=== PATIENT | female | born 1930 | race Caucasian/White ===

== ENCOUNTER 2017-08-30 17:11 | Inpatient (IN) | payer MEDICARE, OTHER ==
[2017-08-30] MEDS ORDERED: Sodium Chloride 0.9% 10 ML Syringe FLUSH PRN (19:29)
[2017-08-30] MEDS ORDERED: BIMATOPROST 0.01% EYERT SCH (21:00)
[2017-08-30] MEDS ORDERED: Budesonide 0.5 MG/2 ML Neb Susp ONE (21:01)
[2017-08-30] MEDS: Budesonide 0.5 MG/2 ML Neb Susp INH SCH (21:12)
[2017-08-30] MEDS: Simvastatin 20 MG Tab PO SCH (21:13)
[2017-08-30] MEDS: Acetaminophen 500 MG Tab PO SCH (21:13)
[2017-08-30] MEDS: busPIRone 5 MG Tab PO SCH (21:13)
[2017-08-30] MEDS: Montelukast 10 MG Tab PO SCH (21:13)
[2017-08-30] MEDS: Enoxaparin 40 MG/0.4 ML Syringe SUBCUT SCH (21:13)
[2017-08-30] MEDS: cefTRIAXone 1,000 MG in Sodium Chloride 0.9% 50 ML IV SCH (21:14)
[2017-08-30] MEDS: ROFLUMILAST 500 MCG PO SCH (21:29)
[2017-08-30] MEDS: BRINZOLAMIDE EYERT SCH (21:29)
[2017-08-30] MEDS: Carboxymethylcellulose Sodium 0.5% Ophth Soln 0.4 ML UD Box of 30 EYEBOTH SCH (21:34)
[2017-08-30] MEDS: Albuterol/Ipratropium 3.0-0.5 MG/3 ML Neb Soln NEB PRN (21:37)
[2017-08-30] MEDS: Azithromycin 500 MG in Sodium Chloride 0.9% 250 ML IV SCH (22:24)
[2017-08-30] MEDS: Arformoterol 15 MCG/2 ML Neb Soln INH SCH (22:27)
[2017-08-30] MEDS ORDERED: hydrOXYzine HCl 25 MG Tab PO ONE (22:38)
[2017-08-31] MEDS ORDERED: hydrOXYzine HCl 25 MG Tab PO ONE (02:30)
[2017-08-31] MEDS: Arformoterol 15 MCG/2 ML Neb Soln INH SCH ×2 (08:47→20:43)
[2017-08-31] MEDS: Budesonide 0.5 MG/2 ML Neb Susp INH SCH ×2 (08:50→19:54)
[2017-08-31] MEDS ORDERED: UMECLIDINIUM BROMIDE IH SCH (09:00)
[2017-08-31] MEDS: Carvedilol 6.25 MG Tab PO SCH ×2 (09:05→17:06)
[2017-08-31] MEDS: BRINZOLAMIDE EYERT SCH ×3 (09:06→20:42)
[2017-08-31] MEDS: Ferrous Gluconate 324 MG Tab PO SCH (09:06)
[2017-08-31] MEDS: busPIRone 5 MG Tab PO SCH ×2 (09:07→20:43)
[2017-08-31] MEDS: Carboxymethylcellulose Sodium 0.5% Ophth Soln 0.4 ML UD Box of 30 EYEBOTH SCH ×4 (09:07→20:43)
[2017-08-31] MEDS: Acetaminophen 500 MG Tab PO SCH ×3 (09:08→20:44)
--- NOTE | 2017-08-31 09:52 | HP ---
ADMISSION DATE: 08/30/2017 REASON FOR VISIT: Complicated cough, respiratory difficulty, pneumonia. HISTORY OF PRESENT ILLNESS: Betty De León is an 86-year-old, female, [place] with her son and [id number]-ffu in [place], [place], who was admitted to [facility] in referral from TASHIA Rivero, Patricia, Marine. Complicated medical history present. Awaken yesterday in the morning with one episode of vomiting; 4 peculiar diarrhea stools without blood, cramps and discomfort; suspicion for fever with chills and sweats during the night; awaken this morning in better spirits. One episode of diarrhea today. No vomiting. Increasing symptoms are respiratory difficulty, complicated cough, difficulty with ambulation, a long-standing history of underlying COPD, reactive airway disease, and repetitive hospitalizations, most recently in October 2016. She was seen by TASHIA Silverman, Patricia, pneumonia was present by exam and radiographically; she had elevated white count of greater than 16,000, admission to hospital was indicated. Daughter in attendance for history and intervention. MEDICATIONS: Please see medication reconciliation list. ALLERGIES: Allergic to levofloxacin, allergy reaction unknown; Optive eyedrops, allergy unknown. PAST MEDICAL HISTORY: Significant for operative procedures including tonsillectomy; adenoidectomy; cholecystectomy for acute cholecystitis; hysterectomy; uterus only by history, uncertain cause; appendectomy for acute appendicitis; hiatal hernia surgery by report. She also had a previous left surgical hip with replacement x2. No other operative procedures, hospitalizations, unusual childhood diseases, major injuries, or fractures. Ongoing medical problems include COPD, peripheral vascular disease, mood disorder, and osteoarthritis. SOCIAL HISTORY: Resides with her son and mveduymn-at-ept on a farmstead in [place], [place]. She has been for 2 years. at 89. of issues of a complicated infection and COPD. 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 She had a set of twins, one daughter early in infancy. An older daughter to the twins, a son younger than the twins, and an adopted son. Smoked, quit in 1993; nil alcohol consumption; no illicit drug use. REVIEW OF SYSTEMS: CONSTITUTIONAL: Feeling a little weak, fatigable, and tired, short of breath. EYES: Sees well by report. EARS: Hears with some difficulty in crowds and background noise. Oropharynx, intact dentition. CHEST: Please see HPI. CVA: Denies chest pain, palpitations, syncope. GI: Regular predictable stools, no blood in urine. Recent vomiting, diarrhea has ceased. : Reasonable bladder control and nocturia x2. No blood in stool. SKIN: No new lesions, eruptions, or moles. ENDOCRINE: No excessive thirst, urination. ALLERGY: No chronic cough, wheeze, or congestion. PSYCHIATRIC: Mood stable. Meds on board. PHYSICAL EXAMINATION: VITAL SIGNS: Weight 47.53 kg, temperature 36.36 degrees Fahrenheit, pulse 93 and regular, blood pressure 128/65, respirations 20, O2 saturation 93% on 4 L. GENERAL: Cooperative, conversant, appears in mild distress, conversation was comfortable. HEENT: Conjunctivae clear. Funduscopic benign. Bright TMs. Clear nasal discharge. Mouth and oropharynx clear. Good gag reflex. Tongue midline. NECK: Benign. Thyroid small. No adenopathy. No JVD. CHEST: Diffuse wheeze and coarse rhonchi, particularly the left lower lung field. HEART: Distant heart sounds without ectopy or significant murmur. BREASTS: Symmetric, atrophic without masses. ABDOMEN: Benign. Lower abdominal surgical scars well healed. PELVIC AND RECTAL: Exam deferred. EXTREMITIES: Well perfused, good reflexes, symmetric sensation intact. Toes downgoing plantar flexion. Left lateral hip surgical scar well healed, remote. LABORATORY DATA: CBC per [facility], white count 16,600, normal CBC otherwise. Radiograph report to follow. Diagnostic studies to follow. ASSESSMENT: An 86-year-old female presents with history of underlying chronic obstructive pulmonary disease, reactive airway disease, an evolving pneumonia with pre-existing medical conditions above. Secondary diagnoses, please see information above. PLAN: Admission to hospital is indicated; blood cultures to be obtained; RT actively involved; 2 drug intravenous therapies - using azithromycin and Rocephin; complementary care and well-being; RT treatments; medications reviewed and appropriate. Inhalation therapy to be continued. /[id number] [place]/CLAUDETTE CC: Warren Santos PA-C
[2017-08-31] MEDS: Tiotropium Inhaler 18 MCG Inhalation Powder Cap Kit of 5 INH SCH (11:10)
[2017-08-31] MEDS: Isosorbide Mononitrate 30 MG Tab.ER PO SCH (11:13)
[2017-08-31] MEDS: Escitalopram 20 MG Tab PO SCH (11:14)
--- NOTE | 2017-08-31 11:21 | PN ---
DATE SEEN: 08/31/2017 SUBJECTIVE: Betty De León is a delightful 86-year-old female from [facility], was admitted yesterday with from [facility]. Dr. Rios, provider of record. Acute onset 24 hours of vomiting and diarrhea, increasing respiratory distress, and radiographic evidence by report of pneumonia. Doing well. Comfortable, feeling well. Much better this morning, she slept with reasonable success. Diagnostic studies, CBC from [facility] noted. Chemistries were satisfactory, potassium 3.1, GFR 60. White count was 10,300. OBJECTIVE: NECK: Benign. Thyroid small. CHEST: Diffuse wheeze and coarse rhonchi. Better air exchange than yesterday. ABDOMEN: Benign. CARDIAC: Distant heart sounds. IMPRESSION: Exacerbation of chronic obstructive pulmonary disease, oxygen dependent by history with accompanying infection. PLAN: We will continue IV azithromycin, IV Rocephin, aggressive treatment and expectations for short hospital stay. /[id number] SYDNEE/CLAUDETTE
[2017-08-31] MEDS: Albuterol/Ipratropium 3.0-0.5 MG/3 ML Neb Soln NEB PRN ×2 (13:38→23:31)
[2017-08-31] MEDS: Aspirin 81 MG Tab.EC PO SCH (17:06)
[2017-08-31] MEDS: cefTRIAXone 1,000 MG in Sodium Chloride 0.9% 50 ML IV SCH (19:56)
[2017-08-31] MEDS: Enoxaparin 40 MG/0.4 ML Syringe SUBCUT SCH (20:43)
[2017-08-31] MEDS: ROFLUMILAST 500 MCG PO SCH (20:44)
[2017-08-31] MEDS: Montelukast 10 MG Tab PO SCH (20:44)
[2017-08-31] MEDS: Latanoprost 0.005% Ophth Soln 2.5 ML Bottle EYERT SCH (20:45)
[2017-08-31] MEDS: Simvastatin 20 MG Tab PO SCH (20:46)
[2017-08-31] MEDS: Azithromycin 500 MG in Sodium Chloride 0.9% 250 ML IV SCH (20:46)
[2017-08-31] MEDS: Acetaminophen/Diphenhydramine 500-25 MG Tab PO PRN (22:04)
[2017-09-01] MEDS: Budesonide 0.5 MG/2 ML Neb Susp INH SCH ×2 (07:49→19:45)
[2017-09-01] MEDS: Arformoterol 15 MCG/2 ML Neb Soln INH SCH ×2 (08:25→19:29)
--- NOTE | 2017-09-01 08:25 | PN ---
DATE SEEN: 09/01/2017 SUBJECTIVE: Betty De León is an 86-year-old female, admitted with acute respiratory distress. Radiographs had been performed prior to admission. Blood cultures are negative, laboratory studies from 08/31/2017 were reviewed and satisfactory. Presently on IV azithromycin and IV ceftriaxone, host of bronchodilator therapy. Feeling much better. OBJECTIVE: VITAL SIGNS: 36.7, 125/53, 22, 95% on 3 L. HEENT: Funduscopic benign. Bright TMs. Clear nasal discharge. Mouth and oropharynx clear. CHEST: Diffuse wheezing, coarse rhonchi. HEART: Regular rate without ectopy or murmur. ABDOMEN: Benign. ASSESSMENT: Acute exacerbation of chronic obstructive pulmonary disease with pneumonia. PLAN: Medications, care and treatment appropriate. Intervention and care as noted. Chest x-ray to follow. /[id number] SYDNEE/CLAUDETTE
[2017-09-01] MEDS: Carvedilol 6.25 MG Tab PO SCH ×2 (08:52→17:05)
[2017-09-01] MEDS: Carboxymethylcellulose Sodium 0.5% Ophth Soln 0.4 ML UD Box of 30 EYEBOTH SCH ×4 (08:52→20:38)
[2017-09-01] MEDS: busPIRone 5 MG Tab PO SCH ×2 (08:52→20:38)
[2017-09-01] MEDS: Ferrous Gluconate 324 MG Tab PO SCH (08:52)
[2017-09-01] MEDS: BRINZOLAMIDE EYERT SCH ×3 (08:52→20:37)
[2017-09-01] MEDS: Tiotropium Inhaler 18 MCG Inhalation Powder Cap Kit of 5 INH SCH (08:53)
[2017-09-01] MEDS: Acetaminophen 500 MG Tab PO SCH ×3 (08:54→20:40)
[2017-09-01] MEDS: methylPREDNISolone Sodium Succinate 40 MG/1 ML SDV IVPUSH SCH ×2 (09:19→19:39)
[2017-09-01] MEDS: Isosorbide Mononitrate 30 MG Tab.ER PO SCH (11:17)
[2017-09-01] MEDS: Escitalopram 20 MG Tab PO SCH (11:19)
--- NOTE | 2017-09-01 12:15 | CR ---
INDICATION: Follow-up pneumonia. CHEST: PA and lateral views of the chest 09/01/2017 were compared with 2015 and 11/06/2016, revealing increasing infiltration in the right mid to lower lung field, which appears to be in the right upper lobe with pleuritis present, and also in the posterior right lower lobe with pleuritis being present , there being blunting of the posterior sulcus on the right. Findings remain compatible with COPD, ASHD with cardiomegaly, and osteoporosis with a compression fracture unchanged from the previous 11/06/2016 examination in the mid thoracic spine. The aorta is tortuous and calcified. IMPRESSION: 1. Increasing severity of pneumonia or recurrent pneumonia in the right upper lobe extending along the major fissure into the middle lobe area to a minimal extent, and also focally in the posterior basilar right lower lobe, with suggestion of pleuritis. 2. COPD. 3. ASHD with cardiomegaly. 4. Osteoporosis with stable compression. MTDD
[2017-09-01] MEDS: Albuterol/Ipratropium 3.0-0.5 MG/3 ML Neb Soln NEB PRN (14:41)
[2017-09-01] MEDS: Aspirin 81 MG Tab.EC PO SCH (17:05)
[2017-09-01] MEDS: cefTRIAXone 1,000 MG in Sodium Chloride 0.9% 50 ML IV SCH (19:33)
[2017-09-01] MEDS: Sodium Chloride 0.9% 250 ML IV SCH (19:49)
[2017-09-01] MEDS: Enoxaparin 40 MG/0.4 ML Syringe SUBCUT SCH (20:38)
[2017-09-01] MEDS: Simvastatin 20 MG Tab PO SCH (20:39)
[2017-09-01] MEDS: ROFLUMILAST 500 MCG PO SCH (20:39)
[2017-09-01] MEDS: Montelukast 10 MG Tab PO SCH (20:39)
[2017-09-01] MEDS: Latanoprost 0.005% Ophth Soln 2.5 ML Bottle EYERT SCH (20:40)
[2017-09-01] MEDS: Azithromycin 500 MG in Sodium Chloride 0.9% 250 ML IV SCH (20:41)
[2017-09-01] MEDS: Acetaminophen/Diphenhydramine 500-25 MG Tab PO PRN (20:50)
[2017-09-02] MEDS: Budesonide 0.5 MG/2 ML Neb Susp INH SCH ×2 (07:47→19:39)
[2017-09-02] MEDS: Arformoterol 15 MCG/2 ML Neb Soln INH SCH ×2 (07:54→19:38)
[2017-09-02] MEDS: Carvedilol 6.25 MG Tab PO SCH ×2 (08:47→17:09)
[2017-09-02] MEDS: Ferrous Sulfate 325 MG Tab PO SCH (08:48)
[2017-09-02] MEDS: BRINZOLAMIDE EYERT SCH ×3 (08:48→20:34)
[2017-09-02] MEDS: methylPREDNISolone Sodium Succinate 40 MG/1 ML SDV IVPUSH SCH (08:48)
[2017-09-02] MEDS: Acetaminophen 500 MG Tab PO SCH ×3 (08:49→20:36)
[2017-09-02] MEDS: Carboxymethylcellulose Sodium 0.5% Ophth Soln 0.4 ML UD Box of 30 EYEBOTH SCH ×4 (08:49→20:35)
[2017-09-02] MEDS: busPIRone 5 MG Tab PO SCH ×2 (08:49→20:34)
[2017-09-02] MEDS: Tiotropium Inhaler 18 MCG Inhalation Powder Cap Kit of 5 INH SCH (08:49)
[2017-09-02] MEDS: Escitalopram 20 MG Tab PO SCH (11:20)
[2017-09-02] MEDS: Isosorbide Mononitrate 30 MG Tab.ER PO SCH (11:20)
[2017-09-02] MEDS: Albuterol/Ipratropium 3.0-0.5 MG/3 ML Neb Soln NEB PRN (13:31)
[2017-09-02] MEDS ORDERED: predniSONE 20 MG Tab PO ONE (15:37)
--- NOTE | 2017-09-02 15:39 | PCM.PN ---
- General Info Date of Service: 09/02/17 Admission Dx/Problem (Free Text): COPD exacerbation with pneumonia RML/RUL. Subjective Update: Patient feeling 75% improved today. No N/V/D. No CP except with cough. Still SOB particularly with exertion but much improved. Has trouble sleeping because of the steroids. Wondering about a sleep aid. Functional Status: Reports: Tolerating Diet, Ambulating, Urinating - Review of Systems General: Reports: No Symptoms - Patient Data Vitals - Most Recent: Last Vital Signs Temp 36.5 C 09/02/17 12:00 Pulse 66 09/02/17 13:46 Resp 24 H 09/02/17 12:00 BP 147/71 H 09/02/17 12:00 Pulse Ox 95 09/02/17 13:46 Weight - Most Recent: 48.988 kg Chet Results Last 24 Hours: Microbiology 08/30/17 20:06 Aerobic Blood Culture - Preliminary Blood - Venous - Lab Draw NO GROWTH AFTER 2 DAYS Anaerobic Blood Culture - Preliminary NO GROWTH AFTER 2 DAYS 08/30/17 20:00 Aerobic Blood Culture - Preliminary Blood - Venous NO GROWTH AFTER 2 DAYS Anaerobic Blood Culture - Preliminary NO GROWTH AFTER 2 DAYS Med Orders - Current: Current Medications Acetaminophen (Tylenol Extra Strength) 500 mg PO TID [facility] Last Admin: 09/02/17 13:16 Dose: 500 mg Acetaminophen/Diphenhydramine HCl (Tylenol Pm Extra Strength) 1 tab PO BEDTIME PRN PRN Reason: Insomnia Last Admin: 09/01/17 20:50 Dose: 1 tab Albuterol/Ipratropium (Duoneb 3.0-0.5 Mg/3 Ml) 3 ml NEB Q6H PRN PRN Reason: breathing Last Admin: 09/02/17 13:31 Dose: 3 ml Arformoterol Tartrate (Brovana) 15 mcg INH 0800,2000 [facility] Last Admin: 09/02/17 07:54 Dose: 15 mcg Artificial Tears (Refresh Plus 0.5%) 0 each EYEBOTH QID [facility] Last Admin: 09/02/17 13:15 Dose: 1 drop Aspirin (Halfprin) 81 mg PO 1700 [facility] Last Admin: 09/01/17 17:05 Dose: 81 mg Azithromycin (Zithromax) 250 mg PO DAILY [facility] Budesonide (Pulmicort) 0.5 mg INH 08,20 [facility] Last Admin: 09/02/17 07:47 Dose: 0.5 mg Buspirone HCl (Buspar) 5 mg PO BID [facility] Last Admin: 09/02/17 08:49 Dose: 5 mg Carvedilol (Coreg) 6.25 mg PO BIDMEALS [facility] Last Admin: 09/02/17 08:47 Dose: 6.25 mg Enoxaparin Sodium (Lovenox) 40 mg SUBCUT Q24H [facility] Last Admin: 09/01/17 20:38 Dose: 40 mg Escitalopram Oxalate (Lexapro) 20 mg PO WITHLUNCH [facility] Last Admin: 09/02/17 11:20 Dose: 20 mg Ferrous Sulfate (Ferrous Sulfate) 325 mg PO 0800 [facility] Last Admin: 09/02/17 08:48 Dose: 325 mg Ceftriaxone Sodium 1,000 mg/ (Sodium Chloride) 50 mls @ 100 mls/hr IV Q24H [facility] Last Admin: 09/01/17 19:33 Dose: 100 mls/hr Sodium Chloride (Normal Saline) 250 mls @ 100 mls/hr IV ASDIRECTED [facility] Last Admin: 09/01/17 19:49 Dose: 100 mls/hr Isosorbide Mononitrate (Imdur) 30 mg PO WITHLUNCH [facility] Last Admin: 09/02/17 11:20 Dose: 30 mg Latanoprost (Xalatan 0.005% Ophth Soln) 0 ml EYERT BEDTIME [facility] Last Admin: 09/01/17 20:40 Dose: 1 drop Montelukast Sodium (Singulair) 10 mg PO BEDTIME [facility] Last Admin: 09/01/17 20:39 Dose: 10 mg Brinzolamide [Azopt 1% Ophth Susp] Own Med 1 drop EYERT TID [facility] Last Admin: 09/02/17 13:15 Dose: 1 drop Roflumilast [ Daliresp] 500mcg Own Med 500 mcg PO BEDTIME [facility] Last Admin: 09/01/17 20:39 Dose: 500 mcg Prednisone (Prednisone) 40 mg PO WITHBREAKFAST [facility] Prednisone (Prednisone) 40 mg PO ONETIME ONE Stop: 09/02/17 15:38 Simvastatin (Zocor) 20 mg PO BEDTIME [facility] Last Admin: 09/01/17 20:39 Dose: 20 mg Sodium Chloride (Saline Flush) 10 ml FLUSH ASDIRECTED PRN PRN Reason: Keep Vein Open Tiotropium Whately (Spiriva Handihaler) 18 mcg INH DAILY [facility] Last Admin: 09/02/17 08:49 Dose: 18 mcg Discontinued Medications Arformoterol Tartrate (Brovana) 15 mcg INH 09,21 [facility] Last Admin: 09/01/17 08:25 Dose: 15 mcg Bimatoprost (Lumigan 0.01% Ophth Soln) 0 ml EYERT BEDTIME [facility] Last Admin: 08/30/17 22:25 Dose: 1 drop Budesonide (Pulmicort) Confirm Administered Dose 0.5 mg .ROUTE .STK-MED ONE Stop: 08/30/17 21:02 Last Admin: 08/30/17 21:30 Dose: Not Given Ferrous Gluconate (Ferrous Gluconate) 324 mg PO 0800 [facility] Last Admin: 09/01/17 08:52 Dose: 324 mg Hydroxyzine HCl (Atarax) 25 mg PO ONETIME ONE Stop: 08/30/17 22:39 Last Admin: 08/30/17 23:04 Dose: 25 mg Hydroxyzine HCl (Atarax) 25 mg PO ONETIME ONE Stop: 08/31/17 02:31 Last Admin: 08/31/17 02:15 Dose: 25 mg Azithromycin 500 mg/ Sodium (Chloride) 250 mls @ 250 mls/hr IV Q24H [facility] Last Admin: 09/01/17 20:41 Dose: 250 mls/hr Methylprednisolone Sodium Succinate (Solu-Medrol) 40 mg IVPUSH Q12H [facility] Last Admin: 09/02/17 08:48 Dose: 40 mg Umeclidinium Whately [Incruse Ellipta*] Inh Own Med 1 puff IH DAILY [facility] Last Admin: 09/02/17 14:29 Dose: Not Given - Exam Quality Assessment: Supplemental Oxygen General: Alert, Oriented, Cooperative, No Acute Distress HEENT: Pupils Equal, Pupils Reactive Neck: Supple Lungs: Decreased Breath Sounds, Crackles, Rhonchi (on right > Left) Cardiovascular: Regular Rate, Regular Rhythm, No Murmurs GI/Abdominal Exam: Normal Bowel Sounds, Soft, Non-Tender Extremities: Pedal Edema (trace bilaterally. ) Skin: Warm, Dry, Intact - Problem List & Annotations (1) COPD with exacerbation SNOMED Code(s): 687342392 Code(s): J44.1 - CHRONIC OBSTRUCTIVE PULMONARY DISEASE W (ACUTE) EXACERBATION Status: Acute Current Visit: No Annotation/Comment:: Continue rocephin, #5 tomorrow can be given early if patient ready for d/c. Change solumedrol to prednisone PO. Would suggest CT chest given abnormality on xray and continued rhonchi which we will do in am. Azithromycin to po tonight day #4. Likely ready for D/C home tomorrow with home health and home O2 as per previous. 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 Discussed increased risk of falls in patients > 65. - Problem List Review Problem List Initiated/Reviewed/Updated: Yes - My Orders Last 24 Hours: My Active Orders 09/02/17 15:37 predniSONE 40 mg PO ONETIME ONE 09/02/17 15:45 predniSONE 40 mg PO WITHBREAKFAST 09/02/17 21:00 Azithromycin [Zithromax] 250 mg PO DAILY
[2017-09-02] MEDS: Aspirin 81 MG Tab.EC PO SCH (17:08)
[2017-09-02] MEDS: cefTRIAXone 1,000 MG in Sodium Chloride 0.9% 50 ML IV SCH (19:39)
[2017-09-02] MEDS: Sodium Chloride 0.9% 250 ML IV SCH (19:39)
[2017-09-02] MEDS: ROFLUMILAST 500 MCG PO SCH (20:35)
[2017-09-02] MEDS: Enoxaparin 40 MG/0.4 ML Syringe SUBCUT SCH (20:35)
[2017-09-02] MEDS: Montelukast 10 MG Tab PO SCH (20:36)
[2017-09-02] MEDS: Simvastatin 20 MG Tab PO SCH (20:37)
[2017-09-02] MEDS: Latanoprost 0.005% Ophth Soln 2.5 ML Bottle EYERT SCH (20:37)
[2017-09-02] MEDS: Azithromycin 250 MG Tab PO SCH (20:41)
[2017-09-02] MEDS: Zolpidem 5 MG Tab PO PRN (21:59)
[2017-09-03] MEDS: Budesonide 0.5 MG/2 ML Neb Susp INH SCH ×2 (07:46→19:44)
[2017-09-03] MEDS: Arformoterol 15 MCG/2 ML Neb Soln INH SCH ×2 (07:51→19:59)
[2017-09-03] MEDS: Tiotropium Inhaler 18 MCG Inhalation Powder Cap Kit of 5 INH SCH (08:27)
[2017-09-03] MEDS: Carboxymethylcellulose Sodium 0.5% Ophth Soln 0.4 ML UD Box of 30 EYEBOTH SCH ×4 (08:27→20:51)
[2017-09-03] MEDS: BRINZOLAMIDE EYERT SCH ×3 (08:27→20:44)
[2017-09-03] MEDS: Ferrous Sulfate 325 MG Tab PO SCH (08:28)
[2017-09-03] MEDS: Carvedilol 6.25 MG Tab PO SCH ×2 (08:28→18:22)
[2017-09-03] MEDS: busPIRone 5 MG Tab PO SCH ×2 (08:29→20:43)
[2017-09-03] MEDS: Acetaminophen 500 MG Tab PO SCH ×3 (08:29→20:42)
[2017-09-03] MEDS: predniSONE 20 MG Tab PO SCH (08:32)
[2017-09-03] MEDS: Azithromycin 250 MG Tab PO SCH (08:32)
[2017-09-03] MEDS: Isosorbide Mononitrate 30 MG Tab.ER PO SCH (11:31)
[2017-09-03] MEDS: Escitalopram 20 MG Tab PO SCH (12:54)
[2017-09-03] MEDS: Albuterol/Ipratropium 3.0-0.5 MG/3 ML Neb Soln NEB PRN (13:13)
--- NOTE | 2017-09-03 15:39 | PCM.PN ---
- General Info Date of Service: 09/03/17 Subjective Update: Patient is an 86-year-old female currently on hospital day #5 for community- acquired pneumonia and COPD exacerbation. Patient has a history of severe underlying lung disease and follows with pulmonary through [facility]. She is quite anxious today about her breathing. Her vital signs have been stable. She doesn't really feel more short of breath but just doesn't feel good. She's had no chest pain. She was able to walk without difficulty with her supplemental oxygen in the [place] with staff. No nausea, no vomiting, no diarrhea. Functional Status: Reports: Tolerating Diet, Ambulating - Review of Systems General: Reports: Weakness, Fatigue Psychiatric: Reports: Anxiety - Patient Data Vitals - Most Recent: Last Vital Signs Temp 36.4 C 09/03/17 09:15 Pulse 78 09/03/17 14:27 Resp 24 H 09/03/17 09:15 BP 157/72 H 09/03/17 11:31 Pulse Ox 96 09/03/17 14:27 Weight - Most Recent: 47.446 kg Lab Results Last 24 Hours: Laboratory Results - last 24 hr 09/03/17 09/03/17 Range/Units 08:37 08:37 WBC 10.3 (4.5-12.0) X10-3/uL RBC 4.18 (3.23-5.20) x10(6)uL Hgb 12.7 (11.5-15.5) g/dL Hct 37.5 (30.0-51.3) % MCV 89.7 (80-96) fL MCH 30.4 (27.7-33.6) pg MCHC 33.9 (32.2-35.4) g/dL RDW 13.1 (11.5-15.5) % Plt Count 252 (125-369) X10(3)uL MPV 8.2 (7.4-10.4) fL Neut % (Auto) 75.8 (46-82) % Lymph % (Auto) 16.0 (13-37) % [place] % (Auto) 8.1 (4-12) % Eos % (Auto) 0 L (1.0-5.0) % Baso % (Auto) 0 (0-2) % Neut # (Auto) 7.9 (1.6-8.3) # Lymph # (Auto) 1.6 (0.6-5.0) # [place] # (Auto) 0.8 (0.0-1.3) # Eos # (Auto) 0.0 (0.0-0.8) # Baso # (Auto) 0.0 (0.0-0.2) # Sodium 136 (135-145) mmol/L Potassium 2.9 L (3.5-5.3) mmol/L Chloride 96 L (100-110) mmol/L Carbon Dioxide 36 H (23-29) mmol/L BUN 18 (8-23) mg/dL Creatinine 0.5 L (0.6-1.3) mg/dL Est Cr Clr Drug Dosing 59.09 mL/min Estimated GFR (MDRD) > 60 (>60) BUN/Creatinine Ratio 36.0 H (9-20) Glucose 103 (80-116) mg/dL Calcium 8.8 (8.6-10.2) mg/dL Total Bilirubin 0.5 (0.1-1.3) mg/dL AST 30 H D (5-27) IU/L ALT 20 D (14-26) IU/L Alkaline Phosphatase 42 L (56-112) IU/L Total Protein 6.9 (6.0-8.0) g/dL Albumin 3.7 (3.2-4.6) g/dL Globulin 3.2 g/dL Albumin/Globulin Ratio 1.2 Chet Results Last 24 Hours: Microbiology 08/30/17 20:06 Aerobic Blood Culture - Preliminary Blood - Venous - Lab Draw NO GROWTH AFTER 3 DAYS Anaerobic Blood Culture - Preliminary NO GROWTH AFTER 3 DAYS 08/30/17 20:00 Aerobic Blood Culture - Preliminary Blood - Venous NO GROWTH AFTER 3 DAYS Anaerobic Blood Culture - Preliminary NO GROWTH AFTER 3 DAYS Med Orders - Current: Current Medications Acetaminophen (Tylenol Extra Strength) 500 mg PO TID MAX Last Admin: 09/03/17 13:45 Dose: 500 mg Acetaminophen/Diphenhydramine HCl (Tylenol Pm Extra Strength) 1 tab PO BEDTIME PRN PRN Reason: Insomnia Last Admin: 09/01/17 20:50 Dose: 1 tab Albuterol/Ipratropium (Duoneb 3.0-0.5 Mg/3 Ml) 3 ml NEB Q6H PRN PRN Reason: breathing Last Admin: 09/03/17 13:13 Dose: 3 ml Arformoterol Tartrate (Brovana) 15 mcg INH 0800,2000 [facility] Last Admin: 09/03/17 07:51 Dose: 15 mcg Artificial Tears (Refresh Plus 0.5%) 0 each EYEBOTH QID [facility] Last Admin: 09/03/17 12:55 Dose: 1 drop Aspirin (Halfprin) 81 mg PO 1700 [facility] Last Admin: 09/02/17 17:08 Dose: 81 mg Azithromycin (Zithromax) 250 mg PO DAILY [facility] Last Admin: 09/03/17 08:32 Dose: 250 mg Budesonide (Pulmicort) 0.5 mg INH 08,20 [facility] Last Admin: 09/03/17 07:46 Dose: 0.5 mg Buspirone HCl (Buspar) 5 mg PO BID [facility] Last Admin: 09/03/17 08:29 Dose: 5 mg Carvedilol (Coreg) 6.25 mg PO BIDMEALS [facility] Last Admin: 09/03/17 08:28 Dose: 6.25 mg Enoxaparin Sodium (Lovenox) 40 mg SUBCUT Q24H [facility] Last Admin: 09/02/17 20:35 Dose: 40 mg Escitalopram Oxalate (Lexapro) 20 mg PO WITHLUNCH [facility] Last Admin: 09/03/17 12:54 Dose: 20 mg Ferrous Sulfate (Ferrous Sulfate) 325 mg PO 0800 [facility] Last Admin: 09/03/17 08:28 Dose: 325 mg Ceftriaxone Sodium 1,000 mg/ (Sodium Chloride) 50 mls @ 100 mls/hr IV Q24H [facility] Last Admin: 09/02/17 19:39 Dose: 100 mls/hr Sodium Chloride (Normal Saline) 250 mls @ 100 mls/hr IV ASDIRECTED [facility] Last Admin: 09/02/17 19:39 Dose: 100 mls/hr Isosorbide Mononitrate (Imdur) 30 mg PO WITHLUNCH [facility] Last Admin: 09/03/17 11:31 Dose: 30 mg Latanoprost (Xalatan 0.005% Ophth Soln) 0 ml EYERT BEDTIME [facility] Last Admin: 09/02/17 20:37 Dose: 1 drop Montelukast Sodium (Singulair) 10 mg PO BEDTIME [facility] Last Admin: 09/02/17 20:36 Dose: 10 mg Brinzolamide [Azopt 1% Ophth Susp] Own Med 1 drop EYERT TID [facility] Last Admin: 09/03/17 13:45 Dose: 1 drop Roflumilast [ Daliresp] 500mcg Own Med 500 mcg PO BEDTIME [facility] Last Admin: 09/02/17 20:35 Dose: 500 mcg Prednisone (Prednisone) 40 mg PO WITHBREAKFAST [facility] Last Admin: 09/03/17 08:32 Dose: 40 mg Simvastatin (Zocor) 20 mg PO BEDTIME [facility] Last Admin: 09/02/17 20:37 Dose: 20 mg Sodium Chloride (Saline Flush) 10 ml FLUSH ASDIRECTED PRN PRN Reason: Keep Vein Open Last Admin: 09/02/17 20:42 Dose: 10 ml Tiotropium Tennyson (Spiriva Handihaler) 18 mcg INH DAILY [facility] Last Admin: 09/03/17 08:27 Dose: 18 mcg Zolpidem Tartrate (Ambien) 5 mg PO BEDTIME PRN PRN Reason: Insomnia Last Admin: 09/02/17 21:59 Dose: 5 mg Discontinued Medications Arformoterol Tartrate (Brovana) 15 mcg INH 09,21 [facility] Last Admin: 09/01/17 08:25 Dose: 15 mcg Bimatoprost (Lumigan 0.01% Ophth Soln) 0 ml EYERT BEDTIME [facility] Last Admin: 08/30/17 22:25 Dose: 1 drop Budesonide (Pulmicort) Confirm Administered Dose 0.5 mg .ROUTE .STK-MED ONE Stop: 08/30/17 21:02 Last Admin: 08/30/17 21:30 Dose: Not Given Ferrous Gluconate (Ferrous Gluconate) 324 mg PO 0800 [facility] Last Admin: 09/01/17 08:52 Dose: 324 mg Hydroxyzine HCl (Atarax) 25 mg PO ONETIME ONE Stop: 08/30/17 22:39 Last Admin: 08/30/17 23:04 Dose: 25 mg Hydroxyzine HCl (Atarax) 25 mg PO ONETIME ONE Stop: 08/31/17 02:31 Last Admin: 08/31/17 02:15 Dose: 25 mg Azithromycin 500 mg/ Sodium (Chloride) 250 mls @ 250 mls/hr IV Q24H [facility] Last Admin: 09/01/17 20:41 Dose: 250 mls/hr Methylprednisolone Sodium Succinate (Solu-Medrol) 40 mg IVPUSH Q12H [facility] Last Admin: 09/02/17 08:48 Dose: 40 mg Umeclidinium Tennyson [Incruse Ellipta*] Inh Own Med 1 puff IH DAILY [facility] Last Admin: 09/02/17 14:29 Dose: Not Given Prednisone (Prednisone) 40 mg PO ONETIME ONE Stop: 09/02/17 15:38 Last Admin: 09/02/17 17:07 Dose: 40 mg - Exam General: Alert, Oriented, No Acute Distress HEENT: Pupils Equal, Pupils Reactive Neck: Supple Lungs: Decreased Breath Sounds, Rhonchi (improved from yesterday.) Cardiovascular: Regular Rate, Regular Rhythm, No Murmurs GI/Abdominal Exam: Normal Bowel Sounds, Soft, Non-Tender, No Distention Back Exam: Normal Inspection Extremities: Normal Inspection, No Pedal Edema Skin: Warm, Dry, Intact Psy/Mental Status: Alert, Anxious - Problem List & Annotations (1) COPD with exacerbation SNOMED Code(s): 207712628 Code(s): J44.1 - CHRONIC OBSTRUCTIVE PULMONARY DISEASE W (ACUTE) EXACERBATION Status: Acute Current Visit: No Annotation/Comment:: Today will be day #5 for both rocephin and azithromycin. Prednisone is now PO. Chest CT showed an area of concern in this right middle lobe which should be further evaluated by pulmonary, which they already see in the outpatient setting. Patient very anxious about returning home, would suggest short-term placement for PT/OT and strengthening while she continues to recover. Daughter requested we restart Recruse Ellipta which we can certainly do. Will stop the spiriva when we get this labeled from pharmacy. (2) Insomnia SNOMED Code(s): 748882791 Code(s): G47.00 - INSOMNIA, UNSPECIFIED Status: Acute Current Visit: Yes Qualifiers: Insomnia type: drug-induced Qualified Code(s): F19.982 - Other psychoactive substance use, unspecified with psychoactive substance-induced sleep disorder Annotation/Comment:: Ambien at bedtime for sleep per patient request. Discussed increased risk of falls in patients > 65. May take 1/2 dose if she chooses. (3) Abnormal CT of the chest SNOMED Code(s): 537735919 Code(s): R93.8 - ABNORMAL FINDINGS ON DIAGNOSTIC IMAGING OF BODY STRUCTURES Status: Acute Current Visit: Yes Annotation/Comment:: CT shows an irregular opacity in the right middle lung. This should be evaluated by pulmonary and considered for bronchoscopy per radiology recommendations. Discussed this at length with patient and her daughter. She will follow up with her regular direct sales consultant. (4) Hypokalemia SNOMED Code(s): 00906973 Code(s): E87.6 - HYPOKALEMIA Status: Acute Current Visit: No Annotation /Comment:: Patient notes she takes TID potassium at home. Will restart here 20 mEq TID. - Problem List Review Problem List Initiated/Reviewed/Updated: Yes - My Orders Last 24 Hours: My Active Orders 09/02/17 15:57 Zolpidem [Ambien] 5 mg PO BEDTIME PRN 09/02/17 21:00 Azithromycin [Zithromax] 250 mg PO DAILY 09/03/17 07:00 Chest wo Cont [CT] Routine 09/03/17 08:00 predniSONE 40 mg PO WITHBREAKFAST - Plan Plan:: Disposition: Anticipate discharge to short-term placement tomorrow for care above what can be provided at home. PT/OT to eval/tx.
[2017-09-03] MEDS: Potassium Chloride 20 MEQ Tab.ER PO SCH ×2 (16:43→20:42)
[2017-09-03] MEDS: Aspirin 81 MG Tab.EC PO SCH (16:45)
[2017-09-03] MEDS: cefTRIAXone 1,000 MG in Sodium Chloride 0.9% 50 ML IV SCH (19:52)
[2017-09-03] MEDS: Sodium Chloride 0.9% 250 ML IV SCH (19:52)
[2017-09-03] MEDS: Montelukast 10 MG Tab PO SCH (20:43)
[2017-09-03] MEDS: ROFLUMILAST 500 MCG PO SCH (20:43)
[2017-09-03] MEDS: Simvastatin 20 MG Tab PO SCH (20:43)
[2017-09-03] MEDS: Latanoprost 0.005% Ophth Soln 2.5 ML Bottle EYERT SCH (20:44)
[2017-09-03] MEDS: Enoxaparin 40 MG/0.4 ML Syringe SUBCUT SCH (20:52)
[2017-09-03] MEDS: Zolpidem 5 MG Tab PO PRN (22:21)
[2017-09-04] MEDS: Arformoterol 15 MCG/2 ML Neb Soln INH SCH (08:13)
[2017-09-04] MEDS: Budesonide 0.5 MG/2 ML Neb Susp INH SCH (08:13)
[2017-09-04] MEDS: Ferrous Sulfate 325 MG Tab PO SCH (08:54)
[2017-09-04] MEDS: Azithromycin 250 MG Tab PO SCH (08:54)
[2017-09-04] MEDS: Potassium Chloride 20 MEQ Tab.ER PO SCH (08:54)
[2017-09-04] MEDS: Acetaminophen 500 MG Tab PO SCH ×2 (08:54→13:33)
[2017-09-04] MEDS: predniSONE 20 MG Tab PO SCH (08:54)
[2017-09-04] MEDS: busPIRone 5 MG Tab PO SCH (08:55)
[2017-09-04] MEDS: BRINZOLAMIDE EYERT SCH ×2 (08:55→13:33)
[2017-09-04] MEDS: Carvedilol 6.25 MG Tab PO SCH (08:55)
[2017-09-04] MEDS: Carboxymethylcellulose Sodium 0.5% Ophth Soln 0.4 ML UD Box of 30 EYEBOTH SCH ×2 (08:56→13:33)
[2017-09-04 08:57] VITALS: BP 132/72
[2017-09-04] MEDS: Tiotropium Inhaler 18 MCG Inhalation Powder Cap Kit of 5 INH SCH (09:58)
[2017-09-04] MEDS: Escitalopram 20 MG Tab PO SCH (11:53)
[2017-09-04] MEDS: Isosorbide Mononitrate 30 MG Tab.ER PO SCH (11:53)
[2017-09-04] MEDS: Albuterol/Ipratropium 3.0-0.5 MG/3 ML Neb Soln NEB PRN (12:44)
--- NOTE | 2017-09-04 16:18 | PCM.DCSUM1 ---
Discharge Summary - Hospital Course Free Text/Narrative:: Patient is an 86-year-old female who was admitted on 08/30/2017 for community- acquired pneumonia and COPD exacerbation. She was admitted for IV azithromycin and Rocephin and steroid therapy. She did well with this. At the end of her treatment she was quite debilitated from her recent illness and the decision was made to admit to swing bed. Patient will be discharged from the hospital to swing bed status for further physical therapy and occupational therapy. Brief History: On the day of discharge, patient was feeling much improved. Shortness of breath was much better. Cough was improved. She had not slept well the night before with the half dose of Ambien so requested that at certain when she would be able to have the full dose. She was still weak and requiring assistance to ambulate. Physical therapy worked with her today and that went well. No chest pain. Improved shortness of breath. Improved cough. No fevers or chills. No nausea, vomiting, diarrhea. Physical exam: On exam this is an elderly female in no distress. Lungs continue to show some rhonchi on the right in the area of the abnormality on CT but otherwise her lungs are almost completely clear. She does have some fine diffuse expiratory wheezes. No crackles. heart sounds are regular with normal rate and rhythm, no murmurs. Abdomen is soft, nontender, nondistended. No pedal edema. - Discharge Data Discharge Date: 09/04/17 Discharge Disposition: DC/Tfer W/I Hosp To Swing Condition: Good - Discharge Diagnosis/Problem(s) (1) Weakness SNOMED Code(s): 41826457 ICD Code: R53.1 - WEAKNESS Status: Acute Problem Details: PT and OT to evaluate and treat. (2) COPD with exacerbation SNOMED Code(s): 803476211 ICD Code: J44.1 - CHRONIC OBSTRUCTIVE PULMONARY DISEASE W (ACUTE) EXACERBATION Status: Acute Problem Details: Completed 5 days rocephin/ azithro, restart Recruse Ellipta. Continue prednisone at 40 mg for now, with taper over the next few days. (3) Anxiety SNOMED Code(s): 91234725 ICD Code: F41.9 - ANXIETY DISORDER, UNSPECIFIED Status: Chronic Problem Details: continue current medication. (4) Abnormal CT of the chest SNOMED Code(s): 713525886 ICD Code: R93.8 - ABNORMAL FINDINGS ON DIAGNOSTIC IMAGING OF BODY STRUCTURES Status: Chronic Problem Details: CT shows an irregular opacity in the right middle lung. This should be evaluated by pulmonary and considered for bronchoscopy per radiology recommendations. She will follow up with her regular stabber. (5) HTN, Benign hypertension SNOMED Code(s): 62070719 ICD Code: I10 - ESSENTIAL (PRIMARY) HYPERTENSION Status: Chronic Problem Details: well-controlled. Continue outpatient medications. - Patient Summary/Data Consults: Consultations 09/04/17 15:36 OT Evaluation and Treatment [CONS] Routine Please Evaluate and Treat. OT Reason for Consult: Strengthening This query below is only for informational purposes and is not editable. Admission Diagnosis/Problem: Weakness PT Evaluation and Treatment [CONS] Routine Please Evaluate and Treat. PT Reason for Consult: Strengthening This query below is only for informational purposes and is not editable. Admission Diagnosis/Problem: Weakness Respiratory Care Assess and Treatment [CONS] Routine Comment: Physician Instructions: - Patient Instructions Diet: Heart Healthy Diet, Low Sodium Activity: As Tolerated - Discharge Plan Home Medications: Home Meds RX: Bimatoprost [LUMIGAN 0.01% Ophth Soln] 1 drop EYERT BEDTIME 11/13/14 [ History] RX: Calcium Carbonate/Vitamin D3 [Calcium 600-Vit D3 400 Tablet] 1 each PO 11/13/14 [History] RX: Isosorbide Mononitrate [Imdur] 30 mg PO WITHLUNCH 11/13/14 [History] RX: Lutein 20 mg PO BEDTIME 11/13/14 [History] RX: Multivit-Min/FA/Lycopene/Lut [Centrum Silver] 1 each PO WITHLUNCH 11/13/14 [ History] RX: Nitroglycerin 0.4 mg SL Q5M PRN 11/13/14 [History] RX: Omeprazole 40 mg PO DAILY 11/13/14 [History] RX: Simvastatin [Zocor] 20 mg PO BEDTIME 11/13/14 [History] RX: busPIRone [Buspar] 5 mg PO BID 11/13/14 [History] RX: Acetaminophen [Tylenol Extra Strength] 500 mg PO TID 12/20/14 [History] RX: Bacitracin/Polymyxin B [Polysporin Ophth Oint] 1 applic EYEBOTH BEDTIME [History] RX: Carboxymethylcellulose Sodium [Refresh Plus 0.5%] 1 drop EYEBOTH QID [History] RX: Roflumilast [Daliresp] 500 mcg PO BEDTIME 03/21/16 [History] RX: Furosemide [Lasix] 10 mg PO Q48H 04/04/16 [History] RX: Montelukast [Singulair] 10 mg PO BEDTIME 04/04/16 [History] RX: Arformoterol [Brovana] 15 mcg INH ,21 05/14/16 [History] RX: Aspirin [Halfprin] 81 mg PO 1700 05/14/16 [History] RX: Budesonide [Pulmicort] 0.5 mg INH ,20 05/14/16 [History] RX: Alendronate Sodium [Alendronate] 70 mg PO GOLD 10/07/16 [History] RX: Brinzolamide [Azopt 1% Ophth Susp] 1 drop EYERT TID 10/07/16 [History] RX: Carvedilol [Coreg] 6.25 mg PO BIDMEALS 10/07/16 [History] RX: Ferrous Gluconate 324 mg PO 0800 10/07/16 [History] RX: Potassium Chloride 10 meq PO TID@08,12,10/07/16 [History] RX: Sodium Chloride [Saline Nasal [place]] 1 dose NS ASDIRECTED PRN 10/07/16 [ History] RX: Escitalopram [Lexapro] 20 mg PO WITHLUNCH #60 tablet 11/12/16 [Rx] RX: Albuterol Sulfate [Proair Respiclick] 2 puff IH Q4H PRN 08/30/17 [History] RX: Umeclidinium [place] [Incruse Ellipta*] 1 puff IH DAILY 08/30/17 [History] RX: Albuterol/Ipratropium [DuoNeb 3.0-0.5 MG/3 ML] 3 ml NEB QID neb 09/04/17 [ Rx] RX: Zolpidem [Ambien] 2.5 mg PO BEDTIME PRN tablet 09/04/17 [Rx] predniSONE [Prednisone] 40 mg PO ASDIRECTED 09/04/17 [History] Patient Handouts: Fall Prevention in the Home, [id number], Shortness of Breath, [id number], Venous Thromboembolism Prevention, Community-Acquired Pneumonia, Adult, [id number] - Discharge Summary/Plan Comment DC Time >30 min.: Yes - Patient Data Med Orders - Current: Current Medications Acetaminophen (Tylenol) 650 mg PO Q4H PRN PRN Reason: Pain (Mild 1-3)/fever Acetaminophen (Tylenol Extra Strength) 500 mg PO TID MAX Albuterol/Ipratropium (Duoneb 3.0-0.5 Mg/3 Ml) 3 ml NEB QID MAX Alendronate Sodium (Fosamax) 70 mg PO GOLD MAX Arformoterol Tartrate (Brovana) 15 mcg INH 0800,2000 MAX Artificial Tears (Refresh Plus 0.5%) each EYEBOTH QID MAX Aspirin (Halfprin) 81 mg PO 1700 MAX Bacitracin/Polymyxin B Sulfate (Polysporin Ophth Oint) 0 gm EYEBOTH BEDTIME MAX Bimatoprost ([place] 0.01% Ophth Soln) ml EYERT BEDTIME MAX Budesonide (Pulmicort) 0.5 mg INH 08,20 MAX Buspirone HCl (Buspar) 5 mg PO BID MAX Carvedilol (Coreg) 6.25 mg PO BIDMEALS MAX Docusate Sodium (Colace) 100 mg PO BID PRN PRN Reason: Constipation Escitalopram Oxalate (Lexapro) 20 mg PO WITHLUNCH MAX Ferrous Sulfate (Ferrous Sulfate) 325 mg PO 0800 MAX Furosemide (Lasix) 10 mg PO Q48H MAX Isosorbide Mononitrate (Imdur) 30 mg PO WITHLUNCH MAX Montelukast Sodium (Singulair) 10 mg PO BEDTIME MAX Nitroglycerin (Nitrostat) 0.4 mg SL Q5M PRN PRN Reason: Chest Pain Non-Formulary Medication (Albuterol Sulfate [Proair Respiclick]) 2 puff IH Q4H PRN PRN Reason: wheezing or SOB Non-Formulary Medication (Brinzolamide [Azopt 1% Ophth Susp]) 1 drop EYERT TID MAX Non-Formulary Medication (Calcium Carbonate/Vitamin D3 [Calcium 600-Vit D3 400 Tablet]) 1 each PO 12,17 MAX Non-Formulary Medication (Lutein [Lutein]) 20 mg PO BEDTIME MAX Non-Formulary Medication (Multivit-Min/Fa/Lycopene/Lut [Centrum Silver]) 1 each PO WITHLUNCH MAX Non-Formulary Medication (Omeprazole [Omeprazole]) 40 mg PO DAILY MAX Non-Formulary Medication (Potassium Chloride [Potassium Chloride]) 10 meq PO TID@08,12, MAX Non-Formulary Medication (Roflumilast [Daliresp]) 500 mcg PO BEDTIME MAX Non-Formulary Medication (Umeclidinium [place] [Incruse Ellipta*]) 1 puff IH DAILY MAX Prednisone (Prednisone) 0 mg PO ASDIRECTED MAX PRN Reason: Taper Stop: 09/12/17 07:59 Simvastatin (Zocor) 20 mg PO BEDTIME MAX Sodium Chloride ([place] Nasal [place]) ml NASBOTH ASDIRECTED PRN PRN Reason: DRY NOSE Zolpidem Tartrate (Ambien) 5 mg PO BEDTIME PRN PRN Reason: Insomnia *Q Meaningful Use (DIS) - VTE *Q VTE Criteria *Q: VTE Pharmacological Contraindications *Q: Med Refused by Patient - Stroke *Q Stroke Criteria *Q: - AMI *Q AMI Criteria *Q:
== END 2017-09-04 15:23 | disposition swing bed (61) | DRG 190 ==
LOC: FB.MS 17:16
PROVIDERS: ADMIT Family Medicine; ATTEND Family Medicine
DX: J44.0 Chronic obstructive pulmonary disease with (acute) lower respiratory infection (principal); J18.9 Pneumonia, unspecified organism; J44.1 Chronic obstructive pulmonary disease with (acute) exacerbation; E87.6 Hypokalemia; Z99.81 Dependence on supplemental oxygen; R91.8 Other nonspecific abnormal finding of lung field; M19.90 Unspecified osteoarthritis, unspecified site; Z87.891 Personal history of nicotine dependence; R53.81 Other malaise; I10 Essential (primary) hypertension; F19.982 Other psychoactive substance use, unspecified with psychoactive substance-induced sleep disorder; Z88.1 Allergy status to other antibiotic agents; Z88.8 Allergy status to other drugs, medicaments and biological substances; Z79.82 Long term (current) use of aspirin; Z79.52 Long term (current) use of systemic steroids; F39 Unspecified mood [affective] disorder
CPT/HCPCS: 36415; 71020; 71250; 80053; 85025; 85027; 87040; 94640; 97165-GO; A9270-GY; J0456; J0696; J1650; J2920; J7050; J7605; J7620; J7626

== ENCOUNTER 2017-09-04 15:26 | Inpatient (IN) | payer MEDICARE, OTHER ==
[2017-09-04] MEDS ORDERED: Docusate Sodium 100 MG Cap PO PRN (15:36)
[2017-09-04] MEDS ORDERED: Acetaminophen 325 MG Tab PO PRN (15:36)
[2017-09-04] MEDS ORDERED: Nitroglycerin 0.4 MG Tab.SL SL PRN (15:46)
[2017-09-04] MEDS ORDERED: Sodium Chloride 0.65% Nasal Spray 45 ML Bottle NASBOTH PRN (15:54)
--- NOTE | 2017-09-04 16:07 | PCM.HP ---
H&P History of Present Illness - General Date of Service: 09/04/17 Admit Problem/Dx: Admission Diagnosis/Problem Admission Diagnosis/Problem Weakness Source of Information: Patient, Old Records History Limitations: Reports: No Limitations - History of Present Illness Initial Comments - Free Text/Narative: This is an 86-year-old female who was recently hospitalized from 08/30 to 09/04 for community-acquired pneumonia and COPD exacerbation. She became quite weak and debilitated during her hospital stay from her illness and at the time of discharge was not ready to return home to her independent living situation. She was thus admitted to [facility] for physical therapy and occupational therapy. - Related Data Allergies/Adverse Reactions: Allergies Allergy/AdvReac Type Severity Reaction Status Date / Time levofloxacin [From Levaquin] Allergy Unknown unknown Verified 08/30/17 18:34 hypromellose Allergy Cannot Verified 08/30/17 18:34 [From GenTeal (hypromellose)] Remember optive eye drops Allergy Unknown unknown Uncoded 11/08/16 08:10 Home Medications: Home Meds Bimatoprost [LUMIGAN 0.01% Ophth Soln] 1 drop EYERT BEDTIME 11/13/14 [History] Calcium Carbonate/Vitamin D3 [Calcium 600-Vit D3 400 Tablet] 1 each PO , [History] Isosorbide Mononitrate [Imdur] 30 mg PO WITHLUNCH 11/13/14 [History] Lutein 20 mg PO BEDTIME 11/13/14 [History] Multivit-Min/FA/Lycopene/Lut [Centrum Silver] 1 each PO WITHLUNCH 11/13/14 [ History] Nitroglycerin 0.4 mg SL Q5M PRN 11/13/14 [History] Omeprazole 40 mg PO DAILY 11/13/14 [History] Simvastatin [Zocor] 20 mg PO BEDTIME 11/13/14 [History] busPIRone [Buspar] 5 mg PO BID 11/13/14 [History] Acetaminophen [Tylenol Extra Strength] 500 mg PO TID 12/20/14 [History] Bacitracin/Polymyxin B [Polysporin Ophth Oint] 1 applic EYEBOTH BEDTIME [History] Carboxymethylcellulose Sodium [Refresh Plus 0.5%] 1 drop EYEBOTH QID 12/22/14 [ History] Roflumilast [Daliresp] 500 mcg PO BEDTIME 03/21/16 [History] Furosemide [Lasix] 10 mg PO Q48H 04/04/16 [History] Montelukast [Singulair] 10 mg PO BEDTIME 04/04/16 [History] Arformoterol [Brovana] 15 mcg INH 09,21 05/14/16 [History] Aspirin [Halfprin] 81 mg PO 1700 05/14/16 [History] Budesonide [Pulmicort] 0.5 mg INH 08,20 05/14/16 [History] Alendronate Sodium [Alendronate] 70 mg PO GOLD 10/07/16 [History] Brinzolamide [Azopt 1% Ophth Susp] 1 drop EYERT TID 10/07/16 [History] Carvedilol [Coreg] 6.25 mg PO BIDMEALS 10/07/16 [History] Ferrous Gluconate 324 mg PO 0800 10/07/16 [History] Potassium Chloride 10 meq PO TID@08,12,21 10/07/16 [History] Sodium Chloride [Saline Nasal [place]] 1 dose NS ASDIRECTED PRN 10/07/16 [History] Escitalopram [Lexapro] 20 mg PO WITHLUNCH #60 tablet 11/12/16 [Rx] Albuterol Sulfate [Proair Respiclick] 2 puff IH Q4H PRN 08/30/17 [History] Umeclidinium [place] [Incruse Ellipta*] 1 puff IH DAILY 08/30/17 [History] Albuterol/Ipratropium [DuoNeb 3.0-0.5 MG/3 ML] 3 ml NEB QID neb 09/04/17 [Rx] Zolpidem [Ambien] 2.5 mg PO BEDTIME PRN tablet 09/04/17 [Rx] predniSONE [Prednisone] 40 mg PO ASDIRECTED 09/04/17 [History] Past Medical History HEENT History: Reports: Cataract, Glaucoma, Impaired Vision, Other (See Below) Other HEENT History: eyritis, ulcer on eye, taking some sort of shot to left eye now for "stroke in the eye" Cardiovascular History: Reports: CAD, Heart Failure, High Cholesterol, Hypertension, DC, PVD, Other (See Below) Other Cardiovascular History: scarlet fever Respiratory History: Reports: COPD, Pneumonia, Recurrent, Other (See Below) Other Respiratory History: Home 02, collapsed lung Gastrointestinal History: Reports: GERD, GI Bleed, Hemorrhoids, Other (See Below ) Other Gastrointestinal History: colitis Genitourinary History: Reports: Renal Calculus, Urinary Incontinence [employer] History: Reports: Musculoskeletal History: Reports: Arthritis, Back Pain, Chronic, Fracture, Osteoporosis Psychiatric History: Reports: Anxiety, Depression Endocrine/Metabolic History: Reports: Osteoporosis Hematologic History: Reports: Anemia, Blood Transfusion(s) Dermatologic History: Reports: Other (See Below) Other Dermatologic History: hx of rosacia - Infectious Disease History Infectious Disease History: Reports: Chicken Pox, Influenza, Measles, Mumps, Rubella, Scarlet Fever - Past Surgical History HEENT Surgical History: Reports: Cataract Surgery, Tonsillectomy Cardiovascular Surgical History: Reports: Percutaneous Transluminal Angioplasty GI Surgical History: Reports: Appendectomy, Cholecystectomy, Colonoscopy, EGD, Hernia Repair/Other, Other (See Below) Musculoskeletal Surgical History: Reports: Hip Replacement, Other (See Below) Social & Family History - Family History Family Medical History: Noncontributory HEENT: Reports: Cataract Cardiac: Reports: Heart Failure, Hypertension GI: Reports: Cholelithiasis OBGYN: Reports: Neurological: Reports: Alzheimers Disease, CVA Oncologic: Reports: Colon - Tobacco Use Smoking Status *Q: Former Smoker Years of Tobacco use: 46 Packs/Tins Daily: 2 Used Tobacco, but Quit: Yes Month Tobacco Last Used: Nov Second Hand Smoke Exposure: No - Caffeine Use Caffeine Use: Reports: Coffee Other Caffeine Use: 5-6 - Alcohol Use Days Per Week of Alcohol Use: 0 - Recreational Drug Use Recreational Drug Use: No - Living Situation & Occupation Living situation: Reports: Single, Alone Occupation: Unemployed H&P Review of Systems - Review of Systems: Review Of Systems: See Below General: Reports: Weakness HEENT: Reports: No Symptoms Pulmonary: Reports: Shortness of Breath, Wheezing, Cough (much improved) Cardiovascular: Reports: No Symptoms Gastrointestinal: Reports: No Symptoms Genitourinary: Reports: No Symptoms Musculoskeletal: Reports: No Symptoms Skin: Reports: No Symptoms Psychiatric: Reports: No Symptoms Neurological: Reports: No Symptoms Hematologic/Lymphatic: Reports: No Symptoms Immunologic: Reports: No Symptoms Exam - Exam Exam: See Below - Exam Quality Assessment: Supplemental Oxygen General: Alert, Oriented, Cooperative HEENT: PERRLA, Conjunctiva Clear, Mucosa Moist & [place] Neck: Supple Lungs: Rhonchi (on right much less than prior) Cardiovascular: Regular Rate, Regular Rhythm GI/Abdominal Exam: Normal Bowel Sounds Back Exam: Normal Inspection Extremities: No Pedal Edema Neuro Extensive - Mental Status: Alert, Oriented x3, Normal Mood/Affect *Q Meaningful Use (ADM) - VTE *Q VTE Criteria *Q: VTE Pharmacological Contraindications *Q: Med Refused by Patient - Stroke *Q Stroke Criteria *Q: - AMI *Q AMI Criteria *Q: - Problem List (1) Weakness SNOMED Code(s): 76891577 ICD Code: R53.1 - WEAKNESS Status: Acute Current Visit: No Problem Details: PT and OT to evaluate and treat. (2) Abnormal CT of the chest SNOMED Code(s): 320919152 ICD Code: R93.8 - ABNORMAL FINDINGS ON DIAGNOSTIC IMAGING OF BODY STRUCTURES Status: Acute Current Visit: No Problem Details: CT shows an irregular opacity in the right middle lung. This should be evaluated by pulmonary and considered for bronchoscopy per radiology recommendations. She will follow up with her regular marketing teacher. (3) Anxiety SNOMED Code(s): 97000516 ICD Code: F41.9 - ANXIETY DISORDER, UNSPECIFIED Status: Acute Current Visit: No Problem Details: continue current medication. (4) COPD with exacerbation SNOMED Code(s): 861952658 ICD Code: J44.1 - CHRONIC OBSTRUCTIVE PULMONARY DISEASE W (ACUTE) EXACERBATION Status: Acute Current Visit: No Problem Details: Completed 5 days rocephin/azithro, restart Recruse Ellipta. Continue prednisone at 40 mg for now, with taper over the next few days. (5) HTN, Benign hypertension SNOMED Code(s): 40680334 ICD Code: I10 - ESSENTIAL (PRIMARY) HYPERTENSION Status: Chronic Current Visit: No Problem Details: well-controlled. Continue outpatient medications. Problem List Initiated/Reviewed/Updated: Yes Orders Last 24hrs: Active Orders 24 hr Category Date Time Status Patient Status [ADT] Routine ADT 09/04/17 15:33 Ordered Ambulate [RC] PER UNIT ROUTINE Care 09/04/17 15:38 Ordered Height and Weight [RC] WEEKLY Care 09/04/17 15:33 Ordered Height and Weight [RC] WEEKLY Care 09/04/17 15:36 Ordered Oxygen Therapy [RC] PRN Care 09/04/17 15:33 Ordered Oxygen Therapy [RC] PRN Care 09/04/17 15:36 Ordered Up With Assistance [RC] ASDIRECTED Care 09/04/17 15:36 Ordered VTE/DVT Education [RC] Per Unit Routine Care 09/04/17 15:33 Ordered VTE/DVT Education [RC] Per Unit Routine Care 09/04/17 15:36 Ordered Vital Signs [RC] PER UNIT ROUTINE Care 09/04/17 15:33 Ordered Vital Signs [RC] PER UNIT ROUTINE Care 09/04/17 15:36 Ordered OT Evaluation and Treatment [CONS] Routine Cons 09/04/17 15:36 Ordered PT Evaluation and Treatment [CONS] Routine Cons 09/04/17 15:36 Ordered Respiratory Care Assess and Treatment [CONS] Routine Cons 09/04/17 15:36 Ordered 2 Gram Sodium Diet [DIET] Diet 09/04/17 Dinner Ordered Acetaminophen [Tylenol Extra Strength] Med 09/04/17 21:00 Ordered 500 mg PO TID Acetaminophen [Tylenol] Med 09/04/17 15:36 Ordered 650 mg PO Q4H PRN Albuterol Sulfate [Proair Respiclick] Med 09/04/17 15:46 Ordered 2 puff IH Q4H PRN Albuterol/Ipratropium [DuoNeb 3.0-0.5 MG/3 ML] Med 09/04/17 17:00 Ordered 3 ml NEB QID Alendronate [Fosamax] Med 09/10/17 15:46 Ordered 70 mg PO GOLD Arformoterol [Brovana] Med 09/04/17 21:00 Ordered 15 mcg INH 09,21 Aspirin [Halfprin] Med 09/04/17 17:00 Ordered 81 mg PO 1700 Bacitracin/Polymyxin B [Polysporin Ophth Oint] Med 09/04/17 21:00 Ordered 1 applic EYEBOTH BEDTIME Bimatoprost [LUMIGAN 0.01% Ophth Soln] Med 09/04/17 21:00 Ordered 1 drop EYERT BEDTIME Brinzolamide [Azopt 1% Ophth Susp] Med 09/04/17 21:00 Ordered 1 drop EYERT TID Budesonide [Pulmicort] Med 09/04/17 20:00 Ordered 0.5 mg INH 08,20 Calcium Carbonate/Vitamin D3 [Calcium 600-Vit D3 400 Med 09/04/17 17:00 Ordered Tablet] 1 each PO 12,17 Carboxymethylcellulose Sodium [Refresh Plus 0.5%] Med 09/04/17 17:00 Ordered 1 drop EYEBOTH QID Carvedilol [Coreg] Med 09/04/17 18:00 Ordered 6.25 mg PO BIDMEALS Docusate Sodium [Colace] Med 09/04/17 15:36 Ordered 100 mg PO BID PRN Escitalopram [Lexapro] Med 09/05/17 12:00 Ordered 20 mg PO WITHLUNCH Ferrous Gluconate Med 09/05/17 08:00 Ordered 324 mg PO 0800 Furosemide [Lasix] Med 09/04/17 16:00 Ordered 10 mg PO Q48H Isosorbide Mononitrate [Imdur] Med 09/05/17 12:00 Ordered 30 mg PO WITHLUNCH Lutein [Lutein] Med 09/04/17 21:00 Ordered 20 mg PO BEDTIME Montelukast [Singulair] Med 09/04/17 21:00 Ordered 10 mg PO BEDTIME Multivit-Min/FA/Lycopene/Lut [Centrum Silver] Med 09/05/17 12:00 Ordered 1 each PO WITHLUNCH Nitroglycerin [Nitrostat] Med 09/04/17 15:46 Ordered 0.4 mg SL Q5M PRN Omeprazole [Omeprazole] Med 09/05/17 09:00 Ordered 40 mg PO DAILY Potassium Chloride [Potassium Chloride] Med 09/04/17 21:00 Ordered 10 meq PO TID@08,12,21 Roflumilast [Daliresp] Med 09/04/17 21:00 Ordered 500 mcg PO BEDTIME Simvastatin [Zocor] Med 09/04/17 21:00 Ordered 20 mg PO BEDTIME Sodium Chloride 0.65% [[place] Nasal [place]] Med 09/04/17 15:54 Ordered 1 dose NASBOTH ASDIRECTED PRN Umeclidinium [place] [Incruse Ellipta*] Med 09/05/17 09:00 Ordered 1 puff IH DAILY Zolpidem [Ambien] Med 09/04/17 15:54 Ordered 5 mg PO BEDTIME PRN busPIRone [Buspar] Med 09/04/17 21:00 Ordered 5 mg PO BID predniSONE Med 09/05/17 08:00 Ordered See Taper PO ASDIRECTED Patient May [OM.PC] Click to Edit Oth 09/04/17 15:36 Ordered Sequential Compression Device [OM.PC] Per Unit Routine Oth 09/04/17 15:38 Ordered VTE Pharmacological Contraindications [AST] Per Unit Oth 09/04/17 15:36 Ordered Routine Resuscitation Status Routine Resus Stat 09/04/17 15:33 Ordered Medication Orders Acetaminophen (Tylenol) 650 mg PO Q4H PRN PRN Reason: Pain (Mild 1-3)/fever Acetaminophen (Tylenol Extra Strength) 500 mg PO TID MAX Albuterol/Ipratropium (Duoneb 3.0-0.5 Mg/3 Ml) 3 ml NEB QID MAX Alendronate Sodium (Fosamax) 70 mg PO GOLD MAX Arformoterol Tartrate (Brovana) 15 mcg INH 09,21 MAX Artificial Tears (Refresh Plus 0.5%) each EYEBOTH QID MAX Aspirin (Halfprin) 81 mg PO 1700 MAX Bacitracin/Polymyxin B Sulfate (Polysporin Ophth Oint) gm EYEBOTH BEDTIME MAX Bimatoprost ([place] 0.01% Ophth Soln) ml EYERT BEDTIME MAX Budesonide (Pulmicort) 0.5 mg INH 08,20 MAX Buspirone HCl (Buspar) 5 mg PO BID MAX Carvedilol (Coreg) 6.25 mg PO BIDMEALS MAX Docusate Sodium (Colace) 100 mg PO BID PRN PRN Reason: Constipation Escitalopram Oxalate (Lexapro) 20 mg PO WITHLUNCH MAX Ferrous Gluconate (Ferrous Gluconate) 324 mg PO 0800 MAX Furosemide (Lasix) 10 mg PO Q48H MAX Isosorbide Mononitrate (Imdur) 30 mg PO WITHLUNCH MAX Montelukast Sodium (Singulair) 10 mg PO BEDTIME MAX Non-Formulary Medication (Albuterol Sulfate [Proair Respiclick]) 2 puff IH Q4H PRN PRN Reason: wheezing or SOB Non-Formulary Medication (Brinzolamide [Azopt 1% Ophth Susp]) 1 drop EYERT TID MAX Non-Formulary Medication (Calcium Carbonate/Vitamin D3 [Calcium 600-Vit D3 400 Tablet]) 1 each PO 12,17 MAX Non-Formulary Medication (Lutein [Lutein]) 20 mg PO BEDTIME MAX
[2017-09-04] MEDS ORDERED: Albuterol 8 GM Inhaler INH PRN (16:23)
[2017-09-04] MEDS: Albuterol/Ipratropium 3.0-0.5 MG/3 ML Neb Soln NEB SCH ×2 (17:17→20:47)
[2017-09-04] MEDS: Calcium Carbonate/Vitamin D3 1250 MG-200 Unit Tab PO SCH (17:19)
[2017-09-04] MEDS: Aspirin 81 MG Tab.EC PO SCH (17:20)
[2017-09-04] MEDS: Carboxymethylcellulose Sodium 0.5% Ophth Soln 0.4 ML UD Box of 30 EYEBOTH SCH ×2 (17:21→20:45)
[2017-09-04] MEDS: Carvedilol 6.25 MG Tab PO SCH (18:34)
[2017-09-04] MEDS: Arformoterol 15 MCG/2 ML Neb Soln INH SCH (20:44)
[2017-09-04] MEDS: Budesonide 0.5 MG/2 ML Neb Susp INH SCH (20:45)
[2017-09-04] MEDS: Potassium Chloride 10 MEQ Tab.ER PO SCH (20:46)
[2017-09-04] MEDS: busPIRone 5 MG Tab PO SCH (20:46)
[2017-09-04] MEDS: Bacitracin/Polymyxin B Ophth Oint 3.5 GM Tube EYEBOTH SCH (20:47)
[2017-09-04] MEDS: Montelukast 10 MG Tab PO SCH (20:49)
[2017-09-04] MEDS: Acetaminophen 500 MG Tab PO SCH (20:49)
[2017-09-04] MEDS: Simvastatin 20 MG Tab PO SCH (20:49)
[2017-09-04] MEDS: Latanoprost 0.005% Ophth Soln 2.5 ML Bottle EYERT SCH (20:49)
[2017-09-04] MEDS: Zolpidem 5 MG Tab PO PRN (22:37)
[2017-09-05] MEDS: Albuterol/Ipratropium 3.0-0.5 MG/3 ML Neb Soln NEB SCH ×4 (06:09→20:26)
[2017-09-05] MEDS: Pantoprazole 40 MG Tab.CR PO SCH (06:09)
[2017-09-05] MEDS: Budesonide 0.5 MG/2 ML Neb Susp INH SCH ×2 (07:38→20:26)
[2017-09-05] MEDS: Arformoterol 15 MCG/2 ML Neb Soln INH SCH ×2 (07:45→20:25)
[2017-09-05] MEDS: Carvedilol 6.25 MG Tab PO SCH ×2 (08:45→18:01)
[2017-09-05] MEDS: Ferrous Sulfate 325 MG Tab PO SCH (08:45)
[2017-09-05] MEDS: Potassium Chloride 10 MEQ Tab.ER PO SCH ×3 (08:46→20:26)
[2017-09-05] MEDS: Furosemide 20 MG Tab PO SCH (08:47)
[2017-09-05] MEDS: Carboxymethylcellulose Sodium 0.5% Ophth Soln 0.4 ML UD Box of 30 EYEBOTH SCH ×4 (08:47→20:27)
[2017-09-05] MEDS: busPIRone 5 MG Tab PO SCH ×2 (08:47→20:26)
[2017-09-05] MEDS: UMECLIDINIUM BROMIDE IH SCH (08:48)
[2017-09-05] MEDS: Acetaminophen 500 MG Tab PO SCH ×3 (08:48→20:31)
[2017-09-05] MEDS: predniSONE 20 MG Tab PO SCH (08:50)
[2017-09-05] MEDS: Calcium Carbonate/Vitamin D3 1250 MG-200 Unit Tab PO SCH ×2 (11:53→18:03)
[2017-09-05] MEDS: Escitalopram 20 MG Tab PO SCH (11:54)
[2017-09-05] MEDS: Multivitamins, Therapeutic with Minerals Tab PO SCH (11:54)
[2017-09-05] MEDS: Isosorbide Mononitrate 30 MG Tab.ER PO SCH (11:58)
[2017-09-05] MEDS: Aspirin 81 MG Tab.EC PO SCH (18:03)
[2017-09-05] MEDS: Bacitracin/Polymyxin B Ophth Oint 3.5 GM Tube EYEBOTH SCH (20:27)
[2017-09-05] MEDS: Montelukast 10 MG Tab PO SCH (20:29)
[2017-09-05] MEDS: Latanoprost 0.005% Ophth Soln 2.5 ML Bottle EYERT SCH (20:29)
[2017-09-05] MEDS: Simvastatin 20 MG Tab PO SCH (20:30)
[2017-09-05] MEDS ORDERED: diphenhydrAMINE 50 MG Cap PO PRN ×2 (21:12→21:18)
[2017-09-05] MEDS: Zolpidem 5 MG Tab PO PRN (22:21)
[2017-09-06] MEDS: Pantoprazole 40 MG Tab.CR PO SCH (05:57)
[2017-09-06] MEDS: Albuterol/Ipratropium 3.0-0.5 MG/3 ML Neb Soln NEB SCH ×4 (07:44→21:20)
[2017-09-06] MEDS: Budesonide 0.5 MG/2 ML Neb Susp INH SCH ×2 (07:54→19:58)
[2017-09-06] MEDS: Arformoterol 15 MCG/2 ML Neb Soln INH SCH ×2 (07:58→19:48)
[2017-09-06] MEDS: Ferrous Sulfate 325 MG Tab PO SCH (08:38)
[2017-09-06] MEDS: Carvedilol 6.25 MG Tab PO SCH ×2 (08:38→17:37)
[2017-09-06] MEDS: busPIRone 5 MG Tab PO SCH ×2 (08:39→20:07)
[2017-09-06] MEDS: Potassium Chloride 10 MEQ Tab.ER PO SCH ×3 (08:39→20:07)
[2017-09-06] MEDS: predniSONE 20 MG Tab PO SCH (08:39)
[2017-09-06] MEDS: UMECLIDINIUM BROMIDE IH SCH (08:40)
[2017-09-06] MEDS: Acetaminophen 500 MG Tab PO SCH ×3 (08:40→20:06)
[2017-09-06] MEDS: Carboxymethylcellulose Sodium 0.5% Ophth Soln 0.4 ML UD Box of 30 EYEBOTH SCH ×4 (08:40→20:07)
[2017-09-06] MEDS: Calcium Carbonate/Vitamin D3 1250 MG-200 Unit Tab PO SCH ×2 (13:22→17:36)
[2017-09-06] MEDS: Isosorbide Mononitrate 30 MG Tab.ER PO SCH (13:22)
[2017-09-06] MEDS: Multivitamins, Therapeutic with Minerals Tab PO SCH (13:23)
[2017-09-06] MEDS: Escitalopram 20 MG Tab PO SCH (13:23)
[2017-09-06] MEDS: Aspirin 81 MG Tab.EC PO SCH (17:36)
--- NOTE | 2017-09-06 19:44 | PCM.PN ---
- General Info Admission Dx/Problem (Free Text): Admission Diagnosis/Problem Admission Diagnosis/Problem Weakness Subjective Update: Patient doing the physical therapy today. Potassium was rechecked and is in the normal range. - Patient Data Vitals - Most Recent: Last Vital Signs Temp 36.7 C 09/06/17 08:00 Pulse 90 09/06/17 17:37 Resp 20 09/06/17 08:00 BP 118/66 09/06/17 17:37 Pulse Ox 95 09/06/17 15:32 Weight - Most Recent: 48.716 kg Lab Results Last 24 Hours: Laboratory Results - last 24 hr 09/06/17 Range/Units 06:30 Sodium 137 (135-145) mmol/L Potassium 3.6 (3.5-5.3) mmol/L Chloride 97 L (100-110) mmol/L Carbon Dioxide 34 H (23-29) mmol/L BUN 16 (8-23) mg/dL Creatinine 0.6 (0.6-1.3) mg/dL Est Cr Clr Drug Dosing 49.24 mL/min Estimated GFR (MDRD) > 60 (>60) BUN/Creatinine Ratio 26.7 H (9-20) Glucose 98 (80-116) mg/dL Calcium 9.2 (8.6-10.2) mg/dL Med Orders - Current: Current Medications Acetaminophen (Tylenol) 650 mg PO Q4H PRN PRN Reason: Pain (Mild 1-3)/fever Acetaminophen (Tylenol Extra Strength) 500 mg PO TID [facility] Last Admin: 09/06/17 15:08 Dose: 500 mg Albuterol (Ventolin Hfa) 0 gm INH Q4H PRN PRN Reason: wheezing or SOB Albuterol/Ipratropium (Duoneb 3.0-0.5 Mg/3 Ml) 3 ml NEB QIDRT [facility] Last Admin: 09/06/17 15:19 Dose: 3 ml Alendronate Sodium (Fosamax) 70 mg PO GOLD [facility] Arformoterol Tartrate (Brovana) 15 mcg INH 0800,2000 [facility] Last Admin: 09/06/17 07:58 Dose: 15 mcg Artificial Tears (Refresh Plus 0.5%) 1 each EYEBOTH QID [facility] Last Admin: 09/06/17 17:36 Dose: 1 drop Aspirin (Halfprin) 81 mg PO 1700 [facility] Last Admin: 10/18/17 17:36 Dose: 81 mg Bacitracin/Polymyxin B Sulfate (Polysporin Ophth Oint) 0 gm EYEBOTH BEDTIME [facility] Last Admin: 09/05/17 20:27 Dose: 1 applic Budesonide (Pulmicort) 0.5 mg INH 08,20 [facility] Last Admin: 09/06/17 07:54 Dose: 0.5 mg Buspirone HCl (Buspar) 5 mg PO BID [facility] Last Admin: 09/06/17 08:39 Dose: 5 mg Calcium Carbonate (Calcium Carbonate/Vitamin D 1250 Mg-200 Unit) 1 tab PO 1200, 1700 [facility] Last Admin: 09/06/17 17:36 Dose: 1 tab Carvedilol (Coreg) 6.25 mg PO BIDMEALS [facility] Last Admin: 09/06/17 17:37 Dose: 6.25 mg Diphenhydramine HCl (Benadryl) 50 mg PO BEDTIME PRN PRN Reason: Insomnia Docusate Sodium (Colace) 100 mg PO BID PRN PRN Reason: Constipation Escitalopram Oxalate (Lexapro) 20 mg PO WITHLUNCH [facility] Last Admin: 09/06/17 13:23 Dose: 20 mg Ferrous Sulfate (Ferrous Sulfate) 325 mg PO 0800 [facility] Last Admin: 09/06/17 08:38 Dose: 325 mg Furosemide (Lasix) 10 mg PO Q48H [facility] Last Admin: 09/05/17 08:47 Dose: 10 mg Isosorbide Mononitrate (Imdur) 30 mg PO WITHLUNCH [facility] Last Admin: 09/06/17 13:22 Dose: 30 mg Latanoprost (Xalatan 0.005% Oph Soln) 0 ml EYERT BEDTIME [facility] Last Admin: 09/05/17 20:29 Dose: 1 drop Lutein (Lutein) 20 mg PO BEDTIME [facility] Last Admin: 09/05/17 20:27 Dose: 20 mg Montelukast Sodium (Singulair) 10 mg PO BEDTIME [facility] Last Admin: 09/05/17 20:29 Dose: 10 mg Multivitamins/Minerals (Vitamins And Minerals) 1 tab PO WITHLUNCH [facility] Last Admin: 09/06/17 13:23 Dose: 1 tab Nitroglycerin (Nitrostat) 0.4 mg SL Q5M PRN PRN Reason: Chest Pain (Brinzolamide [Azopt 1% Ophth Susp] 1 Drop) *Ptom 1 drop EYERT TID [facility] Last Admin: 09/06/17 14:26 Dose: 1 drop (Roflumilast [ Daliresp] 500 Mcg) * Ptom 500 mcg PO BEDTIME [facility] Last Admin: 09/05/17 20:28 Dose: 500 mcg (Umeclidinium [place] [Incruse Ellipta*] 1 Puff) 1 puff IH DAILY [facility] Last Admin: 09/06/17 08:40 Dose: 1 puff Pantoprazole Sodium (Protonix) 40 mg PO DAILY@0600 [facility] Last Admin: 09/06/17 05:57 Dose: 40 mg Potassium Chloride (Klor-Con 10) 10 meq PO TID@0800,1200,2100 [facility] Last Admin: 09/06/17 13:23 Dose: 10 meq Prednisone (Prednisone) 20 mg PO DAILY [facility] PRN Reason: Taper Stop: 09/12/17 07:59 Last Admin: 09/06/17 08:39 Dose: 20 mg Simvastatin (Zocor) 20 mg PO BEDTIME [facility] Last Admin: 09/05/17 20:30 Dose: 20 mg Sodium Chloride ([place] Nasal [place]) 0 ml NASBOTH ASDIRECTED PRN PRN Reason: DRY NOSE Zolpidem Tartrate (Ambien) 5 mg PO BEDTIME PRN PRN Reason: Insomnia Last Admin: 09/05/17 22:21 Dose: 5 mg - Exam General: Alert, Oriented, Cooperative, No Acute Distress - Problem List & Annotations (1) COPD with exacerbation SNOMED Code(s): 099803326 Code(s): J44.1 - CHRONIC OBSTRUCTIVE PULMONARY DISEASE W (ACUTE) EXACERBATION Status: Acute Current Visit: No Annotation/Comment:: Completed 5 days rocephin/azithro, restart Recruse Ellipta. Continue prednisone taper over the next few days. (2) Weakness SNOMED Code(s): 61076972 Code(s): R53.1 - WEAKNESS Status: Acute Current Visit: No Annotation/ Comment:: PT and OT to evaluate and treat. (3) Abnormal CT of the chest SNOMED Code(s): 688034429 Code(s): R93.8 - ABNORMAL FINDINGS ON DIAGNOSTIC IMAGING OF BODY STRUCTURES Status: Chronic Current Visit: No Annotation/Comment:: CT shows an irregular opacity in the right middle lung. This should be evaluated by pulmonary and considered for bronchoscopy per radiology recommendations. She will follow up with her regular test architect. (4) Anxiety SNOMED Code(s): 28028359 Code(s): F41.9 - ANXIETY DISORDER, UNSPECIFIED Status: Chronic Current Visit: No Annotation/Comment:: continue current medication. (5) HTN, Benign hypertension SNOMED Code(s): 33861588 Code(s): I10 - ESSENTIAL (PRIMARY) HYPERTENSION Status: Chronic Current Visit: No Annotation/Comment:: well-controlled. Continue outpatient medications. (6) Hypokalemia SNOMED Code(s): 18594922 Code(s): E87.6 - HYPOKALEMIA Status: Acute Current Visit: No Annotation /Comment:: resolved with po 20 mEq TID. - Problem List Review Problem List Initiated/Reviewed/Updated: Yes - My Orders Last 24 Hours: My Active Orders 09/10/17 06:00 Alendronate [Fosamax] 70 mg PO GOLD
[2017-09-06] MEDS: Latanoprost 0.005% Ophth Soln 2.5 ML Bottle EYERT SCH (20:06)
[2017-09-06] MEDS: Bacitracin/Polymyxin B Ophth Oint 3.5 GM Tube EYEBOTH SCH (20:06)
[2017-09-06] MEDS: Simvastatin 20 MG Tab PO SCH (20:06)
[2017-09-06] MEDS: Montelukast 10 MG Tab PO SCH (20:06)
[2017-09-06] MEDS: Zolpidem 5 MG Tab PO PRN (21:56)
[2017-09-07] MEDS: Pantoprazole 40 MG Tab.CR PO SCH (05:41)
[2017-09-07] MEDS: Albuterol/Ipratropium 3.0-0.5 MG/3 ML Neb Soln NEB SCH ×4 (07:31→20:34)
[2017-09-07] MEDS: Arformoterol 15 MCG/2 ML Neb Soln INH SCH ×2 (07:38→20:33)
[2017-09-07] MEDS: Budesonide 0.5 MG/2 ML Neb Susp INH SCH ×2 (07:40→20:33)
[2017-09-07] MEDS: Carvedilol 6.25 MG Tab PO SCH ×2 (08:29→17:06)
[2017-09-07] MEDS: Potassium Chloride 10 MEQ Tab.ER PO SCH ×3 (08:29→20:34)
[2017-09-07] MEDS: busPIRone 5 MG Tab PO SCH ×2 (08:30→20:34)
[2017-09-07] MEDS: Furosemide 20 MG Tab PO SCH (08:30)
[2017-09-07] MEDS: Ferrous Sulfate 325 MG Tab PO SCH (08:30)
[2017-09-07] MEDS: predniSONE 20 MG Tab PO SCH (08:30)
[2017-09-07] MEDS: Carboxymethylcellulose Sodium 0.5% Ophth Soln 0.4 ML UD Box of 30 EYEBOTH SCH ×4 (08:31→20:35)
[2017-09-07] MEDS: Acetaminophen 500 MG Tab PO SCH ×3 (08:31→20:36)
[2017-09-07] MEDS: UMECLIDINIUM BROMIDE IH SCH (08:32)
[2017-09-07] MEDS: Isosorbide Mononitrate 30 MG Tab.ER PO SCH (12:33)
[2017-09-07] MEDS: Calcium Carbonate/Vitamin D3 1250 MG-200 Unit Tab PO SCH ×2 (12:33→17:06)
[2017-09-07] MEDS: Multivitamins, Therapeutic with Minerals Tab PO SCH (12:34)
[2017-09-07] MEDS: Escitalopram 20 MG Tab PO SCH (12:34)
[2017-09-07] MEDS: Aspirin 81 MG Tab.EC PO SCH (17:06)
[2017-09-07] MEDS ORDERED: Azithromycin 500 MG Tab PO ONE (17:33)
--- NOTE | 2017-09-07 17:36 | PCM.PN ---
- General Info Date of Service: 09/07/17 Admission Dx/Problem (Free Text): Patient states she started having scratchy throat some nasal congestion. She has a cough that's been about the same that is mildly productive. She denies fevers, chills, shortness of breath. - Patient Data Vitals - Most Recent: Last Vital Signs Temp 98.0 F 09/07/17 07:50 Pulse 76 09/07/17 17:06 Resp 18 09/07/17 07:50 BP 116/62 09/07/17 17:06 Pulse Ox 95 09/07/17 14:59 Weight - Most Recent: 107 lb 6.4 oz Med Orders - Current: Current Medications Acetaminophen (Tylenol) 650 mg PO Q4H PRN PRN Reason: Pain (Mild 1-3)/fever Acetaminophen (Tylenol Extra Strength) 500 mg PO TID [facility] Last Admin: 09/07/17 14:07 Dose: 500 mg Albuterol (Ventolin Hfa) 0 gm INH Q4H PRN PRN Reason: wheezing or SOB Albuterol/Ipratropium (Duoneb 3.0-0.5 Mg/3 Ml) 3 ml NEB QIDRT [facility] Last Admin: 09/07/17 14:59 Dose: 3 ml Alendronate Sodium (Fosamax) 70 mg PO GOLD [facility] Arformoterol Tartrate (Brovana) 15 mcg INH 0800,2000 [facility] Last Admin: 09/07/17 07:38 Dose: 15 mcg Artificial Tears (Refresh Plus 0.5%) 1 each EYEBOTH QID [facility] Last Admin: 09/07/17 17:06 Dose: 1 drop Aspirin (Halfprin) 81 mg PO 1700 [facility] Last Admin: 09/07/17 17:06 Dose: 81 mg Azithromycin (Zithromax) 500 mg PO ONETIME ONE Stop: 09/07/17 17:34 Bacitracin/Polymyxin B Sulfate (Polysporin Ophth Oint) 0 gm EYEBOTH BEDTIME [facility] Last Admin: 09/06/17 20:06 Dose: 1 applic Budesonide (Pulmicort) 0.5 mg INH 08,20 [facility] Last Admin: 09/07/17 07:40 Dose: 0.5 mg Buspirone HCl (Buspar) 5 mg PO BID [facility] Last Admin: 09/07/17 08:30 Dose: 5 mg Calcium Carbonate (Calcium Carbonate/Vitamin D 1250 Mg-200 Unit) 1 tab PO 1200, 1700 [facility] Last Admin: 09/07/17 17:06 Dose: 1 tab Carvedilol (Coreg) 6.25 mg PO BIDMEALS [facility] Last Admin: 09/07/17 17:06 Dose: 6.25 mg Diphenhydramine HCl (Benadryl) 50 mg PO BEDTIME PRN PRN Reason: Insomnia Docusate Sodium (Colace) 100 mg PO BID PRN PRN Reason: Constipation Escitalopram Oxalate (Lexapro) 20 mg PO WITHLUNCH [facility] Last Admin: 09/07/17 12:34 Dose: 20 mg Ferrous Sulfate (Ferrous Sulfate) 325 mg PO 0800 [facility] Last Admin: 09/07/17 08:30 Dose: 325 mg Furosemide (Lasix) 10 mg PO Q48H [facility] Last Admin: 09/07/17 08:30 Dose: 10 mg Isosorbide Mononitrate (Imdur) 30 mg PO WITHLUNCH [facility] Last Admin: 09/07/17 12:33 Dose: 30 mg Latanoprost (Xalatan 0.005% Ophth Soln) 0 ml EYERT BEDTIME [facility] Last Admin: 09/06/17 20:06 Dose: 1 drop Lutein (Lutein) 20 mg PO BEDTIME [facility] Last Admin: 09/06/17 20:07 Dose: 20 mg Montelukast Sodium (Singulair) 10 mg PO BEDTIME [facility] Last Admin: 09/06/17 20:06 Dose: 10 mg Multivitamins/Minerals (Vitamins And Minerals) 1 tab PO WITHLUNCH [facility] Last Admin: 09/07/17 12:34 Dose: 1 tab Nitroglycerin (Nitrostat) 0.4 mg SL Q5M PRN PRN Reason: Chest Pain (Brinzolamide [Azopt 1% Ophth Susp] 1 Drop) *Ptom 1 drop EYERT TID [facility] Last Admin: 09/07/17 14:07 Dose: 1 drop (Roflumilast [ Daliresp] 500 Mcg) * Ptom 500 mcg PO BEDTIME [facility] Last Admin: 09/06/17 20:06 Dose: 500 mcg (Umeclidinium [place] [Incruse Ellipta*] 1 Puff) 1 puff IH DAILY [facility] Last Admin: 09/07/17 08:32 Dose: 1 puff Pantoprazole Sodium (Protonix) 40 mg PO DAILY@0600 [facility] Last Admin: 09/07/17 05:41 Dose: 40 mg Potassium Chloride (Klor-Con 10) 10 meq PO TID@0800,1200,2100 [facility] Last Admin: 09/07/17 12:33 Dose: 10 meq Prednisone (Prednisone) 20 mg PO DAILY [facility] PRN Reason: Taper Stop: 09/12/17 07:59 Last Admin: 09/07/17 08:30 Dose: 20 mg Simvastatin (Zocor) 20 mg PO BEDTIME [facility] Last Admin: 09/06/17 20:06 Dose: 20 mg Sodium Chloride ([place] Nasal [place]) 0 ml NASBOTH ASDIRECTED PRN PRN Reason: DRY NOSE Zolpidem Tartrate (Ambien) 5 mg PO BEDTIME PRN PRN Reason: Insomnia Last Admin: 09/06/17 21:56 Dose: 5 mg - Exam General: Alert, Oriented, Cooperative HEENT: Other (TMs are clear with some ear wax. Throat has some postnasal drip but no erythema. Neck supple) Lungs: Normal Respiratory Effort, Rales Cardiovascular: Regular Rate, No Murmurs - Problem List & Annotations (1) Sinusitis SNOMED Code(s): 41209018 Code(s): J32.9 - CHRONIC SINUSITIS, UNSPECIFIED Status: Acute Current Visit: Yes - Problem List Review Problem List Initiated/Reviewed/Updated: Yes - My Orders Last 24 Hours: My Active Orders 09/07/17 16:59 KVNG Hose [Antiembolic Hose] [OM.PC] Routine 09/07/17 17:33 Azithromycin [Zithromax] 500 mg PO ONETIME ONE 09/08/17 09:00 Azithromycin [Zithromax] 250 mg PO DAILY - Assessment Assessment:: Eliza
[2017-09-07] MEDS: Bacitracin/Polymyxin B Ophth Oint 3.5 GM Tube EYEBOTH SCH (20:35)
[2017-09-07] MEDS: Montelukast 10 MG Tab PO SCH (20:36)
[2017-09-07] MEDS: Latanoprost 0.005% Ophth Soln 2.5 ML Bottle EYERT SCH (20:36)
[2017-09-07] MEDS: Simvastatin 20 MG Tab PO SCH (20:37)
[2017-09-07] MEDS: Zolpidem 5 MG Tab PO PRN (22:11)
[2017-09-08] MEDS: Pantoprazole 40 MG Tab.CR PO SCH (06:31)
[2017-09-08] MEDS: Albuterol/Ipratropium 3.0-0.5 MG/3 ML Neb Soln NEB SCH ×4 (07:23→20:41)
[2017-09-08] MEDS: Budesonide 0.5 MG/2 ML Neb Susp INH SCH ×2 (08:00→20:51)
[2017-09-08] MEDS: Arformoterol 15 MCG/2 ML Neb Soln INH SCH ×2 (08:00→20:33)
[2017-09-08] MEDS: Carvedilol 6.25 MG Tab PO SCH ×2 (08:31→17:48)
[2017-09-08] MEDS: Potassium Chloride 10 MEQ Tab.ER PO SCH ×3 (08:32→20:29)
[2017-09-08] MEDS: busPIRone 5 MG Tab PO SCH ×2 (08:32→20:32)
[2017-09-08] MEDS: Ferrous Sulfate 325 MG Tab PO SCH (08:32)
[2017-09-08] MEDS: predniSONE 20 MG Tab PO SCH (08:33)
[2017-09-08] MEDS: Carboxymethylcellulose Sodium 0.5% Ophth Soln 0.4 ML UD Box of 30 EYEBOTH SCH ×4 (08:34→20:33)
[2017-09-08] MEDS: Acetaminophen 500 MG Tab PO SCH ×3 (08:34→20:35)
[2017-09-08] MEDS: UMECLIDINIUM BROMIDE IH SCH (08:35)
[2017-09-08] MEDS: Azithromycin 250 MG Tab PO SCH (08:39)
[2017-09-08] MEDS: Multivitamins, Therapeutic with Minerals Tab PO SCH (11:32)
[2017-09-08] MEDS: Escitalopram 20 MG Tab PO SCH (11:32)
[2017-09-08] MEDS: Isosorbide Mononitrate 30 MG Tab.ER PO SCH (11:35)
[2017-09-08] MEDS: Calcium Carbonate/Vitamin D3 1250 MG-200 Unit Tab PO SCH ×2 (11:36→17:46)
[2017-09-08] MEDS: Aspirin 81 MG Tab.EC PO SCH (17:46)
[2017-09-08] MEDS: Bacitracin/Polymyxin B Ophth Oint 3.5 GM Tube EYEBOTH SCH (20:30)
[2017-09-08] MEDS: Simvastatin 20 MG Tab PO SCH (20:30)
[2017-09-08] MEDS: Latanoprost 0.005% Ophth Soln 2.5 ML Bottle EYERT SCH (20:34)
[2017-09-08] MEDS: Montelukast 10 MG Tab PO SCH (20:35)
[2017-09-08] MEDS: Zolpidem 5 MG Tab PO PRN (21:57)
[2017-09-09] MEDS: Pantoprazole 40 MG Tab.CR PO SCH (05:58)
[2017-09-09] MEDS: Albuterol/Ipratropium 3.0-0.5 MG/3 ML Neb Soln NEB SCH ×3 (07:34→20:13)
[2017-09-09] MEDS: Arformoterol 15 MCG/2 ML Neb Soln INH SCH ×2 (08:14→21:28)
[2017-09-09] MEDS: Budesonide 0.5 MG/2 ML Neb Susp INH SCH ×2 (08:14→21:28)
[2017-09-09] MEDS: Potassium Chloride 10 MEQ Tab.ER PO SCH ×3 (08:30→21:30)
[2017-09-09] MEDS: predniSONE 10 MG Tab PO SCH (08:30)
[2017-09-09] MEDS: Carvedilol 6.25 MG Tab PO SCH ×2 (08:31→17:22)
[2017-09-09] MEDS: Ferrous Sulfate 325 MG Tab PO SCH (08:31)
[2017-09-09] MEDS: busPIRone 5 MG Tab PO SCH ×2 (08:32→21:29)
[2017-09-09] MEDS: Furosemide 20 MG Tab PO SCH (08:32)
[2017-09-09] MEDS: UMECLIDINIUM BROMIDE IH SCH (08:33)
[2017-09-09] MEDS: Acetaminophen 500 MG Tab PO SCH ×3 (08:33→21:32)
[2017-09-09] MEDS: Carboxymethylcellulose Sodium 0.5% Ophth Soln 0.4 ML UD Box of 30 EYEBOTH SCH ×4 (08:33→21:30)
[2017-09-09] MEDS: Azithromycin 250 MG Tab PO SCH (08:34)
[2017-09-09] MEDS: Multivitamins, Therapeutic with Minerals Tab PO SCH (12:27)
[2017-09-09] MEDS: Escitalopram 20 MG Tab PO SCH (12:28)
[2017-09-09] MEDS: Calcium Carbonate/Vitamin D3 1250 MG-200 Unit Tab PO SCH ×2 (12:29→17:22)
[2017-09-09] MEDS: Isosorbide Mononitrate 30 MG Tab.ER PO SCH (12:29)
[2017-09-09] MEDS: Aspirin 81 MG Tab.EC PO SCH (17:22)
[2017-09-09] MEDS: Bacitracin/Polymyxin B Ophth Oint 3.5 GM Tube EYEBOTH SCH (21:29)
[2017-09-09] MEDS: Latanoprost 0.005% Ophth Soln 2.5 ML Bottle EYERT SCH (21:30)
[2017-09-09] MEDS: Montelukast 10 MG Tab PO SCH (21:32)
[2017-09-09] MEDS: Simvastatin 20 MG Tab PO SCH (21:32)
[2017-09-09] MEDS: Zolpidem 5 MG Tab PO PRN (22:08)
[2017-09-10] MEDS ORDERED: Alendronate 70 MG Tab PO SCH (06:00)
[2017-09-10] MEDS: Pantoprazole 40 MG Tab.CR PO SCH (06:30)
[2017-09-10] MEDS: Albuterol/Ipratropium 3.0-0.5 MG/3 ML Neb Soln NEB SCH ×2 (08:00→20:20)
[2017-09-10] MEDS: Acetaminophen 500 MG Tab PO SCH ×3 (08:50→20:08)
[2017-09-10] MEDS: Carvedilol 6.25 MG Tab PO SCH ×2 (08:50→17:20)
[2017-09-10] MEDS: Potassium Chloride 10 MEQ Tab.ER PO SCH ×3 (08:50→20:08)
[2017-09-10] MEDS: predniSONE 10 MG Tab PO SCH (08:50)
[2017-09-10] MEDS: busPIRone 5 MG Tab PO SCH ×2 (08:50→20:10)
[2017-09-10] MEDS: Azithromycin 250 MG Tab PO SCH (08:50)
[2017-09-10] MEDS: Ferrous Sulfate 325 MG Tab PO SCH (08:50)
[2017-09-10] MEDS: UMECLIDINIUM BROMIDE IH SCH (08:51)
[2017-09-10] MEDS: Carboxymethylcellulose Sodium 0.5% Ophth Soln 0.4 ML UD Box of 30 EYEBOTH SCH ×4 (08:51→20:12)
[2017-09-10] MEDS: Budesonide 0.5 MG/2 ML Neb Susp INH SCH ×2 (09:48→19:58)
[2017-09-10] MEDS: Arformoterol 15 MCG/2 ML Neb Soln INH SCH ×2 (09:48→19:58)
[2017-09-10] MEDS: Escitalopram 20 MG Tab PO SCH (11:51)
[2017-09-10] MEDS: Calcium Carbonate/Vitamin D3 1250 MG-200 Unit Tab PO SCH ×2 (11:51→17:20)
[2017-09-10] MEDS: Multivitamins, Therapeutic with Minerals Tab PO SCH (11:51)
[2017-09-10] MEDS: Isosorbide Mononitrate 30 MG Tab.ER PO SCH (11:51)
[2017-09-10] MEDS: Aspirin 81 MG Tab.EC PO SCH (17:20)
[2017-09-10] MEDS: Latanoprost 0.005% Ophth Soln 2.5 ML Bottle EYERT SCH (20:07)
[2017-09-10] MEDS: Montelukast 10 MG Tab PO SCH (20:08)
[2017-09-10] MEDS: Simvastatin 20 MG Tab PO SCH (20:09)
[2017-09-10] MEDS: Bacitracin/Polymyxin B Ophth Oint 3.5 GM Tube EYEBOTH SCH (20:10)
[2017-09-10] MEDS: Zolpidem 5 MG Tab PO PRN (21:32)
[2017-09-11] MEDS: Pantoprazole 40 MG Tab.CR PO SCH (06:12)
[2017-09-11] MEDS: Albuterol/Ipratropium 3.0-0.5 MG/3 ML Neb Soln NEB SCH (07:09)
[2017-09-11] MEDS: Budesonide 0.5 MG/2 ML Neb Susp INH SCH (07:45)
[2017-09-11] MEDS: Arformoterol 15 MCG/2 ML Neb Soln INH SCH (07:48)
--- NOTE | 2017-09-11 08:20 | PCM.PN ---
- General Info Date of Service: 09/11/17 Admission Dx/Problem (Free Text): Patient with out concerns. She wears oxygen normally. She denies cough, shortness of breath, fevers, chills. Says her throat is scratchy and that's improving. No leg swelling or chest pain. - Patient Data Vitals - Most Recent: Last Vital Signs Temp 97.7 F 09/10/17 07:36 Pulse 88 09/11/17 08:15 Resp 20 09/10/17 07:36 BP 130/70 09/10/17 17:20 Pulse Ox 97 09/11/17 08:15 Weight - Most Recent: 107 lb 6.4 oz I&O - Last 24 Hours: Intake & Output 09/10/17 09/11/17 09/11/17 22:59 06:59 14:59 Intake Total 480 Balance 480 Med Orders - Current: Current Medications Acetaminophen (Tylenol) 650 mg PO Q4H PRN PRN Reason: Pain (Mild 1-3)/fever Acetaminophen (Tylenol Extra Strength) 500 mg PO TID [facility] Last Admin: 09/10/17 20:08 Dose: 500 mg Albuterol (Ventolin Hfa) 0 gm INH Q4H PRN PRN Reason: wheezing or SOB Albuterol/Ipratropium (Duoneb 3.0-0.5 Mg/3 Ml) 3 ml NEB BIDRT [facility] Last Admin: 09/11/17 07:09 Dose: 3 ml Alendronate Sodium (Fosamax) 70 mg PO GOLD [facility] Last Admin: 09/10/17 05:57 Dose: 70 mg Arformoterol Tartrate (Brovana) 15 mcg INH 0800,2000 [facility] Last Admin: 09/11/17 07:48 Dose: 15 mcg Artificial Tears (Refresh Plus 0.5%) 1 each EYEBOTH QID [facility] Last Admin: 09/10/17 20:12 Dose: 1 drop Aspirin (Halfprin) 81 mg PO 1700 [facility] Last Admin: 09/10/17 17:20 Dose: 81 mg Azithromycin (Zithromax) 250 mg PO DAILY [facility] Stop: 09/12/17 09:00 Last Admin: 09/10/17 08:50 Dose: 250 mg Bacitracin/Polymyxin B Sulfate (Polysporin Ophth Oint) 0 gm EYEBOTH BEDTIME [facility] Last Admin: 09/10/17 20:10 Dose: 1 applic Budesonide (Pulmicort) 0.5 mg INH 08,20 [facility] Last Admin: 09/11/17 07:45 Dose: 0.5 mg Buspirone HCl (Buspar) 5 mg PO BID [facility] Last Admin: 09/10/17 20:10 Dose: 5 mg Calcium Carbonate (Calcium Carbonate/Vitamin D 1250 Mg-200 Unit) 1 tab PO 1200, 1700 [facility] Last Admin: 09/10/17 17:20 Dose: 1 tab Carvedilol (Coreg) 6.25 mg PO BIDMEALS [facility] Last Admin: 09/10/17 17:20 Dose: 6.25 mg Diphenhydramine HCl (Benadryl) 50 mg PO BEDTIME PRN PRN Reason: Insomnia Docusate Sodium (Colace) 100 mg PO BID PRN PRN Reason: Constipation Escitalopram Oxalate (Lexapro) 20 mg PO WITHLUNCH [facility] Last Admin: 09/10/17 11:51 Dose: 20 mg Ferrous Sulfate (Ferrous Sulfate) 325 mg PO 0800 [facility] Last Admin: 09/10/17 08:50 Dose: 325 mg Furosemide (Lasix) 10 mg PO Q48H [facility] Last Admin: 09/09/17 08:32 Dose: 10 mg Isosorbide Mononitrate (Imdur) 30 mg PO WITHLUNCH [facility] Last Admin: 09/10/17 11:51 Dose: 30 mg Latanoprost (Xalatan 0.005% Ophth Soln) 0 ml EYERT BEDTIME [facility] Last Admin: 09/10/17 20:07 Dose: 1 drop Lutein (Lutein) 20 mg PO BEDTIME [facility] Last Admin: 09/10/17 20:10 Dose: 20 mg Montelukast Sodium (Singulair) 10 mg PO BEDTIME [facility] Last Admin: 09/10/17 20:08 Dose: 10 mg Multivitamins/Minerals (Vitamins And Minerals) 1 tab PO WITHLUNCH [facility] Last Admin: 09/10/17 11:51 Dose: 1 tab Nitroglycerin (Nitrostat) 0.4 mg SL Q5M PRN PRN Reason: Chest Pain (Brinzolamide [Azopt 1% Ophth Susp] 1 Drop) *Ptom 1 drop EYERT TID [facility] Last Admin: 09/10/17 20:11 Dose: 1 drop (Roflumilast [ Daliresp] 500 Mcg) * Ptom 500 mcg PO BEDTIME [facility] Last Admin: 09/10/17 20:08 Dose: 500 mcg (Umeclidinium [place] [Incruse Ellipta*] 1 Puff) 1 puff IH DAILY [facility] Last Admin: 09/10/17 08:51 Dose: 1 puff Pantoprazole Sodium (Protonix) 40 mg PO DAILY@0600 [facility] Last Admin: 09/11/17 06:12 Dose: 40 mg Potassium Chloride (Klor-Con 10) 10 meq PO TID@0800,1200,2100 [facility] Last Admin: 09/10/17 20:08 Dose: 10 meq Simvastatin (Zocor) 20 mg PO BEDTIME [facility] Last Admin: 09/10/17 20:09 Dose: 20 mg Sodium Chloride ([place] Nasal [place]) 0 ml NASBOTH ASDIRECTED PRN PRN Reason: DRY NOSE Zolpidem Tartrate (Ambien) 5 mg PO BEDTIME PRN PRN Reason: Insomnia Last Admin: 09/10/17 21:32 Dose: 5 mg Discontinued Medications Albuterol/Ipratropium (Duoneb 3.0-0.5 Mg/3 Ml) 3 ml NEB QIDRT [facility] Last Admin: 09/09/17 11:29 Dose: Not Given Azithromycin (Zithromax) 500 mg PO ONETIME ONE Stop: 09/07/17 17:34 Last Admin: 09/07/17 18:07 Dose: 500 mg Prednisone (Prednisone) 20 mg PO DAILY [facility] PRN Reason: Taper Stop: 09/12/17 07:59 Last Admin: 09/08/17 08:33 Dose: 20 mg Prednisone (Prednisone) 10 mg PO DAILY@0800 [facility] Stop: 09/11/17 08:01 Last Admin: 09/10/17 08:50 Dose: 10 mg - Exam General: Alert, Oriented, Cooperative Neck: Supple Lungs: Normal Respiratory Effort, Rales (Right) Cardiovascular: Regular Rate, Regular Rhythm Back Exam: Normal Inspection Extremities: No Pedal Edema Neurological: Normal Speech Psy/Mental Status: Alert, Normal Affect, Normal Mood - Problem List & Annotations (1) Sinusitis SNOMED Code(s): 72631620 Code(s): J32.9 - CHRONIC SINUSITIS, UNSPECIFIED Status: Acute Current Visit: Yes (2) COPD with exacerbation SNOMED Code(s): 271858163 Code(s): J44.1 - CHRONIC OBSTRUCTIVE PULMONARY DISEASE W (ACUTE) EXACERBATION Status: Acute Current Visit: No Annotation/Comment:: Completed 5 days rocephin/azithro, restart Recruse Ellipta. Continue prednisone taper over the next few days. (3) Anxiety SNOMED Code(s): 92171686 Code(s): F41.9 - ANXIETY DISORDER, UNSPECIFIED Status: Chronic Current Visit: No Annotation/Comment:: continue current medication. - Problem List Review Problem List Initiated/Reviewed/Updated: Yes - Plan Plan:: 1. Discharge to home on her normal home oxygen and normal medications. 2. Patient does not want home health.
--- NOTE | 2017-09-11 08:35 | PCM.DCSUM1 ---
Discharge Summary - Hospital Course Free Text/Narrative:: Swing bed course-patient was placed on PT/OT. She was honest tapering dose of prednisone that she did. She was on 4 L of nasal cannula oxygen which he normally takes at home. She did well on PT/OT. She was off antibiotics will she was in swing bed until she started having some scratchy throat and nasal congestion pressures put on a Z-Benny. That improved. She did well and wanted to go home. She deferred home health. Brief History: This is an 86-year-old female who was recently hospitalized from 08/30 to 09/04 for community-acquired pneumonia and COPD exacerbation. She became quite weak and debilitated during her hospital stay from her illness and at the time of discharge was not ready to return home to her independent living situation. She was thus admitted to swing bed status for physical therapy and occupational therapy. - Discharge Data Discharge Date: 09/11/17 Discharge Disposition: Home, Self-Care 01 Condition: Good - Discharge Diagnosis/Problem(s) (1) Sinusitis SNOMED Code(s): 21605655 ICD Code: J32.9 - CHRONIC SINUSITIS, UNSPECIFIED Status: Acute Current Visit: Yes (2) COPD with exacerbation SNOMED Code(s): 106625549 ICD Code: J44.1 - CHRONIC OBSTRUCTIVE PULMONARY DISEASE W (ACUTE) EXACERBATION Status: Acute Current Visit: No Problem Details: Completed 5 days rocephin/azithro, restart Recruse Ellipta. Continue prednisone taper over the next few days. (3) Anxiety SNOMED Code(s): 11494640 ICD Code: F41.9 - ANXIETY DISORDER, UNSPECIFIED Status: Chronic Current Visit: No Problem Details: continue current medication. (4) Community acquired pneumonia SNOMED Code(s): 030230710 ICD Code: J18.9 - PNEUMONIA, UNSPECIFIED ORGANISM Status: Acute Current Visit: Yes - Patient Summary/Data Consults: Consultations 09/04/17 15:36 OT Evaluation and Treatment [CONS] Routine Please Evaluate and Treat. OT Reason for Consult: Strengthening This query below is only for informational purposes and is not editable. Admission Diagnosis/Problem: Weakness PT Evaluation and Treatment [CONS] Routine Please Evaluate and Treat. PT Reason for Consult: Strengthening This query below is only for informational purposes and is not editable. Admission Diagnosis/Problem: Weakness Respiratory Care Assess and Treatment [CONS] Routine Comment: Physician Instructions: - Patient Instructions Diet: Regular Diet as Tolerated Activity: As Tolerated Driving: Do Not Drive Showering/Bathing: May Shower Notify Provider of: Fever Other/Special Instructions: 1. 4 L oxygen nasal cannula. 2. Recheck with Dr. Rios 7-10 days. - Discharge Plan Prescriptions/Med Rec: Azithromycin [Zithromax] 250 mg PO DAILY #1 tablet Home Medications: Home Meds Bimatoprost [LUMIGAN 0.01% Ophth Soln] 1 drop EYERT BEDTIME 11/13/14 [History] Calcium Carbonate/Vitamin D3 [Calcium 600-Vit D3 400 Tablet] 1 each PO ,17 [History] Isosorbide Mononitrate [Imdur] 30 mg PO WITHLUNCH 11/13/14 [History] Lutein 20 mg PO BEDTIME 11/13/14 [History] Multivit-Min/FA/Lycopene/Lut [Centrum Silver] 1 each PO WITHLUNCH 11/13/14 [ History] Nitroglycerin 0.4 mg SL Q5M PRN 11/13/14 [History] Omeprazole 40 mg PO DAILY 11/13/14 [History] Simvastatin [Zocor] 20 mg PO BEDTIME 11/13/14 [History] busPIRone [Buspar] 5 mg PO BID 11/13/14 [History] Acetaminophen [Tylenol Extra Strength] 500 mg PO TID 12/20/14 [History] Bacitracin/Polymyxin B [Polysporin Ophth Oint] 1 applic EYEBOTH BEDTIME [History] Carboxymethylcellulose Sodium [Refresh Plus 0.5%] 1 drop EYEBOTH QID 12/22/14 [ History] Roflumilast [Daliresp] 500 mcg PO BEDTIME 03/21/16 [History] Furosemide [Lasix] 10 mg PO Q48H 04/04/16 [History] Montelukast [Singulair] 10 mg PO BEDTIME 04/04/16 [History] Arformoterol [Brovana] 15 mcg INH 09,21 05/14/16 [History] Aspirin [Halfprin] 81 mg PO 1700 05/14/16 [History] Budesonide [Pulmicort] 0.5 mg INH 08,20 05/14/16 [History] Alendronate Sodium [Alendronate] 70 mg PO GOLD 10/07/16 [History] Brinzolamide [Azopt 1% Ophth Susp] 1 drop EYERT TID 10/07/16 [History] Carvedilol [Coreg] 6.25 mg PO BIDMEALS 10/07/16 [History] Ferrous Gluconate 324 mg PO 0800 10/07/16 [History] Potassium Chloride 10 meq PO TID@08,12,21 10/07/16 [History] Sodium Chloride [Saline Nasal [place]] 1 dose NS ASDIRECTED PRN 10/07/16 [History] Escitalopram [Lexapro] 20 mg PO WITHLUNCH #60 tablet 11/12/16 [Rx] Albuterol Sulfate [Proair Respiclick] 2 puff IH Q4H PRN 08/30/17 [History] Umeclidinium [place] [Incruse Ellipta*] 1 puff IH DAILY 08/30/17 [History] Albuterol/Ipratropium [DuoNeb 3.0-0.5 MG/3 ML] 3 ml NEB QID neb 09/04/17 [Rx] Zolpidem [Ambien] 2.5 mg PO BEDTIME PRN tablet 09/04/17 [Rx] Azithromycin [Zithromax] 250 mg PO DAILY #1 tablet 09/11/17 [Rx] - Patient Data Vitals - Most Recent: Last Vital Signs Temp 97.7 F 09/10/17 07:36 Pulse 88 09/11/17 08:15 Resp 20 09/10/17 07:36 BP 130/70 09/10/17 17:20 Pulse Ox 97 09/11/17 08:15 Weight - Most Recent: 107 lb 6.4 oz I&O - Last 24 hours: Intake & Output 09/10/17 09/11/17 09/11/17 22:59 06:59 14:59 Intake Total 480 Balance 480 Med Orders - Current: Current Medications Acetaminophen (Tylenol) 650 mg PO Q4H PRN PRN Reason: Pain (Mild 1-3)/fever Acetaminophen (Tylenol Extra Strength) 500 mg PO TID MAX Last Admin: 09/10/17 20:08 Dose: 500 mg Albuterol (Ventolin Hfa) 0 gm INH Q4H PRN PRN Reason: wheezing or SOB Albuterol/Ipratropium (Duoneb 3.0-0.5 Mg/3 Ml) 3 ml NEB BIDRT [facility] Last Admin: 09/11/17 07:09 Dose: 3 ml Alendronate Sodium (Fosamax) 70 mg PO GOLD [facility] Last Admin: 09/10/17 05:57 Dose: 70 mg Arformoterol Tartrate (Brovana) 15 mcg INH 0800,2000 [facility] Last Admin: 09/11/17 07:48 Dose: 15 mcg Artificial Tears (Refresh Plus 0.5%) 1 each EYEBOTH QID [facility] Last Admin: 09/10/17 20:12 Dose: 1 drop Aspirin (Halfprin) 81 mg PO 1700 [facility] Last Admin: 09/10/17 17:20 Dose: 81 mg Azithromycin (Zithromax) 250 mg PO DAILY [facility] Stop: 09/12/17 09:00 Last Admin: 09/10/17 08:50 Dose: 250 mg Bacitracin/Polymyxin B Sulfate (Polysporin Ophth Oint) 0 gm EYEBOTH BEDTIME [facility] Last Admin: 09/10/17 20:10 Dose: 1 applic Budesonide (Pulmicort) 0.5 mg INH 08,20 [facility] Last Admin: 09/11/17 07:45 Dose: 0.5 mg Buspirone HCl (Buspar) 5 mg PO BID [facility] Last Admin: 09/10/17 20:10 Dose: 5 mg Calcium Carbonate (Calcium Carbonate/Vitamin D 1250 Mg-200 Unit) 1 tab PO 1200, 1700 [facility] Last Admin: 09/10/17 17:20 Dose: 1 tab Carvedilol (Coreg) 6.25 mg PO BIDMEALS [facility] Last Admin: 09/10/17 17:20 Dose: 6.25 mg Diphenhydramine HCl (Benadryl) 50 mg PO BEDTIME PRN PRN Reason: Insomnia Docusate Sodium (Colace) 100 mg PO BID PRN PRN Reason: Constipation Escitalopram Oxalate (Lexapro) 20 mg PO WITHLUNCH [facility] Last Admin: 09/10/17 11:51 Dose: 20 mg Ferrous Sulfate (Ferrous Sulfate) 325 mg PO 0800 [facility] Last Admin: 09/10/17 08:50 Dose: 325 mg Furosemide (Lasix) 10 mg PO Q48H [facility] Last Admin: 09/09/17 08:32 Dose: 10 mg Isosorbide Mononitrate (Imdur) 30 mg PO WITHLUNCH [facility] Last Admin: 09/10/17 11:51 Dose: 30 mg Latanoprost (Xalatan 0.005% Ophth Soln) 0 ml EYERT BEDTIME [facility] Last Admin: 09/10/17 20:07 Dose: 1 drop Lutein (Lutein) 20 mg PO BEDTIME [facility] Last Admin: 09/10/17 20:10 Dose: 20 mg Montelukast Sodium (Singulair) 10 mg PO BEDTIME [facility] Last Admin: 09/10/17 20:08 Dose: 10 mg Multivitamins/Minerals (Vitamins And Minerals) 1 tab PO WITHLUNCH [facility] Last Admin: 09/10/17 11:51 Dose: 1 tab Nitroglycerin (Nitrostat) 0.4 mg SL Q5M PRN PRN Reason: Chest Pain (Brinzolamide [Azopt 1% Ophth Susp] 1 Drop) *Ptom 1 drop EYERT TID [facility] Last Admin: 09/10/17 20:11 Dose: 1 drop (Roflumilast [ Daliresp] 500 Mcg) * Ptom 500 mcg PO BEDTIME [facility] Last Admin: 09/10/17 20:08 Dose: 500 mcg (Umeclidinium [place] [Incruse Ellipta*] 1 Puff) 1 puff IH DAILY [facility] Last Admin: 09/10/17 08:51 Dose: 1 puff Pantoprazole Sodium (Protonix) 40 mg PO DAILY@0600 [facility] Last Admin: 09/11/17 06:12 Dose: 40 mg Potassium Chloride (Klor-Con 10) 10 meq PO TID@0800,1200,2100 [facility] Last Admin: 09/10/17 20:08 Dose: 10 meq Simvastatin (Zocor) 20 mg PO BEDTIME [facility] Last Admin: 09/10/17 20:09 Dose: 20 mg Sodium Chloride ([place] Nasal [place]) 0 ml NASBOTH ASDIRECTED PRN PRN Reason: DRY NOSE Zolpidem Tartrate (Ambien) 5 mg PO BEDTIME PRN PRN Reason: Insomnia Last Admin: 09/10/17 21:32 Dose: 5 mg Discontinued Medications Albuterol/Ipratropium (Duoneb 3.0-0.5 Mg/3 Ml) 3 ml NEB QIDRT [facility] Last Admin: 09/09/17 11:29 Dose: Not Given Azithromycin (Zithromax) 500 mg PO ONETIME ONE Stop: 09/07/17 17:34 Last Admin: 09/07/17 18:07 Dose: 500 mg Prednisone (Prednisone) 20 mg PO DAILY [facility] PRN Reason: Taper Stop: 09/12/17 07:59 Last Admin: 09/08/17 08:33 Dose: 20 mg Prednisone (Prednisone) 10 mg PO DAILY@0800 [facility] Stop: 09/11/17 08:01 Last Admin: 09/10/17 08:50 Dose: 10 mg *Q Meaningful Use (DIS) - VTE *Q VTE Criteria *Q: VTE Pharmacological Contraindications *Q: Med Refused by Patient - Stroke *Q Stroke Criteria *Q: - AMI *Q AMI Criteria *Q:
[2017-09-11] MEDS: Carvedilol 6.25 MG Tab PO SCH (09:18)
[2017-09-11] MEDS: Potassium Chloride 10 MEQ Tab.ER PO SCH ×2 (09:19→12:29)
[2017-09-11] MEDS: Ferrous Sulfate 325 MG Tab PO SCH (09:19)
[2017-09-11] MEDS: Furosemide 20 MG Tab PO SCH (09:20)
[2017-09-11] MEDS: busPIRone 5 MG Tab PO SCH (09:20)
[2017-09-11] MEDS: Acetaminophen 500 MG Tab PO SCH ×2 (09:21→14:09)
[2017-09-11] MEDS: Carboxymethylcellulose Sodium 0.5% Ophth Soln 0.4 ML UD Box of 30 EYEBOTH SCH ×2 (09:21→12:30)
[2017-09-11] MEDS: Azithromycin 250 MG Tab PO SCH (09:22)
[2017-09-11] MEDS: UMECLIDINIUM BROMIDE IH SCH (09:22)
[2017-09-11] MEDS: predniSONE 10 MG Tab PO SCH (09:27)
[2017-09-11] MEDS: Isosorbide Mononitrate 30 MG Tab.ER PO SCH (12:29)
[2017-09-11] MEDS: Calcium Carbonate/Vitamin D3 1250 MG-200 Unit Tab PO SCH (12:29)
[2017-09-11] MEDS: Escitalopram 20 MG Tab PO SCH (12:30)
[2017-09-11] MEDS: Multivitamins, Therapeutic with Minerals Tab PO SCH (12:30)
[2017-09-11 12:31] VITALS: BP 152/70
== END 2017-09-11 14:30 | disposition home or self-care (01) | DRG 947 ==
LOC: UNDOADMIN 15:26 → FB.MS 15:26
PROVIDERS: ADMIT Family Medicine; ATTEND Family Medicine
DX: R53.1 Weakness (principal); J18.9 Pneumonia, unspecified organism; J44.1 Chronic obstructive pulmonary disease with (acute) exacerbation; J32.9 Chronic sinusitis, unspecified; H40.9 Unspecified glaucoma; I11.0 Hypertensive heart disease with heart failure; I50.9 Heart failure, unspecified; I25.10 Atherosclerotic heart disease of native coronary artery without angina pectoris; E78.00 Pure hypercholesterolemia, unspecified; I25.2 Old myocardial infarction; Z99.81 Dependence on supplemental oxygen; K21.9 Gastro-esophageal reflux disease without esophagitis; M19.90 Unspecified osteoarthritis, unspecified site; M54.9 Dorsalgia, unspecified; G89.29 Other chronic pain; F41.9 Anxiety disorder, unspecified; F32.9 Major depressive disorder, single episode, unspecified; Z87.891 Personal history of nicotine dependence; Z87.01 Personal history of pneumonia (recurrent); H54.7 Unspecified visual loss; Z79.82 Long term (current) use of aspirin; Z79.52 Long term (current) use of systemic steroids; Z88.1 Allergy status to other antibiotic agents; Z88.8 Allergy status to other drugs, medicaments and biological substances
CPT/HCPCS: 36415; 80048; 94640; 97110-GO; 97110-GP; 97116-GP; 97161-GP; 97530-GO-KX; 97530-GP; 97535-GO; A9270; A9270-GY; J7605; J7620; J7626

== ENCOUNTER 2019-05-07 11:27 | Inpatient (IN) | payer MEDICARE, OTHER ==
[2019-05-07] MEDS ORDERED: Albuterol 0.083% 2.5 MG/3 ML Neb Soln NEB PRN (18:09)
[2019-05-07] MEDS ORDERED: Nitroglycerin 0.4 MG Tab.SL SL PRN (18:09)
[2019-05-07] MEDS ORDERED: Ketotifen 0.025% Ophth Soln 5 ML Bottle EYEBOTH SCH (21:00)
[2019-05-07] MEDS ORDERED: Carboxymethylcellulose Sodium 0.5% Ophth Soln 15 ML Bottle EYEBOTH SCH (21:00)
[2019-05-07] MEDS: Budesonide 0.5 MG/2 ML Neb Susp INH SCH (21:51)
[2019-05-07] MEDS: Potassium Chloride 10 MEQ Tab.ER PO SCH (21:51)
[2019-05-07] MEDS: Simvastatin 20 MG Tab PO SCH (21:52)
[2019-05-07] MEDS: Montelukast 10 MG Tab PO SCH (21:53)
[2019-05-07] MEDS: Acetaminophen 500 MG Tab PO SCH (21:53)
[2019-05-07] MEDS: guaiFENesin 600 MG Tab.ER PO SCH (21:54)
[2019-05-07] MEDS: busPIRone 5 MG Tab PO SCH (21:54)
[2019-05-07] MEDS: Arformoterol 15 MCG/2 ML Neb Soln INH SCH (22:07)
[2019-05-07] MEDS: Latanoprost 0.005% Ophth Soln 2.5 ML Bottle **OWN MED EYERT SCH (22:14)
[2019-05-07] MEDS: AZOPT 1% EYERT SCH (22:17)
[2019-05-08] MEDS: Cyclobenzaprine 10 MG Tab PO PRN (04:33)
[2019-05-08] MEDS: Arformoterol 15 MCG/2 ML Neb Soln INH SCH ×2 (06:37→20:40)
[2019-05-08] MEDS: Budesonide 0.5 MG/2 ML Neb Susp INH SCH ×2 (06:37→20:43)
[2019-05-08] MEDS: Pantoprazole 40 MG Tab.CR PO SCH (06:41)
[2019-05-08] MEDS: Roflumilast 500 MCG Tab PO SCH ×2 (07:54→20:41)
[2019-05-08] MEDS: Carboxymethylcellulose Sodium 0.5% Ophth Soln 15 ML Bottle EYEBOTH SCH ×4 (09:08→20:43)
[2019-05-08] MEDS: AZOPT 1% EYERT SCH ×3 (09:09→20:39)
[2019-05-08] MEDS: Ketotifen 0.025% Ophth Soln 5 ML Bottle EYEBOTH SCH ×2 (09:09→20:42)
[2019-05-08] MEDS: Carvedilol 6.25 MG Tab PO SCH ×2 (09:12→18:10)
[2019-05-08] MEDS: Calcium Carbonate 500 MG Tablet PO SCH ×2 (09:12→18:11)
[2019-05-08] MEDS: busPIRone 5 MG Tab PO SCH ×2 (09:12→20:41)
[2019-05-08] MEDS: Aspirin 81 MG Tab.EC PO SCH (09:13)
[2019-05-08] MEDS: Escitalopram 20 MG Tab PO SCH (09:13)
[2019-05-08] MEDS: Furosemide 40 MG Tab PO SCH (09:13)
[2019-05-08] MEDS: Isosorbide Mononitrate 30 MG Tab.ER PO SCH (09:13)
[2019-05-08] MEDS: Tiotropium Inhaler 18 MCG Inhalation Powder Cap Kit of 5 INH SCH (09:14)
[2019-05-08] MEDS: Acetaminophen 500 MG Tab PO SCH ×3 (09:14→20:45)
[2019-05-08] MEDS: guaiFENesin 600 MG Tab.ER PO SCH ×2 (09:22→20:43)
[2019-05-08] MEDS: Magnesium Chloride 64 MG Tab.ER PO SCH (09:22)
[2019-05-08] MEDS: Potassium Chloride 10 MEQ Tab.ER PO SCH ×3 (09:22→20:42)
[2019-05-08] MEDS: Multivitamins with Iron/Calcium/Folic Acid/Minerals Tab PO SCH (09:22)
--- NOTE | 2019-05-08 10:47 | PCM.HP ---
H&P History of Present Illness - General Date of Service: 05/08/19 Admit Problem/Dx: Admission Diagnosis/Problem Admission Diagnosis/Problem Weakness Source of Information: Patient, Old Records History Limitations: Reports: No Limitations - History of Present Illness Initial Comments - Free Text/Narative: Nona is an 88-year-old female was admitted from [facility] to swing bed. She was admitted with chronic shortness of breath, elevated troponin, severe COPD, O2 Dependent. She also has generalized anxiety disorder, anemia(chronic blood loss,NSAID use) ,chronic back pain, dysthymia, atrial fibrillation and aortic stenosis. she is also known to have coronary artery disease, with total blockage of one of the arteries on the right however she is expressed no interest in his right procedure but the records obtained from [facility].She's been very weak and is being admitted to swing [facility] for physical rehabilitation. neck and back Pain Score (Numeric/FACES): 0 - Related Data Allergies/Adverse Reactions: Allergies Allergy/AdvReac Type Severity Reaction Status Date / Time levofloxacin [From Levaquin] Allergy Unknown unknown Verified 08/30/17 18:34 hypromellose Allergy Cannot Verified 08/30/17 18:34 [From GenTeal (hypromellose)] Remember lisinopril Allergy Cough Verified 05/07/19 11:35 optive eye drops Allergy Unknown unknown Uncoded 11/08/16 08:10 Home Medications: Home Meds Bimatoprost [LUMIGAN 0.01% Ophth Soln] 1 drop EYERT BEDTIME 11/13/14 [History] Calcium Carbonate/Vitamin D3 [Calcium 600-Vit D3 400 Tablet] 1 each PO BIDMEALS 11/13/14 [History] Isosorbide Mononitrate [Imdur] 30 mg PO DAILY 11/13/14 [History] Multivit-Min/FA/Lycopene/Lut [Centrum Silver] 1 each PO DAILY 11/13/14 [History] Nitroglycerin 0.4 mg SL Q5M PRN 11/13/14 [History] Simvastatin [Zocor] 20 mg PO BEDTIME 11/13/14 [History] busPIRone [Buspar] 5 mg PO BID 11/13/14 [History] Acetaminophen [Tylenol Extra Strength] 500 mg PO TID 12/20/14 [History] Carboxymethylcellulose Sodium [Refresh Plus 0.5%] 1 drop EYEBOTH QID 12/22/14 [ History] Roflumilast [Daliresp] 500 mcg PO BEDTIME 03/21/16 [History] Furosemide [Lasix] 40 mg PO DAILY 04/04/16 [History] Montelukast [Singulair] 10 mg PO BEDTIME 04/04/16 [History] Arformoterol [Brovana] 15 mcg INH 09,21 05/14/16 [History] Aspirin [Halfprin] 81 mg PO DAILY 05/14/16 [History] Budesonide [Pulmicort] 0.5 mg INH 08,20 05/14/16 [History] Brinzolamide [Azopt 1% Ophth Susp] 1 drop EYERT TID 10/07/16 [History] Carvedilol [Coreg] 6.25 mg PO BIDMEALS 10/07/16 [History] Ferrous Gluconate 324 mg PO 1400 10/07/16 [History] Potassium Chloride 10 meq PO TID@08,12,21 10/07/16 [History] Albuterol Sulfate [Proair Respiclick] 2 puff IH Q4H PRN 08/30/17 [History] Umeclidinium Kopperl [Incruse Ellipta*] 1 puff IH DAILY 08/30/17 [History] Albuterol [Proventil Neb Soln] 2.5 mg IH Q4H PRN 05/07/19 [History] Cyclobenzaprine [Flexeril] 5 mg PO BID PRN 05/07/19 [History] Escitalopram [Lexapro] 20 mg PO DAILY 05/07/19 [History] Ketotifen [Ketotifen 0.025% Ophth Soln] 1 drop EYEBOTH BID 05/07/19 [History] Losartan [Cozaar] 12.5 mg PO DAILY 05/07/19 [History] Magnesium Chloride [Mag-64] 64 mg PO DAILY 05/07/19 [History] Pantoprazole Sodium [Protonix] 40 mg PO 1700 05/07/19 [History] guaiFENesin [Mucinex] 600 mg PO BID 05/07/19 [History] Past Medical History HEENT History: Reports: Cataract, Glaucoma, Impaired Vision, Other (See Below) Other HEENT History: eyritis, ulcer on eye, taking some sort of shot to left eye now for "stroke in the eye" Cardiovascular History: Reports: CAD, Heart Failure, High Cholesterol, Hypertension, MT, PVD, SOB on Exertion, Other (See Below) Other Cardiovascular History: scarlet fever Respiratory History: Reports: COPD, Pneumonia, Recurrent, SOB, Other (See Below) Other Respiratory History: Home 02, collapsed lung Gastrointestinal History: Reports: GERD, GI Bleed, Hemorrhoids, Other (See Below ) Other Gastrointestinal History: colitis Genitourinary History: Reports: Renal Calculus, Urinary Incontinence [employer] History: Reports: Musculoskeletal History: Reports: Arthritis, Back Pain, Chronic, Fracture, Osteoporosis Psychiatric History: Reports: Anxiety, Depression Endocrine/Metabolic History: Reports: Osteoporosis Hematologic History: Reports: Anemia, Blood Transfusion(s) Dermatologic History: Reports: Other (See Below) Other Dermatologic History: hx of rosacia - Infectious Disease History Infectious Disease History: Reports: Chicken Pox, Influenza, Measles, Mumps, Rubella, Scarlet Fever - Past Surgical History HEENT Surgical History: Reports: Cataract Surgery, Tonsillectomy Cardiovascular Surgical History: Reports: Percutaneous Transluminal Angioplasty GI Surgical History: Reports: Appendectomy, Cholecystectomy, Colonoscopy, EGD, Hernia Repair/Other, Other (See Below) Musculoskeletal Surgical History: Reports: Hip Replacement, Other (See Below) Social & Family History - Family History Family Medical History: Noncontributory HEENT: Reports: Cataract Cardiac: Reports: Heart Failure, Hypertension GI: Reports: Cholelithiasis OBGYN: Reports: Neurological: Reports: Alzheimers Disease, CVA Oncologic: Reports: Colon - Tobacco Use Smoking Status *Q: Former Smoker Years of Tobacco use: 46 Used Tobacco, but Quit: Yes Month/Year Tobacco Last Used: - Caffeine Use Caffeine Use: Reports: Coffee Other Caffeine Use: 5-6 Caffeine Use Comment: 5-6 cups/day - Recreational Drug Use Recreational Drug Use: No - Living Situation & Occupation Living situation: Reports: Single, Alone Occupation: Unemployed H&P Review of Systems - Review of Systems: Review Of Systems: ROS reveals no pertinent complaints other than HPI. Exam - Exam Exam: See Below - Vital Signs Vital Signs: Last Vital Signs Temp 98.0 F 05/07/19 18:34 Pulse 89 05/08/19 09:12 Resp 18 05/07/19 18:34 BP 135/89 05/08/19 09:13 Pulse Ox 93 L 05/08/19 00:10 Weight: 45.813 kg - Exam Quality Assessment: Supplemental Oxygen General: Alert HEENT: PERRLA Neck: Supple Lungs: Decreased Breath Sounds Back Exam: Normal Inspection Extremities: Normal Inspection Neurological: Cranial Nerves Intact Neuro Extensive - Mental Status: Alert, Oriented x3 Neuro Extensive - Motor, Sensory, Reflexes: CN II-XII Intact Psychiatric: Alert, Normal Affect - Problem List (1) Debility SNOMED Code(s): 45203682 ICD Code: R53.81 - OTHER MALAISE Status: Acute Current Visit: Yes (2) SOB (shortness of breath) SNOMED Code(s): 214697064 ICD Code: R06.02 - SHORTNESS OF BREATH Status: Chronic Current Visit: Yes (3) COPD (chronic obstructive pulmonary disease) SNOMED Code(s): 26939854 ICD Code: J44.9 - CHRONIC OBSTRUCTIVE PULMONARY DISEASE, UNSPECIFIED Status : Chronic Current Visit: Yes Qualifiers: COPD type: emphysema (4) Aortic stenosis SNOMED Code(s): 20124372 ICD Code: I35.0 - NONRHEUMATIC AORTIC (VALVE) STENOSIS Status: Chronic Current Visit: Yes Qualifiers: Cardiac valve disease etiology: etiology unspecified Qualified Code(s): I35.0 - Nonrheumatic aortic (valve) stenosis (5) HTN (hypertension) SNOMED Code(s): 26809219 ICD Code: I10 - ESSENTIAL (PRIMARY) HYPERTENSION Status: Acute Current Visit: Yes Qualifiers: Hypertension type: essential hypertension Qualified Code(s): I10 - Essential (primary) hypertension (6) ZEV (generalized anxiety disorder) SNOMED Code(s): 67040408 ICD Code: F41.1 - GENERALIZED ANXIETY DISORDER Status: Chronic Current Visit: Yes (7) Afib SNOMED Code(s): 49877768 ICD Code: I48.91 - UNSPECIFIED ATRIAL FIBRILLATION Status: Acute Current Visit: Yes Qualifiers: Atrial fibrillation type: chronic Qualified Code(s): I48.2 - Chronic atrial fibrillation (8) Elevated troponin SNOMED Code(s): 888363161, 353867538, 610995794 ICD Code: R74.8 - ABNORMAL LEVELS OF OTHER SERUM ENZYMES Status: Acute Current Visit: Yes (9) CHF (congestive heart failure) SNOMED Code(s): 90731310 ICD Code: I50.9 - HEART FAILURE, UNSPECIFIED Status: Acute Current Visit : Yes Qualifiers: Heart failure type: combined systolic and diastolic Problem List Initiated/Reviewed/Updated: Yes Orders Last 24hrs: Active Orders 24 hr Category Date Time Status Patient Status [ADT] Routine ADT 05/07/19 18:08 Active Height and Weight [RC] .q tues Care 05/07/19 18:08 Active Oxygen Therapy [RC] PRN Care 05/07/19 18:08 Active Up With Assistance [RC] ASDIRECTED Care 05/07/19 18:08 Active VTE/DVT Education [RC] Per Unit Routine Care 05/07/19 18:08 Active Vital Signs [RC] PER UNIT ROUTINE Care 05/07/19 18:08 Active OT Evaluation and Treatment [CONS] Routine Cons 05/07/19 18:08 Active PT Evaluation and Treatment [CONS] Routine Cons 05/07/19 18:08 Active Acetaminophen [Tylenol Extra Strength] Med 05/07/19 21:00 Active 500 mg PO TID Albuterol [Proventil Neb Soln] Med 05/07/19 18:09 Active 2.5 mg NEB Q4H PRN Albuterol [Ventolin HFA] Med 05/07/19 18:09 Active 0 gm INH Q4H PRN Arformoterol [Brovana] Med 05/07/19 21:00 Active 15 mcg INH BIDRT Aspirin [Halfprin] Med 05/08/19 09:00 Active 81 mg PO DAILY Brinzolamide [Azopt 1% Ophth Susp] Med 05/07/19 21:00 Active 0 drop EYERT TID Budesonide [Pulmicort] Med 05/07/19 21:00 Active 0.5 mg INH BIDRT Calcium Carbonate [Oyster Shell Calcium] Med 05/08/19 08:00 Active 500 mg PO BIDMEALS Carboxymethylcellulose Sodium [Refresh Tears 0.5%] Med 05/08/19 07:49 Active 0 ml EYEBOTH QID Carvedilol [Coreg] Med 05/08/19 08:00 Active 6.25 mg PO BIDMEALS Cyclobenzaprine [Flexeril] Med 05/07/19 18:09 Active 5 mg PO BID PRN Escitalopram [Lexapro] Med 05/08/19 09:00 Active 20 mg PO DAILY Ferrous Sulfate Med 05/08/19 14:00 Active 325 mg PO 1400 Furosemide [Lasix] Med 05/08/19 09:00 Active 40 mg PO DAILY Isosorbide Mononitrate [Imdur] Med 05/08/19 09:00 Active 30 mg PO DAILY Ketotifen [Ketotifen 0.025% Ophth Soln] Med 05/08/19 07:51 Active 0 ml EYEBOTH BID Latanoprost [Xalatan 0.005% Ophth Soln] Med 05/07/19 21:00 Active 0 ml EYERT BEDTIME Losartan [Cozaar] Med 05/08/19 09:00 Active 12.5 mg PO DAILY Magnesium Chloride [Mag-64] Med 05/08/19 09:00 Active 64 mg PO DAILY Montelukast [Singulair] Med 05/07/19 21:00 Active 10 mg PO BEDTIME Multivitamins w-Iron/Ca/FA/Min [Thera M Plus] Med 05/08/19 09:00 Active 1 tab PO DAILY Nitroglycerin [Nitrostat] Med 05/07/19 18:09 Active 0.4 mg SL Q5M PRN Pantoprazole [ProTONIX] Med 05/08/19 07:30 Active 40 mg PO ACBREAKFAST Potassium Chloride [Klor-Con 10] Med 05/07/19 21:00 Active 10 meq PO TID@08,12,21 Roflumilast [Daliresp] Med 05/07/19 21:00 Active 500 mcg PO BEDTIME Simvastatin [Zocor] Med 05/07/19 21:00 Active 20 mg PO BEDTIME Tiotropium [Spiriva HandiHaler] Med 05/08/19 09:00 Active 18 mcg INH DAILY busPIRone [Buspar] Med 05/07/19 21:00 Active 5 mg PO BID guaiFENesin [Mucinex] Med 05/07/19 21:00 Active 600 mg PO BID Resuscitation Status Routine Resus Stat 05/07/19 18:08 Ordered Medication Orders Acetaminophen (Tylenol Extra Strength) 500 mg PO TID MAX Last Admin: 05/08/19 09:14 Dose: 500 mg Admin: 05/07/19 21:53 Dose: 500 mg Albuterol (Proventil Neb Soln) 2.5 mg NEB Q4H PRN PRN Reason: SOB/WHEEZING Albuterol (Ventolin Hfa) 0 gm INH Q4H PRN PRN Reason: wheezing or SOB Arformoterol Tartrate (Brovana) 15 mcg INH BIDRT [facility] Last Admin: 05/08/19 06:37 Dose: 15 mcg Admin: 05/07/19 22:07 Dose: 15 mcg Artificial Tears (Refresh Tears 0.5%) 0 ml EYEBOTH QID [facility] Last Admin: 05/08/19 09:08 Dose: 1 drop Aspirin (Halfprin) 81 mg PO DAILY [facility] Last Admin: 05/08/19 09:13 Dose: 81 mg Budesonide (Pulmicort) 0.5 mg INH BIDRT [facility] Last Admin: 05/08/19 06:37 Dose: 0.5 mg Admin: 05/07/19 21:51 Dose: 0.5 mg Buspirone HCl (Buspar) 5 mg PO BID [facility] Last Admin: 05/08/19 09:12 Dose: 5 mg Admin: 05/07/19 21:54 Dose: 5 mg Calcium Carbonate/Glycine (Oyster Shell Calcium) 500 mg PO BIDMEALS [facility] Last Admin: 05/08/19 09:12 Dose: 500 mg Carvedilol (Coreg) 6.25 mg PO BIDMEALS [facility] Last Admin: 05/08/19 09:12 Dose: 6.25 mg Cyclobenzaprine HCl (Flexeril) 5 mg PO BID PRN PRN Reason: MUSCLE SPASMS Last Admin: 05/08/19 04:33 Dose: 5 mg Escitalopram Oxalate (Lexapro) 20 mg PO DAILY [facility] Last Admin: 05/08/19 09:13 Dose: 20 mg Ferrous Sulfate (Ferrous Sulfate) 325 mg PO 1400 [facility] Furosemide (Lasix) 40 mg PO DAILY [facility] Last Admin: 05/08/19 09:13 Dose: 40 mg Guaifenesin (Mucinex) 600 mg PO BID [facility] Last Admin: 05/08/19 09:22 Dose: 600 mg Admin: 05/07/19 21:54 Dose: 600 mg Isosorbide Mononitrate (Imdur) 30 mg PO DAILY [facility] Last Admin: 05/08/19 09:13 Dose: 30 mg Ketotifen Fumarate (Ketotifen 0.025% Ophth Soln) 0 ml EYEBOTH BID [facility] Last Admin: 05/08/19 09:09 Dose: 1 drop Latanoprost (Xalatan 0.005% Ophth Soln) 0 ml EYERT BEDTIME [facility] Last Admin: 05/07/19 22:14 Dose: 1 drop Losartan Potassium (Cozaar) 12.5 mg PO DAILY [facility] Magnesium Chloride (Mag-64) 64 mg PO DAILY [facility] Last Admin: 05/08/19 09:22 Dose: 64 mg Montelukast Sodium (Singulair) 10 mg PO BEDTIME [facility] Last Admin: 05/07/19 21:53 Dose: 10 mg Multivitamins/Minerals (Thera M Plus) 1 tab PO DAILY [facility] Last Admin: 05/08/19 09:22 Dose: 1 tab Nitroglycerin (Nitrostat) 0.4 mg SL Q5M PRN PRN Reason: Chest Pain Azopt 1% Ophth Soln (Own Med) 0 drop EYERT TID [facility] Last Admin: 05/08/19 09:09 Dose: 1 drop Admin: 05/07/19 22:17 Dose: 1 drop Pantoprazole Sodium (Protonix) 40 mg PO ACBREAKFAST [facility] Last Admin: 05/08/19 06:41 Dose: 40 mg Potassium Chloride (Klor-Con 10) 10 meq PO TID@08,12,21 [facility] Last Admin: 05/08/19 09:22 Dose: 10 meq Admin: 05/07/19 21:51 Dose: 10 meq Roflumilast (Daliresp) 500 mcg PO BEDTIME [facility] Last Admin: 05/08/19 07:54 Dose: Simvastatin (Zocor) 20 mg PO BEDTIME [facility] Last Admin: 05/07/19 21:52 Dose: 20 mg Tiotropium Kopperl (Spiriva Handihaler) 18 mcg INH DAILY [facility] Last Admin: 05/08/19 09:14 Dose: 1 cap Assessment/Plan Comment:: Admit to [facility] with PT/OT.records were reviewed from [facility], patient is a DNR. Her goals of care is strengthening to be able to return home
[2019-05-08] MEDS: Losartan 25 MG Tab PO SCH (10:55)
[2019-05-08] MEDS: Ferrous Sulfate 325 MG Tab PO SCH (14:59)
[2019-05-08] MEDS: Montelukast 10 MG Tab PO SCH (20:45)
[2019-05-08] MEDS: Latanoprost 0.005% Ophth Soln 2.5 ML Bottle **OWN MED EYERT SCH (20:46)
[2019-05-08] MEDS: Simvastatin 20 MG Tab PO SCH (20:47)
[2019-05-08] MEDS ORDERED: Aluminum Hydroxide/Magnesium Hydroxide Susp 30 ML Cup PO PRN (22:05)
[2019-05-09] MEDS: Arformoterol 15 MCG/2 ML Neb Soln INH SCH ×2 (06:51→20:04)
[2019-05-09] MEDS: Budesonide 0.5 MG/2 ML Neb Susp INH SCH ×2 (06:52→20:17)
[2019-05-09] MEDS: Pantoprazole 40 MG Tab.CR PO SCH (06:53)
[2019-05-09] MEDS: Losartan 25 MG Tab PO SCH (08:09)
[2019-05-09] MEDS: Magnesium Chloride 64 MG Tab.ER PO SCH (08:09)
[2019-05-09] MEDS: Acetaminophen 500 MG Tab PO SCH ×3 (08:10→20:03)
[2019-05-09] MEDS: guaiFENesin 600 MG Tab.ER PO SCH ×2 (08:10→20:03)
[2019-05-09] MEDS: Multivitamins with Iron/Calcium/Folic Acid/Minerals Tab PO SCH (08:11)
[2019-05-09] MEDS: busPIRone 5 MG Tab PO SCH ×2 (08:11→20:03)
[2019-05-09] MEDS: Carvedilol 6.25 MG Tab PO SCH ×2 (08:11→17:34)
[2019-05-09] MEDS: Isosorbide Mononitrate 30 MG Tab.ER PO SCH (08:11)
[2019-05-09] MEDS: Potassium Chloride 10 MEQ Tab.ER PO SCH ×3 (08:11→20:03)
[2019-05-09] MEDS: Furosemide 40 MG Tab PO SCH (08:11)
[2019-05-09] MEDS: Calcium Carbonate 500 MG Tablet PO SCH ×2 (08:12→17:34)
[2019-05-09] MEDS: Tiotropium Inhaler 18 MCG Inhalation Powder Cap Kit of 5 INH SCH (08:12)
[2019-05-09] MEDS: Aspirin 81 MG Tab.EC PO SCH (08:12)
[2019-05-09] MEDS: Escitalopram 20 MG Tab PO SCH (08:12)
[2019-05-09] MEDS: Ketotifen 0.025% Ophth Soln 5 ML Bottle EYEBOTH SCH ×2 (08:15→20:00)
[2019-05-09] MEDS: AZOPT 1% EYERT SCH ×3 (08:16→20:01)
[2019-05-09] MEDS: Carboxymethylcellulose Sodium 0.5% Ophth Soln 15 ML Bottle EYEBOTH SCH ×4 (08:16→20:02)
[2019-05-09] MEDS: Ferrous Sulfate 325 MG Tab PO SCH (13:39)
[2019-05-09] MEDS: Albuterol 8 GM Inhaler INH PRN (17:00)
[2019-05-09] MEDS: Roflumilast 500 MCG Tab PO SCH (20:03)
[2019-05-09] MEDS: Latanoprost 0.005% Ophth Soln 2.5 ML Bottle **OWN MED EYERT SCH (20:03)
[2019-05-09] MEDS: Montelukast 10 MG Tab PO SCH (20:03)
[2019-05-09] MEDS: Perform Pain Reliever Gel 89 ML Tube TP SCH (20:04)
[2019-05-09] MEDS: Simvastatin 20 MG Tab PO SCH (20:04)
[2019-05-10] MEDS: Pantoprazole 40 MG Tab.CR PO SCH ×2 (05:21→06:42)
[2019-05-10] MEDS: Arformoterol 15 MCG/2 ML Neb Soln INH SCH ×2 (06:30→20:31)
[2019-05-10] MEDS: Budesonide 0.5 MG/2 ML Neb Susp INH SCH ×2 (06:42→20:32)
[2019-05-10] MEDS: Acetaminophen 500 MG Tab PO SCH ×3 (08:43→20:37)
[2019-05-10] MEDS: AZOPT 1% EYERT SCH ×3 (08:44→20:41)
[2019-05-10] MEDS: Potassium Chloride 10 MEQ Tab.ER PO SCH ×3 (08:45→20:39)
[2019-05-10] MEDS: Calcium Carbonate 500 MG Tablet PO SCH ×2 (08:45→19:11)
[2019-05-10] MEDS: busPIRone 5 MG Tab PO SCH ×2 (08:46→20:34)
[2019-05-10] MEDS: Carvedilol 6.25 MG Tab PO SCH ×2 (08:46→19:10)
[2019-05-10] MEDS: Aspirin 81 MG Tab.EC PO SCH (08:46)
[2019-05-10] MEDS: Ketotifen 0.025% Ophth Soln 5 ML Bottle EYEBOTH SCH ×2 (08:47→20:40)
[2019-05-10] MEDS: Magnesium Chloride 64 MG Tab.ER PO SCH (08:48)
[2019-05-10] MEDS: Multivitamins with Iron/Calcium/Folic Acid/Minerals Tab PO SCH (08:49)
[2019-05-10] MEDS: Tiotropium Inhaler 18 MCG Inhalation Powder Cap Kit of 5 INH SCH (08:49)
[2019-05-10] MEDS: Isosorbide Mononitrate 30 MG Tab.ER PO SCH (08:50)
[2019-05-10] MEDS: guaiFENesin 600 MG Tab.ER PO SCH ×2 (08:50→20:36)
[2019-05-10] MEDS: Losartan 25 MG Tab PO SCH (08:51)
[2019-05-10] MEDS: Furosemide 40 MG Tab PO SCH (08:52)
[2019-05-10] MEDS: Escitalopram 20 MG Tab PO SCH (08:52)
[2019-05-10] MEDS: Carboxymethylcellulose Sodium 0.5% Ophth Soln 15 ML Bottle EYEBOTH SCH ×4 (08:53→20:40)
[2019-05-10] MEDS: Ferrous Sulfate 325 MG Tab PO SCH (14:10)
[2019-05-10] MEDS: Simvastatin 20 MG Tab PO SCH (20:34)
[2019-05-10] MEDS: Roflumilast 500 MCG Tab PO SCH (20:35)
[2019-05-10] MEDS: Montelukast 10 MG Tab PO SCH (20:36)
[2019-05-10] MEDS: Latanoprost 0.005% Ophth Soln 2.5 ML Bottle **OWN MED EYERT SCH (20:38)
[2019-05-10] MEDS: Perform Pain Reliever Gel 89 ML Tube TP SCH (20:41)
[2019-05-11] MEDS: INCRUSE ELLIPTA *PTOM INH SCH (05:48)
[2019-05-11] MEDS: Arformoterol 15 MCG/2 ML Neb Soln INH SCH ×2 (06:00→20:08)
[2019-05-11] MEDS: Budesonide 0.5 MG/2 ML Neb Susp INH SCH ×2 (06:01→20:10)
[2019-05-11] MEDS: Pantoprazole 40 MG Tab.CR PO SCH (06:43)
[2019-05-11] MEDS: Acetaminophen 500 MG Tab PO SCH ×3 (09:50→20:13)
[2019-05-11] MEDS: Furosemide 40 MG Tab PO SCH (09:52)
[2019-05-11] MEDS: Calcium Carbonate 500 MG Tablet PO SCH ×2 (09:53→17:46)
[2019-05-11] MEDS: busPIRone 5 MG Tab PO SCH ×2 (09:53→20:16)
[2019-05-11] MEDS: Losartan 25 MG Tab PO SCH (09:53)
[2019-05-11] MEDS: Multivitamins with Iron/Calcium/Folic Acid/Minerals Tab PO SCH (09:53)
[2019-05-11] MEDS: Isosorbide Mononitrate 30 MG Tab.ER PO SCH (09:55)
[2019-05-11] MEDS: Potassium Chloride 10 MEQ Tab.ER PO SCH ×3 (09:56→20:17)
[2019-05-11] MEDS: AZOPT 1% EYERT SCH ×3 (09:56→20:11)
[2019-05-11] MEDS: Carvedilol 6.25 MG Tab PO SCH ×2 (09:57→17:46)
[2019-05-11] MEDS: Magnesium Chloride 64 MG Tab.ER PO SCH (09:57)
[2019-05-11] MEDS: Ketotifen 0.025% Ophth Soln 5 ML Bottle EYEBOTH SCH ×2 (09:57→20:12)
[2019-05-11] MEDS: Aspirin 81 MG Tab.EC PO SCH (09:59)
[2019-05-11] MEDS: Escitalopram 20 MG Tab PO SCH (10:01)
[2019-05-11] MEDS: Carboxymethylcellulose Sodium 0.5% Ophth Soln 15 ML Bottle EYEBOTH SCH ×4 (10:04→20:13)
[2019-05-11] MEDS: guaiFENesin 600 MG Tab.ER PO SCH ×2 (10:06→20:19)
--- NOTE | 2019-05-11 10:06 | PCM.PN ---
- General Info Date of Service: 05/11/19 Admission Dx/Problem (Free Text): Patient states she's having back pain and normally takes Tylenol thousand milligrams 3 times a day hears been given 500 3 times a day. She has has the pain in the back and neck like to increase the Tylenol. Her breathing is somewhat better she can now walk to the door but still short of breath and wheezing. - Patient Data Vitals - Most Recent: Last Vital Signs Temp 97.9 F 05/11/19 06:00 Pulse 90 05/11/19 09:57 Resp 20 05/11/19 06:00 BP 141/76 H 05/11/19 09:57 Pulse Ox 92 L 05/11/19 06:00 Weight - Most Recent: 101 lb 0.006 oz Med Orders - Current: Current Medications Acetaminophen (Tylenol Extra Strength) 1,000 mg PO TID [facility] Al Hydroxide/Mg Hydroxide (Mag-Al Susp) 15 ml PO Q2H PRN PRN Reason: Heartburn Last Admin: 05/08/19 23:07 Dose: 15 ml Albuterol (Proventil Neb Soln) 2.5 mg NEB Q4H PRN PRN Reason: SOB/WHEEZING Albuterol (Ventolin Hfa) 0 gm INH Q4H PRN PRN Reason: wheezing or SOB Last Admin: 05/09/19 17:00 Dose: 2 puff Arformoterol Tartrate (Brovana) 15 mcg INH BIDRT [facility] Last Admin: 05/11/19 06:00 Dose: 15 mcg Artificial Tears (Refresh Tears 0.5%) 0 ml EYEBOTH QID [facility] Last Admin: 05/10/19 20:40 Dose: 1 drop Aspirin (Halfprin) 81 mg PO DAILY [facility] Last Admin: 05/11/19 09:59 Dose: 81 mg Budesonide (Pulmicort) 0.5 mg INH BIDRT [facility] Last Admin: 05/11/19 06:01 Dose: 0.5 mg Buspirone HCl (Buspar) 5 mg PO BID [facility] Last Admin: 05/11/19 09:53 Dose: 5 mg Calcium Carbonate/Glycine (Oyster Shell Calcium) 500 mg PO BIDMEALS [facility] Last Admin: 05/11/19 09:53 Dose: 500 mg Carvedilol (Coreg) 6.25 mg PO BIDMEALS [facility] Last Admin: 05/11/19 09:57 Dose: 6.25 mg Cyclobenzaprine HCl (Flexeril) 5 mg PO BID PRN PRN Reason: MUSCLE SPASMS Last Admin: 05/08/19 04:33 Dose: 5 mg Escitalopram Oxalate (Lexapro) 20 mg PO DAILY [facility] Last Admin: 05/11/19 10:01 Dose: 20 mg Ferrous Sulfate (Ferrous Sulfate) 325 mg PO 1400 [facility] Last Admin: 05/10/19 14:10 Dose: 325 mg Furosemide (Lasix) 40 mg PO DAILY [facility] Last Admin: 05/11/19 09:52 Dose: 40 mg Guaifenesin (Mucinex) 600 mg PO BID [facility] Last Admin: 05/10/19 20:36 Dose: 600 mg Isosorbide Mononitrate (Imdur) 30 mg PO DAILY [facility] Last Admin: 05/11/19 09:55 Dose: 30 mg Ketotifen Fumarate (Ketotifen 0.025% Ophth Soln) 0 ml EYEBOTH BID [facility] Last Admin: 05/11/19 09:57 Dose: 1 drop Latanoprost (Xalatan 0.005% Ophth Soln) 0 ml EYERT BEDTIME [facility] Last Admin: 05/10/19 20:38 Dose: 1 drop Losartan Potassium (Cozaar) 12.5 mg PO DAILY [facility] Last Admin: 05/11/19 09:53 Dose: 12.5 mg Magnesium Chloride (Mag-64) 64 mg PO DAILY [facility] Last Admin: 05/11/19 09:57 Dose: 64 mg Menthol (Perform Pain Reliever) 0 ml TP BEDTIME [facility] Last Admin: 05/10/19 20:41 Dose: 89 ml Montelukast Sodium (Singulair) 10 mg PO BEDTIME [facility] Last Admin: 05/10/19 20:36 Dose: 10 mg Multivitamins/Minerals (Thera M Plus) 1 tab PO DAILY [facility] Last Admin: 05/11/19 09:53 Dose: 1 tab Nitroglycerin (Nitrostat) 0.4 mg SL Q5M PRN PRN Reason: Chest Pain Azopt 1% Ophth Soln (Own Med) 0 drop EYERT TID [facility] Last Admin: 05/11/19 09:56 Dose: 1 drop Incruse Ellipta * (Ptom) 0 each INH DAILY@0630 [facility] Last Admin: 05/11/19 05:48 Dose: 1 each Pantoprazole Sodium (Protonix) 40 mg PO ACBREAKFAST [facility] Last Admin: 05/11/19 06:43 Dose: 40 mg Potassium Chloride (Klor-Con 10) 10 meq PO TID@08,12, [facility] Last Admin: 05/11/19 09:56 Dose: 10 meq Roflumilast (Daliresp) 500 mcg PO BEDTIME [facility] Last Admin: 05/10/19 20:35 Dose: 500 mcg Simvastatin (Zocor) 20 mg PO BEDTIME [facility] Last Admin: 05/10/19 20:34 Dose: 20 mg Discontinued Medications Acetaminophen (Tylenol Extra Strength) 500 mg PO TID [facility] Last Admin: 05/11/19 09:50 Dose: 500 mg Artificial Tears (Refresh Tears 0.5%) 0 ml EYEBOTH QID [facility] Last Admin: 05/07/19 22:09 Dose: 1 drop Ketotifen Fumarate (Ketotifen 0.025% Ophth Soln) 0 ml EYEBOTH BID [facility] Last Admin: 05/07/19 22:10 Dose: 1 drop Tiotropium [place] (Spiriva Handihaler) 18 mcg INH DAILY [facility] Last Admin: 05/10/19 08:49 Dose: 1 cap - Exam General: Alert, Oriented Lungs: Decreased Breath Sounds, Wheezing - Problem List & Annotations (1) Afib SNOMED Code(s): 22843539 Code(s): I48.91 - UNSPECIFIED ATRIAL FIBRILLATION Status: Acute Current Visit: Yes Qualifiers: Atrial fibrillation type: chronic Qualified Code(s): I48.2 - Chronic atrial fibrillation (2) Elevated troponin SNOMED Code(s): 508798259, 881785977, 748935379 Code(s): R74.8 - ABNORMAL LEVELS OF OTHER SERUM ENZYMES Status: Acute Current Visit: Yes (3) COPD (chronic obstructive pulmonary disease) SNOMED Code(s): 80565973 Code(s): J44.9 - CHRONIC OBSTRUCTIVE PULMONARY DISEASE, UNSPECIFIED Status : Chronic Current Visit: Yes Qualifiers: COPD type: emphysema (4) Anemia SNOMED Code(s): 514476835 Code(s): D64.9 - ANEMIA, UNSPECIFIED Status: Acute Current Visit: No (5) Weakness SNOMED Code(s): 56237967 Code(s): R53.1 - WEAKNESS Status: Acute Current Visit: No Annotation/ Comment:: PT and OT to evaluate and treat. - Problem List Review Problem List Initiated/Reviewed/Updated: Yes - My Orders Last 24 Hours: My Active Orders 05/11/19 06:30 Non-Formulary Medication [NF Drug] 0 each INH DAILY@0630 05/11/19 14:00 Acetaminophen [Tylenol Extra Strength] 1,000 mg PO TID - Plan Plan:: Increase Tylenol thousand milligrams 3 times a day. Heating pad to back and neck when necessary per patient
[2019-05-11] MEDS: Ferrous Sulfate 325 MG Tab PO SCH (15:54)
[2019-05-11] MEDS: Latanoprost 0.005% Ophth Soln 2.5 ML Bottle **OWN MED EYERT SCH (20:12)
[2019-05-11] MEDS: Simvastatin 20 MG Tab PO SCH (20:16)
[2019-05-11] MEDS: Roflumilast 500 MCG Tab PO SCH (20:17)
[2019-05-11] MEDS: Montelukast 10 MG Tab PO SCH (20:18)
[2019-05-11] MEDS: Perform Pain Reliever Gel 89 ML Tube TP SCH (20:19)
[2019-05-11] MEDS: Cyclobenzaprine 10 MG Tab PO PRN (21:56)
[2019-05-12] MEDS: Arformoterol 15 MCG/2 ML Neb Soln INH SCH ×2 (06:34→20:13)
[2019-05-12] MEDS: Budesonide 0.5 MG/2 ML Neb Susp INH SCH ×2 (06:34→20:13)
[2019-05-12] MEDS: INCRUSE ELLIPTA *PTOM INH SCH (06:34)
[2019-05-12] MEDS: Pantoprazole 40 MG Tab.CR PO SCH (06:35)
[2019-05-12] MEDS: Potassium Chloride 10 MEQ Tab.ER PO SCH ×4 (07:33→20:11)
[2019-05-12] MEDS: Calcium Carbonate 500 MG Tablet PO SCH ×2 (07:33→17:57)
[2019-05-12] MEDS: Carvedilol 6.25 MG Tab PO SCH ×2 (07:34→17:57)
[2019-05-12] MEDS: Carboxymethylcellulose Sodium 0.5% Ophth Soln 15 ML Bottle EYEBOTH SCH ×4 (08:28→20:09)
[2019-05-12] MEDS: AZOPT 1% EYERT SCH ×3 (08:29→20:09)
[2019-05-12] MEDS: Multivitamins with Iron/Calcium/Folic Acid/Minerals Tab PO SCH (08:29)
[2019-05-12] MEDS: guaiFENesin 600 MG Tab.ER PO SCH ×2 (08:29→20:12)
[2019-05-12] MEDS: Ketotifen 0.025% Ophth Soln 5 ML Bottle EYEBOTH SCH ×2 (08:29→20:10)
[2019-05-12] MEDS: Magnesium Chloride 64 MG Tab.ER PO SCH (08:29)
[2019-05-12] MEDS: Losartan 25 MG Tab PO SCH (08:29)
[2019-05-12] MEDS: Escitalopram 20 MG Tab PO SCH (08:30)
[2019-05-12] MEDS: busPIRone 5 MG Tab PO SCH ×2 (08:31→20:12)
[2019-05-12] MEDS: Furosemide 40 MG Tab PO SCH (08:31)
[2019-05-12] MEDS: Aspirin 81 MG Tab.EC PO SCH (08:31)
[2019-05-12] MEDS: Acetaminophen 500 MG Tab PO SCH ×3 (08:32→20:21)
[2019-05-12] MEDS: Isosorbide Mononitrate 30 MG Tab.ER PO SCH (08:32)
[2019-05-12] MEDS: Ferrous Sulfate 325 MG Tab PO SCH (13:29)
[2019-05-12] MEDS: Latanoprost 0.005% Ophth Soln 2.5 ML Bottle **OWN MED EYERT SCH (20:10)
[2019-05-12] MEDS: Perform Pain Reliever Gel 89 ML Tube TP SCH (20:10)
[2019-05-12] MEDS: Montelukast 10 MG Tab PO SCH (20:12)
[2019-05-12] MEDS: Roflumilast 500 MCG Tab PO SCH (20:12)
[2019-05-12] MEDS: Simvastatin 20 MG Tab PO SCH (20:13)
[2019-05-13] MEDS: Pantoprazole 40 MG Tab.CR PO SCH (06:39)
[2019-05-13] MEDS: INCRUSE ELLIPTA *PTOM INH SCH (06:39)
[2019-05-13] MEDS: Arformoterol 15 MCG/2 ML Neb Soln INH SCH ×2 (06:42→20:29)
[2019-05-13] MEDS: Budesonide 0.5 MG/2 ML Neb Susp INH SCH ×2 (06:43→20:31)
[2019-05-13] MEDS: Potassium Chloride 10 MEQ Tab.ER PO SCH ×3 (09:06→20:35)
[2019-05-13] MEDS: Carvedilol 6.25 MG Tab PO SCH ×2 (09:07→17:20)
[2019-05-13] MEDS: Calcium Carbonate 500 MG Tablet PO SCH ×2 (09:07→17:22)
[2019-05-13] MEDS: busPIRone 5 MG Tab PO SCH ×2 (09:08→20:34)
[2019-05-13] MEDS: AZOPT 1% EYERT SCH ×3 (09:08→20:32)
[2019-05-13] MEDS: Aspirin 81 MG Tab.EC PO SCH (09:09)
[2019-05-13] MEDS: Losartan 25 MG Tab PO SCH (09:09)
[2019-05-13] MEDS: Isosorbide Mononitrate 30 MG Tab.ER PO SCH (09:10)
[2019-05-13] MEDS: Escitalopram 20 MG Tab PO SCH (09:10)
[2019-05-13] MEDS: Furosemide 40 MG Tab PO SCH (09:10)
[2019-05-13] MEDS: guaiFENesin 600 MG Tab.ER PO SCH ×2 (09:11→20:35)
[2019-05-13] MEDS: Magnesium Chloride 64 MG Tab.ER PO SCH (09:11)
[2019-05-13] MEDS: Multivitamins with Iron/Calcium/Folic Acid/Minerals Tab PO SCH (09:11)
[2019-05-13] MEDS: Ketotifen 0.025% Ophth Soln 5 ML Bottle EYEBOTH SCH ×2 (09:12→20:33)
[2019-05-13] MEDS: Carboxymethylcellulose Sodium 0.5% Ophth Soln 15 ML Bottle EYEBOTH SCH ×4 (09:12→20:32)
[2019-05-13] MEDS: Acetaminophen 500 MG Tab PO SCH ×3 (09:19→20:34)
[2019-05-13] MEDS: Albuterol 8 GM Inhaler INH PRN ×2 (13:08→17:19)
[2019-05-13] MEDS: Ferrous Sulfate 325 MG Tab PO SCH (13:10)
[2019-05-13] MEDS: Perform Pain Reliever Gel 89 ML Tube TP SCH (20:32)
[2019-05-13] MEDS: Latanoprost 0.005% Ophth Soln 2.5 ML Bottle **OWN MED EYERT SCH (20:33)
[2019-05-13] MEDS: Montelukast 10 MG Tab PO SCH (20:34)
[2019-05-13] MEDS: Simvastatin 20 MG Tab PO SCH (20:34)
[2019-05-13] MEDS: Roflumilast 500 MCG Tab PO SCH (20:34)
[2019-05-14] MEDS: Cyclobenzaprine 10 MG Tab PO PRN (03:22)
[2019-05-14] MEDS: INCRUSE ELLIPTA *PTOM INH SCH (06:15)
[2019-05-14] MEDS: Arformoterol 15 MCG/2 ML Neb Soln INH SCH ×2 (06:16→20:21)
[2019-05-14] MEDS: Budesonide 0.5 MG/2 ML Neb Susp INH SCH ×2 (06:22→20:26)
[2019-05-14] MEDS: Pantoprazole 40 MG Tab.CR PO SCH (06:42)
[2019-05-14] MEDS: Potassium Chloride 10 MEQ Tab.ER PO SCH ×3 (08:15→20:07)
[2019-05-14] MEDS: Calcium Carbonate 500 MG Tablet PO SCH ×2 (08:15→17:00)
[2019-05-14] MEDS: AZOPT 1% EYERT SCH ×3 (08:17→20:07)
[2019-05-14] MEDS: busPIRone 5 MG Tab PO SCH ×2 (08:18→20:08)
[2019-05-14] MEDS: Carvedilol 6.25 MG Tab PO SCH ×2 (08:19→17:00)
[2019-05-14] MEDS: Isosorbide Mononitrate 30 MG Tab.ER PO SCH (08:19)
[2019-05-14] MEDS: Aspirin 81 MG Tab.EC PO SCH (08:19)
[2019-05-14] MEDS: Losartan 25 MG Tab PO SCH (08:19)
[2019-05-14] MEDS: Ketotifen 0.025% Ophth Soln 5 ML Bottle EYEBOTH SCH ×2 (08:20→20:08)
[2019-05-14] MEDS: guaiFENesin 600 MG Tab.ER PO SCH ×2 (08:20→20:07)
[2019-05-14] MEDS: Carboxymethylcellulose Sodium 0.5% Ophth Soln 15 ML Bottle EYEBOTH SCH ×4 (08:20→20:14)
[2019-05-14] MEDS: Magnesium Chloride 64 MG Tab.ER PO SCH (08:20)
[2019-05-14] MEDS: Escitalopram 20 MG Tab PO SCH (08:20)
[2019-05-14] MEDS: Furosemide 40 MG Tab PO SCH (08:20)
[2019-05-14] MEDS: Acetaminophen 500 MG Tab PO SCH ×3 (08:21→20:14)
[2019-05-14] MEDS: Multivitamins with Iron/Calcium/Folic Acid/Minerals Tab PO SCH (08:21)
[2019-05-14] MEDS: Albuterol 8 GM Inhaler INH PRN ×2 (12:45→16:51)
[2019-05-14] MEDS: Ferrous Sulfate 325 MG Tab PO SCH (13:01)
[2019-05-14] MEDS: Roflumilast 500 MCG Tab PO SCH (20:08)
[2019-05-14] MEDS: Simvastatin 20 MG Tab PO SCH (20:14)
[2019-05-14] MEDS: Montelukast 10 MG Tab PO SCH (20:14)
[2019-05-14] MEDS: Latanoprost 0.005% Ophth Soln 2.5 ML Bottle **OWN MED EYERT SCH (20:14)
[2019-05-14] MEDS: Perform Pain Reliever Gel 89 ML Tube TP SCH (20:16)
[2019-05-15] MEDS: Cyclobenzaprine 10 MG Tab PO PRN ×2 (05:23→22:03)
[2019-05-15] MEDS: INCRUSE ELLIPTA *PTOM INH SCH (06:30)
[2019-05-15] MEDS: Arformoterol 15 MCG/2 ML Neb Soln INH SCH ×2 (06:33→20:29)
[2019-05-15] MEDS: Budesonide 0.5 MG/2 ML Neb Susp INH SCH ×2 (06:41→20:37)
[2019-05-15] MEDS: Pantoprazole 40 MG Tab.CR PO SCH (06:42)
--- NOTE | 2019-05-15 09:06 | PCM.PN ---
- General Info Date of Service: 05/15/19 Admission Dx/Problem (Free Text): Patient states she felt her heart seemed to be this morning but other that she is doing well. Breathing is better but sometimes worse. She denies coughing, wheezing and she's currently using O2 nasal cannula. She says her pain in her joints is much better now that she is on thousand milligrams of Tylenol, 3 times a day. - Patient Data Vitals - Most Recent: Last Vital Signs Temp 97.2 F 05/15/19 05:33 Pulse 71 05/15/19 07:14 Resp 16 05/15/19 05:33 BP 140/80 05/15/19 05:33 Pulse Ox 96 05/15/19 06:30 Weight - Most Recent: 100 lb 4.8 oz Med Orders - Current: Current Medications Acetaminophen (Tylenol Extra Strength) 1,000 mg PO TID [facility] Last Admin: 05/14/19 20:14 Dose: 1,000 mg Al Hydroxide/Mg Hydroxide (Mag-Al Susp) 15 ml PO Q2H PRN PRN Reason: Heartburn Last Admin: 05/08/19 23:07 Dose: 15 ml Albuterol (Proventil Neb Soln) 2.5 mg NEB Q4H PRN PRN Reason: SOB/WHEEZING Albuterol (Ventolin Hfa) 0 gm INH Q4H PRN PRN Reason: wheezing or SOB Last Admin: 05/14/19 16:51 Dose: 2 puff Arformoterol Tartrate (Brovana) 15 mcg INH BIDRT [facility] Last Admin: 05/15/19 06:33 Dose: 15 mcg Artificial Tears (Refresh Tears 0.5%) 0 ml EYEBOTH QID [facility] Last Admin: 05/14/19 20:14 Dose: 1 drop Aspirin (Halfprin) 81 mg PO DAILY [facility] Last Admin: 05/14/19 08:19 Dose: 81 mg Budesonide (Pulmicort) 0.5 mg INH BIDRT [facility] Last Admin: 05/15/19 06:41 Dose: 0.5 mg Buspirone HCl (Buspar) 5 mg PO BID [facility] Last Admin: 05/14/19 20:08 Dose: 5 mg Calcium Carbonate/Glycine (Oyster Shell Calcium) 500 mg PO BIDMEALS [facility] Last Admin: 05/14/19 17:00 Dose: 500 mg Carvedilol (Coreg) 6.25 mg PO BIDMEALS [facility] Last Admin: 05/14/19 17:00 Dose: 6.25 mg Cyclobenzaprine HCl (Flexeril) 5 mg PO BID PRN PRN Reason: MUSCLE SPASMS Last Admin: 05/15/19 05:23 Dose: 5 mg Escitalopram Oxalate (Lexapro) 20 mg PO DAILY [facility] Last Admin: 05/14/19 08:20 Dose: 20 mg Ferrous Sulfate (Ferrous Sulfate) 325 mg PO 1400 [facility] Last Admin: 05/14/19 13:01 Dose: 325 mg Furosemide (Lasix) 40 mg PO DAILY [facility] Last Admin: 05/14/19 08:20 Dose: 40 mg Guaifenesin (Mucinex) 600 mg PO BID [facility] Last Admin: 05/14/19 20:07 Dose: 600 mg Isosorbide Mononitrate (Imdur) 30 mg PO DAILY [facility] Last Admin: 05/14/19 08:19 Dose: 30 mg Ketotifen Fumarate (Ketotifen 0.025% Ophth Soln) 0 ml EYEBOTH BID [facility] Last Admin: 05/14/19 20:08 Dose: 1 drop Latanoprost (Xalatan 0.005% Ophth Soln) 0 ml EYERT BEDTIME [facility] Last Admin: 05/14/19 20:14 Dose: 1 drop Losartan Potassium (Cozaar) 12.5 mg PO DAILY [facility] Last Admin: 05/14/19 08:19 Dose: 12.5 mg Magnesium Chloride (Mag-64) 64 mg PO DAILY [facility] Last Admin: 05/14/19 08:20 Dose: 64 mg Menthol (Perform Pain Reliever) 0 ml TP BEDTIME [facility] Last Admin: 05/14/19 20:16 Dose: 89 ml Montelukast Sodium (Singulair) 10 mg PO BEDTIME [facility] Last Admin: 05/14/19 20:14 Dose: 10 mg Multivitamins/Minerals (Thera M Plus) 1 tab PO DAILY [facility] Last Admin: 05/14/19 08:21 Dose: 1 tab Nitroglycerin (Nitrostat) 0.4 mg SL Q5M PRN PRN Reason: Chest Pain Azopt 1% Ophth Soln (Own Med) 0 drop EYERT TID [facility] Last Admin: 05/14/19 20:07 Dose: 1 drop Incruse Ellipta * (Ptom) 0 each INH DAILY@0630 [facility] Last Admin: 05/15/19 06:30 Dose: 1 each Pantoprazole Sodium (Protonix) 40 mg PO ACBREAKFAST [facility] Last Admin: 05/15/19 06:42 Dose: 40 mg Potassium Chloride (Klor-Con 10) 10 meq PO TID@08,12,21 [facility] Last Admin: 05/14/19 20:07 Dose: 10 meq Roflumilast (Daliresp) 500 mcg PO BEDTIME [facility] Last Admin: 05/14/19 20:08 Dose: 500 mcg Simvastatin (Zocor) 20 mg PO BEDTIME [facility] Last Admin: 05/14/19 20:14 Dose: 20 mg Discontinued Medications Acetaminophen (Tylenol Extra Strength) 500 mg PO TID [facility] Last Admin: 05/11/19 09:50 Dose: 500 mg Artificial Tears (Refresh Tears 0.5%) 0 ml EYEBOTH QID [facility] Last Admin: 05/07/19 22:09 Dose: 1 drop Ketotifen Fumarate (Ketotifen 0.025% Ophth Soln) 0 ml EYEBOTH BID [facility] Last Admin: 05/07/19 22:10 Dose: 1 drop Tiotropium [place] (Spiriva Handihaler) 18 mcg INH DAILY [facility] Last Admin: 05/10/19 08:49 Dose: 1 cap - Exam General: Alert, Oriented, Cooperative Lungs: Clear to Auscultation, Decreased Breath Sounds. No: Crackles, Rales, Rhonchi Cardiovascular: Regular Rate, Regular Rhythm, Gallops Extremities: No Pedal Edema - Problem List & Annotations (1) Afib SNOMED Code(s): 01894657 Code(s): I48.91 - UNSPECIFIED ATRIAL FIBRILLATION Status: Acute Current Visit: Yes Qualifiers: Atrial fibrillation type: chronic Qualified Code(s): I48.2 - Chronic atrial fibrillation (2) Elevated troponin SNOMED Code(s): 484368082, 608828857, 721823211 Code(s): R74.8 - ABNORMAL LEVELS OF OTHER SERUM ENZYMES Status: Acute Current Visit: Yes (3) COPD (chronic obstructive pulmonary disease) SNOMED Code(s): 34668397 Code(s): J44.9 - CHRONIC OBSTRUCTIVE PULMONARY DISEASE, UNSPECIFIED Status : Chronic Current Visit: Yes Qualifiers: COPD type: emphysema (4) Anemia SNOMED Code(s): 699279231 Code(s): D64.9 - ANEMIA, UNSPECIFIED Status: Acute Current Visit: No (5) Weakness SNOMED Code(s): 40311553 Code(s): R53.1 - WEAKNESS Status: Acute Current Visit: No Annotation/ Comment:: PT and OT to evaluate and treat. - Problem List Review Problem List Initiated/Reviewed/Updated: Yes - Plan Plan:: Continue current care.
[2019-05-15] MEDS: Potassium Chloride 10 MEQ Tab.ER PO SCH ×3 (10:25→20:24)
[2019-05-15] MEDS: Magnesium Chloride 64 MG Tab.ER PO SCH (10:26)
[2019-05-15] MEDS: Aspirin 81 MG Tab.EC PO SCH (10:26)
[2019-05-15] MEDS: Furosemide 40 MG Tab PO SCH (10:33)
[2019-05-15] MEDS: guaiFENesin 600 MG Tab.ER PO SCH ×2 (10:33→20:25)
[2019-05-15] MEDS: Losartan 25 MG Tab PO SCH (10:34)
[2019-05-15] MEDS: Isosorbide Mononitrate 30 MG Tab.ER PO SCH (10:35)
[2019-05-15] MEDS: Carvedilol 6.25 MG Tab PO SCH ×2 (10:35→17:27)
[2019-05-15] MEDS: Escitalopram 20 MG Tab PO SCH (10:35)
[2019-05-15] MEDS: Multivitamins with Iron/Calcium/Folic Acid/Minerals Tab PO SCH (10:35)
[2019-05-15] MEDS: Calcium Carbonate 500 MG Tablet PO SCH ×2 (10:35→17:28)
[2019-05-15] MEDS: busPIRone 5 MG Tab PO SCH ×2 (10:35→20:23)
[2019-05-15] MEDS: AZOPT 1% EYERT SCH ×3 (10:36→20:22)
[2019-05-15] MEDS: Ketotifen 0.025% Ophth Soln 5 ML Bottle EYEBOTH SCH ×2 (10:36→20:22)
[2019-05-15] MEDS: Acetaminophen 500 MG Tab PO SCH ×3 (10:36→20:25)
[2019-05-15] MEDS: Carboxymethylcellulose Sodium 0.5% Ophth Soln 15 ML Bottle EYEBOTH SCH ×4 (10:37→20:21)
[2019-05-15] MEDS: Ferrous Sulfate 325 MG Tab PO SCH (13:20)
[2019-05-15] MEDS: Albuterol 8 GM Inhaler INH PRN ×2 (13:22→17:36)
[2019-05-15] MEDS: Latanoprost 0.005% Ophth Soln 2.5 ML Bottle **OWN MED EYERT SCH (20:21)
[2019-05-15] MEDS: Montelukast 10 MG Tab PO SCH (20:25)
[2019-05-15] MEDS: Simvastatin 20 MG Tab PO SCH (20:26)
[2019-05-15] MEDS: Roflumilast 500 MCG Tab PO SCH (20:27)
[2019-05-15] MEDS: Perform Pain Reliever Gel 89 ML Tube TP SCH (20:30)
[2019-05-16] MEDS: Budesonide 0.5 MG/2 ML Neb Susp INH SCH ×2 (06:42→20:10)
[2019-05-16] MEDS: INCRUSE ELLIPTA *PTOM INH SCH (06:42)
[2019-05-16] MEDS: Arformoterol 15 MCG/2 ML Neb Soln INH SCH ×2 (06:57→20:07)
[2019-05-16] MEDS: Pantoprazole 40 MG Tab.CR PO SCH (06:57)
[2019-05-16] MEDS: Carvedilol 6.25 MG Tab PO SCH ×2 (08:41→17:50)
[2019-05-16] MEDS: Potassium Chloride 10 MEQ Tab.ER PO SCH ×3 (08:42→20:08)
[2019-05-16] MEDS: Calcium Carbonate 500 MG Tablet PO SCH ×2 (08:42→17:50)
[2019-05-16] MEDS: busPIRone 5 MG Tab PO SCH ×2 (08:43→20:07)
[2019-05-16] MEDS: Losartan 25 MG Tab PO SCH (08:43)
[2019-05-16] MEDS: Aspirin 81 MG Tab.EC PO SCH (08:44)
[2019-05-16] MEDS: Furosemide 40 MG Tab PO SCH (08:44)
[2019-05-16] MEDS: Isosorbide Mononitrate 30 MG Tab.ER PO SCH (08:44)
[2019-05-16] MEDS: Escitalopram 20 MG Tab PO SCH (08:45)
[2019-05-16] MEDS: Magnesium Chloride 64 MG Tab.ER PO SCH (08:45)
[2019-05-16] MEDS: guaiFENesin 600 MG Tab.ER PO SCH ×2 (08:45→20:08)
[2019-05-16] MEDS: Multivitamins with Iron/Calcium/Folic Acid/Minerals Tab PO SCH (08:46)
[2019-05-16] MEDS: Acetaminophen 500 MG Tab PO SCH ×3 (08:46→20:10)
[2019-05-16] MEDS: AZOPT 1% EYERT SCH ×3 (08:54→20:06)
[2019-05-16] MEDS: Ketotifen 0.025% Ophth Soln 5 ML Bottle EYEBOTH SCH ×2 (08:56→20:06)
[2019-05-16] MEDS: Carboxymethylcellulose Sodium 0.5% Ophth Soln 15 ML Bottle EYEBOTH SCH ×4 (08:57→20:06)
[2019-05-16] MEDS: Ferrous Sulfate 325 MG Tab PO SCH (17:46)
[2019-05-16] MEDS: Latanoprost 0.005% Ophth Soln 2.5 ML Bottle **OWN MED EYERT SCH (20:07)
[2019-05-16] MEDS: Roflumilast 500 MCG Tab PO SCH (20:08)
[2019-05-16] MEDS: Perform Pain Reliever Gel 89 ML Tube TP SCH (20:09)
[2019-05-16] MEDS: Simvastatin 20 MG Tab PO SCH (20:10)
[2019-05-16] MEDS: Montelukast 10 MG Tab PO SCH (20:10)
[2019-05-16] MEDS: Cyclobenzaprine 10 MG Tab PO PRN (21:33)
[2019-05-17] MEDS: Pantoprazole 40 MG Tab.CR PO SCH (06:40)
[2019-05-17] MEDS: INCRUSE ELLIPTA *PTOM INH SCH (06:41)
[2019-05-17] MEDS: Arformoterol 15 MCG/2 ML Neb Soln INH SCH ×2 (06:44→20:14)
[2019-05-17] MEDS: Budesonide 0.5 MG/2 ML Neb Susp INH SCH ×2 (06:50→20:18)
[2019-05-17] MEDS: Calcium Carbonate 500 MG Tablet PO SCH ×2 (09:21→18:08)
[2019-05-17] MEDS: Potassium Chloride 10 MEQ Tab.ER PO SCH ×3 (09:21→20:20)
[2019-05-17] MEDS: Carvedilol 6.25 MG Tab PO SCH ×2 (09:21→17:29)
[2019-05-17] MEDS: AZOPT 1% EYERT SCH ×3 (09:22→20:21)
[2019-05-17] MEDS: Losartan 25 MG Tab PO SCH (09:23)
[2019-05-17] MEDS: Aspirin 81 MG Tab.EC PO SCH (09:23)
[2019-05-17] MEDS: busPIRone 5 MG Tab PO SCH ×2 (09:23→20:20)
[2019-05-17] MEDS: Isosorbide Mononitrate 30 MG Tab.ER PO SCH (09:24)
[2019-05-17] MEDS: Ketotifen 0.025% Ophth Soln 5 ML Bottle EYEBOTH SCH ×2 (09:24→20:20)
[2019-05-17] MEDS: Magnesium Chloride 64 MG Tab.ER PO SCH (09:25)
[2019-05-17] MEDS: Furosemide 40 MG Tab PO SCH (09:25)
[2019-05-17] MEDS: guaiFENesin 600 MG Tab.ER PO SCH ×2 (09:25→20:20)
[2019-05-17] MEDS: Carboxymethylcellulose Sodium 0.5% Ophth Soln 15 ML Bottle EYEBOTH SCH ×4 (09:25→20:22)
[2019-05-17] MEDS: Escitalopram 20 MG Tab PO SCH (09:25)
[2019-05-17] MEDS: Multivitamins with Iron/Calcium/Folic Acid/Minerals Tab PO SCH (09:26)
[2019-05-17] MEDS: Acetaminophen 500 MG Tab PO SCH ×3 (09:26→20:23)
[2019-05-17] MEDS: Albuterol 8 GM Inhaler INH PRN ×2 (13:00→17:00)
--- NOTE | 2019-05-17 13:53 | PN ---
DATE SEEN: 05/17/2019 HISTORY OF PRESENT ILLNESS: Betty De León is a delightful 88-year-old female, seen today for review. Swing bed stay. Transfer from [facility], COPD, oxygen dependent, shortness of breath. Anemia noted of clinical concern. We will check CBC today. Otherwise doing well. History of atrial fibrillation, aortic stenosis. PHYSICAL EXAMINATION: VITAL SIGNS: Stable and documented. GENERAL: In good spirits. Soft spoken. Oxygen in place. HEENT: Mouth and oropharynx clear. NECK: Benign. No JVD. LUNGS: Decreased breath sounds. Coarse rhonchi throughout. HEART: Distant heart sounds. Soft murmur appreciated. ABDOMEN: Benign. ASSESSMENT: Chronic obstructive pulmonary disease, recurrent infections. PLAN: All looks well. We will check hemoglobin. Complementary care and well being. /[id number] 1223 [place]
[2019-05-17] MEDS: Ferrous Sulfate 325 MG Tab PO SCH (14:05)
[2019-05-17] MEDS: Roflumilast 500 MCG Tab PO SCH (20:20)
[2019-05-17] MEDS: Simvastatin 20 MG Tab PO SCH (20:20)
[2019-05-17] MEDS: Latanoprost 0.005% Ophth Soln 2.5 ML Bottle **OWN MED EYERT SCH (20:21)
[2019-05-17] MEDS: Perform Pain Reliever Gel 89 ML Tube TP SCH (20:22)
[2019-05-17] MEDS: Montelukast 10 MG Tab PO SCH (20:23)
[2019-05-17] MEDS: Cyclobenzaprine 10 MG Tab PO PRN (21:51)
[2019-05-18] MEDS: Pantoprazole 40 MG Tab.CR PO SCH (07:40)
[2019-05-18] MEDS: INCRUSE ELLIPTA *PTOM INH SCH (07:40)
[2019-05-18] MEDS: Arformoterol 15 MCG/2 ML Neb Soln INH SCH ×2 (07:41→20:51)
[2019-05-18] MEDS: Budesonide 0.5 MG/2 ML Neb Susp INH SCH ×2 (07:42→20:55)
[2019-05-18] MEDS: AZOPT 1% EYERT SCH ×3 (09:12→20:49)
[2019-05-18] MEDS: Calcium Carbonate 500 MG Tablet PO SCH ×2 (09:12→18:13)
[2019-05-18] MEDS: Potassium Chloride 10 MEQ Tab.ER PO SCH ×3 (09:13→20:52)
[2019-05-18] MEDS: Carvedilol 6.25 MG Tab PO SCH ×2 (09:13→18:13)
[2019-05-18] MEDS: Carboxymethylcellulose Sodium 0.5% Ophth Soln 15 ML Bottle EYEBOTH SCH ×4 (09:15→20:52)
[2019-05-18] MEDS: Ketotifen 0.025% Ophth Soln 5 ML Bottle EYEBOTH SCH ×2 (09:18→20:48)
[2019-05-18] MEDS: Losartan 25 MG Tab PO SCH (09:19)
[2019-05-18] MEDS: busPIRone 5 MG Tab PO SCH ×2 (09:19→20:51)
[2019-05-18] MEDS: Isosorbide Mononitrate 30 MG Tab.ER PO SCH (09:20)
[2019-05-18] MEDS: Aspirin 81 MG Tab.EC PO SCH (09:20)
[2019-05-18] MEDS: Multivitamins with Iron/Calcium/Folic Acid/Minerals Tab PO SCH (09:21)
[2019-05-18] MEDS: Magnesium Chloride 64 MG Tab.ER PO SCH (09:22)
[2019-05-18] MEDS: Escitalopram 20 MG Tab PO SCH (09:22)
[2019-05-18] MEDS: Furosemide 40 MG Tab PO SCH (09:22)
[2019-05-18] MEDS: guaiFENesin 600 MG Tab.ER PO SCH ×2 (09:23→20:51)
[2019-05-18] MEDS: Acetaminophen 500 MG Tab PO SCH ×3 (09:23→20:50)
--- NOTE | 2019-05-18 12:18 | PN ---
DATE SEEN: 05/18/2019 SUBJECTIVE: Colleen De León is a young lady seen today for review. Complicated COPD, anemia, anxiety, in for rehab purposes. She has been here since 05/08/2019. CAD on board. Making good progress. PT/OT involved, more comfortable. OBJECTIVE: VITAL SIGNS: 36 degrees Celsius, 129/64, 85, 16, 65% on 2 L. GENERAL: Soft spoken. Speech was interrupted by respiratory difficulty. NECK: Benign. Thyroid small. CHEST: Increased AP diameter. Prolonged expiratory phase. Coarse rhonchi. Distant heart sounds. Occasional ectopy. ASSESSMENT: Complicated chronic obstructive pulmonary disease, coronary artery disease, and increasing disability. PLAN: Medications on board reviewed, nothing problematic, continue supportive management. /[id number] 1210 [place]
[2019-05-18] MEDS: Albuterol 8 GM Inhaler INH PRN ×2 (12:57→17:01)
[2019-05-18] MEDS: Ferrous Sulfate 325 MG Tab PO SCH (13:28)
[2019-05-18] MEDS: Latanoprost 0.005% Ophth Soln 2.5 ML Bottle **OWN MED EYERT SCH (20:49)
[2019-05-18] MEDS: Roflumilast 500 MCG Tab PO SCH (20:51)
[2019-05-18] MEDS: Perform Pain Reliever Gel 89 ML Tube TP SCH (20:52)
[2019-05-18] MEDS: Montelukast 10 MG Tab PO SCH (20:54)
[2019-05-18] MEDS: Simvastatin 20 MG Tab PO SCH (20:55)
[2019-05-18] MEDS: Cyclobenzaprine 10 MG Tab PO PRN (22:38)
[2019-05-19] MEDS: Budesonide 0.5 MG/2 ML Neb Susp INH SCH ×2 (06:13→21:22)
[2019-05-19] MEDS: Arformoterol 15 MCG/2 ML Neb Soln INH SCH ×2 (06:13→21:22)
[2019-05-19] MEDS: INCRUSE ELLIPTA *PTOM INH SCH (06:13)
[2019-05-19] MEDS: Pantoprazole 40 MG Tab.CR PO SCH (06:35)
[2019-05-19] MEDS: Carvedilol 6.25 MG Tab PO SCH ×2 (08:53→18:12)
[2019-05-19] MEDS: Potassium Chloride 10 MEQ Tab.ER PO SCH ×3 (08:59→21:25)
[2019-05-19] MEDS: Calcium Carbonate 500 MG Tablet PO SCH ×2 (09:02→18:30)
[2019-05-19] MEDS: AZOPT 1% EYERT SCH ×3 (09:02→21:23)
[2019-05-19] MEDS: busPIRone 5 MG Tab PO SCH ×2 (09:03→21:23)
[2019-05-19] MEDS: Losartan 25 MG Tab PO SCH (09:04)
[2019-05-19] MEDS: Aspirin 81 MG Tab.EC PO SCH (09:05)
[2019-05-19] MEDS: Isosorbide Mononitrate 30 MG Tab.ER PO SCH (09:06)
[2019-05-19] MEDS: Ketotifen 0.025% Ophth Soln 5 ML Bottle EYEBOTH SCH ×2 (09:07→21:22)
[2019-05-19] MEDS: Escitalopram 20 MG Tab PO SCH (09:07)
[2019-05-19] MEDS: Furosemide 40 MG Tab PO SCH (09:07)
[2019-05-19] MEDS: Magnesium Chloride 64 MG Tab.ER PO SCH (09:08)
[2019-05-19] MEDS: Multivitamins with Iron/Calcium/Folic Acid/Minerals Tab PO SCH (09:09)
[2019-05-19] MEDS: Carboxymethylcellulose Sodium 0.5% Ophth Soln 15 ML Bottle EYEBOTH SCH ×4 (09:09→21:22)
[2019-05-19] MEDS: guaiFENesin 600 MG Tab.ER PO SCH ×2 (09:09→21:24)
[2019-05-19] MEDS: Acetaminophen 500 MG Tab PO SCH ×3 (09:10→21:24)
[2019-05-19] MEDS: Albuterol 8 GM Inhaler INH PRN ×2 (14:01→18:00)
[2019-05-19] MEDS: Ferrous Sulfate 325 MG Tab PO SCH (14:02)
[2019-05-19] MEDS: Latanoprost 0.005% Ophth Soln 2.5 ML Bottle **OWN MED EYERT SCH (21:22)
[2019-05-19] MEDS: Perform Pain Reliever Gel 89 ML Tube TP SCH (21:22)
[2019-05-19] MEDS: Cyclobenzaprine 10 MG Tab PO PRN (21:23)
[2019-05-19] MEDS: Roflumilast 500 MCG Tab PO SCH (21:25)
[2019-05-19] MEDS: Montelukast 10 MG Tab PO SCH (21:25)
[2019-05-19] MEDS: Simvastatin 20 MG Tab PO SCH (21:25)
[2019-05-20] MEDS: INCRUSE ELLIPTA *PTOM INH SCH (06:46)
[2019-05-20] MEDS: Arformoterol 15 MCG/2 ML Neb Soln INH SCH ×2 (06:47→20:03)
[2019-05-20] MEDS: Pantoprazole 40 MG Tab.CR PO SCH (06:47)
[2019-05-20] MEDS: Budesonide 0.5 MG/2 ML Neb Susp INH SCH ×2 (06:49→20:06)
[2019-05-20] MEDS: AZOPT 1% EYERT SCH ×3 (08:17→20:08)
[2019-05-20] MEDS: Potassium Chloride 10 MEQ Tab.ER PO SCH ×3 (08:17→20:09)
[2019-05-20] MEDS: Carboxymethylcellulose Sodium 0.5% Ophth Soln 15 ML Bottle EYEBOTH SCH ×4 (08:18→20:08)
[2019-05-20] MEDS: Calcium Carbonate 500 MG Tablet PO SCH ×2 (08:18→17:09)
[2019-05-20] MEDS: Furosemide 40 MG Tab PO SCH (08:19)
[2019-05-20] MEDS: Ketotifen 0.025% Ophth Soln 5 ML Bottle EYEBOTH SCH ×2 (08:19→20:08)
[2019-05-20] MEDS: Magnesium Chloride 64 MG Tab.ER PO SCH (08:20)
[2019-05-20] MEDS: guaiFENesin 600 MG Tab.ER PO SCH ×2 (08:20→20:10)
[2019-05-20] MEDS: busPIRone 5 MG Tab PO SCH ×2 (08:20→20:06)
[2019-05-20] MEDS: Escitalopram 20 MG Tab PO SCH (08:20)
[2019-05-20] MEDS: Aspirin 81 MG Tab.EC PO SCH (08:21)
[2019-05-20] MEDS: Acetaminophen 500 MG Tab PO SCH ×3 (08:21→20:07)
[2019-05-20] MEDS: Multivitamins with Iron/Calcium/Folic Acid/Minerals Tab PO SCH (08:21)
[2019-05-20] MEDS: Losartan 25 MG Tab PO SCH (08:28)
[2019-05-20] MEDS: Isosorbide Mononitrate 30 MG Tab.ER PO SCH (08:28)
[2019-05-20] MEDS: Carvedilol 6.25 MG Tab PO SCH ×2 (08:28→17:09)
--- NOTE | 2019-05-20 10:07 | PN ---
DATE SEEN: 05/20/2019 SUBJECTIVE: Betty De León is a delightful 88-year-old female, seen on the morning of 05/20/2019. Doing well. Complicated cough, respiratory difficulty on board. Host of medications on board for respiratory assistance. Feeling stronger. Plan is to return to her home, i[place]e. with [place] sons [place] the farm. OBJECTIVE: VITAL SIGNS: 120/77, pulse 94, 93%. GENERAL: In good spirits. Joyful. NECK: Benign. No JVD. No adenopathy. CHEST: On auscultation, clear in all lung [place]. HEART: On auscultation, no ectopy or murmur. ABDOMEN: Benign. ASSESSMENT: End-stage chronic obstructive pulmonary disease, deconditioning. PLAN: Treatment in place. Medications on board. Comfort measures timely and well. /[id number] [place]
[2019-05-20] MEDS: Albuterol 8 GM Inhaler INH PRN (13:49)
[2019-05-20] MEDS: Ferrous Sulfate 325 MG Tab PO SCH (13:51)
[2019-05-20] MEDS: Perform Pain Reliever Gel 89 ML Tube TP SCH (20:06)
[2019-05-20] MEDS: Latanoprost 0.005% Ophth Soln 2.5 ML Bottle **OWN MED EYERT SCH (20:07)
[2019-05-20] MEDS: Roflumilast 500 MCG Tab PO SCH (20:10)
[2019-05-20] MEDS: Montelukast 10 MG Tab PO SCH (20:10)
[2019-05-20] MEDS: Simvastatin 20 MG Tab PO SCH (20:11)
[2019-05-20] MEDS: Cyclobenzaprine 10 MG Tab PO PRN (20:25)
[2019-05-21] MEDS: INCRUSE ELLIPTA *PTOM INH SCH (06:39)
[2019-05-21] MEDS: Arformoterol 15 MCG/2 ML Neb Soln INH SCH ×2 (06:41→20:24)
[2019-05-21] MEDS: Budesonide 0.5 MG/2 ML Neb Susp INH SCH ×2 (06:41→20:26)
[2019-05-21] MEDS: Pantoprazole 40 MG Tab.CR PO SCH (06:42)
[2019-05-21] MEDS: AZOPT 1% EYERT SCH ×3 (08:09→20:24)
[2019-05-21] MEDS: Carboxymethylcellulose Sodium 0.5% Ophth Soln 15 ML Bottle EYEBOTH SCH ×4 (08:09→20:26)
[2019-05-21] MEDS: Ketotifen 0.025% Ophth Soln 5 ML Bottle EYEBOTH SCH ×2 (08:09→20:25)
[2019-05-21] MEDS: Potassium Chloride 10 MEQ Tab.ER PO SCH ×3 (08:10→20:25)
[2019-05-21] MEDS: Aspirin 81 MG Tab.EC PO SCH (08:10)
[2019-05-21] MEDS: Escitalopram 20 MG Tab PO SCH (08:10)
[2019-05-21] MEDS: guaiFENesin 600 MG Tab.ER PO SCH ×2 (08:10→20:26)
[2019-05-21] MEDS: busPIRone 5 MG Tab PO SCH ×2 (08:10→20:25)
[2019-05-21] MEDS: Furosemide 40 MG Tab PO SCH (08:10)
[2019-05-21] MEDS: Magnesium Chloride 64 MG Tab.ER PO SCH (08:10)
[2019-05-21] MEDS: Calcium Carbonate 500 MG Tablet PO SCH ×2 (08:10→17:39)
[2019-05-21] MEDS: Multivitamins with Iron/Calcium/Folic Acid/Minerals Tab PO SCH (08:10)
[2019-05-21] MEDS: Acetaminophen 500 MG Tab PO SCH ×3 (08:11→20:27)
[2019-05-21] MEDS: Losartan 25 MG Tab PO SCH (08:15)
[2019-05-21] MEDS: Carvedilol 6.25 MG Tab PO SCH ×2 (08:15→17:35)
[2019-05-21] MEDS: Isosorbide Mononitrate 30 MG Tab.ER PO SCH (08:15)
--- NOTE | 2019-05-21 12:21 | PN ---
DATE SEEN: 05/21/2019 SUBJECTIVE: Betty De León is a delightful 88-year-old female in swing bed. Getting better. Getting better. Windedness primary issue, shortness of breath with simple exertion. LABORATORY STUDIES: None outstanding. On admission, was reviewed. OBJECTIVE: VITAL SIGNS: 130/88, 45 kg, 90% on 2 L. GENERAL: Conversation limited by speech and shortness of breath. NECK: No JVD. CHEST: Decreased breath sounds, increased AP diameter, and prolonged expiratory phase. HEART: Distant heart sounds. Occasional ectopy. EXTREMITIES: Well perfused. ASSESSMENT: Severe chronic obstructive pulmonary disease and deconditioning. PLAN: Treatment in place. Medications on board. Discharge home soon. /[id number] /[place]
[2019-05-21] MEDS: Albuterol 8 GM Inhaler INH PRN ×2 (12:54→17:44)
[2019-05-21] MEDS: Ferrous Sulfate 325 MG Tab PO SCH (14:43)
[2019-05-21] MEDS: Roflumilast 500 MCG Tab PO SCH (20:25)
[2019-05-21] MEDS: Perform Pain Reliever Gel 89 ML Tube TP SCH (20:26)
[2019-05-21] MEDS: Latanoprost 0.005% Ophth Soln 2.5 ML Bottle **OWN MED EYERT SCH (20:27)
[2019-05-21] MEDS: Montelukast 10 MG Tab PO SCH (20:27)
[2019-05-21] MEDS: Simvastatin 20 MG Tab PO SCH (20:27)
[2019-05-21] MEDS: Cyclobenzaprine 10 MG Tab PO PRN (20:27)
[2019-05-22] MEDS: INCRUSE ELLIPTA *PTOM INH SCH (06:31)
[2019-05-22] MEDS: Arformoterol 15 MCG/2 ML Neb Soln INH SCH ×2 (06:32→20:15)
[2019-05-22] MEDS: Budesonide 0.5 MG/2 ML Neb Susp INH SCH ×2 (06:32→20:15)
[2019-05-22] MEDS: Pantoprazole 40 MG Tab.CR PO SCH (06:37)
[2019-05-22] MEDS: Carvedilol 6.25 MG Tab PO SCH ×2 (08:03→17:45)
[2019-05-22] MEDS: Potassium Chloride 10 MEQ Tab.ER PO SCH ×3 (08:03→20:16)
[2019-05-22] MEDS: busPIRone 5 MG Tab PO SCH ×2 (08:04→20:15)
[2019-05-22] MEDS: Calcium Carbonate 500 MG Tablet PO SCH ×2 (08:04→17:53)
[2019-05-22] MEDS: AZOPT 1% EYERT SCH ×3 (08:04→20:16)
[2019-05-22] MEDS: Aspirin 81 MG Tab.EC PO SCH (08:05)
[2019-05-22] MEDS: Losartan 25 MG Tab PO SCH (08:05)
[2019-05-22] MEDS: Isosorbide Mononitrate 30 MG Tab.ER PO SCH (08:05)
[2019-05-22] MEDS: Magnesium Chloride 64 MG Tab.ER PO SCH (08:06)
[2019-05-22] MEDS: Furosemide 40 MG Tab PO SCH (08:06)
[2019-05-22] MEDS: guaiFENesin 600 MG Tab.ER PO SCH ×2 (08:06→20:16)
[2019-05-22] MEDS: Escitalopram 20 MG Tab PO SCH (08:06)
[2019-05-22] MEDS: Acetaminophen 500 MG Tab PO SCH ×3 (08:07→20:15)
[2019-05-22] MEDS: Multivitamins with Iron/Calcium/Folic Acid/Minerals Tab PO SCH (08:07)
[2019-05-22] MEDS: Ketotifen 0.025% Ophth Soln 5 ML Bottle EYEBOTH SCH ×2 (08:08→20:16)
[2019-05-22] MEDS: Carboxymethylcellulose Sodium 0.5% Ophth Soln 15 ML Bottle EYEBOTH SCH ×4 (08:13→20:20)
--- NOTE | 2019-05-22 12:01 | PN ---
DATE SEEN: 05/22/2019 SUBJECTIVE: Betty De León is a young lady, 88-year-old, and in for rehab and rehabilitation purposes. Underlying chronic obstructive pulmonary disease. Inhalation therapies aggressive. OBJECTIVE: VITAL SIGNS: Stable. GENERAL: In good spirits. Speech was complicated by dyspnea. NECK: Benign. Thyroid small. CHEST: Increased AP diameter. Prolonged expiratory phase. Coarse rhonchi. HEART: Distant heart sounds. Soft murmur. Ectopy noted. IMPRESSION: Chronic obstructive pulmonary disease with rehab in place. PLAN: Discharge plan likely upcoming Monday, complementary care and well being. /[id number] /[place]
[2019-05-22] MEDS: Ferrous Sulfate 325 MG Tab PO SCH (15:27)
[2019-05-22] MEDS: Cyclobenzaprine 10 MG Tab PO PRN (20:15)
[2019-05-22] MEDS: Perform Pain Reliever Gel 89 ML Tube TP SCH (20:15)
[2019-05-22] MEDS: Latanoprost 0.005% Ophth Soln 2.5 ML Bottle **OWN MED EYERT SCH (20:15)
[2019-05-22] MEDS: Roflumilast 500 MCG Tab PO SCH (20:15)
[2019-05-22] MEDS: Montelukast 10 MG Tab PO SCH (20:16)
[2019-05-22] MEDS: Simvastatin 20 MG Tab PO SCH (20:17)
[2019-05-23] MEDS: INCRUSE ELLIPTA *PTOM INH SCH (06:37)
[2019-05-23] MEDS: Arformoterol 15 MCG/2 ML Neb Soln INH SCH ×2 (06:37→21:28)
[2019-05-23] MEDS: Pantoprazole 40 MG Tab.CR PO SCH (06:43)
[2019-05-23] MEDS: Budesonide 0.5 MG/2 ML Neb Susp INH SCH ×2 (06:46→21:23)
[2019-05-23] MEDS: Carvedilol 6.25 MG Tab PO SCH ×2 (09:40→18:26)
[2019-05-23] MEDS: AZOPT 1% EYERT SCH ×3 (09:41→21:33)
[2019-05-23] MEDS: busPIRone 5 MG Tab PO SCH ×2 (09:41→21:26)
[2019-05-23] MEDS: Potassium Chloride 10 MEQ Tab.ER PO SCH ×3 (09:41→21:26)
[2019-05-23] MEDS: Calcium Carbonate 500 MG Tablet PO SCH ×2 (09:41→18:26)
[2019-05-23] MEDS: Losartan 25 MG Tab PO SCH (09:41)
[2019-05-23] MEDS: Aspirin 81 MG Tab.EC PO SCH (09:42)
[2019-05-23] MEDS: Isosorbide Mononitrate 30 MG Tab.ER PO SCH (09:42)
[2019-05-23] MEDS: Furosemide 40 MG Tab PO SCH (09:42)
[2019-05-23] MEDS: Escitalopram 20 MG Tab PO SCH (09:42)
[2019-05-23] MEDS: Ketotifen 0.025% Ophth Soln 5 ML Bottle EYEBOTH SCH ×2 (09:42→22:02)
[2019-05-23] MEDS: Acetaminophen 500 MG Tab PO SCH ×3 (09:43→21:25)
[2019-05-23] MEDS: guaiFENesin 600 MG Tab.ER PO SCH ×2 (09:43→21:27)
[2019-05-23] MEDS: Carboxymethylcellulose Sodium 0.5% Ophth Soln 15 ML Bottle EYEBOTH SCH ×4 (09:43→22:02)
[2019-05-23] MEDS: Multivitamins with Iron/Calcium/Folic Acid/Minerals Tab PO SCH (09:43)
[2019-05-23] MEDS: Magnesium Chloride 64 MG Tab.ER PO SCH (09:43)
[2019-05-23] MEDS: Ferrous Sulfate 325 MG Tab PO SCH (15:14)
[2019-05-23] MEDS: Roflumilast 500 MCG Tab PO SCH (21:25)
[2019-05-23] MEDS: Cyclobenzaprine 10 MG Tab PO PRN (21:25)
[2019-05-23] MEDS: Simvastatin 20 MG Tab PO SCH (21:26)
[2019-05-23] MEDS: Perform Pain Reliever Gel 89 ML Tube TP SCH (21:28)
[2019-05-23] MEDS: Montelukast 10 MG Tab PO SCH (21:36)
[2019-05-23] MEDS: Latanoprost 0.005% Ophth Soln 2.5 ML Bottle **OWN MED EYERT SCH (22:03)
[2019-05-24] MEDS: Pantoprazole 40 MG Tab.CR PO SCH (06:38)
[2019-05-24] MEDS: INCRUSE ELLIPTA *PTOM INH SCH (06:38)
[2019-05-24] MEDS: Arformoterol 15 MCG/2 ML Neb Soln INH SCH ×2 (06:40→20:51)
[2019-05-24] MEDS: Budesonide 0.5 MG/2 ML Neb Susp INH SCH ×2 (06:43→20:56)
[2019-05-24] MEDS: Potassium Chloride 10 MEQ Tab.ER PO SCH ×3 (07:44→20:53)
[2019-05-24] MEDS: Carvedilol 6.25 MG Tab PO SCH ×2 (07:44→17:11)
[2019-05-24] MEDS: AZOPT 1% EYERT SCH ×3 (08:58→20:51)
[2019-05-24] MEDS: Carboxymethylcellulose Sodium 0.5% Ophth Soln 15 ML Bottle EYEBOTH SCH ×4 (08:59→20:56)
[2019-05-24] MEDS: Losartan 25 MG Tab PO SCH (08:59)
[2019-05-24] MEDS: busPIRone 5 MG Tab PO SCH ×2 (08:59→20:53)
[2019-05-24] MEDS: Magnesium Chloride 64 MG Tab.ER PO SCH (09:00)
[2019-05-24] MEDS: Multivitamins with Iron/Calcium/Folic Acid/Minerals Tab PO SCH (09:00)
[2019-05-24] MEDS: Escitalopram 20 MG Tab PO SCH (09:00)
[2019-05-24] MEDS: Isosorbide Mononitrate 30 MG Tab.ER PO SCH (09:01)
[2019-05-24] MEDS: Aspirin 81 MG Tab.EC PO SCH (09:01)
[2019-05-24] MEDS: Furosemide 40 MG Tab PO SCH (09:01)
[2019-05-24] MEDS: Acetaminophen 500 MG Tab PO SCH ×3 (09:02→20:57)
[2019-05-24] MEDS: guaiFENesin 600 MG Tab.ER PO SCH ×2 (09:02→20:55)
[2019-05-24] MEDS: Ketotifen 0.025% Ophth Soln 5 ML Bottle EYEBOTH SCH ×2 (09:02→20:54)
[2019-05-24] MEDS: Calcium Carbonate 500 MG Tablet PO SCH ×2 (10:08→17:12)
[2019-05-24] MEDS: Albuterol 8 GM Inhaler INH PRN (13:44)
[2019-05-24] MEDS: Ferrous Sulfate 325 MG Tab PO SCH (13:48)
--- NOTE | 2019-05-24 17:56 | PCM.PN ---
- General Info Date of Service: 05/24/19 Admission Dx/Problem (Free Text): Patient is without concerns. She says she is doing really well. Breathing is good with oxygen without coughing or fevers. No chest pain, shortness breath - Patient Data Vitals - Most Recent: Last Vital Signs Temp 97.5 F 05/24/19 07:35 Pulse 90 05/24/19 17:11 Resp 18 05/24/19 07:35 BP 139/78 05/24/19 17:11 Pulse Ox 98 05/24/19 07:35 Weight - Most Recent: 100 lb 11.2 oz Med Orders - Current: Current Medications Acetaminophen (Tylenol Extra Strength) 1,000 mg PO TID [facility] Last Admin: 05/24/19 13:45 Dose: 1,000 mg Al Hydroxide/Mg Hydroxide (Mag-Al Susp) 15 ml PO Q2H PRN PRN Reason: Heartburn Last Admin: 05/08/19 23:07 Dose: 15 ml Albuterol (Proventil Neb Soln) 2.5 mg NEB Q4H PRN PRN Reason: SOB/WHEEZING Albuterol (Ventolin Hfa) 0 gm INH Q4H PRN PRN Reason: wheezing or SOB Last Admin: 05/24/19 13:44 Dose: 2 puff Arformoterol Tartrate (Brovana) 15 mcg INH BIDRT [facility] Last Admin: 05/24/19 06:40 Dose: 15 mcg Artificial Tears (Refresh Tears 0.5%) 0 ml EYEBOTH QID [facility] Last Admin: 05/24/19 17:13 Dose: 1 drop Aspirin (Halfprin) 81 mg PO DAILY [facility] Last Admin: 05/24/19 09:01 Dose: 81 mg Budesonide (Pulmicort) 0.5 mg INH BIDRT [facility] Last Admin: 05/24/19 06:43 Dose: 0.5 mg Buspirone HCl (Buspar) 5 mg PO BID [facility] Last Admin: 05/24/19 08:59 Dose: 5 mg Calcium Carbonate/Glycine (Oyster Shell Calcium) 500 mg PO BIDMEALS [facility] Last Admin: 05/24/19 17:12 Dose: 500 mg Carvedilol (Coreg) 6.25 mg PO BIDMEALS [facility] Last Admin: 05/24/19 17:11 Dose: 6.25 mg Cyclobenzaprine HCl (Flexeril) 5 mg PO BID PRN PRN Reason: MUSCLE SPASMS Last Admin: 05/23/19 21:25 Dose: 5 mg Escitalopram Oxalate (Lexapro) 20 mg PO DAILY [facility] Last Admin: 05/24/19 09:00 Dose: 20 mg Ferrous Sulfate (Ferrous Sulfate) 325 mg PO 1400 [facility] Last Admin: 05/24/19 13:48 Dose: 325 mg Furosemide (Lasix) 40 mg PO DAILY [facility] Last Admin: 05/24/19 09:01 Dose: 40 mg Guaifenesin (Mucinex) 600 mg PO BID [facility] Last Admin: 05/24/19 09:02 Dose: 600 mg Isosorbide Mononitrate (Imdur) 30 mg PO DAILY [facility] Last Admin: 05/24/19 09:01 Dose: 30 mg Ketotifen Fumarate (Ketotifen 0.025% Ophth Soln) 0 ml EYEBOTH BID [facility] Last Admin: 05/24/19 09:02 Dose: 1 drop Latanoprost (Xalatan 0.005% Ophth Soln) 0 ml EYERT BEDTIME [facility] Last Admin: 05/23/19 22:03 Dose: 1 drop Losartan Potassium (Cozaar) 12.5 mg PO DAILY [facility] Last Admin: 05/24/19 08:59 Dose: 12.5 mg Magnesium Chloride (Mag-64) 64 mg PO DAILY [facility] Last Admin: 05/24/19 09:00 Dose: 64 mg Menthol (Perform Pain Reliever) 0 ml TP BEDTIME [facility] Last Admin: 05/23/19 21:28 Dose: 89 ml Montelukast Sodium (Singulair) 10 mg PO BEDTIME [facility] Last Admin: 05/23/19 21:36 Dose: 10 mg Multivitamins/Minerals (Thera M Plus) 1 tab PO DAILY [facility] Last Admin: 05/24/19 09:00 Dose: 1 tab Nitroglycerin (Nitrostat) 0.4 mg SL Q5M PRN PRN Reason: Chest Pain Azopt 1% Ophth Soln (Own Med) 0 drop EYERT TID [facility] Last Admin: 05/24/19 13:44 Dose: 1 drop Incruse Ellipta * (Ptom) 0 each INH DAILY@0630 [facility] Last Admin: 05/24/19 06:38 Dose: 1 each Pantoprazole Sodium (Protonix) 40 mg PO ACBREAKFAST [facility] Last Admin: 05/24/19 06:38 Dose: 40 mg Potassium Chloride (Klor-Con 10) 10 meq PO TID@08,12, [facility] Last Admin: 05/24/19 13:44 Dose: 10 meq Roflumilast (Daliresp) 500 mcg PO BEDTIME [facility] Last Admin: 05/23/19 21:25 Dose: 500 mcg Simvastatin (Zocor) 20 mg PO BEDTIME [facility] Last Admin: 05/23/19 21:26 Dose: 20 mg Discontinued Medications Acetaminophen (Tylenol Extra Strength) 500 mg PO TID [facility] Last Admin: 05/11/19 09:50 Dose: 500 mg Artificial Tears (Refresh Tears 0.5%) 0 ml EYEBOTH QID [facility] Last Admin: 05/07/19 22:09 Dose: 1 drop Ketotifen Fumarate (Ketotifen 0.025% Ophth Soln) 0 ml EYEBOTH BID [facility] Last Admin: 05/07/19 22:10 Dose: 1 drop Tiotropium [place] (Spiriva Handihaler) 18 mcg INH DAILY [facility] Last Admin: 05/10/19 08:49 Dose: 1 cap - Exam General: Alert, Oriented, Cooperative Lungs: Clear to Auscultation, Normal Respiratory Effort Cardiovascular: Regular Rate, Regular Rhythm, No Murmurs Extremities: No Pedal Edema - Problem List & Annotations (1) Afib SNOMED Code(s): 12069843 Code(s): I48.91 - UNSPECIFIED ATRIAL FIBRILLATION Status: Acute Current Visit: Yes Qualifiers: Atrial fibrillation type: chronic Qualified Code(s): I48.2 - Chronic atrial fibrillation (2) Elevated troponin SNOMED Code(s): 604646264, 666674252, 464907514 Code(s): R74.8 - ABNORMAL LEVELS OF OTHER SERUM ENZYMES Status: Acute Current Visit: Yes (3) COPD (chronic obstructive pulmonary disease) SNOMED Code(s): 40465703 Code(s): J44.9 - CHRONIC OBSTRUCTIVE PULMONARY DISEASE, UNSPECIFIED Status : Chronic Current Visit: Yes Qualifiers: COPD type: emphysema (4) Anemia SNOMED Code(s): 020865177 Code(s): D64.9 - ANEMIA, UNSPECIFIED Status: Acute Current Visit: No (5) Weakness SNOMED Code(s): 59013457 Code(s): R53.1 - WEAKNESS Status: Acute Current Visit: No Annotation/ Comment:: PT and OT to evaluate and treat. - Problem List Review Problem List Initiated/Reviewed/Updated: Yes - My Orders Last 24 Hours: My Active Orders 05/25/19 08:00 Ready for Discharge [RC] PER UNIT ROUTINE - Plan Plan:: Discharge to home in the a.m. on O2, home health, PT/OT.
--- NOTE | 2019-05-24 17:58 | PCM.DCSUM1 ---
Discharge Summary - Hospital Course Free Text/Narrative:: Hospital course-patient was placed in swing bed for PT/OT. Her breathing and chest pain improved quite significantly. She improved with her strength and ability to do her ADLs. She had no problems while she was here at the hospital. And she'll be discharged on her home O2 with PT/OT plus home health. Brief History: Nona is an 88-year-old female was admitted from [facility] to swing bed. She was admitted with chronic shortness of breath, elevated troponin , severe COPD,O2 Dependent. She also has generalized anxiety disorder, anemia( chronic blood loss,NSAID use) ,chronic back pain, dysthymia, atrial fibrillation and aortic stenosis. she is also known to have coronary artery disease, with total blockage of one of the arteries on the right however she is expressed no interest in his right procedure but the records obtained from [facility].She's been very weak and is being admitted to swing bed for physical rehabilitation. Diagnosis: Stroke: No - Discharge Data Discharge Date: 05/25/19 Discharge Disposition: Home, W Home Health Agency 06 Condition: Good - Discharge Diagnosis/Problem(s) (1) Afib SNOMED Code(s): 02979592 ICD Code: I48.91 - UNSPECIFIED ATRIAL FIBRILLATION Status: Acute Current Visit: Yes Qualifiers: Atrial fibrillation type: chronic Qualified Code(s): I48.2 - Chronic atrial fibrillation (2) Elevated troponin SNOMED Code(s): 230119664, 926495636, 005965992 ICD Code: R74.8 - ABNORMAL LEVELS OF OTHER SERUM ENZYMES Status: Acute Current Visit: Yes (3) COPD (chronic obstructive pulmonary disease) SNOMED Code(s): 04183614 ICD Code: J44.9 - CHRONIC OBSTRUCTIVE PULMONARY DISEASE, UNSPECIFIED Status : Chronic Current Visit: Yes Qualifiers: COPD type: emphysema (4) Anemia SNOMED Code(s): 314218139 ICD Code: D64.9 - ANEMIA, UNSPECIFIED Status: Acute Current Visit: No (5) Weakness SNOMED Code(s): 78619285 ICD Code: R53.1 - WEAKNESS Status: Acute Current Visit: No Problem Details: PT and OT to evaluate and treat. - Patient Summary/Data Consults: Consultations 05/07/19 18:08 OT Evaluation and Treatment [CONS] Routine Please Evaluate and Treat. OT Reason for Consult: Strengthening This query below is only for informational purposes and is not editable. PT Evaluation and Treatment [CONS] Routine Please Evaluate and Treat. PT Reason for Consult: Ambulation This query below is only for informational purposes and is not editable. - Patient Instructions Diet: Regular Diet as Tolerated Activity: As Tolerated Driving: Do Not Drive Showering/Bathing: May Shower Notify Provider of: Increased Pain Other/Special Instructions: 1. Recheck with Dr. Rafia Rios in 1 week. 2. Home health, PT/OT for home safety, medication management, disease treatment, strengthening and ADLs. - Discharge Plan Prescriptions/Med Rec: Pantoprazole Sodium [Protonix] 40 mg PO 1700 #30 tablet. Home Medications: Home Meds Bimatoprost [LUMIGAN 0.01% Ophth Soln] 1 drop EYERT BEDTIME 11/13/14 [History] Calcium Carbonate/Vitamin D3 [Calcium 600-Vit D3 400 Tablet] 1 each PO BIDMEALS 11/13/14 [History] Isosorbide Mononitrate [Imdur] 30 mg PO DAILY 11/13/14 [History] Multivit-Min/FA/Lycopene/Lut [Centrum Silver] 1 each PO DAILY 11/13/14 [History] Nitroglycerin 0.4 mg SL Q5M PRN 11/13/14 [History] Simvastatin [Zocor] 20 mg PO BEDTIME 11/13/14 [History] busPIRone [Buspar] 5 mg PO BID 11/13/14 [History] Acetaminophen [Tylenol Extra Strength] 500 mg PO TID 12/20/14 [History] Carboxymethylcellulose Sodium [Refresh Plus 0.5%] 1 drop EYEBOTH QID 12/22/14 [ History] Roflumilast [Daliresp] 500 mcg PO BEDTIME 03/21/16 [History] Furosemide [Lasix] 40 mg PO DAILY 04/04/16 [History] Montelukast [Singulair] 10 mg PO BEDTIME 04/04/16 [History] Arformoterol [Brovana] 15 mcg INH 09,21 05/14/16 [History] Aspirin [Halfprin] 81 mg PO DAILY 05/14/16 [History] Budesonide [Pulmicort] 0.5 mg INH 08,20 05/14/16 [History] Brinzolamide [Azopt 1% Ophth Susp] 1 drop EYERT TID 10/07/16 [History] Carvedilol [Coreg] 6.25 mg PO BIDMEALS 10/07/16 [History] Ferrous Gluconate 324 mg PO 1400 10/07/16 [History] Potassium Chloride 10 meq PO TID@08,12,21 10/07/16 [History] Albuterol Sulfate [Proair Respiclick] 2 puff IH Q4H PRN 08/30/17 [History] Umeclidinium [place] [Incruse Ellipta*] 1 puff IH DAILY 08/30/17 [History] Albuterol [Proventil Neb Soln] 2.5 mg IH Q4H PRN 05/07/19 [History] Cyclobenzaprine [Flexeril] 5 mg PO BID PRN 05/07/19 [History] Escitalopram [Lexapro] 20 mg PO DAILY 05/07/19 [History] Ketotifen [Ketotifen 0.025% Ophth Soln] 1 drop EYEBOTH BID 05/07/19 [History] Losartan [Cozaar] 12.5 mg PO DAILY 05/07/19 [History] Magnesium Chloride [Mag-64] 64 mg PO DAILY 05/07/19 [History] guaiFENesin [Mucinex] 600 mg PO BID 05/07/19 [History] Menthol [Perform Pain Reliever] 0 ml TP BEDTIME tube 05/24/19 [Rx] Pantoprazole Sodium [Protonix] 40 mg PO 1700 #30 tablet. 05/24/19 [Rx] Patient Handouts: Chronic Obstructive Pulmonary Disease, [id number], Fall Prevention in Hospitals, Adult - Discharge Summary/Plan Comment DC Time >30 min.: No - Patient Data Vitals - Most Recent: Last Vital Signs Temp 97.5 F 05/24/19 07:35 Pulse 90 05/24/19 17:11 Resp 18 05/24/19 07:35 BP 139/78 05/24/19 17:11 Pulse Ox 98 05/24/19 07:35 Weight - Most Recent: 100 lb 11.2 oz Med Orders - Current: Current Medications Acetaminophen (Tylenol Extra Strength) 1,000 mg PO TID MAX Last Admin: 05/24/19 13:45 Dose: 1,000 mg Al Hydroxide/Mg Hydroxide (Mag-Al Susp) 15 ml PO Q2H PRN PRN Reason: Heartburn Last Admin: 05/08/19 23:07 Dose: 15 ml Albuterol (Proventil Neb Soln) 2.5 mg NEB Q4H PRN PRN Reason: SOB/WHEEZING Albuterol (Ventolin Hfa) 0 gm INH Q4H PRN PRN Reason: wheezing or SOB Last Admin: 05/24/19 13:44 Dose: 2 puff Arformoterol Tartrate (Brovana) 15 mcg INH BIDRT [facility] Last Admin: 05/24/19 06:40 Dose: 15 mcg Artificial Tears (Refresh Tears 0.5%) 0 ml EYEBOTH QID [facility] Last Admin: 05/24/19 17:13 Dose: 1 drop Aspirin (Halfprin) 81 mg PO DAILY [facility] Last Admin: 05/24/19 09:01 Dose: 81 mg Budesonide (Pulmicort) 0.5 mg INH BIDRT [facility] Last Admin: 05/24/19 06:43 Dose: 0.5 mg Buspirone HCl (Buspar) 5 mg PO BID [facility] Last Admin: 05/24/19 08:59 Dose: 5 mg Calcium Carbonate/Glycine (Oyster Shell Calcium) 500 mg PO BIDMEALS [facility] Last Admin: 05/24/19 17:12 Dose: 500 mg Carvedilol (Coreg) 6.25 mg PO BIDMEALS [facility] Last Admin: 05/24/19 17:11 Dose: 6.25 mg Cyclobenzaprine HCl (Flexeril) 5 mg PO BID PRN PRN Reason: MUSCLE SPASMS Last Admin: 05/23/19 21:25 Dose: 5 mg Escitalopram Oxalate (Lexapro) 20 mg PO DAILY [facility] Last Admin: 05/24/19 09:00 Dose: 20 mg Ferrous Sulfate (Ferrous Sulfate) 325 mg PO 1400 [facility] Last Admin: 05/24/19 13:48 Dose: 325 mg Furosemide (Lasix) 40 mg PO DAILY [facility] Last Admin: 05/24/19 09:01 Dose: 40 mg Guaifenesin (Mucinex) 600 mg PO BID [facility] Last Admin: 05/24/19 09:02 Dose: 600 mg Isosorbide Mononitrate (Imdur) 30 mg PO DAILY [facility] Last Admin: 05/24/19 09:01 Dose: 30 mg Ketotifen Fumarate (Ketotifen 0.025% Ophth Soln) 0 ml EYEBOTH BID [facility] Last Admin: 05/24/19 09:02 Dose: 1 drop Latanoprost (Xalatan 0.005% Ophth Soln) 0 ml EYERT BEDTIME [facility] Last Admin: 05/23/19 22:03 Dose: 1 drop Losartan Potassium (Cozaar) 12.5 mg PO DAILY [facility] Last Admin: 05/24/19 08:59 Dose: 12.5 mg Magnesium Chloride (Mag-64) 64 mg PO DAILY [facility] Last Admin: 05/24/19 09:00 Dose: 64 mg Menthol (Perform Pain Reliever) 0 ml TP BEDTIME [facility] Last Admin: 05/23/19 21:28 Dose: 89 ml Montelukast Sodium (Singulair) 10 mg PO BEDTIME [facility] Last Admin: 05/23/19 21:36 Dose: 10 mg Multivitamins/Minerals (Thera M Plus) 1 tab PO DAILY [facility] Last Admin: 05/24/19 09:00 Dose: 1 tab Nitroglycerin (Nitrostat) 0.4 mg SL Q5M PRN PRN Reason: Chest Pain Azopt 1% Ophth Soln (Own Med) 0 drop EYERT TID [facility] Last Admin: 05/24/19 13:44 Dose: 1 drop Incruse Ellipta * (Ptom) 0 each INH DAILY@0630 [facility] Last Admin: 05/24/19 06:38 Dose: 1 each Pantoprazole Sodium (Protonix) 40 mg PO ACBREAKFAST [facility] Last Admin: 05/24/19 06:38 Dose: 40 mg Potassium Chloride (Klor-Con 10) 10 meq PO TID@08,12,21 [facility] Last Admin: 05/24/19 13:44 Dose: 10 meq Roflumilast (Daliresp) 500 mcg PO BEDTIME [facility] Last Admin: 05/23/19 21:25 Dose: 500 mcg Simvastatin (Zocor) 20 mg PO BEDTIME [facility] Last Admin: 05/23/19 21:26 Dose: 20 mg Discontinued Medications Acetaminophen (Tylenol Extra Strength) 500 mg PO TID [facility] Last Admin: 05/11/19 09:50 Dose: 500 mg Artificial Tears (Refresh Tears 0.5%) 0 ml EYEBOTH QID [facility] Last Admin: 05/07/19 22:09 Dose: 1 drop Ketotifen Fumarate (Ketotifen 0.025% Ophth Soln) 0 ml EYEBOTH BID [facility] Last Admin: 05/07/19 22:10 Dose: 1 drop Tiotropium [place] (Spiriva Handihaler) 18 mcg INH DAILY [facility] Last Admin: 05/10/19 08:49 Dose: 1 cap
[2019-05-24] MEDS: Simvastatin 20 MG Tab PO SCH (20:52)
[2019-05-24] MEDS: Latanoprost 0.005% Ophth Soln 2.5 ML Bottle **OWN MED EYERT SCH (20:54)
[2019-05-24] MEDS: Roflumilast 500 MCG Tab PO SCH (20:54)
[2019-05-24] MEDS: Perform Pain Reliever Gel 89 ML Tube TP SCH (20:55)
[2019-05-24] MEDS: Montelukast 10 MG Tab PO SCH (20:56)
[2019-05-24] MEDS: Cyclobenzaprine 10 MG Tab PO PRN (21:08)
[2019-05-25] MEDS: INCRUSE ELLIPTA *PTOM INH SCH (06:20)
[2019-05-25] MEDS: Arformoterol 15 MCG/2 ML Neb Soln INH SCH (06:27)
[2019-05-25] MEDS: Budesonide 0.5 MG/2 ML Neb Susp INH SCH (06:28)
[2019-05-25] MEDS: Pantoprazole 40 MG Tab.CR PO SCH (06:52)
[2019-05-25] MEDS: AZOPT 1% EYERT SCH (08:50)
[2019-05-25] MEDS: Calcium Carbonate 500 MG Tablet PO SCH (08:50)
[2019-05-25] MEDS: Carvedilol 6.25 MG Tab PO SCH (08:50)
[2019-05-25] MEDS: Potassium Chloride 10 MEQ Tab.ER PO SCH (08:50)
[2019-05-25] MEDS: busPIRone 5 MG Tab PO SCH (08:51)
[2019-05-25] MEDS: Isosorbide Mononitrate 30 MG Tab.ER PO SCH (08:52)
[2019-05-25] MEDS: Multivitamins with Iron/Calcium/Folic Acid/Minerals Tab PO SCH (08:52)
[2019-05-25] MEDS: guaiFENesin 600 MG Tab.ER PO SCH (08:52)
[2019-05-25] MEDS: Losartan 25 MG Tab PO SCH (08:53)
[2019-05-25] MEDS: Aspirin 81 MG Tab.EC PO SCH (08:54)
[2019-05-25] MEDS: Ketotifen 0.025% Ophth Soln 5 ML Bottle EYEBOTH SCH (08:54)
[2019-05-25 08:55] VITALS: BP 128/66
[2019-05-25] MEDS: Magnesium Chloride 64 MG Tab.ER PO SCH (08:55)
[2019-05-25] MEDS: Escitalopram 20 MG Tab PO SCH (08:56)
[2019-05-25] MEDS: Acetaminophen 500 MG Tab PO SCH (08:56)
[2019-05-25] MEDS: Furosemide 40 MG Tab PO SCH (08:57)
[2019-05-25] MEDS: Carboxymethylcellulose Sodium 0.5% Ophth Soln 15 ML Bottle EYEBOTH SCH (09:00)
== END 2019-05-25 11:08 | disposition home health service (06) | DRG 948 ==
LOC: FB.MS 14:15
PROVIDERS: ADMIT Family Medicine; ATTEND Family Medicine
DX: R53.1 Weakness (principal); I50.42 Chronic combined systolic (congestive) and diastolic (congestive) heart failure; J44.9 Chronic obstructive pulmonary disease, unspecified; F41.1 Generalized anxiety disorder; D50.0 Iron deficiency anemia secondary to blood loss (chronic); G89.29 Other chronic pain; M54.9 Dorsalgia, unspecified; F34.1 Dysthymic disorder; I35.0 Nonrheumatic aortic (valve) stenosis; I25.10 Atherosclerotic heart disease of native coronary artery without angina pectoris; I25.82 Chronic total occlusion of coronary artery; I48.2 Chronic atrial fibrillation; R74.8 Abnormal levels of other serum enzymes; H54.7 Unspecified visual loss; H40.9 Unspecified glaucoma; I50.9 Heart failure, unspecified; E78.00 Pure hypercholesterolemia, unspecified; R53.81 Other malaise; I11.0 Hypertensive heart disease with heart failure; I73.9 Peripheral vascular disease, unspecified; K21.9 Gastro-esophageal reflux disease without esophagitis; R32 Unspecified urinary incontinence; M19.90 Unspecified osteoarthritis, unspecified site; M81.0 Age-related osteoporosis without current pathological fracture; Z66 Do not resuscitate; I25.2 Old myocardial infarction; Z88.1 Allergy status to other antibiotic agents; Z88.8 Allergy status to other drugs, medicaments and biological substances; Z99.81 Dependence on supplemental oxygen; Z79.82 Long term (current) use of aspirin; Z87.891 Personal history of nicotine dependence; Z87.01 Personal history of pneumonia (recurrent); Z96.649 Presence of unspecified artificial hip joint; Z90.49 Acquired absence of other specified parts of digestive tract; Z79.899 Other long term (current) drug therapy; Z87.442 Personal history of urinary calculi
CPT/HCPCS: 36415; 85025; 94640; 97110-GO; 97110-GP; 97116-GP; 97161-GP; 97165-GO; 97530-GO; 97530-GP; 97535-GO; A9270-GY; J7605

== ENCOUNTER 2019-08-15 10:13 | Inpatient (IN) | payer MEDICARE, OTHER ==
[2019-08-15] MEDS ORDERED: Nitroglycerin 0.4 MG Tab.SL SL PRN (15:49)
[2019-08-15] MEDS ORDERED: Albuterol 8 GM Inhaler INH PRN (15:49)
[2019-08-15] MEDS ORDERED: predniSONE 20 MG Tab PO SCH (16:00)
[2019-08-15] MEDS: Albuterol/Ipratropium 3.0-0.5 MG/3 ML Neb Soln NEB SCH ×2 (16:25→20:47)
[2019-08-15] MEDS: Potassium Chloride 10 MEQ Tab.ER PO SCH ×2 (16:50→20:38)
[2019-08-15] MEDS: BRINZOLAMIDE EYERT SCH ×2 (16:52→20:09)
[2019-08-15] MEDS: metroNIDAZOLE 500 MG Tab PO SCH ×2 (16:52→20:38)
[2019-08-15] MEDS: Carboxymethylcellulose Sodium 0.5% Ophth Soln 0.4 ML UD Box of 30 EYEBOTH SCH ×2 (16:53→20:39)
[2019-08-15] MEDS: Carvedilol 6.25 MG Tab PO SCH (18:47)
[2019-08-15] MEDS: Budesonide 0.5 MG/2 ML Neb Susp INH SCH (20:08)
[2019-08-15] MEDS: Ketotifen 0.025% Ophth Soln 5 ML Bottle EYEBOTH PRN (20:09)
--- NOTE | 2019-08-15 20:14 | PCM.HP.2 ---
H&P History of Present Illness - General Date of Service: 08/15/19 Admit Problem/Dx: Admission Diagnosis/Problem Admission Diagnosis/Problem Weakness Source of Information: Patient History Limitations: Reports: No Limitations - History of Present Illness Initial Comments - Free Text/Narative: Nona is an 88-year-old female admitted from [place] to our Swing bed. She has a history of coronary disease and a stent placed on 08/08/2019. She has severe aortic stenosis status post balloon valvuloplasty. During the hospitalization she developed COPD exacerbation and she was put on SVNs and antibiotics. She was also was put on a steroid taper. She is admitted for strengthening and continuation of the above therapy. She has a history of atrial fibrillation, severe peripheral artery disease ,CHF with preserved EF, afib.She also has MDD,stable. Neck Pain Score (Numeric/FACES): 3 - Related Data Allergies/Adverse Reactions: Allergies Allergy/AdvReac Type Severity Reaction Status Date / Time levofloxacin [From Levaquin] Allergy Unknown unknown Verified 08/30/17 18:34 hypromellose Allergy Cannot Verified 08/30/17 18:34 [From GenTeal (hypromellose)] Remember lisinopril Allergy Cough Verified 05/07/19 11:35 optive eye drops Allergy Unknown unknown Uncoded 11/08/16 08:10 Home Medications: Home Meds Bimatoprost [LUMIGAN 0.01% Ophth Soln] 1 drop EYERT BEDTIME 11/13/14 [History] Calcium Carbonate/Vitamin D3 [Calcium 600-Vit D3 400 Tablet] 1 each PO BIDMEALS 11/13/14 [History] Isosorbide Mononitrate [Imdur] 30 mg PO DAILY 11/13/14 [History] Multivit-Min/FA/Lycopene/Lut [Centrum Silver] 1 each PO DAILY 11/13/14 [History] Nitroglycerin 0.4 mg SL Q5M PRN 11/13/14 [History] Simvastatin [Zocor] 20 mg PO BEDTIME 11/13/14 [History] busPIRone [Buspar] 5 mg PO BID 11/13/14 [History] Acetaminophen [Tylenol Extra Strength] 500 mg PO Q4H PRN 12/20/14 [History] Carboxymethylcellulose Sodium [Refresh Plus 0.5%] 1 drop EYEBOTH QID 12/22/14 [ History] Roflumilast [Daliresp] 500 mcg PO BEDTIME 03/21/16 [History] Furosemide [Lasix] 40 mg PO DAILY 04/04/16 [History] Montelukast [Singulair] 10 mg PO BEDTIME 04/04/16 [History] Arformoterol [Brovana] 15 mcg INH ,21 05/14/16 [History] Aspirin [Halfprin] 81 mg PO DAILY 05/14/16 [History] Budesonide [Pulmicort] 0.5 mg INH ,20 05/14/16 [History] Brinzolamide [Azopt 1% Ophth Susp] 1 drop EYERT TID 10/07/16 [History] Carvedilol [Coreg] 6.25 mg PO BIDMEALS 10/07/16 [History] Ferrous Gluconate 324 mg PO 1400 10/07/16 [History] Potassium Chloride 10 meq PO TID@08,12,21 10/07/16 [History] Umeclidinium Ragley [Incruse Ellipta*] 1 puff IH DAILY 08/30/17 [History] Albuterol [Proventil Neb Soln] 2.5 mg IH Q4H PRN 05/07/19 [History] Cyclobenzaprine [Flexeril] 10 mg PO BID PRN 05/07/19 [History] Escitalopram [Lexapro] 20 mg PO DAILY 05/07/19 [History] Ketotifen [Ketotifen 0.025% Ophth Soln] 1 drop EYEBOTH BID PRN 05/07/19 [History ] Losartan [Cozaar] 12.5 mg PO DAILY 05/07/19 [History] Magnesium Chloride [Mag-64] 64 mg PO DAILY 05/07/19 [History] guaiFENesin [Mucinex] 600 mg PO BID 05/07/19 [History] Albuterol [Ventolin HFA] 2 puff IH ASDIRECTED PRN 08/15/19 [History] Albuterol [Ventolin HFA] 2 puff IH BID 08/15/19 [History] Albuterol/Ipratropium [DuoNeb 3.0-0.5 MG/3 ML] 3 ml IH 6XDAY 08/15/19 [History] Clopidogrel [Plavix] 75 mg PO DAILY 08/15/19 [History] Doxycycline Hyclate 100 mg PO BID 08/15/19 [History] Lutein 20 mg PO BEDTIME 08/15/19 [History] Mirtazapine 7.5 mg PO BEDTIME 08/15/19 [History] Pantoprazole Sodium [Protonix] 40 mg PO 0600 08/15/19 [History] cefUROXime axetil [Cefuroxime] 500 mg PO BID 08/15/19 [History] metroNIDAZOLE [Flagyl] 500 mg PO TID 08/15/19 [History] predniSONE [Prednisone] 60 mg PO .TAPER 08/15/19 [History] Past Medical History HEENT History: Reports: Cataract, Glaucoma, Impaired Vision, Other (See Below) Other HEENT History: eyritis, ulcer on eye, taking some sort of shot to left eye now for "stroke in the eye" Cardiovascular History: Reports: CAD, Heart Failure, High Cholesterol, Hypertension, [place], PVD, SOB on Exertion, Stents, Other (See Below) Other Cardiovascular History: scarlet fever Respiratory History: Reports: COPD, Pneumonia, Recurrent, SOB, Other (See Below) Other Respiratory History: Home 02, collapsed lung Gastrointestinal History: Reports: GERD, GI Bleed, Hemorrhoids, Other (See Below ) Other Gastrointestinal History: colitis Genitourinary History: Reports: Renal Calculus, Urinary Incontinence 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: Musculoskeletal History: Reports: Arthritis, Back Pain, Chronic, Fracture, Osteoporosis Psychiatric History: Reports: Anxiety, Depression Endocrine/Metabolic History: Reports: Osteoporosis Hematologic History: Reports: Anemia, Blood Transfusion(s) Immunologic History: Reports: None Oncologic (Cancer) History: Reports: None Dermatologic History: Reports: Other (See Below) Other Dermatologic History: hx of rosacia - Infectious Disease History Infectious Disease History: Reports: Chicken Pox, Measles, Mumps, Scarlet Fever - Past Surgical History HEENT Surgical History: Reports: Cataract Surgery, Tonsillectomy Cardiovascular Surgical History: Reports: Percutaneous Transluminal Angioplasty GI Surgical History: Reports: Appendectomy, Cholecystectomy, Colonoscopy, EGD, Hernia Repair/Other, Other (See Below) Musculoskeletal Surgical History: Reports: Hip Replacement, Other (See Below) Oncologic Surgical History: Reports: None Social & Family History - Family History Family Medical History: Noncontributory HEENT: Reports: Cataract Cardiac: Reports: Heart Failure, Hypertension GI: Reports: Cholelithiasis OBGYN: Reports: Neurological: Reports: Alzheimers Disease, CVA Oncologic: Reports: Colon - Tobacco Use Used Tobacco, but Quit: Yes Month/Year Tobacco Last Used: 1989 Tobacco Use Comment: Pt smoked many years ago. Second Hand Smoke Exposure: No - Caffeine Use Caffeine Use: Reports: Coffee Other Caffeine Use: 5-6 Caffeine Use Comment: 5-6 cups/day - Recreational Drug Use Recreational Drug Use: No - Living Situation & Occupation Living situation: Reports: Single, Alone Occupation: Unemployed H&P Review of Systems - Review of Systems: Review Of Systems: ROS reveals no pertinent complaints other than HPI. Exam - Exam Exam: See Below - Vital Signs Vital Signs: Last Vital Signs Temp 97.5 F 08/15/19 15:31 Pulse 92 08/15/19 18:47 Resp 18 08/15/19 15:31 BP 130/60 08/15/19 18:47 Pulse Ox 93 L 08/15/19 15:48 Weight: 47.627 kg - Exam Quality Assessment: Supplemental Oxygen General: Alert, Oriented HEENT: Mucosa Moist & [place] Neck: Lymphadenopathy Lungs: Rhonchi, Stridor Cardiovascular: Regular Rate, Systolic Murmur GI/Abdominal Exam: Normal Bowel Sounds Back Exam: Normal Inspection Extremities: Normal Inspection Neuro Extensive - Mental Status: Memory Intact Neuro Extensive - Motor, Sensory, Reflexes: CN II-XII Intact, Normal Gait Psychiatric: Alert, Normal Affect - Problem List (1) COPD with exacerbation SNOMED Code(s): 523022250, 086949288 ICD Code: J44.1 - CHRONIC OBSTRUCTIVE PULMONARY DISEASE W (ACUTE) EXACERBATION Status: Acute Current Visit: No (2) Aortic stenosis SNOMED Code(s): 03555568 ICD Code: I35.0 - NONRHEUMATIC AORTIC (VALVE) STENOSIS Status: Acute Current Visit: Yes Problem Details: S/P BAV Qualifiers: Cardiac valve disease etiology: etiology unspecified Qualified Code(s): I35.0 - Nonrheumatic aortic (valve) stenosis (3) PAD (peripheral artery disease) SNOMED Code(s): 551270609, 249100589 ICD Code: I73.9 - PERIPHERAL VASCULAR DISEASE, UNSPECIFIED Status: Chronic Current Visit: Yes (4) MDD (major depressive disorder) SNOMED Code(s): 898509214 ICD Code: F32.9 - MAJOR DEPRESSIVE DISORDER, SINGLE EPISODE, UNSPECIFIED Status: Acute Current Visit: Yes Qualifiers: Major depression recurrence: recurrent Psychotic features: without psychotic features (5) Weakness SNOMED Code(s): 52826248 ICD Code: R53.1 - WEAKNESS Status: Acute Current Visit: Yes (6) CAD (coronary artery disease) SNOMED Code(s): 94538936 ICD Code: I25.10 - ATHSCL HEART DISEASE OF [place] CORONARY ARTERY W/O ANG PCTRS Status: Acute Current Visit: Yes Qualifiers: Coronary Disease-Associated Artery/Lesion type: [place] artery Associated angina: with stable angina (7) Afib SNOMED Code(s): 78507118 ICD Code: I48.91 - UNSPECIFIED ATRIAL FIBRILLATION Status: Acute Current Visit: No Qualifiers: Atrial fibrillation type: chronic (8) Anemia SNOMED Code(s): 263011872 ICD Code: D64.9 - ANEMIA, UNSPECIFIED Status: Acute Current Visit: No (9) CHF (congestive heart failure) SNOMED Code(s): 85809978 ICD Code: I50.9 - HEART FAILURE, UNSPECIFIED Status: Acute Current Visit : No Qualifiers: Heart failure type: combined systolic and diastolic Heart failure chronicity: chronic Qualified Code(s): I50.42 - Chronic combined systolic ( congestive) and diastolic (congestive) heart failure Problem List Initiated/Reviewed/Updated: Yes Orders Last 24hrs: Active Orders 24 hr Category Date Time Status Patient Status [ADT] Routine ADT 08/15/19 15:48 Active Oxygen Therapy [RC] PRN Care 08/15/19 15:48 Active Up With Assistance [RC] ASDIRECTED Care 08/15/19 15:48 Active VTE/DVT Education [RC] Per Unit Routine Care 08/15/19 15:48 Active Vital Signs [RC] 08 Care 08/15/19 15:48 Active OT Evaluation and Treatment [CONS] Routine Cons 08/15/19 15:48 Active PT Evaluation and Treatment [CONS] Routine Cons 08/15/19 15:48 Active Regular Diet [DIET] Diet 08/15/19 Breakfast Active Acetaminophen [Tylenol Extra Strength] Med 08/15/19 15:49 Active 500 mg PO Q4H PRN Albuterol [Proventil Neb Soln] Med 08/15/19 15:49 Active 2.5 mg NEB Q4H PRN Albuterol/Ipratropium [DuoNeb 3.0-0.5 MG/3 ML] Med 08/22/19 15:00 Active 3 ml INH QID PRN Albuterol/Ipratropium [DuoNeb 3.0-0.5 MG/3 ML] Med 08/15/19 17:00 Active 3 ml NEB 6XDAY Arformoterol [Brovana] Med 08/15/19 21:00 Active 15 mcg INH Aspirin [Halfprin] Med 08/16/19 09:00 Active 81 mg PO DAILY Bimatoprost [LUMIGAN 0.01% Ophth Soln] Med 08/15/19 21:00 Active 1 drop EYERT BEDTIME Brinzolamide [Azopt 1% Ophth Susp] Med 08/15/19 17:00 Active 1 drop EYERT TID Budesonide [Pulmicort] Med 08/15/19 20:00 Active 0.5 mg INH , Calcium Carbonate [Oyster Shell Calcium] Med 08/16/19 12:00 Active 500 mg PO BID@1200,1800 Carboxymethylcellulose Sodium [Refresh Plus 0.5%] Med 08/15/19 17:00 Active 0 each EYEBOTH QID Carvedilol [Coreg] Med 08/15/19 18:00 Active 6.25 mg PO BIDMEALS Cefuroxime [Ceftin] Med 08/15/19 21:00 Active 500 mg PO BID Clopidogrel [Plavix] Med 08/16/19 09:00 Active 75 mg PO DAILY Cyclobenzaprine [Flexeril] Med 08/15/19 15:49 Active 10 mg PO BID PRN Doxycycline [Vibra-Tabs] Med 08/15/19 21:00 Active 100 mg PO BID Escitalopram [Lexapro] Med 08/16/19 09:00 Active 20 mg PO DAILY Ferrous Sulfate Med 08/16/19 14:00 Active 325 mg PO DAILY@1400 Furosemide [Lasix] Med 08/16/19 09:00 Active 40 mg PO DAILY Isosorbide Mononitrate [Imdur] Med 08/16/19 09:00 Active 30 mg PO DAILY Ketotifen [Ketotifen 0.025% Ophth Soln] Med 08/15/19 15:49 Active 0 ml EYEBOTH BID PRN Losartan [Cozaar] Med 08/16/19 09:00 Active 12.5 mg PO DAILY Lutein Med 08/15/19 21:00 Active 20 mg PO BEDTIME Magnesium Chloride [Mag-64] Med 08/16/19 12:00 Active 64 mg PO DAILY@1200 Mirtazapine [Remeron] Med 08/15/19 21:00 Active 7.5 mg PO BEDTIME Montelukast [Singulair] Med 08/15/19 21:00 Active 10 mg PO BEDTIME Multivitamins,Therapeutic [Thera] Med 08/16/19 12:00 Active 1 each PO DAILY@1200 Nitroglycerin [Nitrostat] Med 08/15/19 15:49 Active 0.4 mg SL Q5M PRN Pantoprazole [ProTONIX] Med 08/16/19 06:00 Active 40 mg PO 0600 Potassium Chloride [Klor-Con 10] Med 08/15/19 16:30 Active 10 meq PO TID@0800,1200,2100 Roflumilast [Daliresp] Med 08/15/19 21:00 Active 500 mcg PO BEDTIME Simvastatin [Zocor] Med 08/15/19 21:00 Active 20 mg PO BEDTIME Umeclidinium Ragley [Incruse Ellipta*] Med 08/16/19 09:00 Active 1 puff IH DAILY busPIRone [Buspar] Med 08/15/19 21:00 Active 5 mg PO BID guaiFENesin [Mucinex] Med 08/15/19 21:00 Active 600 mg PO BID metroNIDAZOLE [Flagyl] Med 08/15/19 16:00 Active 500 mg PO TID predniSONE Med 08/16/19 08:00 Active 60 mg PO .TAPER Resuscitation Status Routine Resus Stat 08/15/19 15:48 Ordered Medication Orders Acetaminophen (Tylenol Extra Strength) 500 mg PO Q4H PRN PRN Reason: Pain Albuterol (Proventil Neb Soln) 2.5 mg NEB Q4H PRN PRN Reason: SOB/WHEEZING Albuterol/Ipratropium (Duoneb 3.0-0.5 Mg/3 Ml) 3 ml NEB 6XDAY MAX Stop: 08/22/19 14:01 Last Admin: 08/15/19 16:25 Dose: 3 ml Albuterol/Ipratropium (Duoneb 3.0-0.5 Mg/3 Ml) 3 ml INH QID PRN PRN Reason: SHORTNESS OF BREATH Arformoterol Tartrate (Brovana) 15 mcg INH [facility] Artificial Tears (Refresh Plus 0.5%) 0 each EYEBOTH QID [facility] Last Admin: 08/15/19 16:53 Dose: 1 drop Aspirin (Halfprin) 81 mg PO DAILY [facility] Budesonide (Pulmicort) 0.5 mg INH [facility] Buspirone HCl (Buspar) 5 mg PO BID [facility] Calcium Carbonate/Glycine (Oyster Shell Calcium) 500 mg PO BID@1200,1800 [facility] Carvedilol (Coreg) 6.25 mg PO BIDMEALS [facility] Last Admin: 08/15/19 18:47 Dose: 6.25 mg Cefuroxime Axetil (Ceftin) 500 mg PO BID [facility] Stop: 08/18/19 09:01 Clopidogrel Bisulfate (Plavix) 75 mg PO DAILY [facility] Cyclobenzaprine HCl (Flexeril) 10 mg PO BID PRN PRN Reason: MUSCLE SPASMS Doxycycline Hyclate (Vibra-Tabs) 100 mg PO BID [facility] Stop: 08/18/19 09:01 Escitalopram Oxalate (Lexapro) 20 mg PO DAILY [facility] Ferrous Sulfate (Ferrous Sulfate) 325 mg PO DAILY@1400 [facility] Furosemide (Lasix) 40 mg PO DAILY [facility] Guaifenesin (Mucinex) 600 mg PO BID [facility] Isosorbide Mononitrate (Imdur) 30 mg PO DAILY [facility] Ketotifen Fumarate (Ketotifen 0.025% Oph Soln) 0 ml EYEBOTH BID PRN PRN Reason: Allergies Losartan Potassium (Cozaar) 12.5 mg PO DAILY [facility] Lutein (Lutein) 20 mg PO BEDTIME [facility] Magnesium Chloride (Mag-64) 64 mg PO DAILY@1200 [facility] Metronidazole (Flagyl) 500 mg PO TID [facility] Stop: 08/19/19 09:01 Last Admin: 08/15/19 16:52 Dose: 500 mg Mirtazapine (Remeron) 7.5 mg PO BEDTIME [facility] Montelukast Sodium (Singulair) 10 mg PO BEDTIME [facility] Multivitamins (Thera) 1 each PO DAILY@1200 MAX Nitroglycerin (Nitrostat) 0.4 mg SL Q5M PRN PRN Reason: Chest Pain (Bimatoprost [ [place] 0.01% Ophth Soln] 1 Drop) 1 drop EYERT BEDTIME MAX (Brinzolamide [Azopt 1% Ophth Susp] 1 Drop) *Ptom 1 drop EYERT TID MAX Last Admin: 08/15/19 16:52 Dose: 1 drop (Umeclidinium Ragley [Incruse Ellipta*] 1 Puff) * Ptom 1 puff IH DAILY MAX Pantoprazole Sodium (Protonix) 40 mg PO 0600 MAX Potassium Chloride (Klor-Con 10) 10 meq PO TID@0800,1200,2100 MAX Last Admin: 08/15/19 16:50 Dose: 10 meq Prednisone (Prednisone) 60 mg PO .TAPER MAX; Taper Stop: 08/28/19 07:59 Roflumilast (Daliresp) 500 mcg PO BEDTIME MAX Simvastatin (Zocor) 20 mg PO BEDTIME MAX Assessment/Plan Comment:: Admit to [facility]. Start PT,OT and continue current meds.
[2019-08-15] MEDS: Cefuroxime 250 MG Tab PO SCH (20:37)
[2019-08-15] MEDS: guaiFENesin 600 MG Tab.ER PO SCH (20:38)
[2019-08-15] MEDS: Roflumilast 500 MCG Tab PO SCH (20:38)
[2019-08-15] MEDS: Acetaminophen 500 MG Tab PO PRN (20:39)
[2019-08-15] MEDS: Cyclobenzaprine 10 MG Tab PO PRN (20:39)
[2019-08-15] MEDS: Mirtazapine 15 MG Tab PO SCH (20:39)
[2019-08-15] MEDS: Simvastatin 20 MG Tab PO SCH (20:40)
[2019-08-15] MEDS: Doxycycline 100 MG Tab PO SCH (20:40)
[2019-08-15] MEDS: Montelukast 10 MG Tab PO SCH (20:42)
[2019-08-15] MEDS: busPIRone 5 MG Tab PO SCH (20:43)
[2019-08-15] MEDS: BIMATOPROST EYERT SCH (20:43)
[2019-08-15] MEDS: Arformoterol 15 MCG/2 ML Neb Soln INH SCH (20:47)
[2019-08-15] MEDS ORDERED: Albuterol 8 GM Inhaler INH SCH (21:00)
[2019-08-16] MEDS: Albuterol/Ipratropium 3.0-0.5 MG/3 ML Neb Soln NEB SCH ×6 (04:59→20:24)
[2019-08-16] MEDS: Pantoprazole 40 MG Tab.CR PO SCH (05:42)
[2019-08-16] MEDS: Potassium Chloride 10 MEQ Tab.ER PO SCH ×3 (08:11→20:24)
[2019-08-16] MEDS: Carvedilol 6.25 MG Tab PO SCH ×2 (08:11→17:30)
[2019-08-16] MEDS: Carboxymethylcellulose Sodium 0.5% Ophth Soln 0.4 ML UD Box of 30 EYEBOTH SCH ×4 (08:12→20:22)
[2019-08-16] MEDS: Budesonide 0.5 MG/2 ML Neb Susp INH SCH ×2 (08:13→20:11)
[2019-08-16] MEDS: BRINZOLAMIDE EYERT SCH ×3 (08:14→20:13)
[2019-08-16] MEDS: busPIRone 5 MG Tab PO SCH ×2 (08:16→20:24)
[2019-08-16] MEDS: Cefuroxime 250 MG Tab PO SCH (08:16)
[2019-08-16] MEDS: Losartan 25 MG Tab PO SCH (08:17)
[2019-08-16] MEDS: metroNIDAZOLE 500 MG Tab PO SCH ×3 (08:17→20:23)
[2019-08-16] MEDS: Furosemide 40 MG Tab PO SCH (08:18)
[2019-08-16] MEDS: Aspirin 81 MG Tab.EC PO SCH (08:18)
[2019-08-16] MEDS: Escitalopram 20 MG Tab PO SCH (08:19)
[2019-08-16] MEDS: Doxycycline 100 MG Tab PO SCH ×2 (08:20→20:24)
[2019-08-16] MEDS: guaiFENesin 600 MG Tab.ER PO SCH ×2 (08:20→20:24)
[2019-08-16] MEDS: Clopidogrel 75 MG Tab PO SCH (08:20)
[2019-08-16] MEDS: predniSONE 20 MG Tab PO SCH (08:32)
[2019-08-16] MEDS ORDERED: Isosorbide Mononitrate 60 MG Tab.ER PO SCH (09:00)
[2019-08-16] MEDS: Isosorbide Mononitrate 30 MG Tab.ER PO SCH (09:33)
[2019-08-16] MEDS: Arformoterol 15 MCG/2 ML Neb Soln INH SCH ×2 (09:34→20:24)
[2019-08-16] MEDS: Multivitamins,Therapeutic Tab PO SCH (12:20)
[2019-08-16] MEDS: Calcium Carbonate 500 MG Tablet PO SCH ×2 (12:20→17:34)
[2019-08-16] MEDS: Magnesium Chloride 64 MG Tab.ER PO SCH (12:20)
--- NOTE | 2019-08-16 12:28 | PN ---
DATE SEEN: 08/16/2019 SUBJECTIVE: Colleen De León is an 88-year-old female, seen today for review. Transferred from [facility], had 2 stents placed. Long-standing coronary disease, long-standing COPD. She has had previous aortic valve surgery. She was admitted for short-term stay and rehabilitation purposes. Medications reviewed. All timing appropriate. Diagnostic studies not indicated. OBJECTIVE: VITAL SIGNS: 150/70, 91% on 2 L. GENERAL: Appears comfortable. Raspy cough intermittently. NECK: No JVD. CHEST: Coarse rhonchi, diffuse wheezing. HEART: No ectopy or murmur. ABDOMEN: Benign. ASSESSMENT: 1. Coronary artery disease with stent, balloon. 2. Lower extremity arterial disease. 3. Chronic obstructive pulmonary disease. PLAN: Medications, care, and treatment appropriate. DuoNeb, albuterol, Brovana, carvedilol. Medications and care. All appear to be appropriate. /[id number] SYDNEE/CLAUDETTE
[2019-08-16] MEDS: Ferrous Sulfate 325 MG Tab PO SCH (13:34)
[2019-08-16] MEDS: Ketotifen 0.025% Ophth Soln 5 ML Bottle EYEBOTH PRN (20:21)
[2019-08-16] MEDS: Simvastatin 20 MG Tab PO SCH (20:23)
[2019-08-16] MEDS: Mirtazapine 15 MG Tab PO SCH (20:23)
[2019-08-16] MEDS: BIMATOPROST EYERT SCH (20:23)
[2019-08-16] MEDS: Roflumilast 500 MCG Tab PO SCH (20:23)
[2019-08-16] MEDS: Montelukast 10 MG Tab PO SCH (20:24)
[2019-08-16] MEDS: Acetaminophen 500 MG Tab PO PRN (21:40)
[2019-08-16] MEDS: Cyclobenzaprine 10 MG Tab PO PRN (21:40)
[2019-08-17] MEDS: Pantoprazole 40 MG Tab.CR PO SCH (06:03)
[2019-08-17] MEDS: Albuterol/Ipratropium 3.0-0.5 MG/3 ML Neb Soln NEB SCH ×6 (06:03→20:14)
[2019-08-17] MEDS: Budesonide 0.5 MG/2 ML Neb Susp INH SCH ×2 (08:09→19:47)
[2019-08-17] MEDS: Carvedilol 6.25 MG Tab PO SCH ×2 (08:10→17:37)
[2019-08-17] MEDS: Potassium Chloride 10 MEQ Tab.ER PO SCH ×3 (08:10→20:05)
[2019-08-17] MEDS: BRINZOLAMIDE EYERT SCH ×3 (08:12→20:11)
[2019-08-17] MEDS: Carboxymethylcellulose Sodium 0.5% Ophth Soln 0.4 ML UD Box of 30 EYEBOTH SCH ×4 (08:13→20:03)
[2019-08-17] MEDS: Arformoterol 15 MCG/2 ML Neb Soln INH SCH ×2 (08:13→20:14)
[2019-08-17] MEDS: predniSONE 20 MG Tab PO SCH (08:14)
[2019-08-17] MEDS: busPIRone 5 MG Tab PO SCH ×2 (08:15→20:04)
[2019-08-17] MEDS: metroNIDAZOLE 500 MG Tab PO SCH ×3 (08:15→20:06)
[2019-08-17] MEDS: Furosemide 40 MG Tab PO SCH (08:15)
[2019-08-17] MEDS: Losartan 25 MG Tab PO SCH (08:16)
[2019-08-17] MEDS: Aspirin 81 MG Tab.EC PO SCH (08:17)
[2019-08-17] MEDS: guaiFENesin 600 MG Tab.ER PO SCH ×2 (08:17→20:05)
[2019-08-17] MEDS: Isosorbide Mononitrate 30 MG Tab.ER PO SCH (08:17)
[2019-08-17] MEDS: Clopidogrel 75 MG Tab PO SCH (08:18)
[2019-08-17] MEDS: Escitalopram 20 MG Tab PO SCH (08:18)
[2019-08-17] MEDS: Doxycycline 100 MG Tab PO SCH ×2 (08:20→20:05)
[2019-08-17] MEDS: Magnesium Chloride 64 MG Tab.ER PO SCH (11:49)
[2019-08-17] MEDS: Calcium Carbonate 500 MG Tablet PO SCH ×2 (11:49→17:37)
[2019-08-17] MEDS: Multivitamins,Therapeutic Tab PO SCH (11:49)
[2019-08-17] MEDS: Ferrous Sulfate 325 MG Tab PO SCH (13:07)
[2019-08-17] MEDS: BIMATOPROST EYERT SCH (20:02)
[2019-08-17] MEDS: Mirtazapine 15 MG Tab PO SCH (20:03)
[2019-08-17] MEDS: Ketotifen 0.025% Ophth Soln 5 ML Bottle EYEBOTH PRN (20:03)
[2019-08-17] MEDS: Roflumilast 500 MCG Tab PO SCH (20:03)
[2019-08-17] MEDS: Montelukast 10 MG Tab PO SCH (20:04)
[2019-08-17] MEDS: Simvastatin 20 MG Tab PO SCH (20:05)
[2019-08-17] MEDS: Cyclobenzaprine 10 MG Tab PO PRN (21:10)
[2019-08-17] MEDS: Acetaminophen 500 MG Tab PO PRN (21:10)
[2019-08-18] MEDS: Pantoprazole 40 MG Tab.CR PO SCH (06:12)
[2019-08-18] MEDS: Albuterol/Ipratropium 3.0-0.5 MG/3 ML Neb Soln NEB SCH ×6 (06:12→20:36)
[2019-08-18] MEDS: Carvedilol 6.25 MG Tab PO SCH ×2 (08:04→17:20)
[2019-08-18] MEDS: Potassium Chloride 10 MEQ Tab.ER PO SCH ×3 (08:05→20:30)
[2019-08-18] MEDS: Budesonide 0.5 MG/2 ML Neb Susp INH SCH ×2 (08:06→19:49)
[2019-08-18] MEDS: Arformoterol 15 MCG/2 ML Neb Soln INH SCH ×2 (08:20→20:36)
[2019-08-18] MEDS: busPIRone 5 MG Tab PO SCH ×2 (08:20→20:30)
[2019-08-18] MEDS: BRINZOLAMIDE EYERT SCH ×3 (08:20→20:33)
[2019-08-18] MEDS: Losartan 25 MG Tab PO SCH (08:20)
[2019-08-18] MEDS: Doxycycline 100 MG Tab PO SCH (08:21)
[2019-08-18] MEDS: Furosemide 40 MG Tab PO SCH (08:21)
[2019-08-18] MEDS: Isosorbide Mononitrate 30 MG Tab.ER PO SCH (08:21)
[2019-08-18] MEDS: Aspirin 81 MG Tab.EC PO SCH (08:21)
[2019-08-18] MEDS: predniSONE 20 MG Tab PO SCH (08:21)
[2019-08-18] MEDS: Escitalopram 20 MG Tab PO SCH (08:22)
[2019-08-18] MEDS: Clopidogrel 75 MG Tab PO SCH (08:22)
[2019-08-18] MEDS: Carboxymethylcellulose Sodium 0.5% Ophth Soln 0.4 ML UD Box of 30 EYEBOTH SCH ×4 (08:22→20:31)
[2019-08-18] MEDS: metroNIDAZOLE 500 MG Tab PO SCH ×3 (08:22→20:32)
[2019-08-18] MEDS: guaiFENesin 600 MG Tab.ER PO SCH ×2 (08:22→20:31)
[2019-08-18] MEDS: Magnesium Chloride 64 MG Tab.ER PO SCH (11:33)
[2019-08-18] MEDS: Calcium Carbonate 500 MG Tablet PO SCH ×2 (11:34→17:21)
[2019-08-18] MEDS: Multivitamins,Therapeutic Tab PO SCH (11:34)
[2019-08-18] MEDS: Ferrous Sulfate 325 MG Tab PO SCH (13:31)
[2019-08-18] MEDS: BIMATOPROST EYERT SCH (20:29)
[2019-08-18] MEDS: Mirtazapine 15 MG Tab PO SCH (20:30)
[2019-08-18] MEDS: Montelukast 10 MG Tab PO SCH (20:30)
[2019-08-18] MEDS: Simvastatin 20 MG Tab PO SCH (20:30)
[2019-08-18] MEDS: Roflumilast 500 MCG Tab PO SCH (20:30)
[2019-08-18] MEDS: Ketotifen 0.025% Ophth Soln 5 ML Bottle EYEBOTH PRN (20:33)
[2019-08-18] MEDS: Cyclobenzaprine 10 MG Tab PO PRN (21:06)
[2019-08-18] MEDS: Acetaminophen 500 MG Tab PO PRN (21:06)
[2019-08-19] MEDS: Pantoprazole 40 MG Tab.CR PO SCH (06:01)
[2019-08-19] MEDS: Albuterol/Ipratropium 3.0-0.5 MG/3 ML Neb Soln NEB SCH ×7 (06:01→20:22)
--- NOTE | 2019-08-19 07:46 | PN ---
DATE SEEN: 08/17/2019 SUBJECTIVE: Betty De León is an 88-year-old female, in swing bed. Had a recent cardiovascular event, stent placement. She had aortic valve surgery. Bad COPD. OBJECTIVE: VITAL SIGNS: 146/82. GENERAL: Appears comfortable. NECK: Benign. Thyroid small. LUNGS: Coarse rhonchi. Decreased breath sounds. HEART: Distant heart sounds. ABDOMEN: Benign. ASSESSMENT: 1. Chronic lung disease. 2. Coronary artery disease. PLAN: Medications, care and treatment appropriate, had removed the Ceftin. Doxycycline on board for infectious process in the respiratory system. /[id number] SYDNEE/CLAUDETTE
[2019-08-19] MEDS: Carvedilol 6.25 MG Tab PO SCH ×2 (08:07→17:24)
[2019-08-19] MEDS: Potassium Chloride 10 MEQ Tab.ER PO SCH ×3 (08:08→20:22)
[2019-08-19] MEDS: BRINZOLAMIDE EYERT SCH ×3 (08:10→20:20)
[2019-08-19] MEDS: Carboxymethylcellulose Sodium 0.5% Ophth Soln 0.4 ML UD Box of 30 EYEBOTH SCH ×4 (08:10→20:19)
[2019-08-19] MEDS: Budesonide 0.5 MG/2 ML Neb Susp INH SCH ×2 (08:22→19:34)
[2019-08-19] MEDS: Arformoterol 15 MCG/2 ML Neb Soln INH SCH ×3 (08:29→20:21)
[2019-08-19] MEDS: busPIRone 5 MG Tab PO SCH ×2 (08:31→20:21)
[2019-08-19] MEDS: Losartan 25 MG Tab PO SCH (08:31)
[2019-08-19] MEDS: metroNIDAZOLE 500 MG Tab PO SCH (08:32)
[2019-08-19] MEDS: predniSONE 20 MG Tab PO SCH (08:32)
[2019-08-19] MEDS: Aspirin 81 MG Tab.EC PO SCH (08:32)
[2019-08-19] MEDS: Escitalopram 20 MG Tab PO SCH (08:32)
[2019-08-19] MEDS: Isosorbide Mononitrate 30 MG Tab.ER PO SCH (08:32)
[2019-08-19] MEDS: Furosemide 40 MG Tab PO SCH (08:32)
[2019-08-19] MEDS: guaiFENesin 600 MG Tab.ER PO SCH ×2 (08:32→20:26)
[2019-08-19] MEDS: Clopidogrel 75 MG Tab PO SCH (08:32)
--- NOTE | 2019-08-19 11:16 | CR ---
INDICATION: Cough. CHEST: PA and lateral views of the chest, 08/19/19, were compared with and revealed somewhat decreased infiltrate in the right mid lung field, compatible with probable resolution of pneumonia in that area, although recurrent pneumonia or persistent chronic inflammatory disease cannot be excluded. The possibility of a centrally obstructive lesion would be a consideration. What appears to be an azygous node in the suprahilar area is prominent. This is a new finding. CT examination may be warranted, depending upon clinical correlation. The heart is at the upper limits of normal in size with tortuous calcified aorta. Compression fracture at an upper middle thoracic level of moderate degree is again noted and stable. There is also noted a mild degree of superior compression fracture, which has occurred since the previous study, at a lower thoracic level, apparently T11. Findings compatible with COPD are noted. Calcifications are noted in the area of the aortic valve. IMPRESSION: 1. Continued parenchymal changes noted in the right mid lung field with possible mikaela enlargement, suprahilar on the right, etiology indeterminate. A process such as chronic inflammatory disease or even neoplasia cannot be excluded. Depending upon clinical correlation, additional workup may be warranted, such as CT of the chest without and with IV contrast. 2. COPD. 3. ASHD. 4. Osteoporosis with stable compression upper middle thoracic spine and new compression at what appears to be T11. The T11 compression is mild in degree. MTDD
--- NOTE | 2019-08-19 12:01 | PN ---
DATE SEEN: 08/18/2019 SUBJECTIVE: Colleen De León is an 88-year-old female. Seen in swing bed. Making good adjustment. Supplemental O2, underlying COPD. LABORATORY STUDIES: None of significance. OBJECTIVE: VITAL SIGNS: 109/79, pulse 102, respirations 18, slightly labored. GENERAL: Appears comfortable. O2 in place. NECK: Benign. No JVD. CHEST: Clear in all lung [place]. No adventitious sounds. HEART: No ectopy or murmur. ABDOMEN: Benign. ASSESSMENT: 1. Coronary artery disease with stents. 2. Chronic obstructive pulmonary disease. PLAN: Medications, care, and treatment. Appropriate rehab in place. /[id number] /CLAUDETTE
[2019-08-19] MEDS: Magnesium Chloride 64 MG Tab.ER PO SCH (12:16)
[2019-08-19] MEDS: Multivitamins,Therapeutic Tab PO SCH (12:17)
[2019-08-19] MEDS: Calcium Carbonate 500 MG Tablet PO SCH ×2 (12:17→17:24)
[2019-08-19] MEDS: Ferrous Sulfate 325 MG Tab PO SCH (13:42)
[2019-08-19] MEDS: BIMATOPROST EYERT SCH (20:18)
[2019-08-19] MEDS: Roflumilast 500 MCG Tab PO SCH (20:21)
[2019-08-19] MEDS: Simvastatin 20 MG Tab PO SCH (20:23)
[2019-08-19] MEDS: Mirtazapine 15 MG Tab PO SCH (20:23)
[2019-08-19] MEDS: Montelukast 10 MG Tab PO SCH (20:26)
[2019-08-19] MEDS: Acetaminophen 500 MG Tab PO PRN (20:33)
[2019-08-19] MEDS: Cyclobenzaprine 10 MG Tab PO PRN (20:37)
[2019-08-20] MEDS: Albuterol 0.083% 2.5 MG/3 ML Neb Soln NEB PRN (02:00)
[2019-08-20] MEDS: Albuterol/Ipratropium 3.0-0.5 MG/3 ML Neb Soln NEB SCH ×6 (06:28→20:02)
[2019-08-20] MEDS: Pantoprazole 40 MG Tab.CR PO SCH (06:28)
[2019-08-20] MEDS ORDERED: FLU Vacc QS2019-20(6MOS+)/PF 60 MCG/0.5 ML SYRINGE IM ONE (08:04)
[2019-08-20] MEDS: Carvedilol 6.25 MG Tab PO SCH ×2 (08:10→17:36)
[2019-08-20] MEDS: Potassium Chloride 10 MEQ Tab.ER PO SCH ×3 (08:11→20:02)
[2019-08-20] MEDS: Budesonide 0.5 MG/2 ML Neb Susp INH SCH ×2 (08:12→20:00)
[2019-08-20] MEDS: BRINZOLAMIDE EYERT SCH ×3 (08:50→20:01)
[2019-08-20] MEDS: Arformoterol 15 MCG/2 ML Neb Soln INH SCH ×2 (08:50→20:01)
[2019-08-20] MEDS: busPIRone 5 MG Tab PO SCH ×2 (08:51→20:01)
[2019-08-20] MEDS: Losartan 25 MG Tab PO SCH (08:51)
[2019-08-20] MEDS: Aspirin 81 MG Tab.EC PO SCH (08:53)
[2019-08-20] MEDS: Isosorbide Mononitrate 30 MG Tab.ER PO SCH (08:54)
[2019-08-20] MEDS: Furosemide 40 MG Tab PO SCH (08:54)
[2019-08-20] MEDS: guaiFENesin 600 MG Tab.ER PO SCH ×2 (08:55→20:03)
[2019-08-20] MEDS: Escitalopram 20 MG Tab PO SCH (08:55)
[2019-08-20] MEDS: Clopidogrel 75 MG Tab PO SCH (08:55)
[2019-08-20] MEDS: predniSONE 20 MG Tab PO SCH (08:56)
[2019-08-20] MEDS: Carboxymethylcellulose Sodium 0.5% Ophth Soln 0.4 ML UD Box of 30 EYEBOTH SCH ×4 (08:57→20:03)
--- NOTE | 2019-08-20 13:27 | PN ---
DATE SEEN: 08/19/2019 SUBJECTIVE: Colleen De León is a delightful 88-year-old female seen today for followup. Recent acute care stay is at [facility]. Stent was placed. Pneumonia accompanying. In today for followup. Doing better. Chest x-ray to be obtained. Medications reviewed and appropriate. OBJECTIVE: VITAL SIGNS: Pulse 103, 96/73, mean blood pressure 80, 96 on 2%. GENERAL: In good spirits. Soft-spoken. Short of breath with simple conversation. HEENT: Unremarkable. NECK: Benign. No JVD. CHEST: Coarse rhonchi. Prolonged expiratory phase. HEART: Distant heart sounds. Soft murmur appreciated. ASSESSMENT: 1. Chronic obstructive pulmonary disease. 2. Coronary artery disease. PLAN: Medications, care, and treatment appropriate. Rehab in place. /[id number] SYDNEE/CLAUDETTE
--- NOTE | 2019-08-20 13:27 | PN ---
DATE SEEN: 08/20/2019 SUBJECTIVE: Colleen De León is a delightful 88-year-old female, swing bed stay. Recent [facility] hospitalization, CAD with stents, pneumonia, underlying severe COPD, O2 dependent. No complaints, feeling stronger today. OBJECTIVE: VITAL SIGNS: Stable. 106/72, mean blood pressure 83, pulse 88, respirations 16, and 96% on 2 L. GENERAL: Had a bit of a tough night. Bit of a COPD spell. NECK: No JVD. CHEST: Coarse rhonchi. Diffuse wheezing. HEART: Distant heart sounds. ABDOMEN: Benign. ASSESSMENT: Chronic obstructive pulmonary disease and coronary artery disease. PLAN: Medications, care and treatment appropriate. Length of stay pending clinical response. /[id number] SYDNEE/CLAUDETTE
[2019-08-20] MEDS: Magnesium Chloride 64 MG Tab.ER PO SCH (13:34)
[2019-08-20] MEDS: Multivitamins,Therapeutic Tab PO SCH (13:35)
[2019-08-20] MEDS: Calcium Carbonate 500 MG Tablet PO SCH ×2 (13:35→18:34)
[2019-08-20] MEDS: Ferrous Sulfate 325 MG Tab PO SCH (13:37)
[2019-08-20] MEDS: BIMATOPROST EYERT SCH (20:01)
[2019-08-20] MEDS: Roflumilast 500 MCG Tab PO SCH (20:02)
[2019-08-20] MEDS: Montelukast 10 MG Tab PO SCH (20:03)
[2019-08-20] MEDS: Simvastatin 20 MG Tab PO SCH (20:03)
[2019-08-20] MEDS: Mirtazapine 15 MG Tab PO SCH (20:03)
[2019-08-20] MEDS: Acetaminophen 500 MG Tab PO PRN (20:16)
[2019-08-21] MEDS: Pantoprazole 40 MG Tab.CR PO SCH ×2 (04:58→05:15)
[2019-08-21] MEDS: Albuterol/Ipratropium 3.0-0.5 MG/3 ML Neb Soln NEB SCH ×6 (04:59→20:48)
[2019-08-21] MEDS: Budesonide 0.5 MG/2 ML Neb Susp INH SCH ×2 (09:14→19:49)
[2019-08-21] MEDS: Potassium Chloride 10 MEQ Tab.ER PO SCH ×3 (09:14→20:46)
[2019-08-21] MEDS: Carvedilol 6.25 MG Tab PO SCH ×2 (09:15→17:53)
[2019-08-21] MEDS: BRINZOLAMIDE EYERT SCH ×3 (09:31→20:47)
[2019-08-21] MEDS: busPIRone 5 MG Tab PO SCH ×2 (09:32→20:46)
[2019-08-21] MEDS: Arformoterol 15 MCG/2 ML Neb Soln INH SCH ×2 (09:32→20:47)
[2019-08-21] MEDS: Losartan 25 MG Tab PO SCH (09:33)
[2019-08-21] MEDS: Escitalopram 20 MG Tab PO SCH (09:34)
[2019-08-21] MEDS: Isosorbide Mononitrate 30 MG Tab.ER PO SCH (09:34)
[2019-08-21] MEDS: Furosemide 40 MG Tab PO SCH (09:34)
[2019-08-21] MEDS: Aspirin 81 MG Tab.EC PO SCH (09:34)
[2019-08-21] MEDS: guaiFENesin 600 MG Tab.ER PO SCH ×2 (09:35→20:46)
[2019-08-21] MEDS: predniSONE 20 MG Tab PO SCH (09:35)
[2019-08-21] MEDS: Clopidogrel 75 MG Tab PO SCH (09:35)
[2019-08-21] MEDS: Carboxymethylcellulose Sodium 0.5% Ophth Soln 0.4 ML UD Box of 30 EYEBOTH SCH ×4 (09:36→20:48)
[2019-08-21] MEDS: Calcium Carbonate 500 MG Tablet PO SCH ×2 (11:31→17:33)
[2019-08-21] MEDS: Magnesium Chloride 64 MG Tab.ER PO SCH (11:31)
[2019-08-21] MEDS: Multivitamins,Therapeutic Tab PO SCH (11:31)
[2019-08-21] MEDS: Albuterol 0.083% 2.5 MG/3 ML Neb Soln NEB PRN ×2 (12:20→18:47)
[2019-08-21] MEDS: Ferrous Sulfate 325 MG Tab PO SCH (14:37)
--- NOTE | 2019-08-21 14:45 | PN ---
DATE SEEN: 08/21/2019 SUBJECTIVE: Nona De León is a young lady, 88 years of age, seen today. Complicated pneumonia. Radiograph on 08/19/2019 revealed some right mid lung field parenchymal changes. CT discussed, has had those in the past. She had a rough day yesterday, but better today, feeling better. OBJECTIVE: VITAL SIGNS: 36.3, 92, 104/66, mean blood pressure 78, 93% on 2 L. GENERAL: In good spirits. Huffing and puffing. NECK: No JVD. CHEST: Coarse rhonchi, late inspiratory wheezes throughout all lung [place]. HEART: Distant heart sounds with occasional ectopy. ABDOMEN: Benign. ASSESSMENT: 1. Pneumonia. 2. Chronic obstructive pulmonary disease. 3. Coronary artery disease. PLAN: Medications, care, and treatment appropriate. Antibiotics to be completed. Comfortable care and well being. /[id number] /CLAUDETTE
[2019-08-21] MEDS: Mirtazapine 15 MG Tab PO SCH (20:46)
[2019-08-21] MEDS: Roflumilast 500 MCG Tab PO SCH (20:46)
[2019-08-21] MEDS: Montelukast 10 MG Tab PO SCH (20:46)
[2019-08-21] MEDS: BIMATOPROST EYERT SCH (20:47)
[2019-08-21] MEDS: Ketotifen 0.025% Ophth Soln 5 ML Bottle EYEBOTH PRN (20:47)
[2019-08-21] MEDS: Simvastatin 20 MG Tab PO SCH (20:47)
[2019-08-21] MEDS: Cyclobenzaprine 10 MG Tab PO PRN (20:53)
[2019-08-21] MEDS: Acetaminophen 500 MG Tab PO PRN (20:53)
[2019-08-22] MEDS: Albuterol 0.083% 2.5 MG/3 ML Neb Soln NEB PRN ×2 (04:00→15:18)
[2019-08-22] MEDS: Pantoprazole 40 MG Tab.CR PO SCH (06:38)
[2019-08-22] MEDS: Albuterol/Ipratropium 3.0-0.5 MG/3 ML Neb Soln NEB SCH ×4 (06:39→13:39)
[2019-08-22] MEDS: Carvedilol 6.25 MG Tab PO SCH ×2 (08:50→17:19)
[2019-08-22] MEDS: Potassium Chloride 10 MEQ Tab.ER PO SCH ×3 (08:50→20:30)
[2019-08-22] MEDS: Budesonide 0.5 MG/2 ML Neb Susp INH SCH ×2 (08:50→20:00)
[2019-08-22] MEDS: Carboxymethylcellulose Sodium 0.5% Ophth Soln 0.4 ML UD Box of 30 EYEBOTH SCH ×4 (08:55→20:32)
[2019-08-22] MEDS: Escitalopram 20 MG Tab PO SCH (08:56)
[2019-08-22] MEDS: Aspirin 81 MG Tab.EC PO SCH (08:56)
[2019-08-22] MEDS: Furosemide 40 MG Tab PO SCH (08:56)
[2019-08-22] MEDS: busPIRone 5 MG Tab PO SCH ×2 (08:56→20:30)
[2019-08-22] MEDS: Clopidogrel 75 MG Tab PO SCH (08:57)
[2019-08-22] MEDS: Losartan 25 MG Tab PO SCH (08:57)
[2019-08-22] MEDS: Isosorbide Mononitrate 30 MG Tab.ER PO SCH (08:57)
[2019-08-22] MEDS: guaiFENesin 600 MG Tab.ER PO SCH ×2 (08:57→20:30)
[2019-08-22] MEDS: Arformoterol 15 MCG/2 ML Neb Soln INH SCH ×2 (08:58→20:30)
[2019-08-22] MEDS: BRINZOLAMIDE EYERT SCH ×3 (09:01→20:32)
[2019-08-22] MEDS: predniSONE 20 MG Tab PO SCH (09:36)
--- NOTE | 2019-08-22 11:18 | PN ---
DATE SEEN: 08/22/2019 SUBJECTIVE: Colleen De León is a delightful 88-year-old female, in swing bed. Making good progress. Issues of course are respiratory i.e., COPD, decreased conditioning, and recent CAD. By report along with stent had an intervention of aortic valve. Otherwise, doing well. Medication and clinical notes reviewed and updated. OBJECTIVE: VITAL SIGNS: 160/87, 111, 104 is the pulse, 2.5 L 88%. GENERAL: On exam, dyspneic with conversation. NECK: No JVD. CHEST: Decreased breath sounds. Coarse rhonchi. HEART: Distant heart sounds. Occasional ectopy. Soft murmur. ASSESSMENT: 1. Coronary artery disease with stent. 2. Aortic valve disease. 3. Chronic obstructive pulmonary disease. PLAN: Medications, care, and treatment appropriate. All appears to be well in that regard. Inhalation therapy on board. Ankur Andino albuterol with DuoNeb. /[id number] /CLAUDETTE
[2019-08-22] MEDS: Calcium Carbonate 500 MG Tablet PO SCH ×2 (11:46→17:19)
[2019-08-22] MEDS: Magnesium Chloride 64 MG Tab.ER PO SCH (11:46)
[2019-08-22] MEDS: Multivitamins,Therapeutic Tab PO SCH (11:46)
[2019-08-22] MEDS: Ferrous Sulfate 325 MG Tab PO SCH (13:39)
[2019-08-22] MEDS: Albuterol/Ipratropium 3.0-0.5 MG/3 ML Neb Soln INH SCH ×2 (17:18→20:30)
[2019-08-22] MEDS: Roflumilast 500 MCG Tab PO SCH (20:30)
[2019-08-22] MEDS: Simvastatin 20 MG Tab PO SCH (20:30)
[2019-08-22] MEDS: Montelukast 10 MG Tab PO SCH (20:30)
[2019-08-22] MEDS: Mirtazapine 15 MG Tab PO SCH (20:30)
[2019-08-22] MEDS: BIMATOPROST EYERT SCH (20:31)
[2019-08-22] MEDS: Ketotifen 0.025% Ophth Soln 5 ML Bottle EYEBOTH PRN (20:31)
[2019-08-23] MEDS: Albuterol 0.083% 2.5 MG/3 ML Neb Soln NEB PRN (01:11)
[2019-08-23] MEDS: Pantoprazole 40 MG Tab.CR PO SCH (06:22)
[2019-08-23] MEDS: Albuterol/Ipratropium 3.0-0.5 MG/3 ML Neb Soln INH SCH ×4 (06:22→20:34)
[2019-08-23] MEDS: Furosemide 40 MG Tab PO SCH (10:01)
[2019-08-23] MEDS: Clopidogrel 75 MG Tab PO SCH (10:02)
[2019-08-23] MEDS: predniSONE 20 MG Tab PO SCH (10:02)
[2019-08-23] MEDS: guaiFENesin 600 MG Tab.ER PO SCH ×2 (10:02→20:41)
[2019-08-23] MEDS: Carvedilol 6.25 MG Tab PO SCH ×2 (10:02→19:27)
[2019-08-23] MEDS: Escitalopram 20 MG Tab PO SCH (10:03)
[2019-08-23] MEDS: Isosorbide Mononitrate 30 MG Tab.ER PO SCH (10:03)
[2019-08-23] MEDS: busPIRone 5 MG Tab PO SCH ×2 (10:03→20:39)
[2019-08-23] MEDS: Losartan 25 MG Tab PO SCH (10:04)
[2019-08-23] MEDS: Aspirin 81 MG Tab.EC PO SCH (10:04)
[2019-08-23] MEDS: Potassium Chloride 10 MEQ Tab.ER PO SCH ×3 (10:04→20:40)
[2019-08-23] MEDS: Carboxymethylcellulose Sodium 0.5% Ophth Soln 0.4 ML UD Box of 30 EYEBOTH SCH ×4 (10:05→20:45)
[2019-08-23] MEDS: Ketotifen 0.025% Ophth Soln 5 ML Bottle EYEBOTH PRN (10:08)
[2019-08-23] MEDS: BRINZOLAMIDE EYERT SCH ×3 (10:11→20:35)
[2019-08-23] MEDS: Acetaminophen 500 MG Tab PO PRN ×2 (10:29→20:56)
[2019-08-23] MEDS: Arformoterol 15 MCG/2 ML Neb Soln INH SCH ×2 (10:49→20:32)
[2019-08-23] MEDS: Budesonide 0.5 MG/2 ML Neb Susp INH SCH ×2 (11:20→20:33)
[2019-08-23] MEDS: Magnesium Chloride 64 MG Tab.ER PO SCH (12:06)
[2019-08-23] MEDS: Multivitamins,Therapeutic Tab PO SCH (12:06)
[2019-08-23] MEDS: Calcium Carbonate 500 MG Tablet PO SCH ×2 (12:07→19:27)
[2019-08-23] MEDS: Ferrous Sulfate 325 MG Tab PO SCH (15:25)
[2019-08-23] MEDS: BIMATOPROST EYERT SCH (20:36)
[2019-08-23] MEDS: Montelukast 10 MG Tab PO SCH (20:41)
[2019-08-23] MEDS: Mirtazapine 15 MG Tab PO SCH (20:43)
[2019-08-23] MEDS: Roflumilast 500 MCG Tab PO SCH (20:44)
[2019-08-23] MEDS: Simvastatin 20 MG Tab PO SCH (20:46)
[2019-08-23] MEDS: Cyclobenzaprine 10 MG Tab PO PRN (20:56)
[2019-08-24] MEDS: Pantoprazole 40 MG Tab.CR PO SCH (05:57)
[2019-08-24] MEDS: Albuterol/Ipratropium 3.0-0.5 MG/3 ML Neb Soln INH SCH ×5 (05:59→23:29)
[2019-08-24] MEDS: Budesonide 0.5 MG/2 ML Neb Susp INH SCH ×2 (07:55→20:37)
[2019-08-24] MEDS ORDERED: predniSONE 20 MG Tab PO ONE (09:00)
[2019-08-24] MEDS: BRINZOLAMIDE EYERT SCH ×3 (09:15→20:44)
[2019-08-24] MEDS: Potassium Chloride 10 MEQ Tab.ER PO SCH ×3 (09:15→20:39)
[2019-08-24] MEDS: Carboxymethylcellulose Sodium 0.5% Ophth Soln 0.4 ML UD Box of 30 EYEBOTH SCH ×4 (09:16→20:35)
[2019-08-24] MEDS: Losartan 25 MG Tab PO SCH (09:16)
[2019-08-24] MEDS: guaiFENesin 600 MG Tab.ER PO SCH ×2 (09:16→20:41)
[2019-08-24] MEDS: Furosemide 40 MG Tab PO SCH (09:18)
[2019-08-24] MEDS: Carvedilol 6.25 MG Tab PO SCH ×2 (09:18→18:50)
[2019-08-24] MEDS: busPIRone 5 MG Tab PO SCH ×2 (09:18→20:40)
[2019-08-24] MEDS: Aspirin 81 MG Tab.EC PO SCH (09:19)
[2019-08-24] MEDS: Arformoterol 15 MCG/2 ML Neb Soln INH SCH ×2 (09:19→20:33)
[2019-08-24] MEDS: Isosorbide Mononitrate 30 MG Tab.ER PO SCH (09:20)
[2019-08-24] MEDS: Escitalopram 20 MG Tab PO SCH (09:20)
[2019-08-24] MEDS: Clopidogrel 75 MG Tab PO SCH (09:21)
[2019-08-24] MEDS: Calcium Carbonate 500 MG Tablet PO SCH ×2 (12:48→18:50)
[2019-08-24] MEDS: Magnesium Chloride 64 MG Tab.ER PO SCH (12:48)
[2019-08-24] MEDS: Multivitamins,Therapeutic Tab PO SCH (12:48)
[2019-08-24] MEDS: Ferrous Sulfate 325 MG Tab PO SCH (14:14)
[2019-08-24] MEDS: BIMATOPROST EYERT SCH (20:36)
[2019-08-24] MEDS: Simvastatin 20 MG Tab PO SCH (20:38)
[2019-08-24] MEDS: Montelukast 10 MG Tab PO SCH (20:38)
[2019-08-24] MEDS: Mirtazapine 15 MG Tab PO SCH (20:42)
[2019-08-24] MEDS: Roflumilast 500 MCG Tab PO SCH (20:42)
[2019-08-24] MEDS: Acetaminophen 500 MG Tab PO PRN (20:44)
[2019-08-24] MEDS: Cyclobenzaprine 10 MG Tab PO PRN (20:44)
[2019-08-25] MEDS: Albuterol/Ipratropium 3.0-0.5 MG/3 ML Neb Soln INH PRN (02:45)
[2019-08-25] MEDS: Albuterol/Ipratropium 3.0-0.5 MG/3 ML Neb Soln INH SCH ×5 (05:53→20:22)
[2019-08-25] MEDS: Pantoprazole 40 MG Tab.CR PO SCH (06:03)
[2019-08-25] MEDS: Cyclobenzaprine 10 MG Tab PO PRN ×2 (06:11→20:30)
[2019-08-25] MEDS ORDERED: LORazepam 1 MG Tab PO ONE (06:11)
[2019-08-25] MEDS: Potassium Chloride 10 MEQ Tab.ER PO SCH ×3 (09:02→20:27)
[2019-08-25] MEDS: Carvedilol 6.25 MG Tab PO SCH ×2 (09:02→18:24)
[2019-08-25] MEDS: Budesonide 0.5 MG/2 ML Neb Susp INH SCH ×2 (09:02→20:19)
[2019-08-25] MEDS: Arformoterol 15 MCG/2 ML Neb Soln INH SCH ×2 (09:03→20:23)
[2019-08-25] MEDS: Losartan 25 MG Tab PO SCH (09:03)
[2019-08-25] MEDS: busPIRone 5 MG Tab PO SCH ×2 (09:03→20:25)
[2019-08-25] MEDS: BRINZOLAMIDE EYERT SCH ×3 (09:03→20:29)
[2019-08-25] MEDS: Aspirin 81 MG Tab.EC PO SCH (09:04)
[2019-08-25] MEDS: Isosorbide Mononitrate 30 MG Tab.ER PO SCH (09:04)
[2019-08-25] MEDS: Furosemide 40 MG Tab PO SCH (09:04)
[2019-08-25] MEDS: Carboxymethylcellulose Sodium 0.5% Ophth Soln 0.4 ML UD Box of 30 EYEBOTH SCH ×4 (09:05→20:21)
[2019-08-25] MEDS: Clopidogrel 75 MG Tab PO SCH (09:05)
[2019-08-25] MEDS: Escitalopram 20 MG Tab PO SCH (09:05)
[2019-08-25] MEDS: guaiFENesin 600 MG Tab.ER PO SCH ×2 (09:05→20:28)
[2019-08-25] MEDS: predniSONE 10 MG Tab PO SCH (09:10)
[2019-08-25] MEDS: Multivitamins,Therapeutic Tab PO SCH (12:30)
[2019-08-25] MEDS: Calcium Carbonate 500 MG Tablet PO SCH ×2 (12:30→18:25)
[2019-08-25] MEDS: Magnesium Chloride 64 MG Tab.ER PO SCH (12:30)
[2019-08-25] MEDS: Ferrous Sulfate 325 MG Tab PO SCH (13:55)
[2019-08-25] MEDS: Sodium Chloride 0.9% 10 ML Syringe FLUSH PRN ×3 (14:00→14:24)
[2019-08-25] MEDS: Morphine 2 MG/ML Syringe IVPUSH PRN (14:13)
--- NOTE | 2019-08-25 17:34 | PCM.PN ---
- General Info Date of Service: 08/25/19 Subjective Update: The last 24 hours, patient is at increased wheezing cough and shortness of breath. No fever. She still feels extremely anxious. The family feels that her prognosis is worse. Functional Status: Reports: Pain Controlled - Review of Systems General: Reports: No Symptoms, Weakness HEENT: Reports: No Symptoms Pulmonary: Reports: Cough, Hemoptysis, Wheezing Cardiovascular: Reports: Orthopnea Gastrointestinal: Reports: No Symptoms - Patient Data Vitals - Most Recent: Last Vital Signs Temp 97.6 F 08/25/19 08:00 Pulse 102 H 08/25/19 11:40 Resp 20 08/25/19 11:30 BP 132/70 08/25/19 11:30 Pulse Ox 94 L 08/25/19 16:09 Weight - Most Recent: 47.627 kg Lab Results Last 24 Hours: Laboratory Results - last 24 hr 08/25/19 08/25/19 08/25/19 Range/Units 12:05 13:25 13:25 WBC 16.6 H (4.5-12.0) X10-3/uL RBC 3.86 (3.23-5.20) x10(6)uL Hgb 12.2 (11.5-15.5) g/dL Hct 35.7 (30.0-51.3) % MCV 92.6 (80-96) fL MCH 31.6 (27.7-33.6) pg MCHC 34.2 (32.2-35.4) g/dL RDW 15.4 (11.5-15.5) % Plt Count 323 (125-369) X10(3)uL MPV 8.3 (7.4-10.4) fL Add Manual Diff Yes Neutrophils % (Manual) 91 H (46-82) % Lymphocytes % (Manual) 6 L (13-37) % Monocytes % (Manual) 3 L (4-12) % Sodium 137 (135-145) mmol/L Potassium 3.5 (3.5-5.3) mmol/L Chloride 98 L (100-110) mmol/L Carbon Dioxide 36 H (21-32) mmol/L BUN 15 (7-18) mg/dL Creatinine 0.7 (0.55-1.02) mg/dL Est Cr Clr Drug Dosing 40.67 mL/min Estimated GFR (MDRD) > 60 (>60) BUN/Creatinine Ratio 21.4 H (9-20) Glucose 126 H (80-116) mg/dL Calcium 8.2 L (8.6-10.2) mg/dL Total Bilirubin 0.6 (0.1-1.3) mg/dL AST 28 H (5-25) IU/L ALT 32 (12-36) U/L Alkaline Phosphatase 94 (56-112) IU/L NT-Pro-B Natriuret Pep (<=450) pg/mL Total Protein 6.5 (6.0-8.0) g/dL Albumin 3.2 (3.2-4.6) g/dL Globulin 3.3 g/dL Albumin/Globulin Ratio 1.0 Urine Color Yellow (YELLOW) Urine Appearance Slightly cloudy (CLEAR) Urine pH 6.5 (5.0-6.5) Ur Specific [place] 1.015 (1.010-1.025) Urine Protein Negative (NEGATIVE) mg/dL Urine Glucose (UA) Normal (NORMAL) mg/dL Urine Ketones Negative (NEGATIVE) mg/dL Urine Occult Blood Negative (NEGATIVE) Urine Nitrite Negative (NEGATIVE) Urine Bilirubin Negative (NEGATIVE) Urine Urobilinogen Normal (NEGATIVE) mg/dL Ur Leukocyte Esterase Negative (NEGATIVE) Urine WBC 0-5 (0-5) Ur Squamous Epith Cells Few H (NS,R,O) Urine Bacteria Few H (NS) 08/25/19 Range/Units 13:25 WBC (4.5-12.0) X10-3/uL RBC (3.23-5.20) x10(6)uL Hgb (11.5-15.5) g/dL Hct (30.0-51.3) % MCV (80-96) fL MCH (27.7-33.6) pg MCHC (32.2-35.4) g/dL RDW (11.5-15.5) % Plt Count (125-369) X10(3)uL MPV (7.4-10.4) fL Add Manual Diff Neutrophils % (Manual) (46-82) % Lymphocytes % (Manual) (13-37) % Monocytes % (Manual) (4-12) % Sodium (135-145) mmol/L Potassium (3.5-5.3) mmol/L Chloride (100-110) mmol/L Carbon Dioxide (21-32) mmol/L BUN (7-18) mg/dL Creatinine (0.55-1.02) mg/dL Est Cr Clr Drug Dosing mL/min Estimated GFR (MDRD) (>60) BUN/Creatinine Ratio (9-20) Glucose (80-116) mg/dL Calcium (8.6-10.2) mg/dL Total Bilirubin (0.1-1.3) mg/dL AST (5-25) IU/L ALT (12-36) U/L Alkaline Phosphatase (56-112) IU/L NT-Pro-B Natriuret Pep 2056 H* (<=450) pg/mL Total Protein (6.0-8.0) g/dL Albumin (3.2-4.6) g/dL Globulin g/dL Albumin/Globulin Ratio Urine Color (YELLOW) Urine Appearance (CLEAR) Urine pH (5.0-6.5) Ur Specific [place] (1.010-1.025) Urine Protein (NEGATIVE) mg/dL Urine Glucose (UA) (NORMAL) mg/dL Urine Ketones (NEGATIVE) mg/dL Urine Occult Blood (NEGATIVE) Urine Nitrite (NEGATIVE) Urine Bilirubin (NEGATIVE) Urine Urobilinogen (NEGATIVE) mg/dL Ur Leukocyte Esterase (NEGATIVE) Urine WBC (0-5) Ur Squamous Epith Cells (NS,R,O) Urine Bacteria (NS) Med Orders - Current: Current Medications Acetaminophen (Tylenol Extra Strength) 500 mg PO Q4H PRN PRN Reason: Pain Last Admin: 08/24/19 20:44 Dose: 500 mg Albuterol/Ipratropium (Duoneb 3.0-0.5 Mg/3 Ml) 3 ml INH QID PRN PRN Reason: SHORTNESS OF BREATH Last Admin: 08/25/19 02:45 Dose: 3 ml Albuterol/Ipratropium (Duoneb 3.0-0.5 Mg/3 Ml) 3 ml INH QIDRT MAX Last Admin: 08/25/19 16:09 Dose: 3 ml Alprazolam (Xanax) 0.25 mg PO Q4H PRN PRN Reason: Agitation Arformoterol Tartrate (Brovana) 15 mcg INH [facility] Last Admin: 08/25/19 09:03 Dose: 15 mcg Artificial Tears (Refresh Plus 0.5%) 0 each EYEBOTH QID [facility] Last Admin: 08/25/19 12:35 Dose: 1 drop Aspirin (Halfprin) 81 mg PO DAILY [facility] Last Admin: 08/25/19 09:04 Dose: 81 mg Budesonide (Pulmicort) 0.5 mg INH 08,20 [facility] Last Admin: 08/25/19 09:02 Dose: 0.5 mg Buspirone HCl (Buspar) 5 mg PO BID [facility] Last Admin: 08/25/19 09:03 Dose: 5 mg Calcium Carbonate/Glycine (Oyster Shell Calcium) 500 mg PO BID@1200,1800 [facility] Last Admin: 08/25/19 12:30 Dose: 500 mg Carvedilol (Coreg) 6.25 mg PO BIDMEALS [facility] Last Admin: 08/25/19 09:02 Dose: 6.25 mg Clopidogrel Bisulfate (Plavix) 75 mg PO DAILY [facility] Last Admin: 08/25/19 09:05 Dose: 75 mg Cyclobenzaprine HCl (Flexeril) 10 mg PO BID PRN PRN Reason: MUSCLE SPASMS Last Admin: 08/25/19 06:11 Dose: 10 mg Escitalopram Oxalate (Lexapro) 20 mg PO DAILY [facility] Last Admin: 08/25/19 09:05 Dose: 20 mg Ferrous Sulfate (Ferrous Sulfate) 325 mg PO DAILY@1400 [facility] Last Admin: 08/25/19 13:55 Dose: 325 mg Furosemide (Lasix) 40 mg PO DAILY [facility] Last Admin: 08/25/19 09:04 Dose: 40 mg Guaifenesin (Mucinex) 600 mg PO BID [facility] Last Admin: 08/25/19 09:05 Dose: 600 mg Isosorbide Mononitrate (Imdur) 30 mg PO DAILY [facility] Last Admin: 08/25/19 09:04 Dose: 30 mg Ketotifen Fumarate (Ketotifen 0.025% Ophth Soln) 0 ml EYEBOTH BID PRN PRN Reason: Allergies Last Admin: 08/23/19 10:08 Dose: 1 drop Losartan Potassium (Cozaar) 12.5 mg PO DAILY [facility] Last Admin: 08/25/19 09:03 Dose: 12.5 mg Lutein (Lutein) 20 mg PO BEDTIME [facility] Last Admin: 08/24/19 20:43 Dose: 20 mg Magnesium Chloride (Mag-64) 64 mg PO DAILY@1200 [facility] Last Admin: 08/25/19 12:30 Dose: 64 mg Mirtazapine (Remeron) 7.5 mg PO BEDTIME [facility] Last Admin: 08/24/19 20:42 Dose: 7.5 mg Montelukast Sodium (Singulair) 10 mg PO BEDTIME [facility] Last Admin: 08/24/19 20:38 Dose: 10 mg Morphine Sulfate (Morphine) 2 mg IVPUSH Q2H PRN PRN Reason: Dyspnea Last Admin: 08/25/19 14:13 Dose: 2 mg Multivitamins (Thera) 1 each PO DAILY@1200 [facility] Last Admin: 08/25/19 12:30 Dose: 1 each Nitroglycerin (Nitrostat) 0.4 mg SL Q5M PRN PRN Reason: Chest Pain (Bimatoprost [ Lumigan 0.01% Ophth Soln] 1 Drop) 1 drop EYERT BEDTIME [facility] Last Admin: 08/24/19 20:36 Dose: 1 drop (Brinzolamide [Azopt 1% Ophth Susp] 1 Drop) *Ptom 1 drop EYERT TID [facility] Last Admin: 08/25/19 13:54 Dose: 1 drop (Umeclidinium [place] [Incruse Ellipta*] 1 Puff) * Ptom 1 puff IH DAILY [facility] Last Admin: 08/25/19 09:05 Dose: 1 puff Pantoprazole Sodium (Protonix) 40 mg PO 0600 [facility] Last Admin: 08/25/19 06:03 Dose: 40 mg Potassium Chloride (Klor-Con 10) 10 meq PO TID@0800,1200,2100 [facility] Last Admin: 08/25/19 12:30 Dose: 10 meq Prednisone (Prednisone) 10 mg PO DAILY [facility] Stop: 08/27/19 09:01 Last Admin: 08/25/19 09:10 Dose: 10 mg Roflumilast (Daliresp) 500 mcg PO BEDTIME [facility] Last Admin: 08/24/19 20:42 Dose: 500 mcg Simvastatin (Zocor) 20 mg PO BEDTIME [facility] Last Admin: 08/24/19 20:38 Dose: 20 mg Sodium Chloride (Saline Flush) 10 ml FLUSH ASDIRECTED PRN PRN Reason: Keep Vein Open Last Admin: 08/25/19 14:14 Dose: 10 ml Discontinued Medications Albuterol (Proventil Neb Soln) 2.5 mg NEB Q4H PRN PRN Reason: SOB/WHEEZING Last Admin: 08/23/19 01:11 Dose: 2.5 mg Albuterol/Ipratropium (Duoneb 3.0-0.5 Mg/3 Ml) 3 ml NEB 6XDAY MAX Stop: 08/22/19 14:01 Last Admin: 08/22/19 13:39 Dose: 3 ml Cefuroxime Axetil (Ceftin) 500 mg PO BID MAX Stop: 08/18/19 09:01 Last Admin: 08/16/19 08:16 Dose: 500 mg Doxycycline Hyclate (Vibra-Tabs) 100 mg PO BID MAX Stop: 08/18/19 09:01 Last Admin: 08/18/19 08:21 Dose: 100 mg Influenza Virus Vaccine (Fluzone Quad [id number] Syringe) 60 mcg IM .ONCE ONE Stop: 08/20/19 08:05 Last Admin: 08/20/19 14:41 Dose: 60 mcg Isosorbide Mononitrate (Imdur) 30 mg PO DAILY [facility] Lorazepam (Ativan) 1 mg PO ONETIME ONE Stop: 08/25/19 06:12 Last Admin: 08/25/19 06:17 Dose: 1 mg Metronidazole (Flagyl) 500 mg PO TID MAX Stop: 08/19/19 09:01 Last Admin: 08/19/19 08:32 Dose: 500 mg Prednisone (Prednisone) 60 mg PO .TAPER MAX Prednisone (Prednisone) 20 mg PO DAILY [facility]; Taper Stop: 08/28/19 07:59 Last Admin: 08/23/19 10:02 Dose: 20 mg Prednisone (Prednisone) 20 mg PO ONETIME ONE Stop: 08/24/19 09:01 Last Admin: 08/24/19 08:00 Dose: 20 mg - Exam Quality Assessment: Supplemental Oxygen General: Alert, Oriented, Moderate Distress Neck: Supple Lungs: Crackles, Rales, Rhonchi Cardiovascular: Regular Rate Skin: Warm, Intact Neurological: No New Focal Deficit Psy/Mental Status: Alert, Normal Affect, Normal Mood - Problem List & Annotations (1) COPD with exacerbation SNOMED Code(s): 919615323, 493587640 Code(s): J44.1 - CHRONIC OBSTRUCTIVE PULMONARY DISEASE W (ACUTE) EXACERBATION Status: Acute Current Visit: No (2) Aortic stenosis SNOMED Code(s): 57577180 Code(s): I35.0 - NONRHEUMATIC AORTIC (VALVE) STENOSIS Status: Acute Current Visit: Yes Qualifiers: Cardiac valve disease etiology: etiology unspecified Qualified Code(s): I35.0 - Nonrheumatic aortic (valve) stenosis Annotation/Comment:: S/P BAV (3) PAD (peripheral artery disease) SNOMED Code(s): 219538187 Code(s): I73.9 - PERIPHERAL VASCULAR DISEASE, UNSPECIFIED Status: Chronic Current Visit: Yes (4) MDD (major depressive disorder) SNOMED Code(s): 251604771 Code(s): F32.9 - MAJOR DEPRESSIVE DISORDER, SINGLE EPISODE, UNSPECIFIED Status: Acute Current Visit: Yes Qualifiers: Major depression recurrence: recurrent Psychotic features: without psychotic features (5) Weakness SNOMED Code(s): 07882768 Code(s): R53.1 - WEAKNESS Status: Acute Current Visit: Yes (6) CAD (coronary artery disease) SNOMED Code(s): 76392944 Code(s): I25.10 - ATHSCL HEART DISEASE OF [place] CORONARY ARTERY W/O ANG PCTRS Status: Acute Current Visit: Yes Qualifiers: Coronary Disease-Associated Artery/Lesion type: [place] artery Associated angina: with stable angina (7) Afib SNOMED Code(s): 07510675 Code(s): I48.91 - UNSPECIFIED ATRIAL FIBRILLATION Status: Acute Current Visit: No Qualifiers: Atrial fibrillation type: chronic (8) Anemia SNOMED Code(s): 128836878 Code(s): D64.9 - ANEMIA, UNSPECIFIED Status: Acute Current Visit: No (9) CHF (congestive heart failure) SNOMED Code(s): 43447385 Code(s): I50.9 - HEART FAILURE, UNSPECIFIED Status: Acute Current Visit: No Qualifiers: Heart failure type: combined systolic and diastolic Heart failure chronicity: chronic Qualified Code(s): I50.42 - Chronic combined systolic ( congestive) and diastolic (congestive) heart failure - Problem List Review Problem List Initiated/Reviewed/Updated: Yes - My Orders Last 24 Hours: My Active Orders 08/25/19 09:00 predniSONE 10 mg PO DAILY 08/25/19 13:16 CXR [Chest 2V] [CR] Routine Sodium Chloride 0.9% [Saline Flush] 10 ml FLUSH ASDIRECTED PRN Peripheral IV Insertion Adult [OM.PC] Routine 08/25/19 13:17 ALPRAZolam [Xanax] 0.25 mg PO Q4H PRN Morphine 2 mg IVPUSH Q2H PRN - Plan Plan:: I will obtain a chest x-ray was noncontributory. I would stop the albuterol because she feels anxious with it. Given some Xanax for anxiety. Morphine 2 mg IV shortness of breath
[2019-08-25] MEDS: Simvastatin 20 MG Tab PO SCH (20:27)
[2019-08-25] MEDS: Montelukast 10 MG Tab PO SCH (20:27)
[2019-08-25] MEDS: Roflumilast 500 MCG Tab PO SCH (20:27)
[2019-08-25] MEDS: Mirtazapine 15 MG Tab PO SCH (20:28)
[2019-08-25] MEDS: Acetaminophen 500 MG Tab PO PRN (20:30)
[2019-08-25] MEDS: ALPRAZolam 0.25 MG Tab PO PRN (20:30)
[2019-08-25] MEDS: BIMATOPROST EYERT SCH (20:32)
[2019-08-26] MEDS: ALPRAZolam 0.25 MG Tab PO PRN ×4 (00:53→21:17)
[2019-08-26] MEDS: Albuterol/Ipratropium 3.0-0.5 MG/3 ML Neb Soln INH PRN ×3 (00:53→19:11)
[2019-08-26] MEDS: Pantoprazole 40 MG Tab.CR PO SCH (05:13)
[2019-08-26] MEDS: Albuterol/Ipratropium 3.0-0.5 MG/3 ML Neb Soln INH SCH ×5 (05:20→20:43)
[2019-08-26] MEDS: Budesonide 0.5 MG/2 ML Neb Susp INH SCH ×2 (08:24→20:37)
[2019-08-26] MEDS: Carvedilol 6.25 MG Tab PO SCH ×2 (08:25→17:07)
[2019-08-26] MEDS: Potassium Chloride 10 MEQ Tab.ER PO SCH ×3 (08:26→20:43)
[2019-08-26] MEDS: BRINZOLAMIDE EYERT SCH ×3 (08:27→20:39)
[2019-08-26] MEDS: Losartan 25 MG Tab PO SCH (08:28)
[2019-08-26] MEDS: Arformoterol 15 MCG/2 ML Neb Soln INH SCH ×2 (08:28→21:17)
[2019-08-26] MEDS: busPIRone 5 MG Tab PO SCH ×2 (08:28→20:42)
[2019-08-26] MEDS: Aspirin 81 MG Tab.EC PO SCH (08:29)
[2019-08-26] MEDS: Isosorbide Mononitrate 30 MG Tab.ER PO SCH (08:30)
[2019-08-26] MEDS: Furosemide 40 MG Tab PO SCH (08:30)
[2019-08-26] MEDS: Escitalopram 20 MG Tab PO SCH (08:32)
[2019-08-26] MEDS: guaiFENesin 600 MG Tab.ER PO SCH ×2 (08:32→20:44)
[2019-08-26] MEDS: Clopidogrel 75 MG Tab PO SCH (08:32)
[2019-08-26] MEDS: predniSONE 10 MG Tab PO SCH (08:33)
[2019-08-26] MEDS: Carboxymethylcellulose Sodium 0.5% Ophth Soln 0.4 ML UD Box of 30 EYEBOTH SCH ×4 (08:38→20:40)
[2019-08-26] MEDS: Multivitamins,Therapeutic Tab PO SCH (12:41)
[2019-08-26] MEDS: Calcium Carbonate 500 MG Tablet PO SCH ×2 (12:41→17:13)
[2019-08-26] MEDS: Magnesium Chloride 64 MG Tab.ER PO SCH (12:41)
[2019-08-26] MEDS: Ferrous Sulfate 325 MG Tab PO SCH (14:24)
[2019-08-26] MEDS: BIMATOPROST EYERT SCH (20:39)
[2019-08-26] MEDS: Roflumilast 500 MCG Tab PO SCH (20:43)
[2019-08-26] MEDS: Simvastatin 20 MG Tab PO SCH (20:44)
[2019-08-26] MEDS: Mirtazapine 15 MG Tab PO SCH (20:44)
[2019-08-26] MEDS: Montelukast 10 MG Tab PO SCH (20:44)
[2019-08-26] MEDS: Acetaminophen 500 MG Tab PO PRN (21:17)
[2019-08-27] MEDS: Budesonide 0.5 MG/2 ML Neb Susp INH SCH ×3 (03:46→19:48)
[2019-08-27] MEDS: Albuterol/Ipratropium 3.0-0.5 MG/3 ML Neb Soln INH PRN (03:46)
[2019-08-27] MEDS: Pantoprazole 40 MG Tab.CR PO SCH (06:01)
[2019-08-27] MEDS: Albuterol/Ipratropium 3.0-0.5 MG/3 ML Neb Soln INH SCH ×4 (06:47→20:30)
[2019-08-27] MEDS: Potassium Chloride 10 MEQ Tab.ER PO SCH ×3 (08:13→20:30)
[2019-08-27] MEDS: BRINZOLAMIDE EYERT SCH ×3 (08:14→19:59)
[2019-08-27] MEDS: Arformoterol 15 MCG/2 ML Neb Soln INH SCH ×2 (08:15→20:29)
[2019-08-27] MEDS: Carvedilol 6.25 MG Tab PO SCH ×2 (08:16→17:42)
[2019-08-27] MEDS: busPIRone 5 MG Tab PO SCH ×2 (08:16→20:30)
[2019-08-27] MEDS: Losartan 25 MG Tab PO SCH (08:17)
[2019-08-27] MEDS: Aspirin 81 MG Tab.EC PO SCH (08:18)
[2019-08-27] MEDS: Isosorbide Mononitrate 30 MG Tab.ER PO SCH (08:19)
[2019-08-27] MEDS: Furosemide 40 MG Tab PO SCH (08:19)
[2019-08-27] MEDS: Escitalopram 20 MG Tab PO SCH (08:20)
[2019-08-27] MEDS: Clopidogrel 75 MG Tab PO SCH (08:20)
[2019-08-27] MEDS: guaiFENesin 600 MG Tab.ER PO SCH ×2 (08:20→20:30)
[2019-08-27] MEDS: predniSONE 10 MG Tab PO SCH (08:21)
[2019-08-27] MEDS: Carboxymethylcellulose Sodium 0.5% Ophth Soln 0.4 ML UD Box of 30 EYEBOTH SCH ×4 (08:21→19:59)
[2019-08-27] MEDS: Cyclobenzaprine 10 MG Tab PO PRN ×2 (10:59→22:59)
[2019-08-27] MEDS: Multivitamins,Therapeutic Tab PO SCH (12:00)
[2019-08-27] MEDS: Calcium Carbonate 500 MG Tablet PO SCH ×2 (12:00→17:45)
[2019-08-27] MEDS: Magnesium Chloride 64 MG Tab.ER PO SCH (12:00)
[2019-08-27] MEDS: Ferrous Sulfate 325 MG Tab PO SCH (13:11)
[2019-08-27] MEDS: ALPRAZolam 0.25 MG Tab PO PRN ×2 (13:19→19:46)
[2019-08-27] MEDS: BIMATOPROST EYERT SCH (19:59)
[2019-08-27] MEDS: Montelukast 10 MG Tab PO SCH (20:29)
[2019-08-27] MEDS: Simvastatin 20 MG Tab PO SCH (20:29)
[2019-08-27] MEDS: Mirtazapine 15 MG Tab PO SCH (20:30)
[2019-08-27] MEDS: Roflumilast 500 MCG Tab PO SCH (20:30)
[2019-08-27] MEDS: Acetaminophen 500 MG Tab PO PRN (21:33)
[2019-08-28] MEDS: ALPRAZolam 0.25 MG Tab PO PRN ×3 (02:43→19:58)
[2019-08-28] MEDS: Albuterol/Ipratropium 3.0-0.5 MG/3 ML Neb Soln INH PRN (02:44)
[2019-08-28] MEDS: Pantoprazole 40 MG Tab.CR PO SCH (06:28)
[2019-08-28] MEDS: Albuterol/Ipratropium 3.0-0.5 MG/3 ML Neb Soln INH SCH ×4 (06:28→20:06)
[2019-08-28] MEDS: Budesonide 0.5 MG/2 ML Neb Susp INH SCH ×2 (08:07→19:54)
[2019-08-28] MEDS: Carvedilol 6.25 MG Tab PO SCH ×2 (08:10→17:57)
[2019-08-28] MEDS: BRINZOLAMIDE EYERT SCH ×3 (08:12→20:05)
[2019-08-28] MEDS: Potassium Chloride 10 MEQ Tab.ER PO SCH ×3 (08:12→20:08)
[2019-08-28] MEDS: busPIRone 5 MG Tab PO SCH ×2 (08:13→20:09)
[2019-08-28] MEDS: Losartan 25 MG Tab PO SCH (08:14)
[2019-08-28] MEDS: Aspirin 81 MG Tab.EC PO SCH (08:15)
[2019-08-28] MEDS: Isosorbide Mononitrate 30 MG Tab.ER PO SCH (08:16)
[2019-08-28] MEDS: Furosemide 40 MG Tab PO SCH (08:18)
[2019-08-28] MEDS: Escitalopram 20 MG Tab PO SCH (08:19)
[2019-08-28] MEDS: Clopidogrel 75 MG Tab PO SCH (08:20)
[2019-08-28] MEDS: guaiFENesin 600 MG Tab.ER PO SCH ×2 (08:20→20:09)
[2019-08-28] MEDS: Carboxymethylcellulose Sodium 0.5% Ophth Soln 0.4 ML UD Box of 30 EYEBOTH SCH ×4 (08:22→20:09)
[2019-08-28] MEDS: Arformoterol 15 MCG/2 ML Neb Soln INH SCH ×2 (08:24→20:11)
[2019-08-28] MEDS: Magnesium Chloride 64 MG Tab.ER PO SCH (11:46)
[2019-08-28] MEDS: Calcium Carbonate 500 MG Tablet PO SCH ×2 (11:47→18:00)
[2019-08-28] MEDS: Multivitamins,Therapeutic Tab PO SCH (11:47)
[2019-08-28] MEDS: Ferrous Sulfate 325 MG Tab PO SCH (13:48)
[2019-08-28] MEDS: Cyclobenzaprine 10 MG Tab PO PRN ×2 (13:55→19:59)
[2019-08-28] MEDS: Acetaminophen 500 MG Tab PO PRN (19:58)
[2019-08-28] MEDS: BIMATOPROST EYERT SCH (20:05)
[2019-08-28] MEDS: Mirtazapine 15 MG Tab PO SCH (20:08)
[2019-08-28] MEDS: Simvastatin 20 MG Tab PO SCH (20:08)
[2019-08-28] MEDS: Roflumilast 500 MCG Tab PO SCH (20:08)
[2019-08-28] MEDS: Montelukast 10 MG Tab PO SCH (20:08)
[2019-08-29] MEDS: Pantoprazole 40 MG Tab.CR PO SCH (06:07)
[2019-08-29] MEDS: Albuterol/Ipratropium 3.0-0.5 MG/3 ML Neb Soln INH SCH ×4 (06:08→20:15)
[2019-08-29] MEDS: Acetaminophen 500 MG Tab PO PRN ×3 (06:25→20:34)
[2019-08-29] MEDS: Budesonide 0.5 MG/2 ML Neb Susp INH SCH ×2 (09:55→20:02)
[2019-08-29] MEDS: Carvedilol 6.25 MG Tab PO SCH ×2 (09:59→18:30)
[2019-08-29] MEDS: Potassium Chloride 10 MEQ Tab.ER PO SCH ×3 (09:59→20:33)
[2019-08-29] MEDS: busPIRone 5 MG Tab PO SCH ×2 (09:59→20:33)
[2019-08-29] MEDS: Losartan 25 MG Tab PO SCH (09:59)
[2019-08-29] MEDS: guaiFENesin 600 MG Tab.ER PO SCH ×2 (10:00→20:33)
[2019-08-29] MEDS: Furosemide 40 MG Tab PO SCH (10:00)
[2019-08-29] MEDS: Isosorbide Mononitrate 30 MG Tab.ER PO SCH (10:00)
[2019-08-29] MEDS: Aspirin 81 MG Tab.EC PO SCH (10:00)
[2019-08-29] MEDS: BRINZOLAMIDE EYERT SCH ×3 (10:01→20:32)
[2019-08-29] MEDS: Escitalopram 20 MG Tab PO SCH (10:01)
[2019-08-29] MEDS: Clopidogrel 75 MG Tab PO SCH (10:01)
[2019-08-29] MEDS: Carboxymethylcellulose Sodium 0.5% Ophth Soln 0.4 ML UD Box of 30 EYEBOTH SCH ×4 (10:02→20:34)
[2019-08-29] MEDS: Arformoterol 15 MCG/2 ML Neb Soln INH SCH ×2 (10:05→20:16)
[2019-08-29] MEDS: Multivitamins,Therapeutic Tab PO SCH (13:38)
[2019-08-29] MEDS: Ferrous Sulfate 325 MG Tab PO SCH (13:38)
[2019-08-29] MEDS: Magnesium Chloride 64 MG Tab.ER PO SCH (13:38)
[2019-08-29] MEDS: Calcium Carbonate 500 MG Tablet PO SCH ×2 (13:38→18:31)
[2019-08-29] MEDS: ALPRAZolam 0.25 MG Tab PO PRN ×2 (16:29→20:34)
[2019-08-29] MEDS: Roflumilast 500 MCG Tab PO SCH (20:33)
[2019-08-29] MEDS: Ketotifen 0.025% Ophth Soln 5 ML Bottle EYEBOTH PRN (20:33)
[2019-08-29] MEDS: Mirtazapine 15 MG Tab PO SCH (20:33)
[2019-08-29] MEDS: Simvastatin 20 MG Tab PO SCH (20:33)
[2019-08-29] MEDS: Montelukast 10 MG Tab PO SCH (20:34)
[2019-08-29] MEDS: Cyclobenzaprine 10 MG Tab PO PRN (20:34)
[2019-08-29] MEDS: BIMATOPROST EYERT SCH (21:18)
[2019-08-30] MEDS: Albuterol/Ipratropium 3.0-0.5 MG/3 ML Neb Soln INH PRN (01:59)
[2019-08-30] MEDS: ALPRAZolam 0.25 MG Tab PO PRN ×4 (04:53→21:21)
[2019-08-30] MEDS: Albuterol/Ipratropium 3.0-0.5 MG/3 ML Neb Soln INH SCH ×4 (06:09→20:19)
[2019-08-30] MEDS: Pantoprazole 40 MG Tab.CR PO SCH (06:42)
[2019-08-30] MEDS: Budesonide 0.5 MG/2 ML Neb Susp INH SCH ×2 (07:48→20:10)
[2019-08-30] MEDS: Carvedilol 6.25 MG Tab PO SCH ×2 (09:16→17:01)
[2019-08-30] MEDS: BRINZOLAMIDE EYERT SCH ×3 (09:17→20:18)
[2019-08-30] MEDS: Potassium Chloride 10 MEQ Tab.ER PO SCH ×3 (09:17→20:19)
[2019-08-30] MEDS: Arformoterol 15 MCG/2 ML Neb Soln INH SCH ×2 (09:18→20:18)
[2019-08-30] MEDS: busPIRone 5 MG Tab PO SCH ×2 (09:18→20:18)
[2019-08-30] MEDS: Aspirin 81 MG Tab.EC PO SCH (09:19)
[2019-08-30] MEDS: Isosorbide Mononitrate 30 MG Tab.ER PO SCH (09:19)
[2019-08-30] MEDS: Losartan 25 MG Tab PO SCH (09:19)
[2019-08-30] MEDS: Escitalopram 20 MG Tab PO SCH (09:20)
[2019-08-30] MEDS: Clopidogrel 75 MG Tab PO SCH (09:20)
[2019-08-30] MEDS: Furosemide 40 MG Tab PO SCH (09:20)
[2019-08-30] MEDS: guaiFENesin 600 MG Tab.ER PO SCH ×2 (09:20→20:20)
[2019-08-30] MEDS: Carboxymethylcellulose Sodium 0.5% Ophth Soln 0.4 ML UD Box of 30 EYEBOTH SCH ×4 (09:20→20:20)
[2019-08-30] MEDS: Acetaminophen 500 MG Tab PO PRN ×2 (09:23→20:32)
[2019-08-30] MEDS: Magnesium Chloride 64 MG Tab.ER PO SCH (12:45)
[2019-08-30] MEDS: Multivitamins,Therapeutic Tab PO SCH (12:46)
[2019-08-30] MEDS: Calcium Carbonate 500 MG Tablet PO SCH ×2 (12:46→17:01)
[2019-08-30] MEDS: Ferrous Sulfate 325 MG Tab PO SCH (14:46)
[2019-08-30] MEDS: BIMATOPROST EYERT SCH (20:18)
[2019-08-30] MEDS: Roflumilast 500 MCG Tab PO SCH (20:18)
[2019-08-30] MEDS: Simvastatin 20 MG Tab PO SCH (20:19)
[2019-08-30] MEDS: Montelukast 10 MG Tab PO SCH (20:20)
[2019-08-30] MEDS: Mirtazapine 15 MG Tab PO SCH (20:20)
[2019-08-30] MEDS: Cyclobenzaprine 10 MG Tab PO PRN (20:31)
[2019-08-31] MEDS: Pantoprazole 40 MG Tab.CR PO SCH (05:55)
[2019-08-31] MEDS: Albuterol/Ipratropium 3.0-0.5 MG/3 ML Neb Soln INH SCH ×4 (05:59→21:12)
[2019-08-31] MEDS: Budesonide 0.5 MG/2 ML Neb Susp INH SCH ×2 (08:23→21:13)
[2019-08-31] MEDS: Potassium Chloride 10 MEQ Tab.ER PO SCH ×3 (08:43→21:42)
[2019-08-31] MEDS: Carvedilol 6.25 MG Tab PO SCH ×2 (08:43→18:32)
[2019-08-31] MEDS: busPIRone 5 MG Tab PO SCH ×2 (08:44→21:42)
[2019-08-31] MEDS: BRINZOLAMIDE EYERT SCH ×3 (08:44→21:14)
[2019-08-31] MEDS: Aspirin 81 MG Tab.EC PO SCH (08:45)
[2019-08-31] MEDS: Losartan 25 MG Tab PO SCH (08:45)
[2019-08-31] MEDS: Furosemide 40 MG Tab PO SCH (08:46)
[2019-08-31] MEDS: Isosorbide Mononitrate 30 MG Tab.ER PO SCH (08:46)
[2019-08-31] MEDS: Escitalopram 20 MG Tab PO SCH (08:46)
[2019-08-31] MEDS: Carboxymethylcellulose Sodium 0.5% Ophth Soln 0.4 ML UD Box of 30 EYEBOTH SCH ×4 (08:48→21:14)
[2019-08-31] MEDS: Clopidogrel 75 MG Tab PO SCH (08:48)
[2019-08-31] MEDS: guaiFENesin 600 MG Tab.ER PO SCH ×2 (08:48→21:42)
[2019-08-31] MEDS: Arformoterol 15 MCG/2 ML Neb Soln INH SCH ×2 (09:34→21:13)
[2019-08-31] MEDS: Multivitamins,Therapeutic Tab PO SCH (11:13)
[2019-08-31] MEDS: Calcium Carbonate 500 MG Tablet PO SCH ×2 (11:13→18:32)
[2019-08-31] MEDS: Magnesium Chloride 64 MG Tab.ER PO SCH (11:13)
[2019-08-31] MEDS: ALPRAZolam 0.25 MG Tab PO PRN ×2 (12:15→21:40)
[2019-08-31] MEDS: Ferrous Sulfate 325 MG Tab PO SCH (13:00)
[2019-08-31] MEDS: Cyclobenzaprine 10 MG Tab PO PRN ×2 (13:01→21:40)
[2019-08-31] MEDS: Albuterol/Ipratropium 3.0-0.5 MG/3 ML Neb Soln INH PRN (14:16)
[2019-08-31] MEDS: Ketotifen 0.025% Ophth Soln 5 ML Bottle EYEBOTH PRN (21:14)
[2019-08-31] MEDS: BIMATOPROST EYERT SCH (21:15)
[2019-08-31] MEDS: Acetaminophen 500 MG Tab PO PRN (21:40)
[2019-08-31] MEDS: Mirtazapine 15 MG Tab PO SCH (21:42)
[2019-08-31] MEDS: Simvastatin 20 MG Tab PO SCH (21:42)
[2019-08-31] MEDS: Roflumilast 500 MCG Tab PO SCH (21:42)
[2019-08-31] MEDS: Montelukast 10 MG Tab PO SCH (21:42)
[2019-09-01] MEDS: Pantoprazole 40 MG Tab.CR PO SCH (05:07)
[2019-09-01] MEDS: Albuterol/Ipratropium 3.0-0.5 MG/3 ML Neb Soln INH PRN (05:07)
[2019-09-01] MEDS: Albuterol/Ipratropium 3.0-0.5 MG/3 ML Neb Soln INH SCH ×4 (07:25→21:08)
[2019-09-01] MEDS: Budesonide 0.5 MG/2 ML Neb Susp INH SCH ×2 (08:23→21:10)
[2019-09-01] MEDS: Furosemide 40 MG Tab PO SCH (09:30)
[2019-09-01] MEDS: Losartan 25 MG Tab PO SCH (09:30)
[2019-09-01] MEDS: Aspirin 81 MG Tab.EC PO SCH (09:30)
[2019-09-01] MEDS: Isosorbide Mononitrate 30 MG Tab.ER PO SCH (09:30)
[2019-09-01] MEDS: Potassium Chloride 10 MEQ Tab.ER PO SCH ×3 (09:30→21:17)
[2019-09-01] MEDS: Escitalopram 20 MG Tab PO SCH (09:31)
[2019-09-01] MEDS: Carvedilol 6.25 MG Tab PO SCH ×2 (09:31→17:18)
[2019-09-01] MEDS: Carboxymethylcellulose Sodium 0.5% Ophth Soln 0.4 ML UD Box of 30 EYEBOTH SCH ×4 (09:31→21:11)
[2019-09-01] MEDS: guaiFENesin 600 MG Tab.ER PO SCH ×2 (09:31→21:17)
[2019-09-01] MEDS: Arformoterol 15 MCG/2 ML Neb Soln INH SCH ×2 (09:31→21:10)
[2019-09-01] MEDS: BRINZOLAMIDE EYERT SCH ×3 (09:31→21:10)
[2019-09-01] MEDS: Clopidogrel 75 MG Tab PO SCH (09:31)
[2019-09-01] MEDS: busPIRone 5 MG Tab PO SCH ×2 (09:31→21:17)
[2019-09-01] MEDS: ALPRAZolam 0.25 MG Tab PO PRN ×2 (10:22→21:17)
[2019-09-01] MEDS: Cyclobenzaprine 10 MG Tab PO PRN ×2 (10:23→21:17)
[2019-09-01] MEDS: Magnesium Chloride 64 MG Tab.ER PO SCH (12:35)
[2019-09-01] MEDS: Multivitamins,Therapeutic Tab PO SCH (12:35)
[2019-09-01] MEDS: Calcium Carbonate 500 MG Tablet PO SCH ×2 (12:35→17:18)
[2019-09-01] MEDS: Ferrous Sulfate 325 MG Tab PO SCH (15:04)
[2019-09-01] MEDS: BIMATOPROST EYERT SCH (21:11)
[2019-09-01] MEDS: Acetaminophen 500 MG Tab PO PRN (21:16)
[2019-09-01] MEDS: Mirtazapine 15 MG Tab PO SCH (21:17)
[2019-09-01] MEDS: Roflumilast 500 MCG Tab PO SCH (21:17)
[2019-09-01] MEDS: Simvastatin 20 MG Tab PO SCH (21:18)
[2019-09-01] MEDS: Montelukast 10 MG Tab PO SCH (21:18)
[2019-09-02] MEDS: Pantoprazole 40 MG Tab.CR PO SCH (07:01)
[2019-09-02] MEDS: Albuterol/Ipratropium 3.0-0.5 MG/3 ML Neb Soln INH SCH ×4 (07:01→20:08)
[2019-09-02] MEDS: Carvedilol 6.25 MG Tab PO SCH ×2 (09:12→18:13)
[2019-09-02] MEDS: Carboxymethylcellulose Sodium 0.5% Ophth Soln 0.4 ML UD Box of 30 EYEBOTH SCH ×4 (09:12→20:15)
[2019-09-02] MEDS: Potassium Chloride 10 MEQ Tab.ER PO SCH ×3 (09:12→20:13)
[2019-09-02] MEDS: Losartan 25 MG Tab PO SCH (09:13)
[2019-09-02] MEDS: busPIRone 5 MG Tab PO SCH ×2 (09:13→20:13)
[2019-09-02] MEDS: Furosemide 40 MG Tab PO SCH (09:14)
[2019-09-02] MEDS: Aspirin 81 MG Tab.EC PO SCH (09:14)
[2019-09-02] MEDS: Isosorbide Mononitrate 30 MG Tab.ER PO SCH (09:14)
[2019-09-02] MEDS: guaiFENesin 600 MG Tab.ER PO SCH ×2 (09:15→20:12)
[2019-09-02] MEDS: Escitalopram 20 MG Tab PO SCH (09:15)
[2019-09-02] MEDS: Clopidogrel 75 MG Tab PO SCH (09:15)
[2019-09-02] MEDS: BRINZOLAMIDE EYERT SCH ×3 (09:20→20:10)
[2019-09-02] MEDS: Budesonide 0.5 MG/2 ML Neb Susp INH SCH ×2 (09:24→20:07)
[2019-09-02] MEDS: Arformoterol 15 MCG/2 ML Neb Soln INH SCH ×2 (09:26→20:05)
[2019-09-02] MEDS ORDERED: Polyethylene Glycol 3350 Powder 17 GM Packet PO SCH (11:00)
[2019-09-02] MEDS: Multivitamins,Therapeutic Tab PO SCH (11:24)
[2019-09-02] MEDS: Magnesium Chloride 64 MG Tab.ER PO SCH (11:24)
[2019-09-02] MEDS: Calcium Carbonate 500 MG Tablet PO SCH ×2 (11:24→18:14)
[2019-09-02] MEDS: Ferrous Sulfate 325 MG Tab PO SCH (13:53)
[2019-09-02] MEDS: ALPRAZolam 0.25 MG Tab PO PRN ×2 (13:57→20:17)
[2019-09-02] MEDS: Cyclobenzaprine 10 MG Tab PO PRN ×2 (13:57→20:17)
--- NOTE | 2019-09-02 14:56 | PCM.PN ---
- General Info Date of Service: 09/02/19 Admission Dx/Problem (Free Text): Patient is feeling better, noted that she has been having bowel movements but small amounts. Gets prune juice with breakfast. Will add MiraLAX daily as needed. Care conference today at 1pm. NO fevers, chills. NO nausea or vomiting. Feels she is urinating more than at home. - Patient Data Vitals - Most Recent: Last Vital Signs Temp 36.8 C 09/02/19 08:00 Pulse 96 09/02/19 09:12 Resp 22 H 09/02/19 08:00 BP 136/70 09/02/19 09:14 Pulse Ox 93 L 09/02/19 08:00 Weight - Most Recent: 48.398 kg Med Orders - Current: Current Medications Acetaminophen (Tylenol Extra Strength) 500 mg PO Q4H PRN PRN Reason: Pain Last Admin: 09/01/19 21:16 Dose: 500 mg Albuterol/Ipratropium (Duoneb 3.0-0.5 Mg/3 Ml) 3 ml INH QID PRN PRN Reason: SHORTNESS OF BREATH Last Admin: 09/01/19 05:07 Dose: 3 ml Albuterol/Ipratropium (Duoneb 3.0-0.5 Mg/3 Ml) 3 ml INH QIDRT [facility] Last Admin: 09/02/19 11:14 Dose: 3 ml Alprazolam (Xanax) 0.25 mg PO Q4H PRN PRN Reason: Agitation Last Admin: 09/02/19 13:57 Dose: 0.25 mg Arformoterol Tartrate (Brovana) 15 mcg INH [facility] Last Admin: 09/02/19 09:26 Dose: 15 mcg Artificial Tears (Refresh Plus 0.5%) 0 each EYEBOTH QID [facility] Last Admin: 09/02/19 13:52 Dose: 1 drop Aspirin (Halfprin) 81 mg PO DAILY [facility] Last Admin: 09/02/19 09:14 Dose: 81 mg Budesonide (Pulmicort) 0.5 mg INH 08,20 [facility] Last Admin: 09/02/19 09:24 Dose: 0.5 mg Buspirone HCl (Buspar) 5 mg PO BID [facility] Last Admin: 09/02/19 09:13 Dose: 5 mg Calcium Carbonate/Glycine (Oyster Shell Calcium) 500 mg PO BID@1200,1800 [facility] Last Admin: 09/02/19 11:24 Dose: 500 mg Carvedilol (Coreg) 6.25 mg PO BIDMEALS [facility] Last Admin: 09/02/19 09:12 Dose: 6.25 mg Clopidogrel Bisulfate (Plavix) 75 mg PO DAILY [facility] Last Admin: 09/02/19 09:15 Dose: 75 mg Cyclobenzaprine HCl (Flexeril) 10 mg PO BID PRN PRN Reason: MUSCLE SPASMS Last Admin: 09/02/19 13:57 Dose: 10 mg Escitalopram Oxalate (Lexapro) 20 mg PO DAILY [facility] Last Admin: 09/02/19 09:15 Dose: 20 mg Ferrous Sulfate (Ferrous Sulfate) 325 mg PO DAILY@1400 [facility] Last Admin: 09/02/19 13:53 Dose: 325 mg Furosemide (Lasix) 40 mg PO DAILY [facility] Last Admin: 09/02/19 09:14 Dose: 40 mg Guaifenesin (Mucinex) 600 mg PO BID [facility] Last Admin: 09/02/19 09:15 Dose: 600 mg Isosorbide Mononitrate (Imdur) 30 mg PO DAILY [facility] Last Admin: 09/02/19 09:14 Dose: 30 mg Ketotifen Fumarate (Ketotifen 0.025% Ophth Soln) 0 ml EYEBOTH BID PRN PRN Reason: Allergies Last Admin: 08/29/19 20:33 Dose: 1 drop Losartan Potassium (Cozaar) 12.5 mg PO DAILY [facility] Last Admin: 09/02/19 09:13 Dose: 12.5 mg Lutein (Lutein) 20 mg PO BEDTIME [facility] Last Admin: 09/01/19 21:17 Dose: 20 mg Magnesium Chloride (Mag-64) 64 mg PO DAILY@1200 [facility] Last Admin: 09/02/19 11:24 Dose: 64 mg Mirtazapine (Remeron) 7.5 mg PO BEDTIME [facility] Last Admin: 09/01/19 21:17 Dose: 7.5 mg Montelukast Sodium (Singulair) 10 mg PO BEDTIME [facility] Last Admin: 09/01/19 21:18 Dose: 10 mg Morphine Sulfate (Morphine) 2 mg IVPUSH Q2H PRN PRN Reason: Dyspnea Last Admin: 08/25/19 14:13 Dose: 2 mg Multivitamins (Thera) 1 each PO DAILY@1200 [facility] Last Admin: 09/02/19 11:24 Dose: 1 each Nitroglycerin (Nitrostat) 0.4 mg SL Q5M PRN PRN Reason: Chest Pain (Bimatoprost [ Lum[place] 0.01% Ophth Soln] 1 Drop) 1 drop EYERT BEDTIME [facility] Last Admin: 09/01/19 21:11 Dose: 1 drop (Brinzolamide [Azopt 1% Ophth Susp] 1 Drop) *Ptom 1 drop EYERT TID [facility] Last Admin: 09/02/19 13:53 Dose: 1 drop (Umeclidinium [place] [Incruse Ellipta*] 1 Puff) * Ptom 1 puff IH DAILY [facility] Last Admin: 09/02/19 09:27 Dose: 1 puff Pantoprazole Sodium (Protonix) 40 mg PO 0600 [facility] Last Admin: 09/02/19 07:01 Dose: 40 mg Polyethylene Glycol (Miralax) 17 gm PO DAILY PRN PRN Reason: Constipation Potassium Chloride (Klor-Con 10) 10 meq PO TID@0800,1200,2100 [facility] Last Admin: 09/02/19 11:24 Dose: 10 meq Roflumilast (Daliresp) 500 mcg PO BEDTIME [facility] Last Admin: 09/01/19 21:17 Dose: 500 mcg Simvastatin (Zocor) 20 mg PO BEDTIME [facility] Last Admin: 09/01/19 21:18 Dose: 20 mg Sodium Chloride (Saline Flush) 10 ml FLUSH ASDIRECTED PRN PRN Reason: Keep Vein Open Last Admin: 08/25/19 14:14 Dose: 10 ml Discontinued Medications Albuterol (Proventil Neb Soln) 2.5 mg NEB Q4H PRN PRN Reason: SOB/WHEEZING Last Admin: 08/23/19 01:11 Dose: 2.5 mg Albuterol/Ipratropium (Duoneb 3.0-0.5 Mg/3 Ml) 3 ml NEB 6XDAY [facility] Stop: 08/22/19 14:01 Last Admin: 08/22/19 13:39 Dose: 3 ml Cefuroxime Axetil (Ceftin) 500 mg PO BID [facility] Stop: 08/18/19 09:01 Last Admin: 08/16/19 08:16 Dose: 500 mg Doxycycline Hyclate (Vibra-Tabs) 100 mg PO BID [facility] Stop: 08/18/19 09:01 Last Admin: 08/18/19 08:21 Dose: 100 mg Influenza Virus Vaccine (Fluzone Quad [id number] Syringe) 60 mcg IM .ONCE ONE Stop: 08/20/19 08:05 Last Admin: 08/20/19 14:41 Dose: 60 mcg Isosorbide Mononitrate (Imdur) 30 mg PO DAILY [facility] Lorazepam (Ativan) 1 mg PO ONETIME ONE Stop: 08/25/19 06:12 Last Admin: 08/25/19 06:17 Dose: 1 mg Metronidazole (Flagyl) 500 mg PO TID [facility] Stop: 08/19/19 09:01 Last Admin: 08/19/19 08:32 Dose: 500 mg Polyethylene Glycol (Miralax) 17 gm PO DAILY [facility] Last Admin: 09/02/19 11:23 Dose: 17 gm Prednisone (Prednisone) 60 mg PO .TAPER [facility] Prednisone (Prednisone) 20 mg PO DAILY [facility]; Taper Stop: 08/28/19 07:59 Last Admin: 08/23/19 10:02 Dose: 20 mg Prednisone (Prednisone) 20 mg PO ONETIME ONE Stop: 08/24/19 09:01 Last Admin: 08/24/19 08:00 Dose: 20 mg Prednisone (Prednisone) 10 mg PO DAILY [facility] Stop: 08/27/19 09:01 Last Admin: 08/27/19 08:21 Dose: 10 mg - Exam Quality Assessment: Supplemental Oxygen General: Alert, Oriented, Cooperative, No Acute Distress Lungs: Decreased Breath Sounds, Crackles. No: Wheezing Cardiovascular: Regular Rate, Regular Rhythm, Murmurs GI/Abdominal Exam: Normal Bowel Sounds, Soft, Non-Tender, No Distention Extremities: Pedal Edema (trace, TEDs on BLE) - Problem List & Annotations (1) Weakness SNOMED Code(s): 33638022 Code(s): R53.1 - WEAKNESS Status: Acute Current Visit: No Annotation/ Comment:: PT and OT to evaluate and treat. (2) Aortic stenosis SNOMED Code(s): 23024485 Code(s): I35.0 - NONRHEUMATIC AORTIC (VALVE) STENOSIS Status: Acute Current Visit: Yes Qualifiers: Cardiac valve disease etiology: etiology unspecified Qualified Code(s): I35.0 - Nonrheumatic aortic (valve) stenosis Annotation/Comment:: S/P BAV (3) CAD (coronary artery disease) SNOMED Code(s): 10798848 Code(s): I25.10 - ATHSCL HEART DISEASE OF [place] CORONARY ARTERY W/O ANG PCTRS Status: Acute Current Visit: Yes Qualifiers: Coronary Disease-Associated Artery/Lesion type: [place] artery Associated angina: with stable angina (4) MDD (major depressive disorder) SNOMED Code(s): 506125240 Code(s): F32.9 - MAJOR DEPRESSIVE DISORDER, SINGLE EPISODE, UNSPECIFIED Status: Acute Current Visit: Yes Qualifiers: Major depression recurrence: recurrent Psychotic features: without psychotic features (5) PAD (peripheral artery disease) SNOMED Code(s): 671788646 Code(s): I73.9 - PERIPHERAL VASCULAR DISEASE, UNSPECIFIED Status: Chronic Current Visit: Yes (6) CHF (congestive heart failure) SNOMED Code(s): 86176462 Code(s): I50.9 - HEART FAILURE, UNSPECIFIED Status: Acute Current Visit: No Qualifiers: Heart failure type: combined systolic and diastolic Heart failure chronicity: chronic Qualified Code(s): I50.42 - Chronic combined systolic ( congestive) and diastolic (congestive) heart failure (7) COPD with exacerbation SNOMED Code(s): 738546289, 440364875 Code(s): J44.1 - CHRONIC OBSTRUCTIVE PULMONARY DISEASE W (ACUTE) EXACERBATION Status: Acute Current Visit: No - Problem List Review Problem List Initiated/Reviewed/Updated: Yes - My Orders Last 24 Hours: My Active Orders 09/02/19 13:51 Polyethylene Glycol 3350 [MiraLAX] 17 gm PO DAILY PRN - Plan Plan:: MiraLAX as needed constipation, continue prune juice with breakfast. On home Lasix dose of 40 mg, states she has been urinating more but drinking more coffee per nursing. She is doing well with OT, anticipate having a better idea of when she could possibly discharged by the end of the week. Question of palliative care referral to [facility] which she already gets but is seeing Cardiology at the end of the month in regards to her aortic stenosis. OT states that it will know better at the end of the week on time frame for discharge.
[2019-09-02] MEDS: Acetaminophen 500 MG Tab PO PRN ×2 (16:25→20:38)
[2019-09-02] MEDS: BIMATOPROST EYERT SCH (20:09)
[2019-09-02] MEDS: Mirtazapine 15 MG Tab PO SCH (20:11)
[2019-09-02] MEDS: Simvastatin 20 MG Tab PO SCH (20:12)
[2019-09-02] MEDS: Montelukast 10 MG Tab PO SCH (20:12)
[2019-09-02] MEDS: Roflumilast 500 MCG Tab PO SCH (20:14)
[2019-09-03] MEDS: Albuterol/Ipratropium 3.0-0.5 MG/3 ML Neb Soln INH PRN ×2 (03:13→14:25)
[2019-09-03] MEDS: ALPRAZolam 0.25 MG Tab PO PRN ×3 (03:13→18:30)
[2019-09-03] MEDS: Albuterol/Ipratropium 3.0-0.5 MG/3 ML Neb Soln INH SCH ×4 (06:15→20:02)
[2019-09-03] MEDS: Pantoprazole 40 MG Tab.CR PO SCH (06:16)
[2019-09-03] MEDS: Budesonide 0.5 MG/2 ML Neb Susp INH SCH ×2 (08:33→19:32)
[2019-09-03] MEDS: Polyethylene Glycol 3350 Powder 17 GM Packet PO PRN (08:35)
[2019-09-03] MEDS: busPIRone 5 MG Tab PO SCH ×2 (08:36→20:01)
[2019-09-03] MEDS: Carvedilol 6.25 MG Tab PO SCH ×2 (08:36→17:27)
[2019-09-03] MEDS: Aspirin 81 MG Tab.EC PO SCH (08:36)
[2019-09-03] MEDS: Clopidogrel 75 MG Tab PO SCH (08:37)
[2019-09-03] MEDS: Potassium Chloride 10 MEQ Tab.ER PO SCH ×3 (08:37→20:03)
[2019-09-03] MEDS: guaiFENesin 600 MG Tab.ER PO SCH ×2 (08:37→20:03)
[2019-09-03] MEDS: Isosorbide Mononitrate 30 MG Tab.ER PO SCH (08:37)
[2019-09-03] MEDS: Escitalopram 20 MG Tab PO SCH (08:37)
[2019-09-03] MEDS: Losartan 25 MG Tab PO SCH (08:38)
[2019-09-03] MEDS: BRINZOLAMIDE EYERT SCH ×3 (08:39→20:00)
[2019-09-03] MEDS: Carboxymethylcellulose Sodium 0.5% Ophth Soln 0.4 ML UD Box of 30 EYEBOTH SCH ×4 (08:39→20:01)
[2019-09-03] MEDS: Furosemide 40 MG Tab PO SCH (08:40)
[2019-09-03] MEDS: Arformoterol 15 MCG/2 ML Neb Soln INH SCH ×2 (08:41→20:01)
[2019-09-03] MEDS: Acetaminophen 500 MG Tab PO PRN ×2 (08:53→20:19)
[2019-09-03] MEDS: Cyclobenzaprine 10 MG Tab PO PRN ×2 (08:53→20:19)
[2019-09-03] MEDS: Magnesium Chloride 64 MG Tab.ER PO SCH (12:34)
[2019-09-03] MEDS: Calcium Carbonate 500 MG Tablet PO SCH ×2 (12:34→17:27)
[2019-09-03] MEDS: Multivitamins,Therapeutic Tab PO SCH (12:34)
[2019-09-03] MEDS: Ferrous Sulfate 325 MG Tab PO SCH (14:21)
[2019-09-03] MEDS: BIMATOPROST EYERT SCH (20:01)
[2019-09-03] MEDS: Roflumilast 500 MCG Tab PO SCH (20:02)
[2019-09-03] MEDS: Mirtazapine 15 MG Tab PO SCH (20:03)
[2019-09-03] MEDS: Montelukast 10 MG Tab PO SCH (20:04)
[2019-09-03] MEDS: Simvastatin 20 MG Tab PO SCH (20:04)
[2019-09-04] MEDS: Albuterol/Ipratropium 3.0-0.5 MG/3 ML Neb Soln INH PRN ×3 (01:24→13:43)
[2019-09-04] MEDS: ALPRAZolam 0.25 MG Tab PO PRN ×4 (01:27→20:34)
[2019-09-04] MEDS: Pantoprazole 40 MG Tab.CR PO SCH (05:28)
[2019-09-04] MEDS: Albuterol/Ipratropium 3.0-0.5 MG/3 ML Neb Soln INH SCH ×4 (07:43→20:25)
[2019-09-04] MEDS: guaiFENesin 600 MG Tab.ER PO SCH ×2 (09:13→20:30)
[2019-09-04] MEDS: Isosorbide Mononitrate 30 MG Tab.ER PO SCH (09:13)
[2019-09-04] MEDS: BRINZOLAMIDE EYERT SCH ×3 (09:13→20:26)
[2019-09-04] MEDS: Furosemide 40 MG Tab PO SCH (09:13)
[2019-09-04] MEDS: Budesonide 0.5 MG/2 ML Neb Susp INH SCH ×2 (09:13→20:25)
[2019-09-04] MEDS: Potassium Chloride 10 MEQ Tab.ER PO SCH ×3 (09:14→20:30)
[2019-09-04] MEDS: Carvedilol 6.25 MG Tab PO SCH ×2 (09:14→17:07)
[2019-09-04] MEDS: Escitalopram 20 MG Tab PO SCH (09:14)
[2019-09-04] MEDS: Losartan 25 MG Tab PO SCH (09:14)
[2019-09-04] MEDS: Aspirin 81 MG Tab.EC PO SCH (09:14)
[2019-09-04] MEDS: Clopidogrel 75 MG Tab PO SCH (09:14)
[2019-09-04] MEDS: busPIRone 5 MG Tab PO SCH ×2 (09:15→20:30)
[2019-09-04] MEDS: Carboxymethylcellulose Sodium 0.5% Ophth Soln 0.4 ML UD Box of 30 EYEBOTH SCH ×4 (09:17→20:26)
[2019-09-04] MEDS: Arformoterol 15 MCG/2 ML Neb Soln INH SCH ×2 (09:40→20:24)
[2019-09-04] MEDS: Multivitamins,Therapeutic Tab PO SCH (12:05)
[2019-09-04] MEDS: Calcium Carbonate 500 MG Tablet PO SCH ×2 (12:05→17:06)
[2019-09-04] MEDS: Magnesium Chloride 64 MG Tab.ER PO SCH (12:05)
[2019-09-04] MEDS: Ferrous Sulfate 325 MG Tab PO SCH (13:39)
[2019-09-04] MEDS: Cyclobenzaprine 10 MG Tab PO PRN ×2 (13:43→20:34)
--- NOTE | 2019-09-04 18:07 | PCM.SN ---
- Free Text/Narrative Note: Had appt with her primary today, orders for prednisone taper 20 mg bid x 3 days then 20 mg daily x 5 days then 10 mg daily x 5 days then 5 mg daily x 5 days.
[2019-09-04] MEDS: Montelukast 10 MG Tab PO SCH (20:27)
[2019-09-04] MEDS: BIMATOPROST EYERT SCH (20:27)
[2019-09-04] MEDS: Simvastatin 20 MG Tab PO SCH (20:31)
[2019-09-04] MEDS: Mirtazapine 15 MG Tab PO SCH (20:31)
[2019-09-04] MEDS: Roflumilast 500 MCG Tab PO SCH (20:32)
[2019-09-04] MEDS: Acetaminophen 500 MG Tab PO PRN (20:34)
[2019-09-04] MEDS: predniSONE 20 MG Tab PO SCH (20:40)
[2019-09-05] MEDS: Albuterol/Ipratropium 3.0-0.5 MG/3 ML Neb Soln INH PRN ×2 (02:35→14:41)
[2019-09-05] MEDS: ALPRAZolam 0.25 MG Tab PO PRN ×4 (02:35→21:33)
[2019-09-05] MEDS: Pantoprazole 40 MG Tab.CR PO SCH (06:02)
[2019-09-05] MEDS: Albuterol/Ipratropium 3.0-0.5 MG/3 ML Neb Soln INH SCH ×4 (06:04→21:10)
[2019-09-05] MEDS: Budesonide 0.5 MG/2 ML Neb Susp INH SCH ×2 (07:55→20:47)
[2019-09-05] MEDS: Carvedilol 6.25 MG Tab PO SCH ×2 (08:54→17:18)
[2019-09-05] MEDS: Potassium Chloride 10 MEQ Tab.ER PO SCH ×3 (08:54→21:14)
[2019-09-05] MEDS: BRINZOLAMIDE EYERT SCH ×3 (08:56→21:04)
[2019-09-05] MEDS: busPIRone 5 MG Tab PO SCH ×2 (08:57→21:14)
[2019-09-05] MEDS: Losartan 25 MG Tab PO SCH (08:57)
[2019-09-05] MEDS: Arformoterol 15 MCG/2 ML Neb Soln INH SCH ×2 (08:57→21:01)
[2019-09-05] MEDS: Furosemide 40 MG Tab PO SCH (08:58)
[2019-09-05] MEDS: Escitalopram 20 MG Tab PO SCH (08:58)
[2019-09-05] MEDS: Aspirin 81 MG Tab.EC PO SCH (08:58)
[2019-09-05] MEDS: Isosorbide Mononitrate 30 MG Tab.ER PO SCH (08:58)
[2019-09-05] MEDS: Carboxymethylcellulose Sodium 0.5% Ophth Soln 0.4 ML UD Box of 30 EYEBOTH SCH ×4 (08:59→21:12)
[2019-09-05] MEDS: Clopidogrel 75 MG Tab PO SCH (08:59)
[2019-09-05] MEDS: guaiFENesin 600 MG Tab.ER PO SCH ×2 (08:59→21:15)
[2019-09-05] MEDS: predniSONE 20 MG Tab PO SCH ×2 (09:07→21:15)
[2019-09-05] MEDS: Magnesium Chloride 64 MG Tab.ER PO SCH (11:33)
[2019-09-05] MEDS: Calcium Carbonate 500 MG Tablet PO SCH ×2 (11:33→17:18)
[2019-09-05] MEDS: Multivitamins,Therapeutic Tab PO SCH (11:34)
[2019-09-05] MEDS: Ferrous Sulfate 325 MG Tab PO SCH (14:41)
[2019-09-05] MEDS: BIMATOPROST EYERT SCH (21:02)
[2019-09-05] MEDS: Roflumilast 500 MCG Tab PO SCH (21:14)
[2019-09-05] MEDS: Montelukast 10 MG Tab PO SCH (21:15)
[2019-09-05] MEDS: Simvastatin 20 MG Tab PO SCH (21:15)
[2019-09-05] MEDS: Mirtazapine 15 MG Tab PO SCH (21:15)
[2019-09-05] MEDS: Acetaminophen 500 MG Tab PO PRN (21:33)
[2019-09-05] MEDS: Cyclobenzaprine 10 MG Tab PO PRN (21:33)
[2019-09-06] MEDS: Albuterol/Ipratropium 3.0-0.5 MG/3 ML Neb Soln INH PRN ×2 (04:13→17:39)
[2019-09-06] MEDS: ALPRAZolam 0.25 MG Tab PO PRN ×4 (04:13→20:03)
[2019-09-06] MEDS: Pantoprazole 40 MG Tab.CR PO SCH (06:29)
[2019-09-06] MEDS: Albuterol/Ipratropium 3.0-0.5 MG/3 ML Neb Soln INH SCH ×4 (06:30→20:09)
[2019-09-06] MEDS: Cyclobenzaprine 10 MG Tab PO PRN ×2 (06:50→22:19)
[2019-09-06] MEDS: Budesonide 0.5 MG/2 ML Neb Susp INH SCH ×2 (08:16→20:02)
[2019-09-06] MEDS: Carvedilol 6.25 MG Tab PO SCH ×2 (08:23→17:42)
[2019-09-06] MEDS: Potassium Chloride 10 MEQ Tab.ER PO SCH ×3 (08:24→20:09)
[2019-09-06] MEDS: Aspirin 81 MG Tab.EC PO SCH (08:24)
[2019-09-06] MEDS: busPIRone 5 MG Tab PO SCH ×2 (08:24→20:08)
[2019-09-06] MEDS: Losartan 25 MG Tab PO SCH (08:24)
[2019-09-06] MEDS: Furosemide 40 MG Tab PO SCH (08:25)
[2019-09-06] MEDS: Escitalopram 20 MG Tab PO SCH (08:25)
[2019-09-06] MEDS: Clopidogrel 75 MG Tab PO SCH (08:25)
[2019-09-06] MEDS: guaiFENesin 600 MG Tab.ER PO SCH ×2 (08:25→20:09)
[2019-09-06] MEDS: Isosorbide Mononitrate 30 MG Tab.ER PO SCH (08:25)
[2019-09-06] MEDS: predniSONE 20 MG Tab PO SCH ×2 (08:26→20:13)
[2019-09-06] MEDS: BRINZOLAMIDE EYERT SCH ×3 (08:32→20:06)
[2019-09-06] MEDS: Acetaminophen 500 MG Tab PO PRN ×2 (09:10→22:19)
[2019-09-06] MEDS: Arformoterol 15 MCG/2 ML Neb Soln INH SCH ×2 (09:10→20:07)
[2019-09-06] MEDS: Carboxymethylcellulose Sodium 0.5% Ophth Soln 0.4 ML UD Box of 30 EYEBOTH SCH ×4 (09:11→20:13)
--- NOTE | 2019-09-06 11:14 | PN ---
DATE SEEN: 09/06/2019 SUBJECTIVE: Betty De León is an 88-year-old female, a long-term stay swing bed. Progress has been rudimentary. Had a complicated night with troublesome cough. Cough intervention and respiratory medications on board. Presently on albuterol, Brovana, and incentive spirometer, along with Pulmicort. Otherwise doing well. Medications reviewed and appropriate. PHYSICAL EXAMINATION: VITAL SIGNS: 166/88, pulse 92, 94% on 2.5 L. GENERAL: Dyspneic with conversation. NECK: No JVD. CHEST: Decreased breath sounds. Coarse rhonchi throughout all lung [place]. HEART: Distant heart sounds. Occasional ectopy. ABDOMEN: Benign. ASSESSMENT: End-stage chronic obstructive pulmonary disease. PLAN: We will add some Tessalon Perles and sublingual morphine, complementary care and well being. /[id number] /[place]
[2019-09-06] MEDS: Multivitamins,Therapeutic Tab PO SCH (11:49)
[2019-09-06] MEDS: Magnesium Chloride 64 MG Tab.ER PO SCH (11:49)
[2019-09-06] MEDS: Calcium Carbonate 500 MG Tablet PO SCH ×2 (11:49→17:42)
[2019-09-06] MEDS: Ferrous Sulfate 325 MG Tab PO SCH (13:41)
[2019-09-06] MEDS: Benzonatate 100 MG Cap PO PRN ×2 (13:52→22:19)
[2019-09-06] MEDS: BIMATOPROST EYERT SCH (20:05)
[2019-09-06] MEDS: Mirtazapine 15 MG Tab PO SCH (20:07)
[2019-09-06] MEDS: Roflumilast 500 MCG Tab PO SCH (20:08)
[2019-09-06] MEDS: Simvastatin 20 MG Tab PO SCH (20:14)
[2019-09-06] MEDS: Montelukast 10 MG Tab PO SCH (20:14)
[2019-09-07] MEDS: Albuterol/Ipratropium 3.0-0.5 MG/3 ML Neb Soln INH PRN ×2 (02:23→18:59)
[2019-09-07] MEDS: ALPRAZolam 0.25 MG Tab PO PRN ×5 (02:24→20:48)
[2019-09-07] MEDS: Pantoprazole 40 MG Tab.CR PO SCH (05:00)
[2019-09-07] MEDS: Morphine 10 MG/0.5 ML Oral Syringe SL PRN (05:00)
[2019-09-07] MEDS: Albuterol/Ipratropium 3.0-0.5 MG/3 ML Neb Soln INH SCH ×4 (05:59→20:58)
[2019-09-07] MEDS: Budesonide 0.5 MG/2 ML Neb Susp INH SCH ×2 (07:55→20:10)
[2019-09-07] MEDS: Acetaminophen 500 MG Tab PO PRN ×2 (08:02→20:48)
[2019-09-07] MEDS: Carvedilol 6.25 MG Tab PO SCH ×2 (08:14→18:07)
[2019-09-07] MEDS: Arformoterol 15 MCG/2 ML Neb Soln INH SCH ×2 (08:30→20:52)
[2019-09-07] MEDS: BRINZOLAMIDE EYERT SCH ×3 (08:32→20:56)
[2019-09-07] MEDS: Carboxymethylcellulose Sodium 0.5% Ophth Soln 0.4 ML UD Box of 30 EYEBOTH SCH ×4 (08:32→20:52)
[2019-09-07] MEDS: Potassium Chloride 10 MEQ Tab.ER PO SCH ×3 (08:34→20:55)
[2019-09-07] MEDS: Losartan 25 MG Tab PO SCH (09:10)
[2019-09-07] MEDS: busPIRone 5 MG Tab PO SCH ×2 (09:10→20:56)
[2019-09-07] MEDS: Escitalopram 20 MG Tab PO SCH (09:11)
[2019-09-07] MEDS: Isosorbide Mononitrate 30 MG Tab.ER PO SCH (09:11)
[2019-09-07] MEDS: Furosemide 40 MG Tab PO SCH (09:11)
[2019-09-07] MEDS: Aspirin 81 MG Tab.EC PO SCH (09:11)
[2019-09-07] MEDS: Clopidogrel 75 MG Tab PO SCH (09:11)
[2019-09-07] MEDS: guaiFENesin 600 MG Tab.ER PO SCH ×2 (09:11→20:55)
[2019-09-07] MEDS: predniSONE 20 MG Tab PO SCH (09:12)
--- NOTE | 2019-09-07 12:44 | PN ---
DATE SEEN: 09/07/2019 SUBJECTIVE: Colleen De León is a delightful 88-year-old female, long-term swing bed. End-stage COPD. Had a troublesome night with hypoxia and respiratory difficulty. Aggressive inhalation therapy on board. DuoNeb, Incruse Ellipta, and supplemental O2. Feeling little better this morning. No recent radiographs. LABORATORY STUDIES: 08/25/2018 reviewed. OBJECTIVE: VITAL SIGNS: 132/80, respirations 28, and 91% on 3 L. GENERAL: Appears comfortable. Speech was complicated by dyspnea. NECK: Benign. No JVD. CHEST: Coarse rhonchi, diffuse wheezing, unchanged. HEART: Distant heart sounds. Occasional ectopy. ASSESSMENT: End-stage chronic obstructive pulmonary disease. PLAN: Support measures in place. Adequate fluids and hydration. Observation, discharge home, and opportunity to pursue. /[id number] /CLAUDETTE
[2019-09-07] MEDS: Magnesium Chloride 64 MG Tab.ER PO SCH (13:55)
[2019-09-07] MEDS: Calcium Carbonate 500 MG Tablet PO SCH ×2 (13:55→18:07)
[2019-09-07] MEDS: Multivitamins,Therapeutic Tab PO SCH (13:56)
[2019-09-07] MEDS: Ferrous Sulfate 325 MG Tab PO SCH (13:57)
[2019-09-07] MEDS: Benzonatate 100 MG Cap PO PRN (20:48)
[2019-09-07] MEDS: Cyclobenzaprine 10 MG Tab PO PRN (20:48)
[2019-09-07] MEDS: BIMATOPROST EYERT SCH (20:51)
[2019-09-07] MEDS: Roflumilast 500 MCG Tab PO SCH (20:55)
[2019-09-07] MEDS: Montelukast 10 MG Tab PO SCH (20:56)
[2019-09-07] MEDS: Mirtazapine 15 MG Tab PO SCH (20:57)
[2019-09-07] MEDS: Simvastatin 20 MG Tab PO SCH (20:58)
[2019-09-08] MEDS: Albuterol/Ipratropium 3.0-0.5 MG/3 ML Neb Soln INH PRN ×2 (01:00→13:33)
[2019-09-08] MEDS: ALPRAZolam 0.25 MG Tab PO PRN ×5 (03:23→21:18)
[2019-09-08] MEDS: Morphine 10 MG/0.5 ML Oral Syringe SL PRN (03:23)
[2019-09-08] MEDS: Pantoprazole 40 MG Tab.CR PO SCH (05:57)
[2019-09-08] MEDS: Albuterol/Ipratropium 3.0-0.5 MG/3 ML Neb Soln INH SCH ×4 (06:00→20:53)
[2019-09-08] MEDS: Budesonide 0.5 MG/2 ML Neb Susp INH SCH ×2 (08:04→19:18)
[2019-09-08] MEDS: Potassium Chloride 10 MEQ Tab.ER PO SCH ×3 (08:10→20:52)
[2019-09-08] MEDS: Carvedilol 6.25 MG Tab PO SCH ×2 (08:10→17:13)
[2019-09-08] MEDS: predniSONE 20 MG Tab PO SCH (08:11)
[2019-09-08] MEDS: BRINZOLAMIDE EYERT SCH ×3 (08:12→20:53)
[2019-09-08] MEDS: Arformoterol 15 MCG/2 ML Neb Soln INH SCH ×2 (08:14→20:53)
[2019-09-08] MEDS: busPIRone 5 MG Tab PO SCH ×2 (08:14→20:52)
[2019-09-08] MEDS: Aspirin 81 MG Tab.EC PO SCH (08:15)
[2019-09-08] MEDS: Isosorbide Mononitrate 30 MG Tab.ER PO SCH (08:15)
[2019-09-08] MEDS: Losartan 25 MG Tab PO SCH (08:15)
[2019-09-08] MEDS: guaiFENesin 600 MG Tab.ER PO SCH ×2 (08:16→20:52)
[2019-09-08] MEDS: Escitalopram 20 MG Tab PO SCH (08:16)
[2019-09-08] MEDS: Clopidogrel 75 MG Tab PO SCH (08:16)
[2019-09-08] MEDS: Furosemide 40 MG Tab PO SCH (08:16)
[2019-09-08] MEDS: Carboxymethylcellulose Sodium 0.5% Ophth Soln 0.4 ML UD Box of 30 EYEBOTH SCH ×4 (08:17→20:52)
[2019-09-08] MEDS: Acetaminophen 500 MG Tab PO PRN ×4 (08:53→21:18)
--- NOTE | 2019-09-08 12:16 | PN ---
DATE SEEN: 09/08/2019 SUBJECTIVE: Betty De León is an 88-year-old female with end-stage lung disease. She has had a protracted swing bed stay. Clinical response inadequate. On aggressive therapy for control of her respiratory symptoms. LABORATORY STUDIES: None recent. 08/25/2019 laboratory studies reviewed. BNP 6, normal less than 450. OBJECTIVE: VITAL SIGNS: 149/74, pulse 112, 89% on 3 L. GENERAL: Appears comfortable, dyspneic with brief conversation. NECK: No JVD. CHEST: Coarse rhonchi, diffuse wheezing both lung mendenhall, anterior posterior. HEART: Distant heart sounds. ABDOMEN: Benign. ASSESSMENT: End-stage chronic obstructive pulmonary disease. PLAN: Medications, care and treatment appropriate, aggressive RT treatment. Comfort measures primary focus. /[id number] /CLAUDETTE
[2019-09-08] MEDS: Magnesium Chloride 64 MG Tab.ER PO SCH (12:57)
[2019-09-08] MEDS: Calcium Carbonate 500 MG Tablet PO SCH ×2 (12:57→17:09)
[2019-09-08] MEDS: Multivitamins,Therapeutic Tab PO SCH (12:57)
[2019-09-08] MEDS: Ferrous Sulfate 325 MG Tab PO SCH (13:29)
[2019-09-08] MEDS: BIMATOPROST EYERT SCH (20:50)
[2019-09-08] MEDS: Mirtazapine 15 MG Tab PO SCH (20:52)
[2019-09-08] MEDS: Montelukast 10 MG Tab PO SCH (20:52)
[2019-09-08] MEDS: Roflumilast 500 MCG Tab PO SCH (20:52)
[2019-09-08] MEDS: Simvastatin 20 MG Tab PO SCH (20:52)
[2019-09-08] MEDS: Cyclobenzaprine 10 MG Tab PO PRN (21:12)
[2019-09-08] MEDS: Benzonatate 100 MG Cap PO PRN (21:13)
[2019-09-09] MEDS: Albuterol/Ipratropium 3.0-0.5 MG/3 ML Neb Soln INH PRN ×2 (00:34→14:38)
[2019-09-09] MEDS: Albuterol/Ipratropium 3.0-0.5 MG/3 ML Neb Soln INH SCH ×4 (06:00→20:08)
[2019-09-09] MEDS: Pantoprazole 40 MG Tab.CR PO SCH (06:01)
[2019-09-09] MEDS: ALPRAZolam 0.25 MG Tab PO PRN ×3 (06:09→14:51)
[2019-09-09] MEDS: Budesonide 0.5 MG/2 ML Neb Susp INH SCH ×2 (07:30→19:39)
[2019-09-09] MEDS: Arformoterol 15 MCG/2 ML Neb Soln INH SCH ×2 (09:05→20:03)
[2019-09-09] MEDS: Carvedilol 6.25 MG Tab PO SCH ×2 (09:16→17:10)
[2019-09-09] MEDS: busPIRone 5 MG Tab PO SCH ×2 (09:17→20:06)
[2019-09-09] MEDS: Losartan 25 MG Tab PO SCH (09:17)
[2019-09-09] MEDS: predniSONE 20 MG Tab PO SCH (09:17)
[2019-09-09] MEDS: BRINZOLAMIDE EYERT SCH ×3 (09:17→20:02)
[2019-09-09] MEDS: Potassium Chloride 10 MEQ Tab.ER PO SCH ×3 (09:17→20:08)
[2019-09-09] MEDS: Aspirin 81 MG Tab.EC PO SCH (09:18)
[2019-09-09] MEDS: Isosorbide Mononitrate 30 MG Tab.ER PO SCH (09:18)
[2019-09-09] MEDS: Furosemide 40 MG Tab PO SCH (09:18)
[2019-09-09] MEDS: Escitalopram 20 MG Tab PO SCH (09:19)
[2019-09-09] MEDS: Clopidogrel 75 MG Tab PO SCH (09:19)
[2019-09-09] MEDS: guaiFENesin 600 MG Tab.ER PO SCH ×2 (09:19→20:09)
[2019-09-09] MEDS: Carboxymethylcellulose Sodium 0.5% Ophth Soln 0.4 ML UD Box of 30 EYEBOTH SCH ×4 (09:20→20:01)
[2019-09-09] MEDS: Cyclobenzaprine 10 MG Tab PO PRN (11:07)
--- NOTE | 2019-09-09 12:54 | PN ---
DATE SEEN: 09/09/2019 SUBJECTIVE: Betty De León is an 88-year-old female, long-term swing bed stay. Been here since 08/15/2019, nearly a months' duration. Progress has been slow. [place] Increasing disability. We will obtain blood gases today. OBJECTIVE: VITAL SIGNS: 104, 92, 2.5 L, 120/87, respirations 22. GENERAL: Dyspneic with simple exertion. NECK: No JVD. CHEST: Clear in all lung mendenhall. Diffuse wheeze and coarse rhonchi. HEART: Distant heart sounds. ABDOMEN: Benign. ASSESSMENT: End-stage chronic obstructive pulmonary disease. PLAN: Medications, care, and treatment appropriate. Echocardiogram will be performed, ABGs to be performed, complementary care and well being. /[id number] SYDNEE/CLAUDETTE
[2019-09-09] MEDS: Magnesium Chloride 64 MG Tab.ER PO SCH (13:51)
[2019-09-09] MEDS: Calcium Carbonate 500 MG Tablet PO SCH ×2 (13:51→17:10)
[2019-09-09] MEDS: Multivitamins,Therapeutic Tab PO SCH (13:51)
[2019-09-09] MEDS: Ferrous Sulfate 325 MG Tab PO SCH (13:52)
--- NOTE | 2019-09-09 16:13 | CR ---
INDICATION: Dyspnea. CHEST: PA and lateral views of the chest, 09/09/19, were compared with and 08/19/19. There is now noted infiltrate at the right lung base, presumably in the right lower lobe, which is new compared with the previous examination and compatible with pneumonia with pleuritis, since there is blunting of the posterior sulcus. Other findings are again noted, compatible with ASHD, COPD, and osteoporosis. IMPRESSION: New finding of right basilar pleural parenchymal change, compatible with pneumonia and pleuritis. MTDD
[2019-09-09] MEDS: Roflumilast 500 MCG Tab PO SCH (20:06)
[2019-09-09] MEDS: Mirtazapine 15 MG Tab PO SCH (20:09)
[2019-09-09] MEDS: Montelukast 10 MG Tab PO SCH (20:09)
[2019-09-09] MEDS: Simvastatin 20 MG Tab PO SCH (20:10)
[2019-09-09] MEDS: BIMATOPROST EYERT SCH (20:13)
[2019-09-09] MEDS: Morphine 10 MG/0.5 ML Oral Syringe SL PRN (20:28)
[2019-09-10] MEDS: Albuterol/Ipratropium 3.0-0.5 MG/3 ML Neb Soln INH PRN ×2 (03:14→14:43)
[2019-09-10] MEDS: Acetaminophen 500 MG Tab PO PRN ×3 (03:27→20:08)
[2019-09-10] MEDS: Albuterol/Ipratropium 3.0-0.5 MG/3 ML Neb Soln INH SCH ×5 (06:59→19:59)
[2019-09-10] MEDS: Pantoprazole 40 MG Tab.CR PO SCH (07:00)
[2019-09-10] MEDS: Carvedilol 6.25 MG Tab PO SCH ×2 (07:41→17:36)
[2019-09-10] MEDS: predniSONE 20 MG Tab PO SCH (07:41)
[2019-09-10] MEDS: Potassium Chloride 10 MEQ Tab.ER PO SCH ×3 (07:41→20:04)
[2019-09-10] MEDS: Budesonide 0.5 MG/2 ML Neb Susp INH SCH ×2 (07:41→19:58)
[2019-09-10] MEDS: Escitalopram 20 MG Tab PO SCH (08:37)
[2019-09-10] MEDS: Carboxymethylcellulose Sodium 0.5% Ophth Soln 0.4 ML UD Box of 30 EYEBOTH SCH ×4 (08:37→20:04)
[2019-09-10] MEDS: Isosorbide Mononitrate 30 MG Tab.ER PO SCH (08:38)
[2019-09-10] MEDS: BRINZOLAMIDE EYERT SCH ×3 (08:38→20:07)
[2019-09-10] MEDS: Aspirin 81 MG Tab.EC PO SCH (08:38)
[2019-09-10] MEDS: Clopidogrel 75 MG Tab PO SCH (08:38)
[2019-09-10] MEDS: Losartan 25 MG Tab PO SCH (08:38)
[2019-09-10] MEDS: Furosemide 40 MG Tab PO SCH (08:38)
[2019-09-10] MEDS: busPIRone 5 MG Tab PO SCH ×2 (08:38→20:02)
[2019-09-10] MEDS: guaiFENesin 600 MG Tab.ER PO SCH ×2 (08:40→20:02)
[2019-09-10] MEDS: Arformoterol 15 MCG/2 ML Neb Soln INH SCH ×2 (08:43→19:59)
[2019-09-10] MEDS: ALPRAZolam 0.25 MG Tab PO PRN ×2 (10:01→20:08)
--- NOTE | 2019-09-10 10:51 | PN ---
DATE SEEN: 09/10/2019 SUBJECTIVE: Betty De León is an 88-year-old female, in swing bed. Had a pretty good night. Actually a better night. Discharge planning in flux. Aggressive RT treatment and respiratory therapy in place. PT actively involved. PHYSICAL EXAMINATION: GENERAL: Appears comfortable. VITAL SIGNS: Stable. CHEST: Coarse rhonchi. Diffuse wheezing. HEART: Distant heart sounds. ASSESSMENT: End-stage chronic obstructive pulmonary disease. PLAN: Medications, care and treatment appropriate, discharge planning in question. /[id number] /CLAUDETTE
[2019-09-10] MEDS: Calcium Carbonate 500 MG Tablet PO SCH ×2 (12:21→17:37)
[2019-09-10] MEDS: Magnesium Chloride 64 MG Tab.ER PO SCH (12:21)
[2019-09-10] MEDS: Multivitamins,Therapeutic Tab PO SCH (12:21)
[2019-09-10] MEDS: Ferrous Sulfate 325 MG Tab PO SCH (13:32)
[2019-09-10] MEDS: Cyclobenzaprine 10 MG Tab PO PRN ×2 (13:38→20:08)
[2019-09-10] MEDS: Simvastatin 20 MG Tab PO SCH (20:02)
[2019-09-10] MEDS: Roflumilast 500 MCG Tab PO SCH (20:02)
[2019-09-10] MEDS: Montelukast 10 MG Tab PO SCH (20:03)
[2019-09-10] MEDS: Mirtazapine 15 MG Tab PO SCH (20:03)
[2019-09-10] MEDS: BIMATOPROST EYERT SCH (20:06)
[2019-09-11] MEDS: ALPRAZolam 0.25 MG Tab PO PRN ×3 (03:25→18:49)
[2019-09-11] MEDS: Albuterol/Ipratropium 3.0-0.5 MG/3 ML Neb Soln INH PRN (03:25)
[2019-09-11] MEDS: Pantoprazole 40 MG Tab.CR PO SCH (04:59)
[2019-09-11] MEDS: Albuterol/Ipratropium 3.0-0.5 MG/3 ML Neb Soln INH SCH ×4 (06:36→20:13)
[2019-09-11] MEDS: Budesonide 0.5 MG/2 ML Neb Susp INH SCH ×2 (07:57→19:50)
[2019-09-11] MEDS: Carvedilol 6.25 MG Tab PO SCH ×2 (08:05→17:23)
[2019-09-11] MEDS: predniSONE 20 MG Tab PO SCH (08:06)
[2019-09-11] MEDS: Potassium Chloride 10 MEQ Tab.ER PO SCH ×3 (08:06→20:02)
[2019-09-11] MEDS: Arformoterol 15 MCG/2 ML Neb Soln INH SCH ×2 (08:15→20:06)
[2019-09-11] MEDS: Carboxymethylcellulose Sodium 0.5% Ophth Soln 0.4 ML UD Box of 30 EYEBOTH SCH ×4 (08:15→20:00)
[2019-09-11] MEDS: Losartan 25 MG Tab PO SCH (08:19)
[2019-09-11] MEDS: busPIRone 5 MG Tab PO SCH ×2 (08:19→20:02)
[2019-09-11] MEDS: guaiFENesin 600 MG Tab.ER PO SCH ×2 (08:20→20:02)
[2019-09-11] MEDS: Clopidogrel 75 MG Tab PO SCH (08:20)
[2019-09-11] MEDS: Furosemide 40 MG Tab PO SCH (08:20)
[2019-09-11] MEDS: Escitalopram 20 MG Tab PO SCH (08:20)
[2019-09-11] MEDS: Aspirin 81 MG Tab.EC PO SCH (08:20)
[2019-09-11] MEDS: Isosorbide Mononitrate 30 MG Tab.ER PO SCH (08:21)
[2019-09-11] MEDS: BRINZOLAMIDE EYERT SCH ×3 (08:32→20:00)
[2019-09-11] MEDS: Multivitamins,Therapeutic Tab PO SCH (11:15)
[2019-09-11] MEDS: Calcium Carbonate 500 MG Tablet PO SCH ×2 (11:15→17:24)
[2019-09-11] MEDS: Magnesium Chloride 64 MG Tab.ER PO SCH (11:15)
[2019-09-11] MEDS: Morphine 10 MG/0.5 ML Oral Syringe SL PRN (11:43)
--- NOTE | 2019-09-11 12:01 | PN ---
DATE SEEN: 09/11/2019 SUBJECTIVE: Colleen De León is a delightful 88-year-old female, seen today for review of end-stage COPD. Echocardiogram revealed stable cardiac status. Planning visit to a retina specialist for an eye injection. Medications on board reviewed. OBJECTIVE: VITAL SIGNS: 132/65, 90% on 2.5 L. GENERAL: Dyspneic on conversation. NECK: No JVD. CHEST: Coarse rhonchi, diffuse wheezing. HEART: Distant heart sounds. Soft murmur. ABDOMEN: Benign. ASSESSMENT: End-stage chronic obstructive pulmonary disease. PLAN: Medications on board, timing appropriate, no other intervention applicable. Comfort measures alone. Discharge planning in process. /[id number] /CLAUDETTE
[2019-09-11] MEDS: Ferrous Sulfate 325 MG Tab PO SCH (16:10)
[2019-09-11] MEDS: BIMATOPROST EYERT SCH (20:00)
[2019-09-11] MEDS: Mirtazapine 15 MG Tab PO SCH (20:01)
[2019-09-11] MEDS: Montelukast 10 MG Tab PO SCH (20:02)
[2019-09-11] MEDS: Simvastatin 20 MG Tab PO SCH (20:03)
[2019-09-11] MEDS: Roflumilast 500 MCG Tab PO SCH (20:03)
[2019-09-11] MEDS: Cyclobenzaprine 10 MG Tab PO PRN (20:09)
[2019-09-11] MEDS: Acetaminophen 500 MG Tab PO PRN (20:09)
[2019-09-12] MEDS: Albuterol/Ipratropium 3.0-0.5 MG/3 ML Neb Soln INH PRN ×2 (02:23→15:11)
[2019-09-12] MEDS: Pantoprazole 40 MG Tab.CR PO SCH (06:08)
[2019-09-12] MEDS: Albuterol/Ipratropium 3.0-0.5 MG/3 ML Neb Soln INH SCH ×4 (06:08→20:23)
[2019-09-12] MEDS: ALPRAZolam 0.25 MG Tab PO PRN ×2 (07:32→12:53)
[2019-09-12] MEDS: Carvedilol 6.25 MG Tab PO SCH ×2 (07:34→17:59)
[2019-09-12] MEDS: Potassium Chloride 10 MEQ Tab.ER PO SCH ×3 (07:34→20:21)
[2019-09-12] MEDS: Budesonide 0.5 MG/2 ML Neb Susp INH SCH ×2 (07:39→20:13)
[2019-09-12] MEDS: Carboxymethylcellulose Sodium 0.5% Ophth Soln 0.4 ML UD Box of 30 EYEBOTH SCH ×4 (08:36→20:23)
[2019-09-12] MEDS: predniSONE 10 MG Tab PO SCH (08:37)
[2019-09-12] MEDS: busPIRone 5 MG Tab PO SCH ×2 (08:37→20:21)
[2019-09-12] MEDS: Isosorbide Mononitrate 30 MG Tab.ER PO SCH (08:37)
[2019-09-12] MEDS: Clopidogrel 75 MG Tab PO SCH (08:38)
[2019-09-12] MEDS: Escitalopram 20 MG Tab PO SCH (08:38)
[2019-09-12] MEDS: guaiFENesin 600 MG Tab.ER PO SCH ×2 (08:38→20:23)
[2019-09-12] MEDS: Furosemide 40 MG Tab PO SCH (08:38)
[2019-09-12] MEDS: Aspirin 81 MG Tab.EC PO SCH (08:38)
[2019-09-12] MEDS: Losartan 25 MG Tab PO SCH (08:39)
[2019-09-12] MEDS: BRINZOLAMIDE EYERT SCH ×3 (08:40→20:13)
[2019-09-12] MEDS: Arformoterol 15 MCG/2 ML Neb Soln INH SCH ×2 (09:13→20:19)
[2019-09-12] MEDS: Benzonatate 100 MG Cap PO PRN (09:59)
[2019-09-12] MEDS: Morphine 2 MG/ML Syringe IVPUSH PRN (10:25)
[2019-09-12] MEDS: Morphine 10 MG/0.5 ML Oral Syringe SL PRN ×2 (11:26→15:26)
[2019-09-12] MEDS: Magnesium Chloride 64 MG Tab.ER PO SCH (11:29)
[2019-09-12] MEDS: Calcium Carbonate 500 MG Tablet PO SCH ×2 (11:30→18:04)
[2019-09-12] MEDS: Multivitamins,Therapeutic Tab PO SCH (11:30)
--- NOTE | 2019-09-12 13:55 | PN ---
DATE SEEN: 09/12/2019 SUBJECTIVE: Betty De León is a delightful 88-year-old female with end-stage COPD. Better last couple of days. Discharge planning in place. Has an upcoming visit with Cardiology, intervention to be provided accordingly. Continues to do reasonably well. OBJECTIVE: VITAL SIGNS: 144/77, 2.5 L 93%. GENERAL: Short of breath with conversation. NECK: No JVD. CHEST: Coarse rhonchi. Diffuse wheezing. HEART: Distant heart sounds. ABDOMEN: Benign. IMPRESSION: End-stage chronic obstructive pulmonary disease. PLAN: Maximum inhalation therapy in place and reduced her prednisone from 20 to 10 mg. Complementary care and well being. /[id number] SYDNEE/CLAUDETTE
[2019-09-12] MEDS: Ferrous Sulfate 325 MG Tab PO SCH (15:11)
[2019-09-12] MEDS: BIMATOPROST EYERT SCH (20:13)
[2019-09-12] MEDS: Mirtazapine 15 MG Tab PO SCH (20:21)
[2019-09-12] MEDS: Roflumilast 500 MCG Tab PO SCH (20:21)
[2019-09-12] MEDS: Montelukast 10 MG Tab PO SCH (20:21)
[2019-09-12] MEDS: Simvastatin 20 MG Tab PO SCH (20:22)
[2019-09-12] MEDS: Cyclobenzaprine 10 MG Tab PO PRN (20:32)
[2019-09-12] MEDS: Acetaminophen 500 MG Tab PO PRN (20:32)
[2019-09-13] MEDS: Pantoprazole 40 MG Tab.CR PO SCH (05:50)
[2019-09-13] MEDS: Albuterol/Ipratropium 3.0-0.5 MG/3 ML Neb Soln INH SCH ×4 (06:00→20:01)
[2019-09-13] MEDS ORDERED: predniSONE 10 MG Tab PO SCH (08:00)
[2019-09-13] MEDS: Carvedilol 6.25 MG Tab PO SCH ×2 (08:19→17:37)
[2019-09-13] MEDS: Budesonide 0.5 MG/2 ML Neb Susp INH SCH ×2 (08:31→19:59)
[2019-09-13] MEDS: Arformoterol 15 MCG/2 ML Neb Soln INH SCH ×2 (08:32→20:00)
[2019-09-13] MEDS: Potassium Chloride 10 MEQ Tab.ER PO SCH ×3 (08:32→20:01)
[2019-09-13] MEDS: busPIRone 5 MG Tab PO SCH ×2 (08:33→20:00)
[2019-09-13] MEDS: BRINZOLAMIDE EYERT SCH ×3 (08:33→20:00)
[2019-09-13] MEDS: Isosorbide Mononitrate 30 MG Tab.ER PO SCH (08:34)
[2019-09-13] MEDS: Aspirin 81 MG Tab.EC PO SCH (08:34)
[2019-09-13] MEDS: Losartan 25 MG Tab PO SCH (08:34)
[2019-09-13] MEDS: Furosemide 40 MG Tab PO SCH (08:35)
[2019-09-13] MEDS: Escitalopram 20 MG Tab PO SCH (08:35)
[2019-09-13] MEDS: Clopidogrel 75 MG Tab PO SCH (08:38)
[2019-09-13] MEDS: Carboxymethylcellulose Sodium 0.5% Ophth Soln 0.4 ML UD Box of 30 EYEBOTH SCH ×4 (08:38→20:03)
[2019-09-13] MEDS: predniSONE 10 MG Tab PO SCH (08:38)
[2019-09-13] MEDS: guaiFENesin 600 MG Tab.ER PO SCH ×2 (09:16→20:02)
[2019-09-13] MEDS: ALPRAZolam 0.25 MG Tab PO PRN ×2 (10:12→20:04)
[2019-09-13] MEDS: Multivitamins,Therapeutic Tab PO SCH (11:51)
[2019-09-13] MEDS: Calcium Carbonate 500 MG Tablet PO SCH ×2 (11:51→17:37)
[2019-09-13] MEDS: Magnesium Chloride 64 MG Tab.ER PO SCH (11:51)
[2019-09-13] MEDS: Ferrous Sulfate 325 MG Tab PO SCH (13:55)
[2019-09-13] MEDS: Albuterol/Ipratropium 3.0-0.5 MG/3 ML Neb Soln INH PRN (14:23)
[2019-09-13] MEDS: BIMATOPROST EYERT SCH (19:59)
[2019-09-13] MEDS: Roflumilast 500 MCG Tab PO SCH (20:01)
[2019-09-13] MEDS: Mirtazapine 15 MG Tab PO SCH (20:03)
[2019-09-13] MEDS: Cyclobenzaprine 10 MG Tab PO PRN (20:04)
[2019-09-13] MEDS: Acetaminophen 500 MG Tab PO PRN (20:04)
[2019-09-13] MEDS: Montelukast 10 MG Tab PO SCH (20:04)
[2019-09-13] MEDS: Simvastatin 20 MG Tab PO SCH (20:04)
[2019-09-14] MEDS: Albuterol/Ipratropium 3.0-0.5 MG/3 ML Neb Soln INH PRN ×2 (04:27→13:05)
[2019-09-14] MEDS: ALPRAZolam 0.25 MG Tab PO PRN ×4 (04:27→20:39)
[2019-09-14] MEDS: Pantoprazole 40 MG Tab.CR PO SCH (06:19)
[2019-09-14] MEDS: Albuterol/Ipratropium 3.0-0.5 MG/3 ML Neb Soln INH SCH ×4 (06:53→20:36)
[2019-09-14] MEDS: Budesonide 0.5 MG/2 ML Neb Susp INH SCH ×2 (07:57→20:34)
[2019-09-14] MEDS: Arformoterol 15 MCG/2 ML Neb Soln INH SCH ×2 (08:08→20:35)
[2019-09-14] MEDS: Carboxymethylcellulose Sodium 0.5% Ophth Soln 0.4 ML UD Box of 30 EYEBOTH SCH ×4 (09:16→20:37)
[2019-09-14] MEDS: BRINZOLAMIDE EYERT SCH ×3 (09:16→20:35)
[2019-09-14] MEDS: Carvedilol 6.25 MG Tab PO SCH ×2 (09:17→18:22)
[2019-09-14] MEDS: Clopidogrel 75 MG Tab PO SCH (09:17)
[2019-09-14] MEDS: predniSONE 10 MG Tab PO SCH (09:17)
[2019-09-14] MEDS: guaiFENesin 600 MG Tab.ER PO SCH ×2 (09:17→20:37)
[2019-09-14] MEDS: Escitalopram 20 MG Tab PO SCH (09:17)
[2019-09-14] MEDS: busPIRone 5 MG Tab PO SCH ×2 (09:17→20:36)
[2019-09-14] MEDS: Potassium Chloride 10 MEQ Tab.ER PO SCH ×3 (09:18→20:37)
[2019-09-14] MEDS: Aspirin 81 MG Tab.EC PO SCH (09:18)
[2019-09-14] MEDS: Furosemide 40 MG Tab PO SCH (09:18)
[2019-09-14] MEDS: Isosorbide Mononitrate 30 MG Tab.ER PO SCH (09:18)
[2019-09-14] MEDS: Losartan 25 MG Tab PO SCH (09:18)
[2019-09-14] MEDS: Polyethylene Glycol 3350 Powder 17 GM Packet PO PRN (09:24)
[2019-09-14] MEDS: Acetaminophen 500 MG Tab PO PRN ×2 (11:15→20:39)
[2019-09-14] MEDS: Cyclobenzaprine 10 MG Tab PO PRN ×2 (11:15→20:39)
[2019-09-14] MEDS: Calcium Carbonate 500 MG Tablet PO SCH ×2 (12:57→18:22)
[2019-09-14] MEDS: Magnesium Chloride 64 MG Tab.ER PO SCH (12:57)
[2019-09-14] MEDS: Multivitamins,Therapeutic Tab PO SCH (12:57)
[2019-09-14] MEDS: Ferrous Sulfate 325 MG Tab PO SCH (14:20)
[2019-09-14] MEDS: BIMATOPROST EYERT SCH (20:35)
[2019-09-14] MEDS: Roflumilast 500 MCG Tab PO SCH (20:36)
[2019-09-14] MEDS: Montelukast 10 MG Tab PO SCH (20:38)
[2019-09-14] MEDS: Mirtazapine 15 MG Tab PO SCH (20:38)
[2019-09-14] MEDS: Simvastatin 20 MG Tab PO SCH (20:38)
[2019-09-15] MEDS: Albuterol/Ipratropium 3.0-0.5 MG/3 ML Neb Soln INH SCH ×4 (06:04→20:00)
[2019-09-15] MEDS: Pantoprazole 40 MG Tab.CR PO SCH (06:04)
[2019-09-15] MEDS: ALPRAZolam 0.25 MG Tab PO PRN ×4 (06:05→20:11)
[2019-09-15] MEDS: Carvedilol 6.25 MG Tab PO SCH ×2 (08:48→19:00)
[2019-09-15] MEDS: busPIRone 5 MG Tab PO SCH ×2 (09:23→20:03)
[2019-09-15] MEDS: Escitalopram 20 MG Tab PO SCH (09:23)
[2019-09-15] MEDS: Potassium Chloride 10 MEQ Tab.ER PO SCH ×3 (09:23→20:09)
[2019-09-15] MEDS: Losartan 25 MG Tab PO SCH (09:23)
[2019-09-15] MEDS: Arformoterol 15 MCG/2 ML Neb Soln INH SCH ×2 (09:24→20:00)
[2019-09-15] MEDS: Isosorbide Mononitrate 30 MG Tab.ER PO SCH (09:24)
[2019-09-15] MEDS: Furosemide 40 MG Tab PO SCH (09:24)
[2019-09-15] MEDS: guaiFENesin 600 MG Tab.ER PO SCH ×2 (09:24→20:10)
[2019-09-15] MEDS: Clopidogrel 75 MG Tab PO SCH (09:25)
[2019-09-15] MEDS: Budesonide 0.5 MG/2 ML Neb Susp INH SCH ×2 (09:26→20:00)
[2019-09-15] MEDS: Cyclobenzaprine 10 MG Tab PO PRN ×2 (09:27→20:11)
[2019-09-15] MEDS: Polyethylene Glycol 3350 Powder 17 GM Packet PO PRN (09:27)
[2019-09-15] MEDS: BRINZOLAMIDE EYERT SCH ×3 (09:37→20:02)
[2019-09-15] MEDS: Carboxymethylcellulose Sodium 0.5% Ophth Soln 0.4 ML UD Box of 30 EYEBOTH SCH ×4 (09:38→20:01)
[2019-09-15] MEDS: Magnesium Chloride 64 MG Tab.ER PO SCH (11:34)
[2019-09-15] MEDS: Multivitamins,Therapeutic Tab PO SCH (11:34)
[2019-09-15] MEDS: Calcium Carbonate 500 MG Tablet PO SCH ×2 (11:34→19:01)
[2019-09-15] MEDS: Ferrous Sulfate 325 MG Tab PO SCH ×2 (11:36→17:41)
[2019-09-15] MEDS: Sucralfate 1 GM Tab PO SCH ×3 (11:36→20:07)
[2019-09-15] MEDS: Ketotifen 0.025% Ophth Soln 5 ML Bottle EYEBOTH PRN (18:59)
[2019-09-15] MEDS: predniSONE 10 MG Tab PO SCH (19:56)
[2019-09-15] MEDS: Aspirin 81 MG Tab.EC PO SCH (19:56)
[2019-09-15] MEDS: BIMATOPROST EYERT SCH (20:02)
[2019-09-15] MEDS: Mirtazapine 15 MG Tab PO SCH (20:08)
[2019-09-15] MEDS: Simvastatin 20 MG Tab PO SCH (20:10)
[2019-09-15] MEDS: Montelukast 10 MG Tab PO SCH (20:10)
[2019-09-15] MEDS: Acetaminophen 500 MG Tab PO PRN (20:11)
[2019-09-15] MEDS: Roflumilast 500 MCG Tab PO SCH (20:52)
[2019-09-16] MEDS: Albuterol/Ipratropium 3.0-0.5 MG/3 ML Neb Soln INH SCH ×4 (06:26→20:24)
[2019-09-16] MEDS: Pantoprazole 40 MG Tab.CR PO SCH (06:26)
[2019-09-16] MEDS: ALPRAZolam 0.25 MG Tab PO PRN ×2 (06:26→14:12)
[2019-09-16] MEDS: busPIRone 5 MG Tab PO SCH ×2 (08:28→20:23)
[2019-09-16] MEDS: Escitalopram 20 MG Tab PO SCH (08:28)
[2019-09-16] MEDS: Isosorbide Mononitrate 30 MG Tab.ER PO SCH (08:28)
[2019-09-16] MEDS: guaiFENesin 600 MG Tab.ER PO SCH ×2 (08:33→20:26)
[2019-09-16] MEDS: Furosemide 40 MG Tab PO SCH (08:33)
[2019-09-16] MEDS: Clopidogrel 75 MG Tab PO SCH (08:33)
[2019-09-16] MEDS: Potassium Chloride 10 MEQ Tab.ER PO SCH ×3 (08:33→20:24)
[2019-09-16] MEDS: Carvedilol 6.25 MG Tab PO SCH ×2 (08:34→17:57)
[2019-09-16] MEDS: Losartan 25 MG Tab PO SCH (08:34)
[2019-09-16] MEDS: BRINZOLAMIDE EYERT SCH ×3 (08:35→20:21)
[2019-09-16] MEDS: Ketotifen 0.025% Ophth Soln 5 ML Bottle EYEBOTH PRN (08:35)
[2019-09-16] MEDS: Carboxymethylcellulose Sodium 0.5% Ophth Soln 0.4 ML UD Box of 30 EYEBOTH SCH ×4 (08:35→20:29)
[2019-09-16] MEDS: Budesonide 0.5 MG/2 ML Neb Susp INH SCH ×2 (08:40→19:54)
[2019-09-16] MEDS: Sucralfate 1 GM Tab PO SCH ×4 (08:48→20:26)
[2019-09-16] MEDS: predniSONE 5 MG Tab PO SCH (08:48)
[2019-09-16] MEDS: Arformoterol 15 MCG/2 ML Neb Soln INH SCH ×2 (08:50→20:21)
[2019-09-16] MEDS ORDERED: ALPRAZolam 0.25 MG Tab PO ONE (09:05)
[2019-09-16] MEDS: Magnesium Chloride 64 MG Tab.ER PO SCH (14:05)
[2019-09-16] MEDS: Multivitamins,Therapeutic Tab PO SCH (14:05)
[2019-09-16] MEDS: Ferrous Sulfate 325 MG Tab PO SCH (14:06)
[2019-09-16] MEDS: Calcium Carbonate 500 MG Tablet PO SCH ×2 (14:06→17:58)
--- NOTE | 2019-09-16 15:07 | PN ---
DATE SEEN: 09/15/2019 HISTORY OF PRESENT ILLNESS: Betty is an 88-year-old woman from [place], who was hospitalized at [facility] in [place] on 08/08/2019, with shortness of breath. She had chronic severe aortic stenosis and underwent left heart catheterization. She had a balloon aortic valvuloplasty on 08/08/2019 and angioplasty to two vessels with stent placement. Postoperatively, she had an exacerbation of COPD, and she was discharged to [facility] on 08/15/2019. She has been slowly improving and has been on steroid taper, recently decreased from 20 to 10 mg. Ms. De León states that she developed heartburn over the past couple of days and wonders if her pills are doing it. PHYSICAL EXAMINATION: GENERAL: She is alert and comfortable. She is a good historian and looks younger than her age. VITAL SIGNS: Blood pressure 134/76, pulse 94 and regular, O2 saturation 94% on 2.5 L nasal cannula oxygen. SKIN: Shows no rash. MOUTH: Dry. LUNGS: Have distant breath sounds. HEART: Sounds are also quite distant, and she has what sounds like a rumbling systolic murmur over the precordium. ABDOMEN: Normal bowel sounds. Soft. No tenderness. No mass. No guarding or rebound. EXTREMITIES: Show no edema. ASSESSMENT: 1. Gastroesophageal reflux disease, likely medication induced. 2. Coronary artery disease. 3. Severe aortic stenosis. 4. Chronic obstructive pulmonary disease, oxygen-dependent. 5. Hypertension. 6. Generalized weakness and infirmities of aging. PLAN: We will hold her aspirin and continue the Plavix. We will decrease her prednisone from 10 mg to 5 mg daily. We will add Carafate t.i.d. for 48 hours. Continue her Protonix. We will continue to provide palliative care measures for other underlying medical problems. Ms. De León does have a followup appointment scheduled with Dr. Villegas in Cardiology for 09/20/2019, to re-evaluate her for TAVR. /[id number] HAKAN/CLAUDETTE
[2019-09-16] MEDS: Roflumilast 500 MCG Tab PO SCH (20:23)
[2019-09-16] MEDS: BIMATOPROST EYERT SCH (20:23)
[2019-09-16] MEDS: Montelukast 10 MG Tab PO SCH (20:27)
[2019-09-16] MEDS: Mirtazapine 15 MG Tab PO SCH (20:27)
[2019-09-16] MEDS: Simvastatin 20 MG Tab PO SCH (20:28)
[2019-09-16] MEDS: Acetaminophen 500 MG Tab PO PRN (20:41)
[2019-09-16] MEDS: Cyclobenzaprine 10 MG Tab PO PRN (20:41)
[2019-09-17] MEDS: Albuterol/Ipratropium 3.0-0.5 MG/3 ML Neb Soln INH SCH ×2 (06:47→10:03)
[2019-09-17] MEDS: Pantoprazole 40 MG Tab.CR PO SCH (06:47)
[2019-09-17] MEDS: Carvedilol 6.25 MG Tab PO SCH (07:20)
[2019-09-17] MEDS: Budesonide 0.5 MG/2 ML Neb Susp INH SCH (07:21)
[2019-09-17] MEDS: Sucralfate 1 GM Tab PO SCH (07:21)
[2019-09-17] MEDS: Potassium Chloride 10 MEQ Tab.ER PO SCH (07:21)
[2019-09-17] MEDS: BRINZOLAMIDE EYERT SCH (08:06)
[2019-09-17] MEDS: Arformoterol 15 MCG/2 ML Neb Soln INH SCH (08:07)
[2019-09-17] MEDS: Carboxymethylcellulose Sodium 0.5% Ophth Soln 0.4 ML UD Box of 30 EYEBOTH SCH (08:07)
[2019-09-17] MEDS: Isosorbide Mononitrate 30 MG Tab.ER PO SCH (08:08)
[2019-09-17] MEDS: Clopidogrel 75 MG Tab PO SCH (08:08)
[2019-09-17] MEDS: busPIRone 5 MG Tab PO SCH (08:08)
[2019-09-17] MEDS: Furosemide 40 MG Tab PO SCH (08:09)
[2019-09-17] MEDS: predniSONE 5 MG Tab PO SCH (08:09)
[2019-09-17] MEDS: Escitalopram 20 MG Tab PO SCH (08:09)
[2019-09-17] MEDS: guaiFENesin 600 MG Tab.ER PO SCH (08:09)
[2019-09-17] MEDS: Losartan 25 MG Tab PO SCH (08:10)
[2019-09-17] MEDS: ALPRAZolam 0.25 MG Tab PO PRN (09:28)
[2019-09-17] MEDS ORDERED: Tuberculin, PPD 5 Units/0.1 ML 1 ML MDV IDERM ONE (09:50)
[2019-09-17 14:09] VITALS: BP 108/65
[2019-09-17 16:10] VITALS: PULSE 68
[2019-09-18] MEDS ORDERED: predniSONE 5 MG Tab PO SCH (08:00)
--- NOTE | 2019-09-18 09:05 | DISCH ---
DISCHARGE DATE: 09/17/2019 PRIMARY FINAL DIAGNOSIS: Severe chronic obstructive pulmonary disease, oxygen- dependent. OTHER DIAGNOSES: 1. Coronary artery disease, status post angioplasty and stents. 2. Severe aortic stenosis, status post balloon valvuloplasty. 3. Anemia. 4. Congestive heart failure. 5. Hypokalemia. 6. Anxiety. 7. Hypertension. 8. Depression. OPERATIONS: The patient underwent angioplasty with stent placement and aortic valvuloplasty by Dr. Villegas in [place] on 08/08/2019. HOSPITAL COURSE: Ms. De León is an 88-year-old with severe chronic COPD, who was hospitalized at [facility] in [place] and then transferred to [facility] in [place] for severe aortic stenosis with possible TAVR. She underwent angiogram showing severe coronary artery disease, along with the stenosis. She had angioplasty and aortic balloon valvuloplasty and postop course complicated by her COPD. She was discharged to [facility] for recuperation on 08/15/2019. She has been stable and slowly improving. She remains on oxygen at 2 to 2.5 L/minute nasal cannula, along with multiple cardiac and pulmonary medicines prescribed in [place]. She has now had a followup appointment with Dr. Villegas in Cardiology and was told that the TAVR would not be survivable with her condition, and thus, she will continue on medical management. She is now strong enough for discharge to [facility]. She will continue on her multiple medications. See separate medication list from this dictation. [facility]. /[id number] HAKAN/CLAUD[place]TE
== END 2019-09-17 10:28 | DRG 190 ==
LOC: FB.MS 15:04
PROVIDERS: ADMIT Family Medicine; ATTEND Family Medicine
DX: J44.1 Chronic obstructive pulmonary disease with (acute) exacerbation (principal); J18.9 Pneumonia, unspecified organism; I50.42 Chronic combined systolic (congestive) and diastolic (congestive) heart failure; F33.9 Major depressive disorder, recurrent, unspecified; I25.10 Atherosclerotic heart disease of native coronary artery without angina pectoris; I48.91 Unspecified atrial fibrillation; I73.9 Peripheral vascular disease, unspecified; H40.9 Unspecified glaucoma; H54.7 Unspecified visual loss; E78.00 Pure hypercholesterolemia, unspecified; I11.0 Hypertensive heart disease with heart failure; K21.9 Gastro-esophageal reflux disease without esophagitis; F41.9 Anxiety disorder, unspecified; G89.29 Other chronic pain; M54.9 Dorsalgia, unspecified; M19.91 Primary osteoarthritis, unspecified site; M81.0 Age-related osteoporosis without current pathological fracture; Z96.649 Presence of unspecified artificial hip joint; I35.0 Nonrheumatic aortic (valve) stenosis; D64.9 Anemia, unspecified; E87.6 Hypokalemia; Z90.49 Acquired absence of other specified parts of digestive tract; Z87.442 Personal history of urinary calculi; Z88.1 Allergy status to other antibiotic agents; Z79.82 Long term (current) use of aspirin; Z79.52 Long term (current) use of systemic steroids; Z79.899 Other long term (current) drug therapy; Z98.49 Cataract extraction status, unspecified eye; I25.2 Old myocardial infarction; Z95.5 Presence of coronary angioplasty implant and graft; Z99.81 Dependence on supplemental oxygen; Z87.891 Personal history of nicotine dependence
CPT/HCPCS: 36415; 36600; 71046; 80053; 80069; 81001; 82803; 83880; 85025; 86580; 90686; 93306; 94640; 94760; 97110-GO; 97110-GP; 97116-GP; 97161-GP; 97165-GO; 97530-GO; 97530-GP; 97542-GO; A9270-GY; J2270; J7605; J7620-GY